=== PATIENT | female | born 1945 | race Hispanic/Latino ===

== ENCOUNTER 2020-02-13 15:56 | Emergency (ER) | payer OTHER ==
--- NOTE | 2020-02-13 17:32 | RAD REPORT ---
EXAM DESCRIPTION: RAD - Shoulder Left 2 View - 02/13/2020 5:19 pm CLINICAL HISTORY: PAIN COMPARISON: Chest Single View dated 02/17/2017; Thorax Wo Con dated 10/27/2016 TECHNIQUE: Internal and external rotation views of the left shoulder were obtained. FINDINGS: There is no fracture or dislocation. AC joint is widened compared to the prior imaging. Pa tient could have mild AC joint separation. Correlation is needed with local symptoms. No displacement of the clavicle. No acute or suspicious findings. IMPRESSION: No fracture or dislocation identifiable. Widening of the AC joint compared to prior imaging. Correlation is needed with mild AC joint separati on findings.
--- NOTE | 2020-02-13 17:34 | RAD REPORT ---
EXAM DESCRIPTION: RAD - Femur Left - 02/13/2020 5:19 pm CLINICAL HISTORY: PAIN COMPARISON: Pelvis March 2014 FINDINGS: No femur fracture is identified. There is no dislocation or periosteal reaction noted. Bi polar hip prosthesis in place. No acute or suspicious bony finding. No air or foreign body in the sof t tissues. IMPRESSION: No left femur fracture. No acute left hip implant or femur finding.
[2020-02-13] MEDS ORDERED: KETOROLAC 30 MG/ML INJ ONE (17:45)
[2020-02-13] MEDS ORDERED: HYDROCODONE/APAP 7.5/325 MG TAB ONE (18:37)
--- NOTE | 2020-02-13 18:39 | EDPHYS ---
[facility] Name: Jacki Brar Age: 74 yrs Sex: Female : 1945 Arrival Date: 02/13/2020 Time: 16:02 Bed 7 Private MD: ED Physician Luz Palafox HPI: 02/12 18:36 This 74 yrs old Female presents to ER via Wheelchair with complaints of Fall ma2 Injury. 18:36 Details of fall: The patient fell from a supine position. Onset: The symptoms/episode ma2 began/occurred suddenly, gradually, 1 hour(s) ago. Severity of symptoms: At their worst the symptoms were moderate, in the emergency department the symptoms are unchanged. The patient has not experienced similar symptoms in the past. left sided hip pain, s/p total hip replacement . Historical: - Allergies: 16:22 No Known Allergies; ca1 - Home Meds: 16:22 Aspirin Oral [Active]; Iron CR Oral [Active]; Prednisone Oral [Active]; ca1 - PMHx: 16:22 Anemia; TIA; ca1 - PSHx: 16:22 x2 Hip replacements; Appendectomy; Cholecystectomy; Tonsillectomy; ca1 - Immunization history:: Adult Immunizations up to date. - Social history:: Smoking status: Patient denies any tobacco usage or history of. Patient/guardian denies using alcohol, street drugs, The patient lives with family. - Family history:: not pertinent. ROS: 18:36 Constitutional: Negative for fever, chills, and weight loss. ma2 18:36 All other systems are negative. Exam: 18:36 Constitutional: This is a well developed, well nourished patient who is awake, alert, ma2 and in no acute distress. Cardiovascular: Regular rate and rhythm with a normal S1 and S2. No gallops, murmurs, or rubs. Normal PMI, no JVD. No pulse deficits. Respiratory: Lungs have equal breath sounds bilaterally, clear to auscultation and percussion. No rales, rhonchi or wheezes noted. No increased work of breathing, no retractions or nasal flaring. Abdomen/GI: Soft, non-tender, with normal bowel sounds. No distension or tympany. No guarding or rebound. No evidence of tenderness throughout. Back: No spinal tenderness. No costovertebral tenderness. Full range of motion. MS/ Extremity: Pulses equal, no cyanosis. Neurovascular intact. Full, normal range of motion. Neuro: Awake and alert, GCS 15, oriented to person, place, time, and situation. Cranial nerves II-XII grossly intact. Motor strength 5/5 in all extremities. Sensory grossly intact. Cerebellar exam normal. Normal gait. Psych: Awake, alert, with orientation to person, place and time. Behavior, mood, and affect are within normal limits. Vital Signs: 16:18 BP 113 / 73; Pulse 115; Resp 16 S; Temp 98.2(TE); Pulse Ox 92% on R/A; Weight 53.98 kg ca1 (R); Height 5 ft. 2 in. (157.48 cm) (R); Pain 8/10; 17:50 BP 156 / 90; Pulse 95; Resp 19; Pulse Ox 97% ; jl7 16:18 Body Mass Index 21.77 (53.98 kg, 157.48 cm) ca1 MDM: 17:13 Patient medically screened. ma2 18:36 Differential diagnosis: abrasion, closed head injury, contusion, fracture, multiple ma2 trauma, sprain, strain. Data reviewed: vital signs, nurses notes. Counseling: I had a detailed discussion with the patient and/or guardian regarding: the historical points, exam findings, and any diagnostic results supporting the discharge/admit diagnosis, the presence of at least one elevated blood pressure reading (>120/80) during this emergency department visit, the need for outpatient follow up. Response to treatment: the patient's symptoms have resolved after treatment. 02/12 16:24 Order name: XRAY Femur LEFT; Complete Time: 18:09 ca1 02/12 16:24 Order name: XRAY Shoulder LEFT 2 view; Complete Time: 18:09 ca1 Administered Medications: 17:45 Drug: TORadol 60 mg Route: IM; Site: right ventrogluteal; jl7 18:15 Follow up: Response: No adverse reaction; Pain is unchanged, physician notified jl7 18:37 Drug: [place] (7.5 mg-325 mg) 1 tabs Route: PO; jl7 Disposition: 02/13/20 18:39 Discharged to Home. Impression: Other sprain of left hip. - Condition is Stable. - Discharge Instructions: Hip Bursitis, [id number]. - Prescriptions for Diclofenac Sodium 75 mg Oral Tablet Sustained Release - take 1 tablet by ORAL route 2 times per day; 30 tablet. - Medication Reconciliation Form, Thank You Letter, Antibiotic Education, Prescription Opioid Use form. - Follow up: Private Physician; When: Tomorrow; Reason: Continuance of care. Signatures: Dispatcher [employer] EDGA Trinidad Mon RN RN aa5 Brenda Barnett RN RN jl7 Luz Palafox MD MD ma2 Tiffany Crawford RN RN ca1 Corrections: (The following items were deleted from the chart) 17:35 16:24 Hip Left 2 View+RAD.RAD.BRZ ordered. [facility] 18:50 18:39 02/13/2020 18:39 Discharged to Home. Impression: Other sprain of left hip. jl7 Condition is Stable. Forms are Medication Reconciliation Form, Thank You Letter, Antibiotic Education, Prescription Opioid Use. Follow up: Private Physician; When: Tomorrow; Reason: Continuance of care. ma2
--- NOTE | 2020-02-13 18:39 | ER ---
Nurse's Notes [facility] Name: Jacki Brar Age: 74 yrs Sex: Female : 1945 Arrival Date: 02/13/2020 Time: 16:02 Bed 7 Private MD: Diagnosis: Other sprain of left hip Presentation: 02/12 16:18 Chief complaint: Patient states: Slipped and fell off 4 steps down. Reports pain on L ca1 hip, L thigh, L shoulder. Denies LOC. Denies hitting head. Coronavirus screen: Proceed with normal triage. Patient denies a cough. Patient denies shortness of breath or difficulty breathing. Patient denies measured and/or subjective temperature greater than 100.4F prior to today's visit. Patient denies travel on a cruise ship or to a country the [facility] currently lists as an affected area. Patient denies contact with known and/or suspected case of COVID-19. Ebola Screen: Patient negative for fever greater than or equal to 101.5 degrees Fahrenheit, and additional compatible Ebola Virus Disease symptoms Patient denies exposure to infectious person. Patient denies travel to an Ebola-affected area in the 21 days before illness onset. No symptoms or risks identified at this time. Initial Sepsis Screen: Does the patient meet any 2 criteria? No. Patient's initial sepsis screen is negative. Does the patient have a suspected source of infection? No. Patient's initial sepsis screen is negative. Risk Assessment: Do you want to hurt yourself or someone else? Patient reports no desire to harm self or others. Onset of symptoms was February 13, 2020. 16:18 Method Of Arrival: Wheelchair ca1 16:18 Acuity: JOSE 3 ca1 Historical: - Allergies: 16:22 No Known Allergies; ca1 - Home Meds: 16:22 Aspirin Oral [Active]; Iron CR Oral [Active]; Prednisone Oral [Active]; ca1 - PMHx: 16:22 Anemia; TIA; ca1 - PSHx: 16:22 x2 Hip replacements; Appendectomy; Cholecystectomy; Tonsillectomy; ca1 - Immunization history:: Adult Immunizations up to date. - Social history:: Smoking status: Patient denies any tobacco usage or history of. Patient/guardian denies using alcohol, street drugs, The patient lives with family. - Family history:: not pertinent. Screenin:50 Abuse screen: Denies threats or abuse. Denies injuries from another. Nutritional jl7 screening: No deficits noted. Tuberculosis screening: No symptoms or risk factors identified. Fall Risk Fall in past 12 months (25 points). Total Infante Fall Scale indicates Low Risk Score (25-44 pts). Fall prevention measures have been instituted. Side Rails Up X 2 Placed close to Nursing Station Frequent Obs/Assesments occuring Family Present and informed to notify staff if they need to leave bedside As available Patient and Family Educated on Fall Prevention Program and strategies. Assessment: 17:30 General: Appears in no apparent distress. uncomfortable, Behavior is calm, cooperative, jl7 appropriate for age. Pain: Complains of pain in left quadriceps, left knee and left crawford Pain currently is 8 out of 10 on a pain scale. Neuro: Level of Consciousness is awake, alert, obeys commands, Oriented to person, place, time, situation. Cardiovascular: Patient's skin is warm and dry. Respiratory: Airway is patent Respiratory effort is even, unlabored, Respiratory pattern is regular, symmetrical. Derm: Skin is pink, warm \T\ dry. Vital Signs: 16:18 BP 113 / 73; Pulse 115; Resp 16 S; Temp 98.2(TE); Pulse Ox 92% on R/A; Weight 53.98 kg ca1 (R); Height 5 ft. 2 in. (157.48 cm) (R); Pain 8/10; 17:50 BP 156 / 90; Pulse 95; Resp 19; Pulse Ox 97% ; jl7 16:18 Body Mass Index 21.77 (53.98 kg, 157.48 cm) ca1 ED Course: 16:02 Patient arrived in ED. ag5 16:21 Triage completed. ca1 16:22 Arm band placed on right wrist. ca1 17:02 Brenda Barnett, KLAUDIA is Primary Nurse. jl7 17:13 Luz Palafox MD is Attending Physician. ma2 17:21 XRAY Femur LEFT In Process Unspecified. EDMS 17:21 XRAY Shoulder LEFT 2 view In Process Unspecified. EDMS 17:50 Patient has correct armband on for positive identification. Bed in low position. Call jl7 light in reach. Side rails up X 1. Pulse ox on. NIBP on. Warm blanket given. 17:51 No provider procedures requiring assistance completed. Patient did not have IV access jl7 during this emergency room visit. Administered Medications: 17:45 Drug: TORadol 60 mg Route: IM; Site: right ventrogluteal; jl7 18:15 Follow up: Response: No adverse reaction; Pain is unchanged, physician notified jl7 18:37 Drug: [place] (7.5 mg-325 mg) 1 tabs Route: PO; jl7 Outcome: 18:39 Discharge ordered by . neeta 18:47 Discharged to home via wheelchair, with family. jl7 18:47 Condition: stable 18:47 Discharge instructions given to patient, family, Instructed on discharge instructions, follow up and referral plans. medication usage, Demonstrated understanding of instructions, follow-up care, medications, Prescriptions given X 18:50 Patient left the ED. jl7 Signatures: Dispatcher [employer] Brenda Guaman RN RN jl7 Luz Palafox MD MD ma2 Acob, Cheryl, RN RN [facility] Abdiel Grady [facility]
[2020-02-13 18:54] VITALS: TEMP 98.2
[2020-02-13 18:55] VITALS: BP 156/90; O2SAT 97
== END 2020-02-13 18:50 | disposition home or self-care (01) ==
LOC: ER 15:56
DX: S73.102A Unspecified sprain of left hip, initial encounter (principal); W10.9XXA Fall (on) (from) unspecified stairs and steps, initial encounter; Y93.9 Activity, unspecified; Y92.9 Unspecified place or not applicable; D64.9 Anemia, unspecified
CPT/HCPCS: 96372; 99284

== ENCOUNTER 2020-02-26 11:24 | Emergency (ER) | payer OTHER ==
[2020-02-26] MEDS ORDERED: HYDROCODONE/APAP 5/325 MG TAB ONE (14:50)
--- NOTE | 2020-02-26 15:41 | RAD REPORT ---
EXAM DESCRIPTION: CT - Spine Lumbar Wo Con - 02/26/2020 3:07 pm CLINICAL HISTORY: fall COMPARISON: None. TECHNIQUE: Thin section axial imaging of the lumbar spine was performed. Sagittal and coronal recon struction images were generated and reviewed. All CT scans are performed using dose optimization technique as appropriate and may include automated exposure control or mA/KV adjustment according to patient size. FINDINGS: T12 shows an approximately 40% wedge compression deformity. Posterior wall height is prese rved. L1 body shows approximately 10% height loss involving the superior endplate. Posterior wall height is preserved. L5 body shows partial collapse along the right lateral margin of the superior endplate. There are scl erotic changes here which would favor a benign etiology. Height loss along the posterior inferior end plate is likely chronic as well. None of these partial compression fractures show acute fracture lines. No paraspinal mass or hematoma . No pathologic bone process identifiable. Within the central canal common no herniation or significant degree of disc bulge identifiable. No ce ntral spinal stenosis. Significant loss of disc height noted at L1-2. No significant foraminal encroachment. Significant height loss at L2-3. Left and right foraminal disc bulges are present without significant stenosis. Significant disc space narrowing L3-4 mild bilateral foraminal encroachment changes eviden t. There is left-sided foraminal and far lateral, extraforaminal disc bulge at L3-4. Mild circumferential bulging of disc material at L4-5. No significant encroachment. Mild left foramin al stenosis at L5-S1. IMPRESSION: Partial compression fractures are present in T12, L1 and L5. Chronic etiology is favored but cannot be confirmed. No pathologic bone process or paraspinal mass. No disc herniation or central spinal stenosis. Degenerative changes show evidence for foraminal steno sis at L3-4 and on the left at L5-S1. As clinical findings warrant, follow-up nonemergent MR lumbar spine imaging could be performed to kaylie luate for any active marrow edema.
--- NOTE | 2020-02-26 16:03 | EDPHYS ---
Physician Documentation [facility] Name: Jacki Brar Age: 74 yrs Sex: Female : 1945 Arrival Date: 02/26/2020 Time: 11:26 Bed 5 Private MD: ED Physician Te Taylor HPI: 02/25 14:59 This 74 yrs old Female presents to ER via Wheelchair with complaints of Back mh7 Pain. 14:59 The patient presents with pain that is acute, and an injury. The symptoms are located mh7 in the low back. Onset: The symptoms/episode began/occurred 2 week(s) ago. The pain does not radiate. Associated signs and symptoms: Pertinent negatives: abdominal pain, chest pain, constipation, dysuria, fever, headache, hematuria, incontinence, nausea, numbness, tingling, urinary retention, vomiting, weakness. The problem was sustained during a fall, while walking. Modifying factors: The patient symptoms are alleviated by nothing, the patient symptoms are aggravated by movement. Severity of symptoms: At their worst the symptoms were moderate, last night, in the emergency department the symptoms have improved, mildly. Historical: - Allergies: 11:34 No Known Allergies; ll1 - PMHx: 11:34 TIA; Anemia; ll1 - PSHx: 11:34 x2 Hip replacements; Cholecystectomy; Tonsillectomy; Appendectomy; ll1 - Immunization history:: Flu vaccine is up to date. - Social history:: Smoking status: Patient denies any tobacco usage or history of. Patient/guardian denies using alcohol, street drugs, tobacco products. ROS: 14:59 Constitutional: Negative for fever, chills, and weight loss, Eyes: Negative for injury, mh7 pain, redness, and discharge, ENT: Negative for injury, pain, and discharge, Neck: Negative for injury, pain, and swelling, Cardiovascular: Negative for chest pain, palpitations, and edema, Respiratory: Negative for shortness of breath, cough, wheezing, and pleuritic chest pain, Abdomen/GI: Negative for abdominal pain, nausea, vomiting, diarrhea, and constipation, : Negative for injury, bleeding, discharge, and swelling, MS/Extremity: Negative for injury and deformity, Skin: Negative for injury, rash, and discoloration, Neuro: Negative for headache, weakness, numbness, tingling, and seizure, Psych: Negative for depression, anxiety, suicide ideation, homicidal ideation, and hallucinations, Allergy/Immunology: Negative for hives, rash, and allergies, Endocrine: Negative for neck swelling, polydipsia, polyuria, polyphagia, and marked weight changes, Hematologic/Lymphatic: Negative for swollen nodes, abnormal bleeding, and unusual bruising. Exam: 14:59 Constitutional: This is a well developed, well nourished patient who is awake, alert, mh7 and in no acute distress. Head/Face: Normocephalic, atraumatic. Eyes: Pupils equal round and reactive to light, extra-ocular motions intact. Lids and lashes normal. Conjunctiva and sclera are non-icteric and not injected. Cornea within normal limits. Periorbital areas with no swelling, redness, or edema. Neck: Trachea midline, no thyromegaly or masses palpated, and no cervical lymphadenopathy. Supple, full range of motion without nuchal rigidity, or vertebral point tenderness. No Meningismus. Chest/axilla: Normal chest wall appearance and motion. Nontender with no deformity. No lesions are appreciated. Cardiovascular: Regular rate and rhythm with a normal S1 and S2. No gallops, murmurs, or rubs. Normal PMI, no JVD. No pulse deficits. Respiratory: Lungs have equal breath sounds bilaterally, clear to auscultation and percussion. No rales, rhonchi or wheezes noted. No increased work of breathing, no retractions or nasal flaring. Abdomen/GI: Soft, non-tender, with normal bowel sounds. No distension or tympany. No guarding or rebound. No evidence of tenderness throughout. 14:59 MS/ Extremity: Pulses equal, no cyanosis. Neurovascular intact. Full, normal range of motion. Neuro: Awake and alert, GCS 15, oriented to person, place, time, and situation. Cranial nerves II-XII grossly intact. Motor strength 5/5 in all extremities. Sensory grossly intact. Cerebellar exam normal. Normal gait. Psych: Awake, alert, with orientation to person, place and time. Behavior, mood, and affect are within normal limits. 14:59 Back: pain, that is moderate, of the lumbar area, ROM is painful, with all movement, normal spinal alignment noted, CVA tenderness, is absent, vertebral tenderness, is appreciated at lumbar, muscle spasm, is appreciated in the lumbar area, Straight leg raises: of both lower extremities does not illicit pain. Vital Signs: 11:35 BP 164 / 69; Pulse 87; Resp 17; Temp 98.4; Pulse Ox 97% ; Pain 10/10; ll1 14:32 BP 158 / 76; Pulse 90; Resp 16; Pulse Ox 96% ; sv 15:24 BP 145 / 61; Pulse 85; Resp 16; Pulse Ox 99% ; sv MDM: 15:58 Differential diagnosis: arthritis, chronic back pain, Fracture Ligament Injury [facility] Osteoarthritis ruptured disc, sprain, vertebral fracture. Data reviewed: vital signs, nurses notes, old medical records, radiologic studies, CT scan. Data interpreted: Pulse oximetry: on room air is 99 %. Interpretation: normal. Counseling: I had a detailed discussion with the patient and/or guardian regarding: the historical points, exam findings, and any diagnostic results supporting the discharge/admit diagnosis, the presence of at least one elevated blood pressure reading (>120/80) during this emergency department visit, radiology results, the need for outpatient follow up, to return to the emergency department if symptoms worsen or persist or if there are any questions or concerns that arise at home. Response to treatment: the patient's symptoms have markedly improved after treatment. 16:01 Patient medically screened. [facility] 02/25 14:41 Order name: CT Lumbar Spine Wo Con; Complete Time: 15:53 [facility] Administered Medications: 14:45 Drug: [place] 5 mg-325 mg 1 tabs {Note: rass2.} Route: PO; sv 15:22 Follow up: Response: No adverse reaction; Pain is decreased; RASS: Alert and Calm (0) sv Disposition: 02/26/20 16:02 Discharged to Home. Impression: Lumbar Compression Fractures, Thoracic Spine Compression Fracture. - Condition is Stable. - Discharge Instructions: Spinal Compression Fracture. - Prescriptions for Robaxin 500 mg Oral Tablet - take 2 tablet by ORAL route every 6 hours As needed; 40 tablet. Tylenol- Codeine #3 300-30 mg Oral Tablet - take 1 tablet by ORAL route every 6 hours As needed; 20 tablet. Colace 100 mg Oral Tablet - take 1 tablet by ORAL route every 12 hours; 14 tablet. - Medication Reconciliation Form, Thank You Letter, Antibiotic Education, Prescription Opioid Use form. - Follow up: Private Physician; When: 1 - 2 days; Reason: Worsening of condition, Recheck today's complaints, Re-evaluation by your physician. - Problem is an ongoing problem. - Symptoms have improved. Signatures: Dispatcher [employer] EDRadha Hernandez RN RN Alex Elizabeth RN RN ll1 Te Taylor MD MD mh7 Corrections: (The following items were deleted from the chart) 16:57 16:02 02/26/2020 16:02 Discharged to Home. Impression: Lumbar Compression Fractures; sv Thoracic Spine Compression Fracture. Condition is Stable. Forms are Medication Reconciliation Form, Thank You Letter, Antibiotic Education, Prescription Opioid Use. Follow up: Private Physician; When: 1 - 2 days; Reason: Worsening of condition, Recheck today's complaints, Re-evaluation by your physician. Problem is an ongoing problem. Symptoms have improved. mh7
--- NOTE | 2020-02-26 16:03 | ER ---
Nurse's Notes [facility] Name: Jacki Brar Age: 74 yrs Sex: Female : 1945 Arrival Date: 02/26/2020 Time: 11:26 Bed 5 Private MD: Diagnosis: Lumbar Compression Fractures;Thoracic Spine Compression Fracture Presentation: 02/25 11:35 Chief complaint: Patient states: Has had low back pain since fall February 12. Was seen ll1 here. Left knee pain, bruising is slowly getting better. Low back still hurts, radiates into right buttock. Coronavirus screen: Proceed with normal triage. Patient denies a cough. Patient denies shortness of breath or difficulty breathing. Patient denies measured and/or subjective temperature greater than 100.4F prior to today's visit. Patient denies travel on a cruise ship or to a country the [facility] currently lists as an affected area. Patient denies contact with known and/or suspected case of COVID-19. Ebola Screen: Patient denies travel to an Ebola-affected area in the 21 days before illness onset. Initial Sepsis Screen: Does the patient meet any 2 criteria? No. Patient's initial sepsis screen is negative. Does the patient have a suspected source of infection? No. Patient's initial sepsis screen is negative. Risk Assessment: Do you want to hurt yourself or someone else? Patient reports no desire to harm self or others. Onset of symptoms was February 13, 2020. 11:35 Method Of Arrival: Wheelchair ll1 11:35 Acuity: JOSE 4 ll1 Historical: - Allergies: 11:34 No Known Allergies; ll1 - PMHx: 11:34 TIA; Anemia; ll1 - PSHx: 11:34 x2 Hip replacements; Cholecystectomy; Tonsillectomy; Appendectomy; ll1 - Immunization history:: Flu vaccine is up to date. - Social history:: Smoking status: Patient denies any tobacco usage or history of. Patient/guardian denies using alcohol, street drugs, tobacco products. Screenin:33 Abuse screen: Denies threats or abuse. Denies injuries from another. Nutritional sv screening: No deficits noted. Tuberculosis screening: No symptoms or risk factors identified. Fall Risk None identified. Assessment: 14:22 General: Appears in no apparent distress. uncomfortable, Behavior is calm, cooperative, sv appropriate for age. Pain: Complains of pain in low back area Pain radiates to right gluteus luz Pain currently is 10 out of 10 on a pain scale. Is continuous, Aggravated by increased activity. Neuro: Level of Consciousness is awake, alert, obeys commands, Oriented to person, place, time, situation, Moves all extremities. Full function Gait is steady. Respiratory: Airway is patent Respiratory effort is even, unlabored, Respiratory pattern is regular, symmetrical. Derm: Skin is intact, Skin is pink, warm \T\ dry. Bruising that is dark purple, on left knee. Musculoskeletal: Range of motion: intact in all extremities. 15:21 Reassessment: Patient appears in no apparent distress at this time. No changes from previously documented assessment. Patient and/or family updated on plan of care and expected duration. Pain level reassessed. Patient is alert, oriented x 3, equal unlabored respirations, skin warm/dry/pink. 16:20 Reassessment: Patient appears in no apparent distress at this time. Patient and/or sv family updated on plan of care and expected duration. Pain level reassessed. Patient is alert, oriented x 3, equal unlabored respirations, skin warm/dry/pink. Pt waiting on her transportation home. Vital Signs: 11:35 BP 164 / 69; Pulse 87; Resp 17; Temp 98.4; Pulse Ox 97% ; Pain 10/10; ll1 14:32 BP 158 / 76; Pulse 90; Resp 16; Pulse Ox 96% ; sv 15:24 BP 145 / 61; Pulse 85; Resp 16; Pulse Ox 99% ; sv ED Course: 11:26 Patient arrived in ED. mr 11:34 Arm band placed on Patient notified of wait time. ll1 11:37 Triage completed. ll1 13:09 Radha Fam, KLAUDIA is Primary Nurse. sv 13:57 Te Taylor MD is Attending Physician. mh7 14:23 Awaiting ED provider evaluation. sv 14:33 Patient has correct armband on for positive identification. Bed in low position. Call sv light in reach. Pulse ox on. NIBP on. 14:[address] Scan. sv 15:07 CT Lumbar Spine Wo Con In Process Unspecified. EDMS 15:21 Awaiting radiology results. Awaiting re-evaluation by ER provider. sv 16:20 No provider procedures requiring assistance completed. Patient did not have IV access sv during this emergency room visit. Administered Medications: 14:45 Drug: [place] 5 mg-325 mg 1 tabs {Note: rass2.} Route: PO; sv 15:22 Follow up: Response: No adverse reaction; Pain is decreased; RASS: Alert and Calm (0) sv Outcome: 16:02 Discharge ordered by MD. chion 16:20 Discharged to home via wheelchair, with family. sv 16:20 Condition: stable 16:20 Discharge instructions given to patient, Instructed on discharge instructions, follow up and referral plans. no drinking with medication, no driving heavy equipment, medication usage, increase fluids to prevent constipation Demonstrated understanding of instructions, follow-up care, medications, Prescriptions given X 3. 16:57 Patient left the ED. sv Signatures: Dispatcher [employer] EDRadha Hernandez RN KLAUDIA sv Layla Hicks Lynsay, RN RN ll1 Te Taylor MD MD 7 Corrections: (The following items were deleted from the chart) 16:34 14:22 Derm: Skin is intact, Skin is pink, warm \T\ dry. sv sv
[2020-02-26 18:05] VITALS: BP 145/61; O2SAT 99
== END 2020-02-26 16:57 | disposition home or self-care (01) ==
LOC: ER 11:24
DX: S32.019A Unspecified fracture of first lumbar vertebra, initial encounter for closed fracture (principal); S32.059A Unspecified fracture of fifth lumbar vertebra, initial encounter for closed fracture; S22.089A Unspecified fracture of T11-T12 vertebra, initial encounter for closed fracture; X58.XXXA Exposure to other specified factors, initial encounter; Y93.9 Activity, unspecified; Y92.9 Unspecified place or not applicable
CPT/HCPCS: 72131; 99284

== ENCOUNTER 2020-06-02 21:40 | Inpatient (IN) | payer OTHER ==
[2020-06-02 22:49] LABS: Absolute Lymphocytes (CBC) 1.6 K/uL (0.7-4.9); Basophils % 0.7 % (0-1.3); Hematocrit 35.9 % (36.0-45.0); Lymphocytes % 15.7 % (15.3-44.8); MPV 7.3 fL (7.6-11.3); RBC Red Blood Cell Count 4.35 M/uL (3.86-4.86)
[2020-06-02 23:06] LABS: ALT/SGPT 24 U/L (12-78); AST/SGOT 11 U/L (15-37); Albumin 3.3 g/dL (3.4-5.0); Alkaline Phosphatase 147 U/L (45-117); BUN Blood Urea Nitrogen 16 mg/dL (7-18); Bicarbonate 24 mmol/L (21-32); Bilirubin Total 0.4 mg/dL (0.2-1.0); Glucose Level 99 mg/dL (74-106); Potassium 3.5 mmol/L (3.5-5.1); Protein, Total 7.6 g/dL (6.4-8.2); Sodium Level 145 mmol/L (136-145); Troponin I < 0.02 ng/mL (0.0-0.045)
[2020-06-02] MEDS ORDERED: GLUCAGON 1 MG/VIAL ONE ×2 (23:10→23:52)
[2020-06-02] MEDS ORDERED: ONDANSETRON 4 MG/2 ML VIAL ONE (23:11)
[2020-06-02] MEDS ORDERED: NA CHLORIDE 0.9% 250 ML ONE (23:53)
--- NOTE | 2020-06-03 00:20 | EDPHYS ---
Physician Documentation [facility] Name: Jacki Brar Age: 75 yrs Sex: Female : 1945 Arrival Date: 06/02/2020 Time: 21:43 Bed 13 Private MD: ED Physician Karthik Levine HPI: 06/02 22:14 This 75 yrs old Female presents to ER via Ambulatory with complaints of cp Difficulty Swallowing. 22:14 The patient presents with sore throat, dysphagia, of both solids and liquids. Onset: cp The symptoms/episode began/occurred today, at 17:00. Associated signs and symptoms: Pertinent positives: chest pain, dysphagia, nausea, Pertinent negatives cough, fever, vomiting. Patient reports she was eating small bites of chicken when she felt like piece of chicken became stuck in throat. Historical: - Allergies: 21:47 No Known Allergies; ll1 - PMHx: 21:47 Anemia; TIA; ll1 - PSHx: 21:47 x2 Hip replacements; Cholecystectomy; Tonsillectomy; Appendectomy; ll1 - Immunization history:: Flu vaccine is up to date. - Social history:: Smoking status: Patient denies any tobacco usage or history of. ROS: 22:15 Constitutional: Negative for body aches, chills, fever. cp 22:15 ENT: Positive for difficulty swallowing, foreign body sensation, sore throat, Negative for difficulty handling secretions. 22:15 Cardiovascular: Positive for chest pain, Negative for palpitations. 22:15 Respiratory: Negative for cough, shortness of breath, wheezing. 22:15 Abdomen/GI: Positive for nausea, Negative for vomiting, diarrhea, constipation. 22:15 Back: Negative for radiated pain. 22:15 Neuro: Negative for altered mental status, headache, weakness. 22:15 All other systems are negative. Exam: 22:20 Constitutional: The patient appears in no acute distress, alert, awake, cp non-diaphoretic, non-toxic, well developed, well nourished. 22:20 Head/Face: Normocephalic, atraumatic. cp 22:20 Eyes: Periorbital structures: appear normal, Conjunctiva: normal, no exudate, no cp injection, Sclera: no appreciated abnormality, Lids and lashes: appear normal, bilaterally. 22:20 ENT: External ear(s): are unremarkable, Ear canal(s): are normal, clear, TM's: dullness, bilaterally, Nose: is normal, Mouth: Lips: moist, Oral mucosa: pink and intact, moist, Posterior pharynx: Airway: no evidence of obstruction, patent, Uvula: midline, non-edematous, no erythema, Voice: is normal. 22:20 Neck: ROM/movement: is normal, is supple, no meningismus, no nuchal rigidity. 22:20 Chest/axilla: Inspection: normal, Palpation: is normal, no crepitus, no tenderness. 22:20 Cardiovascular: Rate: normal, Rhythm: regular, Edema: is not appreciated, JVD: is not appreciated. 22:20 Respiratory: the patient does not display signs of respiratory distress, Respirations: normal, no use of accessory muscles, no retractions, labored breathing, is not present, Breath sounds: are clear throughout, no decreased breath sounds, no stridor, no wheezing. 22:20 Abdomen/GI: Inspection: abdomen appears normal, Bowel sounds: active, all quadrants, Palpation: abdomen is soft and non-tender, in all quadrants. 22:20 Neuro: Orientation: to person, place \T\ time. Mentation: is normal, Motor: moves all fours, strength is normal. 22:51 ECG was reviewed by the Attending Physician. cp Vital Signs: 21:46 Pulse 96; Resp 18; Temp 98.6; Pulse Ox 98% ; Weight 48.99 kg; Height 5 ft. 2 in. ll1 (157.48 cm); Pain 10/10; 21:48 BP 176 / 85; ll1 06/03 00:42 BP 179 / 78; Pulse 90; Resp 16; Pulse Ox 94% on R/A; jb4 01:30 BP 130 / 76; Pulse 87; Resp 16; Pulse Ox 96% ; jb4 06/02 21:46 Body Mass Index 19.75 (48.99 kg, 157.48 cm) ll1 NIH Stroke Scale Scores: 06/02 21:55 NIHSS Score: 0 sg MDM: 21:56 Patient medically screened. cp 23:44 Physician consultation: GIL Danielle with office of DR Carballo, will call me back after cp consulting DR Carballo. 23:45 Data reviewed: vital signs, nurses notes, lab test result(s), EKG, radiologic studies, cp plain films. 23:45 ED course: VSS. Patient continues to reports sensation of foreign body in throat, cp difficulty swallowing and was unable to tolerate po fluids w/o vomiting, will contact GI and admit patient. 06/03 00:23 Physician consultation: Ammon Carballo MD was contacted at 00:10, regarding consult, cp patient's condition, and will see patient later today. 06/02 22:08 Order name: CBC with Diff; Complete Time: 22:59 06/02 22:59 Interpretation: Normal except: HCT 35.9; MPV 7.3; GARY% 77.1. cp 06/02 22:08 Order name: CMP; Complete Time: 23:19 cp 06/02 22:02 Order name: XRAY Chest (1 view) 06/02 22:08 Order name: Strep 06/02 22:08 Order name: Troponin I; Complete Time: 23:19 06/02 23:50 Order name: Throat Culture EDMS 06/02 22:08 Order name: IV; Complete Time: 22:47 06/02 22:08 Order name: EKG; Complete Time: 22:09 06/02 22:08 Order name: EKG - Nurse/Tech; Complete Time: 22:48 06/02 23:55 Order name: NPO; Complete Time: 00:05 cp EC/30 22:51 Rate is 84 beats/min. Rhythm is regular. ND interval is normal. QRS interval is normal. cp QT interval is normal. T waves are Inverted in lead aVR. Interpreted by me. Reviewed by me. Administered Medications: 23:03 Drug: Zofran (Ondansetron) 4 mg Route: IVP; Site: left antecubital; rv 23:03 Drug: Glucagon 1 mg Route: IVP; Site: left antecubital; rv 23:45 Drug: NS 0.9% 250 ml Route: IV; Rate: bolus; Site: left forearm; rv 23:46 Drug: GlucaGen 1 mg Route: IVP; Site: left forearm; rv 06/03 00:57 Drug: fentaNYL (PF) 25 mcg Route: IVP; Site: left forearm; jb4 01:30 Follow up: Response: No adverse reaction; Pain is decreased; RASS: Alert and Calm (0) jb4 Disposition: 00:30 Chart complete. cp 02:44 Co-signature as Attending Physician, Karthik Levine MD. rn Disposition: 06/03/20 00:19 Hospitalization ordered by Mike Levine for Observation. Preliminary diagnosis is Dysphagia, unspecified - suspected food bolus. - Bed requested for Telemetry/MedSurg (observation). - Status is Observation. sg - Condition is Stable. - Problem is new. - Symptoms are unchanged. NIH Stroke Scale - NIH Stroke Score Date: 06/02/2020 Time: 21:55 Total Score = 0 1a. Level of Consciousness (LOC) - 0(Alert) 1b. Level of Consciousness (LOC) (Year \T\ Age) - 0(Both) 1c. LOC Commands (Open \T\ Closes Eyes/Weapons Designer) - 0(Both) 2. Best Gaze (Lateral Gaze Paresis) - 0(Normal) 3. Visual Field Loss - 0(No visual loss) 4. Facial Palsy - 0(Normal) 5a. Left Arm: Motor (10-second hold) - 0(No drift) 5b. Right Arm: Motor (10-second hold) - 0(No drift) 6a. Left Leg: Motor (5-second hold - always test supine) - 0(No drift) 6b. Right Leg: Motor (5-second hold - always test supine) - 0(No drift) 7. Limb Ataxia (finger/nose \T\ heel/crawford - test with eyes open) - 0(Absent) 8. Sensory Loss (pinprick arms/legs/face) - 0(Normal) 9. Best Language: Aphasia (description/naming/reading) - 0(No aphasia) 10. Dysarthria (speech clarity - read or repeat words) - 0(Normal) 11. Extinction and Inattention (visual/tactile/auditory/spatial/personal) - 0(No abnormality) Initials: sg Signatures: Dispatcher [employer] EDMS Karthik Villavicencio RN Karthik Chau MD MD rn Lasagna, Tonya, RN RN tl1 Ivan Hayward PA PA cp Bryson, James, KLAUDIA RN jb4 Waldo Santos RN RN rv Lewis, Lynsay RN RN ll1 Corrections: (The following items were deleted from the chart) 00:20 00:19 Hospitalization Ordered by Mike Levine MD for Observation. Preliminary cp diagnosis is Dysphagia, unspecified. Bed requested for Telemetry/MedSurg (observation). Status is Observation. Condition is Stable. Problem is new. Symptoms are unchanged. cp 00:22 06/02 22:50 Fluid Challenge ordered. cp jb4 06/03 01:05 00:20 06/03/2020 00:19 Hospitalization Ordered by Mike Levine MD for tl1 Observation. Preliminary diagnosis is Dysphagia, unspecified - suspected food bolus. Bed requested for Telemetry/MedSurg (observation). Status is Observation. Condition is Stable. Problem is new. Symptoms are unchanged. cp 02:00 01:05 06/03/2020 00:19 Hospitalization Ordered by Mike Levine MD for sg Observation. Preliminary diagnosis is Dysphagia, unspecified - suspected food bolus. Bed requested for Telemetry/MedSurg (observation). Status is Observation. Condition is Stable. Problem is new. Symptoms are unchanged. tl1
--- NOTE | 2020-06-03 00:20 | ER ---
Nurse's Notes [facility] Name: Jacki Brar Age: 75 yrs Sex: Female : 1945 Arrival Date: 06/02/2020 Time: 21:43 Bed 13 Private MD: Diagnosis: Dysphagia, unspecified-suspected food bolus Presentation: 06/02 21:46 Chief complaint: Patient states: Feels like something is stuck in her throat since 1700 ll1 today. Has happened once in that past, has a stricture. Coronavirus screen: Client denies travel out of the [place] in the last 14 days. At this time, the client does not indicate any symptoms associated with coronavirus-19. Ebola Screen: Patient denies travel to an Ebola-affected area in the 21 days before illness onset. Initial Sepsis Screen: Does the patient meet any 2 criteria? HR > 90 bpm. No. Patient's initial sepsis screen is negative. Risk Assessment: Do you want to hurt yourself or someone else? Patient reports no desire to harm self or others. Onset of symptoms was June 02, 2020. 21:46 Method Of Arrival: Ambulatory ll1 21:46 Acuity: JOSE 3 ll1 23:04 Initial Sepsis Screen: Does the patient have a suspected source of infection? No. rv Patient's initial sepsis screen is negative. Historical: - Allergies: 21:47 No Known Allergies; ll1 - PMHx: 21:47 Anemia; TIA; ll1 - PSHx: 21:47 x2 Hip replacements; Cholecystectomy; Tonsillectomy; Appendectomy; ll1 - Immunization history:: Flu vaccine is up to date. - Social history:: Smoking status: Patient denies any tobacco usage or history of. Screenin:04 Abuse screen: Denies threats or abuse. Denies injuries from another. Nutritional rv screening: No deficits noted. Tuberculosis screening: No symptoms or risk factors identified. Fall Risk None identified. Assessment: 23:03 General: Appears comfortable, Behavior is calm, cooperative. Pain: Complains of pain in rv throat. Neuro: Level of Consciousness is awake, alert, obeys commands, Oriented to person, place, time, situation. Cardiovascular: Patient's skin is warm and dry. Respiratory: Airway is patent Respiratory effort is even, unlabored, Breath sounds are clear bilaterally. EENT: Throat is pink with gag reflex present. 06/03 00:00 Reassessment: Patient appears in no apparent distress at this time. Patient and/or jb4 family updated on plan of care and expected duration. Pain level reassessed. Patient is alert, oriented x 3, equal unlabored respirations, skin warm/dry/pink. 00:42 Reassessment: Patient appears in no apparent distress at this time. Patient and/or jb4 family updated on plan of care and expected duration. Pain level reassessed. Patient is alert, oriented x 3, equal unlabored respirations, skin warm/dry/pink. 01:30 Reassessment: Patient appears in no apparent distress at this time. Patient and/or jb4 family updated on plan of care and expected duration. Pain level reassessed. Patient is alert, oriented x 3, equal unlabored respirations, skin warm/dry/pink. Patient states feeling better. Vital Signs: 06/02 21:46 Pulse 96; Resp 18; Temp 98.6; Pulse Ox 98% ; Weight 48.99 kg; Height 5 ft. 2 in. ll1 (157.48 cm); Pain 06/12; 21:48 BP 176 / 85; ll1 06/03 00:42 BP 179 / 78; Pulse 90; Resp 16; Pulse Ox 94% on R/A; jb4 01:30 BP 130 / 76; Pulse 87; Resp 16; Pulse Ox 96% ; jb4 06/02 21:46 Body Mass Index 19.75 (48.99 kg, 157.48 cm) ll1 NIH Stroke Scale Scores: 06/02 21:55 NIHSS Score: 0 sg ED Course: 21:43 Patient arrived in ED. cl3 21:47 Triage completed. ll1 21:48 Arm band placed on Patient placed in an exam room, on a stretcher. ll1 21:52 Waldo Santos RN is Primary Nurse. rv 21:55 Ivan Hayward PA is PHCP. cp 21:55 Karthik Levine MD is Attending Physician. cp 22:30 EKG done, by ED staff, reviewed by Ivan JOHN. Inserted saline lock: 20 gauge in ds4 left forearm, using aseptic technique. Blood collected. 22:54 XRAY Chest (1 view) In Process Unspecified. EDMS 23:04 Patient has correct armband on for positive identification. Pulse ox on. NIBP on. rv 06/03 00:19 Mike Levine MD is Hospitalizing Provider. cp 01:30 No provider procedures requiring assistance completed. Patient admitted, IV remains in jb4 place. Administered Medications: 06/02 23:03 Drug: Zofran (Ondansetron) 4 mg Route: IVP; Site: left antecubital; rv 23:03 Drug: Glucagon 1 mg Route: IVP; Site: left antecubital; rv 23:45 Drug: NS 0.9% 250 ml Route: IV; Rate: bolus; Site: left forearm; rv 23:46 Drug: GlucaGen 1 mg Route: IVP; Site: left forearm; rv 06/03 00:57 Drug: fentaNYL (PF) 25 mcg Route: IVP; Site: left forearm; jb4 01:30 Follow up: Response: No adverse reaction; Pain is decreased; RASS: Alert and Calm (0) jb4 Outcome: 00:19 Decision to Hospitalize by Provider. cp 01:30 Admitted to Med/surg accompanied by nurse, via wheelchair, room 203, with chart, Report jb4 called to KLAUDIA Casey 01:30 Condition: stable 01:30 Discharge instructions given to patient, Instructed on the need for admit, Demonstrated understanding of instructions. 02:00 Patient left the ED. NIH Stroke Scale - NIH Stroke Score Date: 06/02/2020 Time: 21:55 Total Score = 0 1a. Level of Consciousness (LOC) - 0(Alert) 1b. Level of Consciousness (LOC) (Year \T\ Age) - 0(Both) 1c. LOC Commands (Open \T\ Closes Eyes/Older Adult Social Work Specialist) - 0(Both) 2. Best Gaze (Lateral Gaze Paresis) - 0(Normal) 3. Visual Field Loss - 0(No visual loss) 4. Facial Palsy - 0(Normal) 5a. Left Arm: Motor (10-second hold) - 0(No drift) 5b. Right Arm: Motor (10-second hold) - 0(No drift) 6a. Left Leg: Motor (5-second hold - always test supine) - 0(No drift) 6b. Right Leg: Motor (5-second hold - always test supine) - 0(No drift) 7. Limb Ataxia (finger/nose \T\ heel/crawford - test with eyes open) - 0(Absent) 8. Sensory Loss (pinprick arms/legs/face) - 0(Normal) 9. Best Language: Aphasia (description/naming/reading) - 0(No aphasia) 10. Dysarthria (speech clarity - read or repeat words) - 0(Normal) 11. Extinction and Inattention (visual/tactile/auditory/spatial/personal) - 0(No abnormality) Initials: sg Signatures: Dispatcher [employer] EDKarthik Cabral, RN RN sg Pool Qureshi ds4 Ivan Hayward PA PA cp Bryson, James, RN RN jb4 Waldo Santos RN RN Rosario Slater cl3 Alex Franklin RN RN ll1
[2020-06-03] MEDS ORDERED: FENTANYL CITR 100 MCG/2 ML ONE (01:04)
--- NOTE | 2020-06-03 01:22 | P.HP ---
Certification for Inpatient Patient admitted to: Observation With expected LOS: <2 Midnights Patient will require the following post-hospital care: None Practitioner: I am a practitioner with admitting privileges, knowledge of patient current condition, hospital course, and medical plan of care. Services: Services provided to patient in accordance with Admission requirements found in Title 42 Section 412.3 of the Code of Federal Regulations <Randolph Webb - Last Filed: 06/03/20 01:17> Patient History Date of Service: 06/03/20 Primary Care Provider: Charlotte Cruz Reason for admission: Food bolus History of Present Illness: 75-year-old female with history of pulmonary fibrosis, rheumatoid art hritis, CVA presents emergency department for dysphagia. Patient reports that she had an episode yesterday where she is trying to eat some sweets are poor and she began to have some difficulty swallowing, was vomiting but this episode resolved and she is doing well. Earlier this evening she was eating some chicken with gravy and had another similar episode where she felt like her food got caught and since then she has been unable to tolerate even small sips of water by mouth without vomiting. Patient reports she had similar episode in the past and was admitted here and up having to have her esophagus dilated. Patient's workup in the emergency department was unremarkable, gastroenterology was called and would be happy to see her in the morning for endoscopy. When I saw the patient in emergency department she is awake, alert, oriented x3 in no distress. Will admit patient for further evaluation and management. Home medications list reviewed: Yes - Past Medical/Surgical History Diabetic: No -: Osteoarthritis -: Anemia -: Rheumatoid arthritis -: Pulmonary fibrosis -: Appendectomy -: Cholecystectomy -: Right hip replacement -: Left hip hemiarthroplasty -: tonsillectomy Psychosocial/ Personal History: She is . She has 3 children. 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 - Family History Mother -: Lung disease Father -: Heart disease Sister Notes: skin disorder - Social History Smoking Status: Never smoker Alcohol use: Yes CD- Drugs: No Caffeine use: Yes Place of Residence: Home <Randolph Webb - Last Filed: 06/03/20 01:17> Date of Service: 06/03/20 <Mike Levine - Last Filed: 06/03/20 19:48> Allergies No Known Allergies Allergy (Verified 06/03/20 03:55) Home Medications: Aspirin [Lo-Dose Aspirin EC] 81 mg PO DAILY 06/03/20 Multivitamin [Multivitamins] 1 each PO DAILY 06/03/20 Pirfenidone [Esbriet] 2 tab PO BID 06/03/20 predniSONE [Deltasone] 10 mg PO DAILY 06/03/20 Review of Systems 10-point ROS is otherwise unremarkable Gastrointestinal: Nausea, Vomiting <Randolph Webb - Last Filed: 06/03/20 01:17> Physical Examination - Physical Exam General: Alert, In no apparent distress HEENT: Atraumatic, PERRLA, Mucous membr. moist/pink Neck: Supple, 2+ carotid pulse no bruit, No LAD Respiratory: Clear to auscultation bilaterally, Normal air movement Cardiovascular: Regular rate/rhythm, Normal S1 S2 Gastrointestinal: Normal bowel sounds, No tenderness Musculoskeletal: No tenderness Integumentary: No rashes Neurological: Normal gait, Normal speech, Normal strength at 5/5 x4 extr, Normal tone, Normal affect - Studies Laboratory Data (last 24 hrs) 06/02/20 22:25: Sodium 145, Potassium 3.5, BUN 16, Creatinine 0.78, Glucose 99, Total Bilirubin 0.4, AST 11 L, ALT 24, Alkaline Phosphatase 147 H, Troponin I < 0.02 06/02/20 22:25: WBC 10.4, Hgb 12.1, Hct 35.9 L, Plt Count 308 Microbiology Data (last 24 hrs): 06/02/20 22:28 Throat Group A Streptococcus Rapid Screen - Final <Randolph Webb - Last Filed: 06/03/20 01:17> - Studies Laboratory Data (last 24 hrs) 06/02/20 22:25: Sodium 145, Potassium 3.5, BUN 16, Creatinine 0.78, Glucose 99, Total Bilirubin 0.4, AST 11 L, ALT 24, Alkaline Phosphatase 147 H, Troponin I < 0.02 06/02/20 22:25: WBC 10.4, Hgb 12.1, Hct 35.9 L, Plt Count 308 Microbiology Data (last 24 hrs): 06/02/20 22:28 Throat Group A Streptococcus Rapid Screen - Final <Mike Levine - Last Filed: 06/03/20 19:48> Assessment and Plan - Plan Assessment Food bolus likely secondary to esophageal stricture Pulmonary fibrosis Hypertension Rheumatoid arthritis Plan Food bolus likely secondary to esophageal stricture: Patient NPO at this time, Gastroenterology consult in place. Continue with p.r.n. pain, nausea medications and gentle hydration. Appreciate further input from gastroenterology. Pulmonary fibrosis: Patient unaware of what medications she currently takes a reports that she does take 1 medication prescribed from pulmonology. Will have nursing staff obtained and verify medications. Will continue when appropriate. Hypertension: Patient denies history of hypertension was markedly hypertensive in the emergency department at 190 systolic, patient had vomited recently. Will continue to monitor patient's blood pressure throughout this hospitalization and give medications as needed. Rheumatoid arthritis: Obtain and continue patient's home medications. Discharge Plan: Home Plan to discharge in: 24 Hours - Advance Directives Does patient have a Living Will: No Does patient have a Durable POA for Healthcare: No - Code Status/Comfort Care Code Status Assessed: Yes (Patient is full code) Critical Care: No Time Spent Managing Pts Care (In Minutes): 55 <Randolph Webb - Last Filed: 06/03/20 01:17> Physician Review Additional Text: Plan of care discussed with Randolph Webb, and I agree with the management plan as noted above. <Mike Levine - Last Filed: 06/03/20 19:48>
[2020-06-03] MEDS ORDERED: ONDANSETRON 4 MG/2 ML VIAL IV PRN (02:21)
[2020-06-03] MEDS ORDERED: SODIUM CHLORIDE 0.9% 10ML INJ IV PRN ×2 (02:21→11:14)
[2020-06-03] MEDS: NA CHLORIDE 0.9% 1,000 ML IV SCH ×3 (02:39→17:14)
[2020-06-03] MEDS: MORPHINE 2 MG/ML SYR IV PRN ×2 (02:42→12:04)
[2020-06-03] MEDS: PROMETHAZINE INJ 25 MG/ML AMP IV PRN (02:42)
[2020-06-03 04:11] LABS: Basophils % 0.7 % (0-1.3); Hematocrit 34.5 % (36.0-45.0); Lymphocytes % 15.4 % (15.3-44.8); MPV 7.2 fL (7.6-11.3); RBC Red Blood Cell Count 4.14 M/uL (3.86-4.86)
[2020-06-03] MEDS: KCL 20 MEQ/100 mL IVPB 20 MEQ/100 ML BAG IV SCH ×2 (05:08→12:03)
--- NOTE | 2020-06-03 07:15 | RAD REPORT ---
EXAM DESCRIPTION: RAD - Chest Single View - 06/02/2020 10:54 pm CLINICAL HISTORY: difficulty swallowing COMPARISON: February 2017 TECHNIQUE: AP portable chest image was obtained 06/02/2020 10:54 pm . FINDINGS: Lung volumes are low. Patient has a prominent baseline interstitial fibrotic pattern worse in the mid and lower left lung field. Interstitial markings are accentuated throughout the chest due to the low lung volumes. When adjusting for the shallow inspiration, chest is not substantially diff erent. Interstitial edema or infiltrate could easily be masked by the chronic disease. Trachea is midline. Heart and vasculature are normal. No measurable pleural effusion and no pneumotho rax. No acute bony abnormality seen. No acute aortic findings suspected. IMPRESSION: Shallow inspiration film in a patient with extensive chronic interstitial lung disease. Interstitial edema and infiltrate could be masked by the chronic disease.
[2020-06-03] MEDS ORDERED: PANTOPRAZOLE 40 MG INJ IVP SCH (09:00)
[2020-06-03] MEDS ORDERED: propofoL 200 MG/20 ML VIAL IV ONE (09:09)
[2020-06-03] MEDS ORDERED: LIDOCAINE 1% MPF 5 ML VIAL ONE (09:10)
[2020-06-03] MEDS ORDERED: NA CHLORIDE 0.9% 1,000 ML ONE (10:23)
[2020-06-03] MEDS ORDERED: ONDANSETRON 4 MG/2 ML VIAL ONE (10:51)
--- NOTE | 2020-06-03 11:57 | P.PN ---
Subjective Date of Service: 06/03/20 Primary Care Provider: Charlotte Cruz Chief Complaint: Food bolus Subjective: No new changes (anxious to have EGD done this morning. reports bad heartburn feeling in middle of chest / throat. Improved overnight but still persists mildly) Physical Examination - Vital Signs Temperature: 99.3 F Blood Pressure: 121/55 Pulse: 88 Respirations: 16 Pulse Ox (%): 92 - Physical Exam General: Alert, In no apparent distress Neck: No LAD Respiratory: Diminished (bilaterally) Cardiovascular: No edema, Regular rate/rhythm, Normal S1 S2 Gastrointestinal: Soft and benign, Non-distended, No tenderness Musculoskeletal: No erythema, No tenderness Integumentary: No breakdown Neurological: Normal speech, Normal affect - Studies Laboratory Data (last 24 hrs) 06/02/20 22:25: Sodium 145, Potassium 3.5, BUN 16, Creatinine 0.78, Glucose 99, Total Bilirubin 0.4, AST 11 L, ALT 24, Alkaline Phosphatase 147 H, Troponin I < 0.02 06/02/20 22:25: WBC 10.4, Hgb 12.1, Hct 35.9 L, Plt Count 308 Microbiology Data (last 24 hrs): 06/02/20 22:28 Throat Group A Streptococcus Rapid Screen - Final Assessment & Plan Physician Review Additional Text: Food bolus likely secondary to esophageal stricture Pulmonary fibrosis Hypertension Rheumatoid arthritis Plan Food bolus secondary to esophageal stricture: -NPO, IVF, for EGD this morning -discussed with GI after procedure - pt with severe lower esophageal stricture, esophageal ulcerations -pt required intubation for procedure due to esophageal food contents coming up/out of nose -concern for possible aspiration - started on IV zosyn -IV PPI BID for now -NPO today, advance to CLD tomorrow -will need to stay on full liquid diet / soft diet Pulmonary fibrosis: Patient unaware of what medications she currently takes a reports that she does take 1 medication prescribed from pulmonology. Will have nursing staff obtained and verify medications. Will continue when appropriate. Hypertension: Patient denies history of hypertension was markedly hypertensive in the emergency department at 190 systolic. Will continue to monitor patient's blood pressure throughout this hospitalization and give medications as needed. Rheumatoid arthritis: resume once taking PO Dispo: anticipate dc home tomorrow Time Spent Managing Pts Care (In Minutes): 35
[2020-06-03] MEDS: PANTOPRAZOLE 40 MG INJ IVP SCH ×2 (12:03→20:06)
[2020-06-03] MEDS: PIPER/TAZO/NS 3.375gm 3.375 GM/100 ML BAG IVPB SCH (17:12)
--- NOTE | 2020-06-03 22:16 | CON ---
Additional Attending Physician: Dr. Jon Dickson. Reason For Consultation: Food bolus in the esophagus. History Of Present Illness: This is a 75-year-old woman with history of pulmonary fibrosis, rheumato id arthritis, CVA, who has a history of esophageal stenosis, noncompliant with followup, came to the ER after consuming chicken many hours prior. She stated that she still felt it was in the chest. GI consultation was requested. Allergies: NO KNOWN DRUG ALLERGIES. Home Medications: As in the chart do include prednisone and PPIs. Past Medical History: Osteoarthritis, pulmonary fibrosis, rheumatoid arthritis, history of CVA, anem ia. Past Surgical History: Appendectomy, cholecystectomy, right hip replacement, left knee arthroplasty, tonsillectomy. Family History: Noncontributory. Social History: Denies current smoking. Admits to alcohol use. Review of Systems: GI: As in HPI, otherwise negative. Remainder of 10-point review of systems is negative. Physical Examination: Vital Signs: Reviewed. Afebrile, not tachycardic, not tachypneic, normotensive. HEENT: Head atraumatic, normocephalic. Pupils equally reactive. Neck: Supple. Chest: Clear to auscultation bilaterally. Abdomen: Soft, nontender, nondistended. Bowel sounds present. Extremities: No pedal edema. Laboratory Data: Reviewed. Initial white count 10.4, hemoglobin 12.1. Chemistry panel also was rev iewed. The patient's chest x-ray revealed finding consistent of fibrosis. Impression: A 75-year-old woman with history of esophageal stenosis and foreign body, now presents w ith same. She has not been compliant with care. Plan: We will schedule the patient for an upper endoscopy. Risks and complications of the procedure which include, but are not limited to bleeding, infection, perforation, and anesthesia complication were discussed. She understands and agrees. US/MODL Voice ID: [id number] Report ID: [id number]
[2020-06-03] MEDS ORDERED: LORazepam 2 MG/ML VIAL IV ONE (22:47)
[2020-06-04] MEDS: PIPER/TAZO/NS 3.375gm 3.375 GM/100 ML BAG IVPB SCH ×3 (00:01→16:54)
--- NOTE | 2020-06-04 00:28 | RAD REPORT ---
EXAM DESCRIPTION: RAD - Chest Single View - 06/03/2020 10:21 pm CLINICAL HISTORY: possible aspiration Chest pain. COMPARISON: Chest Single View dated 06/02/2020; Chest Single View dated 02/17/2017; Chest Pa And Lat ( 2 Views) dated 02/03/2017; Chest Single View dated 02/02/2017 FINDINGS: Portable technique limits examination quality. Moderate reduction in lung volume with interstitial lung opacities again seen, unchanged since compar ative study. The heart is mildly enlarged in size. No displaced fractures. IMPRESSION: Stable chest since 06/02/2020.
[2020-06-04 04:56] LABS: Absolute Lymphocytes (CBC) 1.8 K/uL (0.7-4.9); Basophils % 0.7 % (0-1.3); Hematocrit 33.2 % (36.0-45.0); Lymphocytes % 15.8 % (15.3-44.8); MPV 7.3 fL (7.6-11.3); RBC Red Blood Cell Count 3.91 M/uL (3.86-4.86)
[2020-06-04 05:09] LABS: Magnesium 1.8 mg/dL (1.8-2.4); Potassium 4.2 mmol/L (3.5-5.1)
[2020-06-04] MEDS: NA CHLORIDE 0.9% 1,000 ML IV SCH ×3 (05:46→18:21)
[2020-06-04] MEDS ORDERED: D50W 25 GM/50 ML SYRINGE/VIAL IV PRN (06:21)
[2020-06-04] MEDS: PANTOPRAZOLE 40 MG INJ IVP SCH ×2 (08:35→20:09)
--- NOTE | 2020-06-04 14:01 | P.DS ---
Admission Date: 06/05/20 Discharge Date: 06/05/20 Primary Care Provider: Charlotte Cruz Disposition: ROUTINE DISCHARGE Discharge Condition: GOOD Reason for Admission: Food bolus Consultations: GI - Dr. Carballo Procedures: CXR (06/02): Shallow inspiration film in a patient with extensive chronic interstitial lung disease. Interstitial edema and infiltrate could be masked by the chronic disease. CXR (06/03): stable compared to prior EGD (06/03): severe lower esophageal stricture & ulcers Problem List Food bolus likely secondary to esophageal stricture Lower esophageal ulcers Pulmonary fibrosis Hypertension Rheumatoid arthritis Brief History of Present Illness: 75yo female, PMH: pulmonary fibrosis, RA, h/o CVA, h/o espohageal stricture, presents to ED due to dysphagia, vomiting, and feeling of food stuck in her throat. GI was contacted in ED and recommended admission and EGD in the morning. Hospital Course: Patient underwent EGD on 06/03 and found to have severe lower esophageal stricture and esophageal ulcerations. Her EGD was complicated due to some food particles dislodging from esophagus up through her nose when mask was being applied. None were seen going down trachea, however she was treated with Zosyn and discharged home to complete a course of Augmentin for possible aspiration. Postoperatively, patient was initially unable to be advanced to clear liquid diet and had to remain overnight due to nausea/vomiting. The following morning she felt much better and was tolerating clear liquid diet. Per GI's recommendations, patient was discharged home on a full liquid / soft diet and advised to supplement with Boosts or Ensure protein shakes until she follows up with Dr. Carballo. She will be discharged with Protonix 40mg BID as well. She will require dilation of stricture in the near future. She was also found to be hypertensive up to 180/100 and started on lisinopril 20mg daily with good response. She will follow up with her PCP within 1 week. Vital Signs/Physical Exam: Temp Pulse Resp BP Pulse Ox 99.3 F 88 18 150/72 H 93 06/04/20 12:00 06/04/20 12:00 06/04/20 12:00 06/04/20 12:00 06/04/20 12:00 General: Alert, In no apparent distress HEENT: Mucous membr. moist/pink Neck: Supple Respiratory: Clear to auscultation bilaterally, Normal air movement Cardiovascular: No edema, Regular rate/rhythm, Systolic murmur Gastrointestinal: Soft and benign, Non-distended, No tenderness Musculoskeletal: No erythema, No tenderness Integumentary: No rashes, No breakdown Neurological: Normal speech, Normal affect Laboratory Data at Discharge: WBC 11.7 K/uL (4.3-10.9) H 06/04/20 04:15 Hgb 10.9 g/dL (12.0-15.0) L 06/04/20 04:15 Hct 33.2 % (36.0-45.0) L 06/04/20 04:15 Plt Count 267 K/uL (152-406) 06/04/20 04:15 Sodium 143 mmol/L (136-145) 06/04/20 04:15 Potassium 4.2 mmol/L (3.5-5.1) 06/04/20 04:15 BUN 13 mg/dL (7-18) 06/04/20 04:15 Creatinine 0.68 mg/dL (0.55-1.3) 06/04/20 04:15 Glucose 59 mg/dL (74-106) L 06/04/20 04:15 Magnesium 1.8 mg/dL (1.8-2.4) 06/04/20 04:15 Total Bilirubin 0.4 mg/dL (0.2-1.0) 06/02/20 22:25 AST 11 U/L (15-37) L 06/02/20 22:25 ALT 24 U/L (12-78) 06/02/20 22:25 Alkaline Phosphatase 147 U/L (45-117) H 06/02/20 22:25 Troponin I < 0.02 ng/mL (0.0-0.045) 06/02/20 22:25 Home Medications: Aspirin [Lo-Dose Aspirin EC] 81 mg PO DAILY 06/03/20 Multivitamin [Multivitamins] 1 each PO DAILY 06/03/20 Pirfenidone [Esbriet] 2 tab PO BID 06/03/20 predniSONE [Deltasone*] 10 mg PO DAILY 06/03/20 Amox/Clavulanate [Augmentin 875-125 Tab] 1 tab PO BID 7 Days #14 tab 06/04/20 Pantoprazole [Protonix Tab*] 1 tab PO BID 30 Days #60 tab 06/04/20 lisinopriL [Lisinopril] 1 tab PO DAILY 30 Days #30 tablet 06/05/20 New Medications: Amox/Clavulanate [Augmentin 875-125 Tab] 1 tab PO BID 7 Days #14 tab lisinopriL [Lisinopril] 1 tab PO DAILY 30 Days #30 tablet Pantoprazole [Protonix Tab*] 1 tab PO BID 30 Days #60 tab Patient Discharge Instructions: Follow up with PCP within 1 week. Follow up with GI (Dr. Carballo) in 1 month. Stay on a liquid / soft diet until you see Dr. Carballo. Drink at least 3 Ensure protein supplement shakes a day Diet: liquid / soft diet. Drink 3 Ensure protein supplement shakes a day Activity: Ad dariel Followup: Charlotte Cruz, [facility] [Primary Care Provider] - 1 Week (PCP- call to schedule an appointment ) Ammon Carballo MD [ACTIVE - CAN ADMIT] - (GI doctor- follow up in 1 month, call to schedule an appointment ) Time spent managing pt's care (in minutes): 35
[2020-06-04] MEDS: PROMETHAZINE INJ 25 MG/ML AMP IV PRN (14:28)
[2020-06-04] MEDS: MORPHINE 2 MG/ML SYR IV PRN (15:05)
--- NOTE | 2020-06-04 16:13 | P.PN ---
Subjective Date of Service: 06/04/20 Primary Care Provider: Charlotte Cruz Chief Complaint: Food bolus Subjective: No new changes (Did well with bedside swallow eval Reports mild heartburn symptoms, otherwise feeling well this morning) Physical Examination - Vital Signs Temperature: 99.3 F Blood Pressure: 150/72 Pulse: 88 Respirations: 16 Pulse Ox (%): 92 - Physical Exam General: Alert, In no apparent distress Respiratory: Diminished, Crackles/rales (Bilateral) Cardiovascular: No edema, Regular rate/rhythm Gastrointestinal: Soft and benign, Non-distended, No tenderness Musculoskeletal: No erythema, No tenderness Integumentary: No rashes Neurological: Normal speech, Normal affect Assessment & Plan Physician Review Additional Text: Food bolus likely secondary to esophageal stricture Pulmonary fibrosis Hypertension Rheumatoid arthritis Plan Food bolus secondary to esophageal stricture: -underwent EGD yesterday, discussed with GI after procedure - pt with severe lower esophageal stricture, esophageal ulcerations -pt required intubation for procedure due to esophageal food contents coming up/out of nose -concern for possible aspiration - started on IV zosyn -IV PPI BID for now -advance to clear liquid diet today, patient initially did well and was going to be discharged, however then developed nausea and vomiting -will discontinue discharge as patient is unable to tolerate any p.o. at this time Pulmonary fibrosis: Patient unaware of what medications she currently takes a reports that she does take 1 medication prescribed from pulmonology. restart home Pirfenidone Hypertension: Patient denies history of hypertension was markedly hypertensive in the emergency department at 190 systolic. has improved Rheumatoid arthritis: resume prednisone Dispo: anticipate dc home tomorrow, once able to tolerate clear liquids Time Spent Managing Pts Care (In Minutes): 35
[2020-06-04] MEDS: predniSONE 10 MG TAB PO SCH (17:45)
[2020-06-04] MEDS: PIRFENIDONE PO SCH (20:05)
[2020-06-04] MEDS: BENZONATATE 100 MG CAP PO PRN (20:22)
[2020-06-05] MEDS: PIPER/TAZO/NS 3.375gm 3.375 GM/100 ML BAG IVPB SCH ×2 (00:42→08:38)
[2020-06-05] MEDS: NA CHLORIDE 0.9% 1,000 ML IV SCH ×2 (04:25→14:21)
[2020-06-05 06:42] LABS: Magnesium 1.9 mg/dL (1.8-2.4); Potassium 3.7 mmol/L (3.5-5.1)
[2020-06-05 06:44] LABS: Absolute Lymphocytes (CBC) 1.7 K/uL (0.7-4.9); Basophils % 0.4 % (0-1.3); Hematocrit 30.9 % (36.0-45.0); Lymphocytes % 18.7 % (15.3-44.8); MPV 7.3 fL (7.6-11.3); RBC Red Blood Cell Count 3.74 M/uL (3.86-4.86)
[2020-06-05] MEDS: BENZONATATE 100 MG CAP PO PRN (07:52)
[2020-06-05] MEDS: PANTOPRAZOLE 40 MG INJ IVP SCH (07:52)
[2020-06-05] MEDS: predniSONE 10 MG TAB PO SCH (07:52)
[2020-06-05] MEDS: PIRFENIDONE PO SCH (07:53)
[2020-06-05] MEDS ORDERED: ASPIRIN EC 81 MG TAB PO SCH (09:00)
[2020-06-05] MEDS ORDERED: POTASSIUM CL SA 10 MEQ TAB PO ONE (09:00)
[2020-06-05 09:10] VITALS: O2SAT 95
[2020-06-05] MEDS ORDERED: lisinopriL 20 MG TAB PO ONE (09:11)
[2020-06-05 13:42] VITALS: BP 145/76; TEMP 98.3
== END 2020-06-05 14:10 | disposition home or self-care (01) | DRG 392 ==
LOC: ER 21:40 → ERHOLD 06-03 00:27 → 2ND 06-03 01:38 → OBSVTOIN 06-05 09:06
PROVIDERS: ADMIT Hospitalist; ATTEND Hospitalist
PROC: 0DJ08ZZ Inspection of Upper Intestinal Tract, Via Natural or Artificial Opening Endoscopic (ICD-10-PCS; principal; 2020-06-03 09:00)
DX: K22.2 Esophageal obstruction (principal); K22.10 Ulcer of esophagus without bleeding; J84.10 Pulmonary fibrosis, unspecified; M06.9 Rheumatoid arthritis, unspecified; I10 Essential (primary) hypertension; Z86.73 Personal history of transient ischemic attack (TIA), and cerebral infarction without residual deficits; Z96.643 Presence of artificial hip joint, bilateral; Z90.49 Acquired absence of other specified parts of digestive tract; Z79.82 Long term (current) use of aspirin; Z79.52 Long term (current) use of systemic steroids; Z91.19 Patient's noncompliance with other medical treatment and regimen; Z20.828 Contact with and (suspected) exposure to other viral communicable diseases
CPT/HCPCS: 36415; 71045; 80048; 80053; 82947; 83735; 84132; 84484; 85025; 87070; 87081; 92610; 93005; 99285; C9113; G0378; J1610; J2270; J2405; J2543; J2550; J2704; J3010; J3480; J7030; J7050; J7512; U0002

== ENCOUNTER 2022-06-01 07:30 | Day surgery (SDC) | payer OTHER ==
[2022-06-01] MEDS ORDERED: Ringers Lactate 1,000 ML IV ONE (07:49)
[2022-06-01] MEDS ORDERED: LIDOCAINE 1% MPF 5 ML VIAL ONE (08:39)
[2022-06-01] MEDS ORDERED: propofoL 200 MG/20 ML VIAL IV ONE (08:39)
[2022-06-01 09:47] VITALS: TEMP 98; O2SAT 100
[2022-06-01 09:48] VITALS: BP 117/55
--- NOTE | 2022-06-01 21:30 | OP ---
Surgeon: Ammon Carballo MD Procedure Performed: Esophagogastroduodenoscopy. Indication For Procedure: History of known esophageal stenosis, staged dilation. Plan For Anesthesia: Monitored anesthesia care. Technique: After obtaining informed consent from the patient explaining risks and complications, whi ch include, but are not limited to bleeding, infection, perforation, and anesthesia complication, pat ient was placed in the left lateral position. Sedation was given. From then on, the scope was advan maddi into the mouth and carefully guided up to the second portion of the duodenum. After completion o f examination, scope and equipment were withdrawn and procedure terminated in a safe manner. Estimat ed blood loss was minimal. Findings: Esophagus: In the distal esophagus, small hiatal hernia was visualized. Just proximal to the hernia, there was a stricture, mild to moderate stricture that was seen. Stomach: Mild patchy erythema seen in the body and antrum. Biopsies were taken. Duodenum: The bulb and second portion appeared normal. After this exam and biopsies, serial guidewire assisted dilation was performed. We started with firs t dilation of 14 mm and then proceeded to 15 mm. This was guidewire assisted. After the dilation wa s done, the scope was reinserted and the mucosa was examined. There was evidence of heme in the dist al esophagus at the level of the stricture indicating a good adequate dilation. Complications: None. Tolerance To Anesthesia: Excellent. Postoperative Diagnoses: Esophageal stricture, status post dilation, hiatal hernia, gastritis. Plan: 1.Await pathology results. 2.Continue current management. 3.Follow up in the GI clinic in 2 weeks. 4.Staged endoscopy as needed. US/MODL Voice ID: [id number] Report ID: [id number]
== END 2022-06-01 10:00 | disposition home or self-care (01) ==
LOC: PRE 07:30
PROVIDERS: ATTEND Internal Medicine Gastroenterology
PROC: 0DB68ZX Excision of Stomach, Via Natural or Artificial Opening Endoscopic, Diagnostic (ICD-10-PCS; 2022-06-01)
PROC: 0DB78ZX Excision of Stomach, Pylorus, Via Natural or Artificial Opening Endoscopic, Diagnostic (ICD-10-PCS; 2022-06-01)
PROC: 0D758ZZ Dilation of Esophagus, Via Natural or Artificial Opening Endoscopic (ICD-10-PCS; principal; 2022-06-01 08:30)
DX: K22.2 Esophageal obstruction (principal); K44.9 Diaphragmatic hernia without obstruction or gangrene; K29.50 Unspecified chronic gastritis without bleeding; I10 Essential (primary) hypertension; K21.00 Gastro-esophageal reflux disease with esophagitis, without bleeding; R13.10 Dysphagia, unspecified; R09.89 Other specified symptoms and signs involving the circulatory and respiratory systems; K20.90 Esophagitis, unspecified without bleeding
CPT/HCPCS: 88312; 88305; 43248; 43239; J2704; J2001; J7120; C1769

== ENCOUNTER 2022-07-24 15:48 | Inpatient (IN) | payer OTHER ==
--- NOTE | 2022-07-24 16:39 | RAD REPORT ---
EXAM DESCRIPTION: RAD - Chest Single View - 07/24/2022 4:32 pm CLINICAL HISTORY: SOB Chest pain. COMPARISON: Chest Pa And Lat (2 Views) dated 07/20/2021; Chest Single View dated 06/03/2020; Chest Si ngle View dated 06/02/2020; Chest Single View dated 02/17/2017 FINDINGS: Portable technique limits examination quality. Moderate bilateral lower lobe pulmonary opacities are present, greater on the left, suspicious for pn eumonia. Underlying extensive chronic changes also suspected. The heart is normal in size. No displac ed fractures. IMPRESSION: Bilateral pneumonia pattern suspected, greater on the left, superimposed on chronic fibr otic lung findings.
[2022-07-24] MEDS ORDERED: ASPIRIN 81 MG CHEWABLE TABLET ONE (16:42)
[2022-07-24] MEDS ORDERED: METHYLPREDNISOLONE 40 MG INJ ONE (16:42)
[2022-07-24] MEDS ORDERED: LEVALBUTEROL 1.25 MG/3 ML NEB ONE (16:42)
--- OUTSIDE RECORDS SUMMARY | 2022-07-24 16:44 | XMS REPORT | Continuity of Care Document ---
:1945 Author Organization [facility] t Address [address] [place] [address] Care Team Providers Name Role Phone Madeline Boles MD Primary Care Physician [phone] Charlotte Cruz Attending Clinician Unavailable MADELINE BOLES Attending Clinician Unavailable RODRIGUEZ FARRELL Attending Clinician Unavailable CHRIS SOSA Attending Clinician Unavailable LAB90 Attending Clinician Unavailable Madeline Boles MD Attending Clinician [phone] PROVIDER, AFFILIATE Attending Clinician Unavailable RADU HASKINS Attending Clinician Unavailable Radu Haskins Attending Clinician Christi Boone Attending Clinician Chris Vann Attending Clinician RADU HASKINS Admitting Clinician Unavailable Radu Haskins Admitting Clinician Christi Boone Admitting Clinician Payers Payer Name Policy Type Policy Number Effective Date Expiration Date S ource [employer] MEDICARE 7 [id number] 2021 [id number] GOLD 00:00:00 2021 MEDICARE [id number] 2012 [facility] NOVITAS 00:00:00 [facility] MEDICARE MB [id number] 2012 [facility] NOVITAS 00:00:00 - [facility] MEDICARE MB [id number] 2012 [facility] NOVITAS 00:00:00 [facility] MEDICARE MB [id number] 2012 [facility] NOVITAS 00:00:00 [facility] MEDICARE MB [id number] 2012 [facility] NOVITAS 00:00:00 [facility] MEDICARE MB [id number] 2012 [facility] NOVITAS 00:00:00 [facility] Problems Condition Condition Condition Status Onset Resolution Last Treating Co mments Source Name Details Category Date Date Treatment Clinician Date Prediabete Prediabete Disease Active Bennie lawler s s 01-19 Seybold 00:00: 00 COPD COPD Diagnosis Active 2021-10-27 Mem oria EXACERBATI EXACERBATI 09-30 21:47:00 l ON ON Active 00:00: Kalia 09/30/2021 00 MH [facility] On home On home Disease Active Cori oxygen oxygen 09-11 Seybold therapy therapy 00:00: 00 Mixed Mixed Disease Active Cori hyperlipid hyperlipid 09-11 Se ybold emia - emia - 00:00: Improved Improved 00 Hypertensi Hypertensi Disease Active Bennie lawler on on 09-11 Seybold 00:00: 00 Choking Choking Disease Active Cori due to due to 09-11 Seybold food in food in 00:00: larynx larynx 00 Protein-ca Protein-ca Disease Active Bennie monson 09-09 Seybold malnutriti malnutriti 00:00: on, on, 00 unspecifie unspecifie d severity d severity [id number] Esophageal Problem Com mon stricture 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 [id number] Arthritis Problem Commo n [facility] Acute Acute Problem Active 2021-10-07 Memor ia exacerbati exacerbati 23:07:37 l on of on of [place] chronic chronic obstructiv obstructiv e airways e airways disease disease (disorder) (disorder) Active Problem 10/07/2021 [facility] ILLNESS, ILLNESS, Diagnosis Active 2021-10-27 Memoria UNSPECIFIE UNSPECIFIE 21:47:00 l D D Active [facility] Allergies, Adverse Reactions, Alerts This patient has no known allergies or adverse reactions. Social History Social Habit Start Date Stop Date Quantity Comments Source History of Tobacco Use Co mmon [facility] Sex Assigned At Com mon [facility] Smoking Status Start Date Stop Date Source Social History [facility] Medications Ordered Filled Start Stop Current Ordering Indication Dosage Frequency Signature Comments Components Source Medication Medication Date Date Medication? Clinician (SIG) Name Name Aspirin 81 Yes [id number] 1{tbl} Take 1 Cori MG oral 5-19 tablet by Seybold Chewable 08:15: mouth Tablet 22 Pantoprazol Yes 1{tbl} Take 1 Ke lsey e Sodium 40 5-19 tablet by Sey bold MG oral 08:15: mouth Tablet 22 Delayed Response Pirfenidone Yes [id number] 267mg Take 267 Cori (Esbriet) 5-19 mg by Seybold 267 MG oral 08:15: mouth 2 Tablet 22 times daily predniSONE Yes [id number] 1{tbl} Take 1 Cori (DELTASONE) 5-19 tablet by Sey bold 10 MG oral 08:15: mouth tablet 22 amLODIPine- Yes [id number] 1{tbl} Take 1 Cori Atorvastati 5-19 tablet by Sey bold n 10-10 MG 08:15: mouth oral Tablet 22 daily Albuterol Yes [id number] 2{puff} Q.25D Inhale 2 Cori HFA 108 (90 5-19 puffs into Se ybold Base) 08:15: the lungs MCG/ACT IN 22 every 6 AERS hours as needed for wheezing Aspirin 81 Yes [id number] 1{tbl} Take 1 Cori MG oral 5-05 tablet by Seybold Chewable 08:17: mouth Tablet 09 Pantoprazol Yes 1{tbl} Take 1 Ke lsey e Sodium 40 5-05 tablet by Sey bold MG oral 08:17: mouth Tablet 09 Delayed Response Pirfenidone Yes [id number] 267mg Take 267 Cori (Esbriet) 5-05 mg by Seybold 267 MG oral 08:17: mouth 2 Tablet 09 times daily predniSONE Yes [id number] 1{tbl} Take 1 Cori (DELTASONE) 5-05 tablet by Sey bold 10 MG oral 08:17: mouth tablet 09 amLODIPine- Yes [id number] 1{tbl} Take 1 Cori Atorvastati 5-05 tablet by Sey bold n 10-10 MG 08:17: mouth oral Tablet 09 daily Albuterol Yes [id number] 2{puff} Q.25D Inhale 2 Cori HFA 108 (90 5-05 puffs into Se ybold Base) 08:17: the lungs MCG/ACT IN 09 every 6 AERS hours as needed for wheezing hydroCHLORO Yes [id number] 12.5mg Take 1 Cori thiazide 5-05 capsule Seybold 12.5 MG 00:00: (12.5 mg oral 00 total) by Capsule mouth daily hydroCHLORO 2021-2021- No [id number] 12.5mg Take 1 Cori thiazide 5-05 05-19 capsule Seybold 12.5 MG 00:00: 00:00 (12.5 mg oral 00 :00 total) by Capsule mouth daily Aspirin 81 Yes [id number] 1{tbl} Take 1 Cori MG oral 4-21 tablet by Seybold Chewable 08:04: mouth Tablet 50 Pantoprazol Yes 1{tbl} Take 1 Ke lsey e Sodium 40 4-21 tablet by Sey bold MG oral 08:04: mouth Tablet 50 Delayed Response Pirfenidone Yes [id number] 267mg Take 267 Cori (Esbriet) 4-21 mg by Seybold 267 MG oral 08:04: mouth 2 Tablet 50 times daily predniSONE Yes [id number] 1{tbl} Take 1 Cori (DELTASONE) 4-21 tablet by Sey bold 10 MG oral 08:04: mouth tablet 50 amLODIPine- Yes [id number] 1{tbl} Take 1 Cori Atorvastati 4-21 tablet by Sey bold n 10-10 MG 08:04: mouth oral Tablet 50 daily Albuterol Yes [id number] 2{puff} Q.25D Inhale 2 Cori HFA 108 (90 4-21 puffs into Se ybold Base) 08:04: the lungs MCG/ACT IN 50 every 6 AERS hours as needed for wheezing Amlodipine Yes Cori Besylate 10 4-20 Seybold MG oral 00:00: Tablet 00 Amlodipine Yes Cori Besylate 10 4-20 Seybold MG oral 00:00: Tablet 00 Amlodipine 0 2021- No 10mg Take 10 mg Cori Besylate 10 4-20 05-19 by mouth Sey bold MG oral 00:00: 00:00 daily Tablet 00 :00 Levofloxaci Yes 500 mg = 1 Memoria n 500 MG 2-02 tab, PO, l Oral Tablet 15:41: Q24H, X 5 H ermann [Levaquin] day, # 5 tab, 0 Refill(s), Pharmacy: [facility] [id number], 157.48, cm, 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 Her sanchez 0.9% IV 100 00 Use with mL 100 mL NS and infuse over 30 min MEDICATION WASTE Product Size: 1000 mg Product Wasted: ___ mg Azithromyci No Notes: Jarred paxton n 10-03 (Same As: l 15:00: Zithromax Macy 00 IV) Vancomycin No 2001 mg: Me moria 10-03 infuse l 05:00: over 2.5 Kalia 00 hours For adult patients only: Round to nearest 250 mg per Medical Staff approval Mucinex No Notes: Memoria 10-03 (Same as: l 03:00: Guaifenesi Kalia 00 n LA, Humibid LA, Mucinex) "Do Not Crush" Take medication with plenty of water. 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 He rmann mL 00 Use with 100 mL NS and infuse over 30 min MEDICATION WASTE Product Size: 1000 mg Product Wasted: ___ mg Albuterol No Notes: Memori a 0.833 MG/ML 10-02 (Same as: l / 18:00: Duoneb) Ipratropium 00 Eagar 0.167 MG/ML Inhalant Solution Vancomycin No 2000 mg: Me moria 30 infuse l 17:00: over 2.5 Kalia 00 hours Rocephin No Notes: Memoria 10-02 (Same As: l 16:00: Rocephin). Kalia 00 Use with 100 mL NS and infuse over 30 min MEDICATION WASTE Product Size: 1000 mg Product Wasted: ___ mg Vancomycin No Notes: Memor ia 10-02 Vancomycin l 15:25: Pharmacy [place]acy 29 Dosing Protocol PHARMAC Y USE ONLY Note: This is not a medication order. This is a consultati on order. 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 (Same as: Protonix) Enoxaparin No Notes: Memor ia 1-29 (Same as: l 13:00: Lovenox) Kalia 00 methylPREDN No Notes: Jarred paxton ISolone 10-01 (Same l SODium 06:00: as:Solu-ME Tasha nn SUCCinate 00 DROL, A-Methapre d) Enoxaparin No Notes: Memor ia 10-01 (Same as: l 06:00: Lovenox) Macy 00 Albuterol No Notes: SEE Me moria 0.83 MG/ML 10-01 RT l Inhalant 05:06: DOCUMENTAT Her sanchez Solution 00 ION (Same as: Proventil) Morphine No Notes: Memoria 10-01 (Same l 05:06: as:MORPhin Macy 00 e Sulfate) Robitussin No Notes: Memor ia 100 mg/5 mL 10-01 (Same as: l oral liquid 05:06: Robitussin Kalia 00 ) Maalox No Notes: Memoria Advanced 10-01 (aluminum l Regular 05:06: hydroxide- Herm ami Strength 00 magnesium SUSP hyd-simeth icone 200-200-20 mg/5ml 30 ml ud YOUSUF) Hydralazine No Notes: Jarred paxton 10-01 (Same as: l 05:06: Apresoline Kalia 00 ) Push over 5 minutes Docusate No Notes: Memoria 10-01 (Same as: l 05:06: Colace) Kalia (Do Not Crush) Ondansetron No Notes: Jarred paxton 10-01 (Same as: l 05:06: Zofran) [place]acy 00 MEDICATION WASTE Product Size: 4 mg Product Wasted: ___ mg Trazodone No Notes: Memori a 10-01 (Same As: l 05:06: Desyrel) Klaia 00 Acetaminoph No Notes: Do M emoria en 10-01 not exceed l 05:06: 4 gm/day. Macy 00 (Same as: Tylenol) Albuterol No Notes: Memori a 0.833 MG/ML 10-01 (Same as: l / 05:02: Duoneb) Kalia Ipratropium 00 Eagar 0.167 MG/ML Inhalant Solution Vitamin D3 2022-0 Yes 50 Memoria 10-01 microgram, l 04:48: PO, Daily, Macy 00 0 Refill(s) 200 ACTUAT Yes 2 puff, Jarred paxton Albuterol 10-01 INHALATION l 0.09 04:42: , Q6H, 0 Macy MG/ACTUAT 00 Refill(s) Metered Dose Inhaler [ProAir HFA] pirfenidone Yes 801 mg = 3 Memoria 267 MG Oral 10-01 tab, PO, l Tablet 04:42: BID, 2, 0 Delta n [Esbriet] 00 Refill(s) Vitamin C Yes Daily, 0 Jarred paxton 10-01 Refill(s) l 04:41: Kalia Prednisone Yes 10 mg, PO, M emoria 10-01 Daily, l 04:40: Quantity sufficient , 0 Refill(s) Aspirin Yes 81 mg, PO, Jarred paxton 10-01 Daily, 0 l 04:40: Refill(s) Amlodipine Yes 10 mg, PO, M emoria 10-01 Daily, 0 l 04:39: Refill(s) pantoprazol Yes 40 mg, PO, Memoria e 10-01 Daily, # l 04:39: 30 tab, 0 Macy 00 Refill(s) Benzonatate Yes [id number] 200mg Q.[id number] Take 1 Cori 200 MG oral 09-30 [id number] capsule Seybold Capsule 00:00: 3D (200 mg total) by mouth 3 times daily as needed for cough Dextrometho Yes [id number] 5mL Q.25D Take 5 mL Cori rphan-guaiF 09-30 by mouth Seyb old ENesin 00:00: every 6 20-400 00 hours as MG/5ML oral needed for Syrup cough Doxycycline Yes [id number] 100mg Take 1 Cori Hyclate 100 09-30 tablet Seybol d MG oral 00:00: (100 mg Tablet total) by mouth 2 times daily Benzonatate Yes [id number] 200mg Q.[id number] Take 1 Cori 200 MG oral 09-30 [id number] capsule Seybold Capsule 00:00: 3D (200 mg 00 total) by mouth 3 times daily as needed for cough Dextrometho 2021-0 Yes [id number] 5mL Q6H Take 5 mL Cori rphan-guaiF 1-28 by mouth Seyb old ENesin 00:00: every 6 20-400 00 hours as MG/5ML oral needed for Syrup cough Doxycycline 2021-0 Yes [id number] 100mg Take 1 Cori Hyclate 100 1-28 tablet Seybol d MG oral 00:00: (100 mg Tablet 00 total) by mouth 2 times daily Amoxicillin 2021-0 Yes [id number] 1{tbl} Take 1 Cori -Pot 1-28 tablet by Seybold Clavulanate 00:00: mouth 2 875-125 MG 00 times oral Tablet daily Benzonatate 2021-0 Yes [id number] 200mg Q.[id number] Take 1 Cori 200 MG oral 09-30 [id number] capsule Seybold Capsule 00:00: 3D (200 mg 00 total) by mouth 3 times daily as needed for cough Dextrometho 2021-0 Yes [id number] 5mL Q.25D Take 5 mL Cori rphan-guaiF 1-28 by mouth Seyb old ENesin 00:00: every 6 20-400 00 hours as MG/5ML oral needed for Syrup cough Doxycycline 2021-0 Yes [id number] 100mg Take 1 Cori Hyclate 100 1-28 tablet Seybol d MG oral 00:00: (100 mg Tablet 00 total) by mouth 2 times daily Amoxicillin 2021-0 Yes [id number] 1{tbl} Take 1 Cori -Pot 1-28 tablet by Seybold Clavulanate 00:00: mouth 2 875-125 MG 00 times oral Tablet daily Benzonatate 2021-0 2021- No [id number] 200mg Q.[id number] Take 1 Cori 200 MG oral 1-28 -19 [id number] capsule Seybold Capsule 00:00: 00:00 3D (200 mg 00 :00 total) by mouth 3 times daily as needed for cough Dextrometho 2021-0 2021- No [id number] 5mL Q.25D Take 5 mL Cori rphan-guaiF 09-3019 by mouth Sey bold ENesin 00:00: 00:00 every 6 20-400 00 :00 hours as MG/5ML oral needed for Syrup cough Doxycycline 2021- No [id number] 100mg Take 1 Cori Hyclate 100 09-3019 tablet Seybo ld MG oral 00:00: 00:00 (100 mg Tablet 00 :00 total) by mouth 2 times daily Amoxicillin 2021- No [id number] 1{tbl} Take 1 Cori -Pot 09-3005 tablet by Seybold Clavulanate 00:00: 00:00 mouth 2 875-125 MG 00 :00 times oral Tablet daily Aspirin Yes [id number] 1{tbl} Take 1 K elsey (Aspirin 1-09 tablet by Seybol d 81) 81 MG 07:33: mouth oral 58 Chewable Tablet amLODIPine- Yes [id number] 1{tbl} Take 1 Cori Atorvastati 1-09 tablet by Sey bold n 10-10 MG 07:33: mouth oral Tablet 58 daily Aspirin Yes [id number] 1{tbl} Take 1 Bennie elsey (Aspirin 1-09 tablet by Seybol d 81) 81 MG 07:33: mouth oral 58 Chewable Tablet amLODIPine- Yes [id number] 1{tbl} Take 1 Cori Atorvastati 1-09 tablet by Sey bold n 10-10 MG 07:33: mouth oral Tablet 58 daily Pirfenidone Yes [id number] 267mg Take 267 Cori (Esbriet) 1-09 mg by Seybold 267 MG oral 07:33: mouth 2 Tablet 47 times daily predniSONE Yes [id number] 1{tbl} Take 1 Cori (DELTASONE) 1-09 tablet by Sey bold 10 MG oral 07:33: mouth tablet 47 Albuterol Yes [id number] 2{puff} Q6H Inhale 2 Cori HFA (PROAIR 1-09 puffs into Se ybold HFA) 108 07:33: the lungs (90 Base) 47 every 6 MCG/ACT IN hours as AERS needed for wheezing Pirfenidone Yes [id number] 267mg Take 267 Cori (Esbriet) 1-09 mg by Seybold 267 MG oral 07:33: mouth 2 Tablet 47 times daily predniSONE Yes [id number] 1{tbl} Take 1 Cori (DELTASONE) 1-09 tablet by Sey bold 10 MG oral 07:33: mouth tablet 47 Albuterol Yes [id number] 2{puff} Q6H Inhale 2 Cori HFA (PROAIR 1-09 puffs into Se ybold HFA) 108 07:33: the lungs (90 Base) 47 every 6 MCG/ACT IN hours as AERS needed for wheezing Pantoprazol Yes 1{tbl} Take 1 Ke lsey e Sodium 40 1-07 tablet by Sey bold MG oral 08:26: mouth Tablet 45 Delayed Response Pantoprazol Yes 1{tbl} Take 1 Ke lsey e Sodium 40 1-07 tablet by Sey bold MG oral 08:26: mouth Tablet 45 Delayed Response Esbriet 267 Esbriet 267 No 2{table BID Esbriet MG MG ts_with 267 MG _food} predniSONE predniSONE No 1{table QD predniSONE 10 MG 10 MG t} 10 MG Aspirin 81 Aspirin 81 No 1{table QD Aspirin 81 81 MG 81 MG t} 81 MG Pantoprazol Pantoprazol No 1{table QD Pantoprazo e Sodium 40 e Sodium 40 t} le Sodium MG MG 40 MG Lisinopril Lisinopril No 1{table QD Lisinopril 20 MG 20 MG t} 20 MG Esbriet 267 Esbriet 267 No 2{table BID Esbriet MG MG ts_with 267 MG _food} Esbriet 267 Esbriet 267 No 2{table BID Esbriet MG MG ts_with 267 MG _food} PredniSONE PredniSONE No 1{table QD PredniSONE 10 MG 10 MG t} 10 MG Lisinopril Lisinopril No 1{table QD Lisinopril 20 MG 20 MG t} 20 MG Aspirin 81 Aspirin 81 No 1{table QD Aspirin 81 81 MG 81 MG t} 81 MG Pantoprazol Pantoprazol No 1{table QD Pantoprazo e Sodium 40 e Sodium 40 t} le Sodium MG MG 40 MG Pantoprazol Pantoprazol No 1{table QD Pantoprazo e Sodium 40 e Sodium 40 t} le Sodium MG MG 40 MG Lisinopril Lisinopril No 1{table QD Lisinopril 20 MG 20 MG t} 20 MG Esbriet 267 Esbriet 267 No 2{table BID Esbriet MG MG ts_with 267 MG _food} predniSONE predniSONE No 1{table QD predniSONE 10 MG 10 MG t} 10 MG Aspirin 81 Aspirin 81 No 1{table QD Aspirin 81 81 MG 81 MG t} 81 MG Pantoprazol Pantoprazol No 1{table QD Pantoprazo e Sodium 40 e Sodium 40 t} le Sodium MG MG 40 MG Lisinopril Lisinopril No 1{table QD Lisinopril 20 MG 20 MG t} 20 MG Esbriet 267 Esbriet 267 No 2{table BID Esbriet MG MG ts_with 267 MG _food} predniSONE predniSONE No 1{table QD predniSONE 10 MG 10 MG t} 10 MG Aspirin 81 Aspirin 81 No 1{table QD Aspirin 81 81 MG 81 MG t} 81 MG Pantoprazol Pantoprazol No 1{table QD Pantoprazo e Sodium 40 e Sodium 40 t} le Sodium MG MG 40 MG Lisinopril Lisinopril No 1{table QD Lisinopril 20 MG 20 MG t} 20 MG Esbriet 267 Esbriet 267 No 2{table BID Esbriet MG MG ts_with 267 MG _food} predniSONE predniSONE No 1{table QD predniSONE 10 MG 10 MG t} 10 MG Aspirin 81 Aspirin 81 No 1{table QD Aspirin 81 81 MG 81 MG t} 81 MG Pantoprazol Pantoprazol No 1{table QD Pantoprazo e Sodium 40 e Sodium 40 t} le Sodium MG MG 40 MG Lisinopril Lisinopril No 1{table QD Lisinopril 20 MG 20 MG t} 20 MG Esbriet 267 Esbriet 267 No 2{table BID Esbriet MG MG ts_with 267 MG _food} predniSONE predniSONE No 1{table QD predniSONE 10 MG 10 MG t} 10 MG Aspirin 81 Aspirin 81 No 1{table QD Aspirin 81 81 MG 81 MG t} 81 MG predniSONE predniSONE No 1{table QD predniSONE 10 MG 10 MG t} 10 MG Aspirin 81 Aspirin 81 No 1{table QD Aspirin 81 81 MG 81 MG t} 81 MG Pantoprazol Pantoprazol No 1{table QD Pantoprazo e Sodium 40 e Sodium 40 t} le Sodium MG MG 40 MG Lisinopril Lisinopril No 1{table QD Lisinopril 20 MG 20 MG t} 20 MG Immunizations Ordered Immunization Filled Immunization Date Status Commen ts Source Name Name Kleber CARROLL 2022-01-06 Completed Cori lovelace (Shingrix) 00:00:00 Influenza Virus 2021-06-14 Completed Cori Gamboa ybold Vaccine, 00:00:00 Quadrivalent, High Dose, Age 65 And Up Influenza Virus 2021-06-14 Completed Cori ybold Vaccine, 00:00:00 Quadrivalent, High Dose, Age 65 And Up Influenza Virus 2021-06-14 Completed Cori ybold Vaccine, 00:00:00 Quadrivalent, High Dose, Age 65 And Up Influenza Virus 2021-06-14 Completed Cori ybold Vaccine, 00:00:00 Quadrivalent, High Dose, Age 65 And Up Influenza Virus 2021-06-14 Completed Cori Gamboa ybold Vaccine, 00:00:00 Quadrivalent, High Dose, Age 65 And Up Covid-19 Vaccine 2020-10-29 Completed Cori martinezborobert (Curvo), Mrna-lnp, 00:00:00 Herber Protein, Pf, 30mcg/0.3ml,IM Covid-19 Vaccine 2020-10-29 Completed Cori martinezborobert (Curvo), Mrna-lnp, 00:00:00 Herber Protein, Pf, 30mcg/0.3ml,IM Covid-19 Vaccine 2020-10-29 Completed Cori martinezbold (Curvo), Mrna-lnp, 00:00:00 Herber Protein, Pf, 30mcg/0.3ml,IM Covid-19 Vaccine 2020-10-29 Completed Cori martinezbold (Curvo), Mrna-lnp, 00:00:00 Herber Protein, Pf, 30mcg/0.3ml,IM Covid-19 Vaccine 2020-10-29 Completed Cori martinezbold (Curvo), Mrna-lnp, 00:00:00 Herber Protein, Pf, 30mcg/0.3ml,IM Covid-19 Vaccine 2020-10-29 Completed Cori martinezbold (Curvo), Mrna-lnp, 00:00:00 Herber Protein, Pf, 30mcg/0.3ml,IM Covid-19 Vaccine 2020-09-28 Completed Cori Batres eybold (Pfizer), Mrna-lnp, 00:00:00 Herber Protein, Pf, 30mcg/0.3ml,IM Covid-19 Vaccine 2020-09-28 Completed Cori Batres eybold (Pfizer), Mrna-lnp, 00:00:00 Herber Protein, Pf, 30mcg/0.3ml,IM Covid-19 Vaccine 2020-09-28 Completed Cori Batres eybold (Pfizer), Mrna-lnp, 00:00:00 Herber Protein, Pf, 30mcg/0.3ml,IM Covid-19 Vaccine 2020-09-28 Completed Cori Batres eybold (Pfizer), Mrna-lnp, 00:00:00 Herber Protein, Pf, 30mcg/0.3ml,IM Covid-19 Vaccine 2020-09-28 Completed Cori Batres eybold (Curvo), Mrna-lnp, 00:00:00 Herber Protein, Pf, 30mcg/0.3ml,IM Covid-19 Vaccine 2020-09-28 Completed Cori Batres eybold (Curvo), Mrna-lnp, 00:00:00 Herber Protein, Pf, 30mcg/0.3ml,IM FLUZONE HIGH DOSE FLUZONE HIGH DOSE 2020-06-07 Completed [facility] OVER 65 OVER 65 09:42:00 - [facility] Prevnar 13 (PCV13) Prevnar 13 (PCV13) 2020-06-07 Completed [facility] 09:42:00 - [facility] FLUZONE HIGH DOSE FLUZONE HIGH DOSE 2020-06-07 Completed [facility] OVER 65 OVER 65 09:42:00 - [facility] Prevnar 13 (PCV13) Prevnar 13 (PCV13) 2020-06-07 Completed [facility] 09:42:00 - [facility] FLUZONE HIGH DOSE FLUZONE HIGH DOSE 2020-06-07 Completed [facility] OVER 65 OVER 65 09:42:00 - [facility] Prevnar 13 (PCV13) Prevnar 13 (PCV13) 2020-06-07 Completed [facility] 09:42:00 - [facility] FLUZONE HIGH DOSE FLUZONE HIGH DOSE 2020-06-07 Completed [facility] OVER 65 OVER 65 09:42:00 - [facility] Prevnar 13 (PCV13) Prevnar 13 (PCV13) 2020-06-07 Completed [facility] 09:42:00 - [facility] FLUZONE HIGH DOSE FLUZONE HIGH DOSE 2020-06-07 Completed [facility] OVER 65 OVER 65 09:42:00 [facility] Prevnar 13 (PCV13) Prevnar 13 (PCV13) 2020-06-07 Completed [facility] 09:42:00 - [facility] FLUZONE HIGH DOSE FLUZONE HIGH DOSE 2020-06-07 Completed [facility] OVER [address] OVER [address] 09:42:00 [facility] Prevnar 13 (PCV13) Prevnar 13 (PCV13) 2020-06-07 Completed [facility] 09:42:00 - [facility] FLUZONE HIGH DOSE FLUZONE HIGH DOSE 2020-06-07 Completed [facility] OVER 65 OVER 65 09:42:00 - [facility] Prevnar 13 (PCV13) Prevnar 13 (PCV13) 2020-06-07 Completed [facility] 09:42:00 - [facility] Influenza Virus 2020-06-07 Completed Cori Se ybold Vaccine, High Dose, 00:00:00 Age 65 And Up Pneumococcal 2020-06-07 Completed Cori Seybo ld Vaccine, Conjugate 00:00:00 13 Influenza Virus 2020-06-07 Completed Cori Se ybold Vaccine, High Dose, 00:00:00 Age 65 And Up Pneumococcal 2020-06-07 Completed Cori Seybo ld Vaccine, Conjugate 00:00:00 13 Influenza Virus 2020-06-07 Completed Cori Se ybold Vaccine, High Dose, 00:00:00 Age 65 And Up Pneumococcal 2020-06-07 Completed Cori Seybo ld Vaccine, Conjugate 00:00:00 13 Influenza Virus 2020-06-07 Completed Cori Se ybold Vaccine, High Dose, 00:00:00 Age 65 And Up Pneumococcal 2020-06-07 Completed Cori Seybo ld Vaccine, Conjugate 00:00:00 13 Influenza Virus 2020-06-07 Completed Cori Se ybold Vaccine, High Dose, 00:00:00 Age 65 And Up Pneumococcal 2020-06-07 Completed Cori Seybo ld Vaccine, Conjugate 00:00:00 13 Vital Signs Vital Name Observation Time Observation Value Comments Source Systolic blood 2022-01-19 13:09:00 148 mm[Hg] Cori Seybold pressure Diastolic blood 2022-01-19 13:09:00 74 mm[Hg] Kelse y Seybold pressure Heart rate 2022-01-19 13:09:00 100 /min Cori S eybold Body temperature 2022-01-19 13:09:00 36.39 Eugenia Mellisa ey Seybold Respiratory rate 2022-01-19 13:09:00 16 /min Mellisa ey Seybold Body height 2022-01-19 13:09:00 157.5 cm Cori S eybold Body weight 2022-01-19 13:09:00 51.71 kg Cori S eybold BMI 2022-01-19 13:09:00 20.85 kg/m2 Cori S eybold Systolic blood 2022-01-05 13:12:00 130 mm[Hg] Cori Seybold pressure Diastolic blood 2022-01-05 13:12:00 68 mm[Hg] Kelse y Seybold pressure Heart rate 2022-01-05 13:12:00 97 /min Cori S eybold Body temperature 2022-01-05 13:12:00 36.5 Eugenia Mellisa ey Seybold Respiratory rate 2022-01-05 13:12:00 16 /min Mellisa ey Seybold Body height 2022-01-05 13:12:00 157.5 cm Cori S eybold Body weight 2022-01-05 13:12:00 52.617 kg Cori S eybold BMI 2022-01-05 13:12:00 21.22 kg/m2 Cori S eybold BMI 2021-12-22 13:03:00 21.58 kg/m2 Cori S eybold Oxygen saturation in 2021-12-22 13:03:00 99 /min Cori Gamboaybold Arterial blood by Pulse oximetry Systolic blood 2021-12-22 13:03:00 120 mm[Hg] Cori Seybold pressure Diastolic blood 2021-12-22 13:03:00 62 mm[Hg] Kelse y Seybold pressure Heart rate 2021-12-22 13:03:00 101 /min Cori Batres eybold Body temperature 2021-12-22 13:03:00 36.44 Eugenia Mellisa ey Seybold Respiratory rate 2021-12-22 13:03:00 17 /min Mellisa martinez Seybold Body height 2021-12-22 13:03:00 157.5 cm Cori Batres eybold Body weight 2021-12-22 13:03:00 53.524 kg Cori Batres eybold Systolic blood 2021-09-09 14:23:00 112 mm[Hg] Cori Seybold pressure Diastolic blood 2021-09-09 14:23:00 61 mm[Hg] Kelse y Seybold pressure Heart rate 2021-09-09 14:23:00 97 /min Cori Batres eybold Body temperature 2021-09-09 14:23:00 36.61 Eugenia Mellisa ey Seybold Respiratory rate 2021-09-09 14:23:00 20 /min Mellisa martinez Seybold Body height 2021-09-09 14:23:00 157.5 cm Cori martinezbold Body weight 2021-09-09 14:23:00 51.619 kg Cori martinezbold BMI 2021-09-09 14:23:00 20.81 kg/m2 Cori martinezbold Oxygen saturation in 2021-09-09 14:23:00 92 /min Cori Bentley Arterial blood by Pulse oximetry height 2021-04-27 09:40:00 60 [in_i] Common [facility] weight 2021-04-27 09:40:00 115.4 [lb_av] Common [facility] temperature 2021-04-27 09:40:00 97.7 [degF] [facility]mi 2021-04-27 09:40:00 22.54 [facility]m2 [facility] oximetry 2021-04-27 09:40:00 96 % [facility] blood pressure 2021-04-27 09:40:00 140 mm[Hg] [facility] - systolic [facility] blood pressure 2021-04-27 09:40:00 88 mm[Hg] [facility] - diastolic [facility] height 2021-04-27 09:00:00 60 [in_i] Common [facility] weight 2021-04-27 09:00:00 115.4 [lb_av] Common [facility] temperature 2021-04-27 09:00:00 97.7 [degF] Common [facility] bmi 2021-04-27 09:00:00 22.54 kg/m2 [facility] oximetry 2021-04-27 09:00:00 96 % Common [facility] blood pressure 2021-04-27 09:00:00 200 mm[Hg] [facility] - systolic [facility] blood pressure 2021-04-27 09:00:00 96 mm[Hg] [facility] - diastolic [facility] Temperature Oral (F) 2021-10-05 14:11:00 98.2 F [facility] Heart Rate 2021-10-05 14:11:00 [facility] Resp[facility] Rate 2021-10-05 14:11:00 [facility] Systolic (mm Hg) 2021-10-05 14:11:00 Jarred rial [facility] Diastolic (mm Hg) 2021-10-05 14:11:00 Mem [facility] Temperature Oral (F) 2021-10-05 10:00:00 97.5 F [facility] Heart Rate 2021-10-05 10:00:00 [facility] Respitory Rate 2021-10-05 10:00:00 [facility] Systolic (mm Hg) 2021-10-05 10:00:00 Jarred rial [facility] Diastolic (mm Hg) 2021-10-05 10:00:00 Mem [facility] Temperature Oral (F) 2021-10-05 06:00:00 98.2 F [facility] Heart Rate 2021-10-05 06:00:00 [facility] Respitory Rate 2021-10-05 06:00:00 [facility] Systolic (mm Hg) 2021-10-05 06:00:00 Jarred rial [facility] Diastolic (mm Hg) 2021-10-05 06:00:00 Mem [facility] Temperature Oral (F) 2021-10-03 10:19:00 98.2 F [facility] Heart Rate 2021-10-03 10:19:00 [facility] Respitory Rate 2021-10-03 10:19:00 [facility] Systolic (mm Hg) 2021-10-03 10:19:00 Jarred rial [facility] Diastolic (mm Hg) 2021-10-03 10:19:00 Mem [facility] Temperature Oral (F) 2021-10-03 05:34:00 98.3 F [facility] Heart Rate 2021-10-03 05:34:00 [facility] Respitory Rate 2021-10-03 05:34:00 [facility] Systolic (mm Hg) 2021-10-03 05:34:00 Jarred rial [facility] Diastolic (mm Hg) 2021-10-03 05:34:00 [facility] Temperature Oral (F) 2021-10-03 05:31:00 98.8 F [facility] Heart Rate 2021-10-03 05:31:00 [facility] Respitory Rate 2021-10-03 05:31:00 [facility] Systolic (mm Hg) 2021-10-03 05:31:00 Jarred rial [facility] Diastolic (mm Hg) 2021-10-03 05:31:00 [facility] Height 2021-10-02 15:25:00 157.48 cm [facility] Weight 2021-10-02 15:25:00 [facility] Height 2021-10-02 15:24:00 157.48 cm [facility] Weight 2021-10-02 15:24:00 [facility] Height 2021-10-01 04:10:00 157.48 cm [facility] Weight 2021-10-01 04:10:00 [facility] BMI Calculated 2021-10-01 04:10:00 [facility] Procedures Procedure Date / Time Performed Performing Clinician [facility] e ECG- ADULT 2021-12-22 13:38:09 Madeline Boles Encounters Start End Encounter Admission Attending Care Care Encounter Source Date/Time Date/Time Type Type Clinicians Facility Department ID 2021-09-28 Outpatient KEVIN Cruz STLMLC [id number] Common 11:53:[address] [place] [address] [facility] 2022-07-06 2022-07-06 Outpatient CORI BOLES [id number] Cori 00:00:00 00:00:00 MADELINE Seybol d 2022-06-13 2022-06-13 Outpatient CORI BOLES [id number] Cori 00:00:00 00:00:00 MADELINE Seybol d 2022-06-12 2022-06-12 (TEL) [facility] [id number] Co mmon 00:00:00 00:00:00 [facility] 2022-04-14 2022-04-14 Outpatient CORI BOLES [id number] Cori 00:00:00 00:00:00 MADELINE Seybol d 2022-04-10 2022-04-10 Outpatient CORI BOLES [id number] Cori 00:00:00 00:00:00 MADELINE Seybol d 2022-03-23 2022-03-23 Outpatient CORI FARRELL [id number] Cori 14:45:00 14:45:00 RODRIGUEZ Seybol d 2022-03-20 2022-03-20 Outpatient CORI BOLES [id number] Cori 00:00:00 00:00:00 MADELINE Seybol d 2022-02-16 2022-02-16 Outpatient CORI SOSA [id number] Cori 00:00:00 00:00:00 CHRIS Seybol d 2022-02-10 2022-02-10 Outpatient CORI BOLES [id number] Cori 00:00:00 00:00:00 MADELINE Seybol d 2022-02-07 2022-02-07 Outpatient CORI BOLES [id number] Cori 00:00:00 00:00:00 MADELINE Seybol d 2022-01-31 2022-01-31 Outpatient CORI BOLES [id number] Cori 00:00:00 00:00:00 MADELINE Seybol d 2022-01-19 2022-01-19 Outpatient LAB90 CORI LEHMAN [id number] Cori 09:15:00 09:15:00 Seybol d 2022-01-19 2022-01-19 Office Carlos Boles [id number] Cori 08:15:00 09:00:00 Visit Madeline Darden [id number] Se ybold Somogyi [id number] 2022-01-05 2022-01-05 Outpatient LAB90 CORI LEHMAN [id number] Cori 08:45:00 08:45:00 Seybol d 2022-01-05 2022-01-05 Office Carlos Boles [id number] Cori 08:15:00 08:30:00 Visit Madeline Darden [id number] Se ybold Somogyi [id number] 2021-12-23 2021-12-23 Outpatient CORI BOLES [id number] Cori 00:00:00 00:00:00 MADELINE Seybol d 2021-12-22 2021-12-22 Outpatient LAB90 CORI LEHMAN [id number] Cori 08:50:00 08:50:00 Seybol d 2021-12-22 2021-12-22 Office Carlos Boles [id number] Cori 08:00:00 08:15:00 Visit Madeline Darden [id number] Se ybold Somogyi [id number] 2021-12-20 2021-12-20 Outpatient CORI BOLES [id number] Cori 00:00:00 00:00:00 MADELINE Seybol d 2021-11-30 2021-11-30 Outpatient CORI BOLES [id number] Cori 00:00:00 00:00:00 MADELINE Seybol d 2021-10-10 2021-10-10 Outpatient CORI LOZANO [id number] Cori 00:00:00 00:00:00 AFFILIATE Seyb old 2021-10-10 2021-10-10 Outpatient CORI SOSA [id number] Cori 00:00:00 00:00:00 CHRIS Seybol d 2021-10-07 2021-10-07 Outpatient CORI LEHMAN [id number] Cori 00:00:00 00:00:00 Seybol d 2021-10-06 2021-10-06 Outpatient CORI BOLES [id number] Cori 00:00:00 00:00:00 MADELINE Seybol d 2021-10-01 2021-10-05 Inpatient [facility] [id number] Memoria 03:25:00 19:26:00 esther Motta 28 [facility] 2021-09-30 2021-10-05 Inpatient [facility] 2027 [facility] 21:25:00 13:26:00 RADU 2021-09-30 2021-10-05 Outpatient [facility], [facility] [id number] 21:25:00 13:26:00 Radu 28 2021-10-05 2021-10-05 Outpatient CORI LEHMAN [id number] Cori 00:00:00 00:00:00 Seybol d 2021-09-30 2021-09-30 Outpatient Paolo, [facility] [id number] 21:25:00 21:25:00 Jeremiekwheri 28 Isidor 2021-09-30 2021-09-30 Telemedici Carlos Sosa [id number] Cori 14:30:00 15:00:00 ne Chris Darden [id number] Se ybold [id number] 2021-09-30 2021-09-30 Outpatient CORI SOSA [id number] Cori 00:00:00 00:00:00 CHRIS Seybol d 2021-09-26 2021-09-26 Outpatient CORI LEHMAN [id number] Cori 00:00:00 00:00:00 Seybol d 2021-09-22 2021-09-22 Outpatient CORI BOLES [id number] Cori 00:00:00 00:00:00 MADELINE ybol radu 2021-09-12 2021-09-12 Outpatient CORI LEHMAN [id number] Cori 00:00:00 00:00:00 Seybol d 2021-09-09 2021-09-09 Office Carlos Sosa [id number] Cori 08:30:00 09:00:00 Visit Chris Darden [id number] Se santos [id number] 2021-07-04 2021-07-04 (TEL) [facility]ML[facility] STLMLC [id number] Co mmon 00:00:00 00:00:00 [facility] 2021-05-11 2021-05-11 (TEL) STLMLC STLMLC [id number] Co mmon 00:00:00 00:00:00 [facility] 2021-04-28 2021-04-28 (TEL) STLMLC STLMLC [id number] Co mmon 00:00:00 00:00:00 [facility] 2021-04-27 2021-04-27 OFFICE STLMLC STLMLC [id number] Co mmon 00:00:00 00:00:00 VISIT EST Spir it PT LEVEL 3 - [facility] 2021-04-27 2021-04-27 SUB ANNUAL STLMLC STLMLC [id number] Common 00:00:00 00:00:00 [facility] V[facility] 2020-07-07 2020-07-07 (TEL) STLMLC STLMLC [id number] Co mmon 00:00:00 00:00:00 [facility] 2020-06-14 2020-06-14 Outpatient STLMLC STLMLC [id number] Common 00:00:00 00:00:00 [facility] Results Test Description Test Time Test Comments Results Result Comments Source ECG- ADULT 2021-12-22 18:04:35 Test Item Value Reference Range Interpretation Comme nts VENTRICULAR RATE (test code = BPM ) ATRIAL RATE (test code = 43585) BPM P-R INTERVAL (test code = 43067) 146 ms QRS DURATION (test code = 03228) 88 ms Q-T INTERVAL (test code = 74934) 402 ms QTC CALCULATION(BEZE (test code = 448 ms ) CALCULATED P AXIS (test code = degrees 78652) CALCULATED R AXIS (test code = degrees 01411) CALCULATED T AXIS (test code = degrees 80953) DIAGNOSIS (test code = 77384) Normal sinus rhythmRSR' or QR pattern in V1 suggests right ventricular conduction delayBorderline ECGNo previous ECGs availableConfirmed by FRANCESCA ARRIAZA ([id number]) on 12/22/2021 1:04:34 PM [id number] 11:03:00 Test Item Value Reference Range Interpretation Comments Glucose Lvl (test code = Glucose Lvl) 181 70-99 [id number] 11:03:00 Test Item Value Reference Range Interpretation Comments BUN (test code = BUN) 19 7-22 [facility] [id number] 11:03:00 Test Item Value Reference Range Interpretation Comments Creatinine Lvl (test code = Creatinine 0.60 0.50-1.40 Lvl) [facility] [id number] 11:03:00 Test Item Value Reference Range Interpretation Comments Sodium Lvl (test code = Sodium Lvl) 141 135-145 [facility] [id number] 11:03:00 Test Item Value Reference Range Interpretation Comments Potassium Lvl (test code = Potassium 4.6 3.5-5.1 Lvl) [facility] [id number] 11:03:00 Test Item Value Reference Range Interpretation Comments Chloride Lvl (test code = Chloride Lvl) 109 95-109 [facility] [id number] 11:03:00 Test Item Value Reference Range Interpretation Comments CO2 (test code = CO2) 24 24-32 [facility] [id number] 11:03:00 Test Item Value Reference Range Interpretation Comments Calcium Lvl (test code = Calcium Lvl) 8.3 8.5-10.5 [facility] [id number] 11:03:00 Test Item Value Reference Range Interpretation Comments AGAP (test code = AGAP) 12.6 10.0-20.0 [facility]2022-02-01 11:03:00 Test Item Value Reference Range Interpretation Comments eGFR (test code = eGFR) 90 [facility]UklkwzcNPNJFEXFOK1649-18-82 11:03:00 Test Item Value Reference Range Interpretation Comments WBC X 10x3 (test code = WBC X 10x3) 14.4 3.7-10.4 [facility] WorthCenefwpTTWAYKOTTS3664-01-58 11:03:00 Test Item Value Reference Range Interpretation Comments RBC X 10x6 (test code = RBC X 10x6) 3.75 4.20-5.40 [place] 152302-02-01 11:03:00 Test Item Value Reference Range Interpretation Comments Hgb (test code = Hgb) 10.4 12.0-16.0 [facility] WorthWiemmegXJCFPPFUAX4721-69-61 11:03:00 Test Item Value Reference Range Interpretation Comments Hct (test code = Hct) 31.0 36.0-48.0 [facility] WorthOgtqdjbBBUNAUHYLU3062-92-76 11:03:00 Test Item Value Reference Range Interpretation Comments MCV (test code = MCV) 82.7 80.0-98.0 [facility] WorthDbgzhwgKOPKNRCJBJ6640-78-59 11:03:00 Test Item Value Reference Range Interpretation Comments MCH (test code = MCH) 27.6 pg 27.0-31.0 [facility] WorthKqdpkgsNQZJNQFEIJ7060-16-72 11:03:00 Test Item Value Reference Range Interpretation Comments MCHC (test code = MCHC) 33.4 32.0-36.0 [facility] WorthBlsmgviTSYDFMMCJR2981-69-20 11:03:00 Test Item Value Reference Range Interpretation Comments RDW (test code = RDW) 15.0 11.5-14.5 [place] 152302-02-01 11:03:00 Test Item Value Reference Range Interpretation Comments Platelet (test code = Platelet) 369 133-450 [facility] WorthZcscdvmZYVUHJWWEQ0174-60-79 11:03:00 Test Item Value Reference Range Interpretation Comments MPV (test code = MPV) 7.3 7.4-10.4 [facility]2022-01-31 12:31:00 Test Item Value Reference Range Interpretation Comments BUN (test code = BUN) 21 7-22 [place] 969822-01-31 12:31:00 Test Item Value Reference Range Interpretation Comments Creatinine Lvl (test code = Creatinine 0.70 0.50-1.40 Lvl) [place] 969822-01-31 12:31:00 Test Item Value Reference Range Interpretation Comments Sodium Lvl (test code = Sodium Lvl) 142 135-145 [place] 969822-01-31 12:31:00 Test Item Value Reference Range Interpretation Comments Potassium Lvl (test code = Potassium 4.1 3.5-5.1 Lvl) [place] 969822-01-31 12:31:00 Test Item Value Reference Range Interpretation Comments Chloride Lvl (test code = Chloride Lvl) 109 95-109 [place] 969822-01-31 12:31:00 Test Item Value Reference Range Interpretation Comments CO2 (test code = CO2) 24 -32 [place] 969822-01-31 12:31:00 Test Item Value Reference Range Interpretation Comments Calcium Lvl (test code = Calcium Lvl) 8.6 8.5-10.5 [place] 969822-01-31 12:31:00 Test Item Value Reference Range Interpretation Comments AGAP (test code = AGAP) 13.1 10.0-20.0 [place] 969822-01-31 12:31:00 Test Item Value Reference Range Interpretation Comments eGFR (test code = eGFR) 86 [place] 152302-01-31 12:31:00 Test Item Value Reference Range Interpretation Comments WBC X 10x3 (test code = WBC X 10x3) 20.8 3.7-10.4 [place] 152302-01-31 12:31:00 Test Item Value Reference Range Interpretation Comments RBC X 10x6 (test code = RBC X 10x6) 3.93 4.20-5.40 [place] 152302-01-31 12:31:00 Test Item Value Reference Range Interpretation Comments Hgb (test code = Hgb) 10.7 12.0-16.0 [place] [address]-01-31 12:31:00 Test Item Value Reference Range Interpretation Comments Hct (test code = Hct) 32.9 36.0-48.0 [place] 152302-01-31 12:31:00 Test Item Value Reference Range Interpretation Comments MCV (test code = MCV) 83.7 80.0-98.0 [facility]jiGEPMJYLNPF9347-40-21 12:31:00 Test Item Value Reference Range Interpretation Comments MCH (test code = MCH) 27.1 pg 27.0-31.0 [facility] HospitalCmhyzheIAFNFQVMCK8771-48-05 12:31:00 Test Item Value Reference Range Interpretation Comments MCHC (test code = MCHC) 32.4 32.0-36.0 [facility] HospitalMvnciszVAKJMDAIME0258-15-92 12:31:00 Test Item Value Reference Range Interpretation Comments RDW (test code = RDW) 15.0 11.5-14.5 [facility] HospitalGpaxgqzPMJBTMKSPY5395-57-95 12:31:00 Test Item Value Reference Range Interpretation Comments Platelet (test code = Platelet) 392 011-450 [facility] WorthPsmnojfZFRMJEFJKV4445-96-53 12:31:00 Test Item Value Reference Range Interpretation Comments MPV (test code = MPV) 6.8 7.4-10.4 [facility]2022-01-31 12:31:00 Test Item Value Reference Range Interpretation Comments Source Respiratory Nasophrngl Swb Panel PCR (test code = *NA*(10/03/21 6:31 AM) Source Respiratory Panel PCR) [facility] [id number] 12:31:00 Test Item Value Reference Range Interpretation Comments Influenza A PCR (test Negative *NA*(10/03/21 code = Influenza A PCR) 6:31 AM) [facility]2022-01-31 12:31:00 Test Item Value Reference Range Interpretation Comments Influenza B PCR (test Negative *NA*(10/03/21 code = Influenza B PCR) 6:31 AM) [facility]2022-01-31 12:31:00 Test Item Value Reference Range Interpretation Comments RSV PCR (test code = Negative *NA*(10/03/21 RSV PCR) 6:31 AM) [facility]79 12:31:00 Test Item Value Reference Range Interpretation Comments Vanco Lvl (test code = Vanco Lvl) 15.6 [facility]2022-01-31 12:31:00 Test Item Value Reference Range Interpretation Comments Glucose Lvl (test code = Glucose Lvl) 187 70-99 [facility] [id number] 06:01:00 Test Item Value Reference Range Interpretation Comments Source Strep (test code Urine *NA*(10/03/21 = Source Strep) 12:01 AM) [facility]2022-01-31 06:01:00 Test Item Value Reference Range Interpretation Comments Strep pneumoniae Ag Negative (10/03/21 (test code = Strep 12:01 AM) pneumoniae Ag) [facility]2022-01-30 16:23:00 Test Item Value Reference Range Interpretation Comments MRSA by PCR (test Negative (10/02/21 10:23 code = MRSA by PCR) AM) [facility]2022-01-30 11:31:00 Test Item Value Reference Range Interpretation Comments Creatinine Lvl (test code = Creatinine 0.80 0.50-1.40 Lvl) [facility]2022-01-30 11:31:00 Test Item Value Reference Range Interpretation Comments Sodium Lvl (test code = Sodium Lvl) 145 135-145 [facility]2022-01-30 11:31:00 Test Item Value Reference Range Interpretation Comments Potassium Lvl (test code = Potassium 3.8 3.5-5.1 Lvl) [facility]2022-01-30 11:31:00 Test Item Value Reference Range Interpretation Comments Chloride Lvl (test code = Chloride Lvl) 111 95-109 [facility]2022-01-30 11:31:00 Test Item Value Reference Range Interpretation Comments CO2 (test code = CO2) 26 24-32 [facility]2022-01-30 11:31:00 Test Item Value Reference Range Interpretation Comments Calcium Lvl (test code = Calcium Lvl) 8.9 8.5-10.5 [facility]2022-01-30 11:31:00 Test Item Value Reference Range Interpretation Comments AGAP (test code = AGAP) 11.8 10.0-20.0 [facility]2022-01-30 11:31:00 Test Item Value Reference Range Interpretation Comments eGFR (test code = eGFR) 73 [facility] WorthYdrrkbiWLYQAFFUTR1952-65-17 11:31:00 Test Item Value Reference Range Interpretation Comments WBC X 10x3 (test code = WBC X 10x3) 21.5 3.7-10.4 [place] 152302-01-30 11:31:00 Test Item Value Reference Range Interpretation Comments RBC X 10x6 (test code = RBC X 10x6) 3.71 4.20-5.40 [place] 152302-01-30 11:31:00 Test Item Value Reference Range Interpretation Comments Hgb (test code = Hgb) 10.3 12.0-16.0 [place] 152302-01-30 11:31:00 Test Item Value Reference Range Interpretation Comments Hct (test code = Hct) 31.0 36.0-48.0 [place] 152302-01-30 11:31:00 Test Item Value Reference Range Interpretation Comments MCV (test code = MCV) 83.6 80.0-98.0 [place] 152302-01-30 11:31:00 Test Item Value Reference Range Interpretation Comments MCH (test code = MCH) 27.8 pg 27.0-31.0 [place] 152302-01-30 11:31:00 Test Item Value Reference Range Interpretation Comments MCHC (test code = MCHC) 33.3 32.0-36.0 [place] 152302-01-30 11:31:00 Test Item Value Reference Range Interpretation Comments RDW (test code = RDW) 14.9 11.5-14.5 [place] 152302-01-30 11:31:00 Test Item Value Reference Range Interpretation Comments Platelet (test code = Platelet) 365 133-450 [place] 152302-01-30 11:31:00 Test Item Value Reference Range Interpretation Comments MPV (test code = MPV) 7.3 7.4-10.4 [facility]2022-01-30 11:31:00 Test Item Value Reference Range Interpretation Comments Glucose Lvl (test code = Glucose Lvl) 160 70-99 [facility]2022-01-30 11:31:00 Test Item Value Reference Range Interpretation Comments BUN (test code = BUN) 16 7-22 [place] 969822-01-29 09:42:00 Test Item Value Reference Range Interpretation Comments Glucose Lvl (test code = Glucose Lvl) 211 70-99 [place] 969822-01-29 09:42:00 Test Item Value Reference Range Interpretation Comments BUN (test code = BUN) 14 7-22 [place] 969822-01-29 09:42:00 Test Item Value Reference Range Interpretation Comments Creatinine Lvl (test code = Creatinine 0.70 0.50-1.40 Lvl) [place] 969822-01-29 09:42:00 Test Item Value Reference Range Interpretation Comments Sodium Lvl (test code = Sodium Lvl) 140 135-145 [place] 969822-01-29 09:42:00 Test Item Value Reference Range Interpretation Comments Potassium Lvl (test code = Potassium 4.1 3.5-5.1 Lvl) [place] 969822-01-29 09:42:00 Test Item Value Reference Range Interpretation Comments Chloride Lvl (test code = Chloride Lvl) 108 95-109 [place] 969822-01-29 09:42:00 Test Item Value Reference Range Interpretation Comments CO2 (test code = CO2) 24 24-32 [place] 969822-01-29 09:42:00 Test Item Value Reference Range Interpretation Comments Calcium Lvl (test code = Calcium Lvl) 8.3 8.5-10.5 [place] 969822-01-29 09:42:00 Test Item Value Reference Range Interpretation Comments Total Protein (test code = Total 6.2 6.4-8.4 Protein) [place] 969822-01-29 09:42:00 Test Item Value Reference Range Interpretation Comments Albumin Lvl (test code = Albumin Lvl) 2.5 3.5-5.0 [place] 969822-01-29 09:42:00 Test Item Value Reference Range Interpretation Comments ALT (test code = ALT) 18 See_Comment [Auto mated message] The system which ge nerated this result transmit stephen reference range : <=65. The reference range was not used to interpr et this result as elaine l/abnormal. [place] 969822-01-29 09:42:00 Test Item Value Reference Range Interpretation Comments AST (test code = AST) 15 See_Comment [Auto mated message] The system which ge nerated this result transmit stephen reference range : <=37. The reference range was not used to interpr et this result as elaine l/abnormal. [place] 969822-01-29 09:42:00 Test Item Value Reference Range Interpretation Comments Alk Phos (test code = Alk Phos) 85 39-136 [place] 969822-01-29 09:42:00 Test Item Value Reference Range Interpretation Comments Bili Total (test code = Bili Total) 0.5 0.2-1.3 [place] 969822-01-29 09:42:00 Test Item Value Reference Range Interpretation Comments AGAP (test code = AGAP) 12.1 10.0-20.[address]01-29 09:42:00 Test Item Value Reference Range Interpretation Comments B/C Ratio (test code = B/C Ratio) 20 1 6-[address]01-29 09:42:00 Test Item Value Reference Range Interpretation Comments Globulin (test code = Globulin) 3.7 2.7-4.2 [place] [id number] 09:42:00 Test Item Value Reference Range Interpretation Comments A/G Ratio (test code = A/G Ratio) 0.7 1 0.7-1.6 [place] [address]-01-29 09:42:00 Test Item Value Reference Range Interpretation Comments eGFR (test code = eGFR) 86 [place] [id number] 09:42:00 Test Item Value Reference Range Interpretation Comments Magnesium Lvl (test code = Magnesium 2.0 1.8-2.4 Lvl) [place] 152302-01-29 09:42:00 Test Item Value Reference Range Interpretation Comments WBC X 10x3 (test code = WBC X 10x3) 5.3 3.7-10.4 [place] 152302-01-29 09:42:00 Test Item Value Reference Range Interpretation Comments RBC X 10x6 (test code = RBC X 10x6) 4.08 4.20-5.40 [place] 152302-01-29 09:42:00 Test Item Value Reference Range Interpretation Comments Hgb (test code = Hgb) 11.5 12.0-16.0 [place] 152302-01-29 09:42:00 Test Item Value Reference Range Interpretation Comments Hct (test code = Hct) 33.7 36.0-48.0 [place] 152302-01-29 09:42:00 Test Item Value Reference Range Interpretation Comments MCV (test code = MCV) 82.6 80.0-98.0 [place] 152302-01-29 09:42:00 Test Item Value Reference Range Interpretation Comments MCH (test code = MCH) 28.1 pg 27.0-31.0 [facility] 09:42:00 Test Item Value Reference Range Interpretation Comments MCHC (test code = MCHC) 34.0 32.0-36.0 [place] 152302-01-29 09:42:00 Test Item Value Reference Range Interpretation Comments RDW (test code = RDW) 14.8 11.5-14.5 [place] 152302-01-29 09:42:00 Test Item Value Reference Range Interpretation Comments Platelet (test code = Platelet) 365 133-450 [facility] WorthPfrrjcrVIUPMCTDPO7361-09-26 09:42:00 Test Item Value Reference Range Interpretation Comments MPV (test code = MPV) 6.9 7.4-10.4 [place] 152302-01-29 09:42:00 Test Item Value Reference Range Interpretation Comments Segs (test code = Segs) 92.3 45.0-75.0 [facility] [id number] 09:42:00 Test Item Value Reference Range Interpretation Comments Lymphocytes (test code = Lymphocytes) 6.7 20.0-40.0 [place] 152302-01-29 09:42:00 Test Item Value Reference Range Interpretation Comments Monocytes (test code = Monocytes) 0.9 2.0-12.0 [place] 152302-01-29 09:42:00 Test Item Value Reference Range Interpretation Comments Basophils (test code = 0.1 See_Comment [Aut omated message] The Basophils) system which ge nerated this result tra nsmitted reference range : <=1.0. The reference r bronson was not used to int erpret this result as normal/abnormal . [facility] WorthWjkggofTTDWGRFLSJ7224-23-08 09:42:00 Test Item Value Reference Range Interpretation Comments Neutrophils # (test code = Neutrophils 4.9 1.5-8.1 #) [id number] 09:42:00 Test Item Value Reference Range Interpretation Comments Lymphocytes # (test code = Lymphocytes 0.4 1.0-5.5 #) [facility] H[id number] 06:17:00 Test Item Value Reference Range Interpretation Comments Coronavirus (COVID-19) Not Detected (10/01/21 EDNA (test code = 12:17 AM) Coronavirus (COVID-19) EDNA) [facility]
[2022-07-24] MEDS ORDERED: ACETAMINOPHEN 325 MG TABLET ONE (16:46)
[2022-07-24 16:52] LABS: Absolute Lymphocytes (CBC) 1.3 K/uL (0.7-4.9); Lymphocytes % 8.9 % (15.3-44.8); MCV 81.2 fL (80-100); MPV 6.9 fL (7.6-11.3); RBC Red Blood Cell Count 4.31 M/uL (3.86-4.86)
[2022-07-24 16:54] LABS: Protime INR 1.25
[2022-07-24 17:09] LABS: Albumin 2.7 g/dL (3.4-5.0); Bilirubin Direct 0.3 mg/dL (0-0.2); Bilirubin Total 0.6 mg/dL (0.2-1.0); Magnesium 1.9 mg/dL (1.8-2.4); Potassium 3.6 mmol/L (3.5-5.1); Protein, Total 7.1 g/dL (6.4-8.2); Troponin High Sensitivity 8.1 pg/mL (<58.9)
[2022-07-24] MEDS ORDERED: CEFTRIAXONE 1000 MG/VIAL ONE (17:45)
[2022-07-24] MEDS ORDERED: NA CHLORIDE 0.9% 250 ML ONE (17:45)
[2022-07-24] MEDS ORDERED: AZITHROMYCIN 500 MG INJ IVPB ONE (17:45)
[2022-07-24] MEDS ORDERED: NA CHLORIDE 0.9% 50 ML IV ONE (17:45)
--- NOTE | 2022-07-24 18:14 | ER ---
Nurse's Notes [facility] Name: Jacki Brar Age: 77 yrs Sex: Female : 1945 Arrival Date: 07/24/2022 Time: 15:53 Bed 4 Private MD: Diagnosis: Pneumonia due to other specified infectious organisms;Acute respiratory failure with hypoxia;Severe sepsis without septic shock Presentation: 07/24 16:01 Chief complaint: Patient states: SOB and air hunger x4 days; uses oxygen 24/7 at 2.5L. jh5 Coronavirus screen: Vaccine status: Patient reports receiving the 2nd dose of the covid vaccine. Client denies travel out of the [place] in the last 14 days. Ebola Screen: Patient negative for fever greater than or equal to 101.5 degrees Fahrenheit, and additional compatible Ebola Virus Disease symptoms Patient denies exposure to infectious person. Patient denies travel to an Ebola-affected area in the 21 days before illness onset. Initial Sepsis Screen: Does the patient meet any 2 criteria? No. Patient's initial sepsis screen is negative. Does the patient have a suspected source of infection? No. Patient's initial sepsis screen is negative. Risk Assessment: Do you want to hurt yourself or someone else? Patient reports no desire to harm self or others. 16:01 Method Of Arrival: Wheelchair [facility] 16:01 Acuity: JOSE 2 jh5 21:45 Onset of symptoms was July 20, 2022. as6 Triage Assessment: 16:03 General: Appears distressed, uncomfortable, slender, Behavior is calm, cooperative, jh5 appropriate for age, anxious. Pain: Denies pain. Respiratory: Reports shortness of breath cough that is air hunger labored breathing Onset: The symptoms/episode began/occurred. Historical: - Allergies: 16:10 No Known Allergies; iw - PMHx: 16:03 Anemia; TIA; jh5 16:20 COPD; Pulmonary Fibrosis; aa5 - Immunization history:: Adult Immunizations up to date. - Social history:: Smoking status: Patient denies any tobacco usage or history of. Screenin:30 Abuse screen: Denies threats or abuse. Nutritional screening: No deficits noted. aa5 Tuberculosis screening: No symptoms or risk factors identified. Fall Risk None identified. Assessment: 16:20 General: Appears uncomfortable, Behavior is calm, cooperative. Pain: Complains of pain aa5 in whole body Pain currently is 5 out of 10 on a pain scale. Quality of pain is described as aching, Is continuous. Neuro: Level of Consciousness is awake, alert, obeys commands, Oriented to person, place, time, situation. Cardiovascular: Heart tones S1 S2 present Rhythm is sinus tachycardia. Respiratory: Reports shortness of breath at rest cough that is productive, Airway is patent Respiratory effort is even, unlabored, Respiratory pattern is tachypnea Breath sounds with rales bilaterally. GI: Abdomen is non-distended, Bowel sounds present X 4 quads. Abd is soft and non tender X 4 quads. : No signs and/or symptoms were reported regarding the genitourinary system. EENT: No signs and/or symptoms were reported regarding the EENT system. Derm: Skin is pink, warm \\T\\ dry. Musculoskeletal: Range of motion: intact in all extremities. 16:55 Reassessment: Pt placed on Bi-PAP by RT, pt tolerating well. . aa5 16:55 Reassessment: ABG completed by RT . aa5 16:55 Respiratory: Airway is patent Respiratory effort is even, unlabored, Respiratory aa5 pattern is tachypnea. 17:10 Reassessment: Pt c/o increased SOB with BI-PAP at this time, pt states "I feel like aa5 it's suffocating me". Provider at bedside and pt was taken off Bi-PAP, O2 via NC at 4 L at this time, O2 sat 92% via NC, RR 25. Pt's SOB has improved and states feeling better. . 17:30 Reassessment: Patient is alert, oriented x 3, equal unlabored respirations, skin aa5 warm/dry/pink. Patient states feeling better. 18:00 Reassessment: Pt to CT via stretcher . aa5 18:29 Reassessment: Pt back from CT . aa5 18:45 Reassessment: Patient is alert, oriented x 3, equal unlabored respirations, skin aa5 warm/dry/pink. Patient states feeling better. Patient states symptoms have improved. 20:12 General: pt resting comfortably at this time . as6 20:55 General: pt O2 80%. placed on nonrebreather, RT paged for pt to be placed back on BiPAP.as6 23:12 General: Appears uncomfortable, ill, Behavior is calm, cooperative. Neuro: Level of kd3 Consciousness is awake, alert, obeys commands, Oriented to person, place, time, situation. Respiratory: Airway is patent Respiratory effort is even, unlabored, Respiratory pattern is tachypnea. Vital Signs: 16:01 BP 115 / 77; Pulse 115; Resp 30; Temp 98.8; Pulse Ox 82% on 2.5 lpm NC; Weight 50.8 kg; jh5 Height 5 ft. 2 in. (157.48 cm); Pain 0/10; 16:20 Pulse Ox 97% on 4 lpm NC; aa5 16:30 BP 150 / 75; Pulse 106; Resp 32 S; Temp 100.8(O); Pulse Ox 96% on 4 lpm NC; aa5 17:10 BP 142 / 65; Pulse 120; Resp 42 S; Pulse Ox 100% on BiPAP; aa5 17:15 Pulse 110; Resp 25 S; Temp 98.7(O); Pulse Ox 92% on 4 lpm NC; aa5 17:30 Pulse 102; Resp 20 S; Pulse Ox 93% on 4 lpm NC; aa5 18:45 BP 107 / 53; Pulse 99; Resp 22 S; Temp 99.1(O); Pulse Ox 92% on 4 lpm NC; aa5 20:12 BP 72 / 37; Pulse 87; Resp 31 S; Temp 97.9(O); Pulse Ox 97% on 4 lpm NC; as6 20:30 BP 82 / 46; Pulse 89; Resp 24 S; Pulse Ox 87% on 4 lpm NC; as6 21:00 BP 78 / 46; Pulse 78; Resp 19 S; Pulse Ox 100% on 15% Non-rebreather mask; as6 21:45 BP 92 / 69; Pulse 94; Resp 30 S; Pulse Ox 100% on 10 lpm NC; as6 23:12 BP 111 / 53; Pulse 91; Resp 23; Temp 97.6(O); Pulse Ox 94% on 10 lpm NC; kd3 16:01 Body Mass Index 20.48 (50.80 kg, 157.48 cm) [facility] ED Course: 15:53 Patient arrived in ED. rg4 15:57 Ivan Hayward PA is PHCP. cp 15:57 Guero Pederson MD is Attending Physician. cp 16:03 Triage completed. jh5 16:03 Arm band placed on right wrist. jh5 16:20 Patient has correct armband on for positive identification. Placed in gown. Bed in low aa5 position. Call light in reach. Side rails up X2. Client placed on continuous cardiac and pulse oximetry monitoring. NIBP monitoring applied. 16:31 Inserted saline lock: 20 gauge in right antecubital area, using aseptic technique. aa5 16:31 Initial lab(s) drawn, by me, sent to lab. First set of blood cultures drawn by me. aa5 16:34 XRAY Chest (1 view) In Process Unspecified. EDMS 17:05 Inserted saline lock: 20 gauge in left antecubital area, using aseptic technique. Blood aa5 collected. 17:05 Second set of blood cultures drawn by me. aa5 17:32 Trinidad Mon RN is Primary Nurse. aa5 18:12 Mike Levine MD is Hospitalizing Provider. cp 18:19 CT Chest For PE Angio In Process Unspecified. EDMS 19:00 Report given to KLAUDIA Plummer. aa5 07/25 04:57 No provider procedures requiring assistance completed. Patient admitted, IV remains in kd3 place. Administered Medications: 07/24 16:45 Drug: Aspirin Chewable Tablet 324 mg Route: PO; aa5 17:20 Follow up: Response: No adverse reaction aa5 16:50 Drug: SOLU-Medrol (methylPrednisoLONE) 80 mg Route: IVP; Site: right antecubital; aa5 17:00 Follow up: Response: No adverse reaction aa5 16:50 Drug: Tylenol 650 mg Route: PO; aa5 17:10 Follow up: Response: No adverse reaction; Temperature is decreased aa5 17:10 Drug: Xopenex (levalbuterol) (3) 1.25 mg Route: Inhalation; aa5 17:20 Drug: Rocephin (cefTRIAXone) 1 grams Route: IV; Rate: calculated rate; Site: left aa5 antecubital; 17:30 Follow up: Response: No adverse reaction aa5 17:50 Follow up: IV Status: Completed infusion aa5 07/25 04:58 Follow up: IV Status: Completed infusion kd3 07/24 18:45 Drug: Zithromax (azithromycin) 500 mg Route: IVPB; Infused Over: 1 hrs; Site: left aa5 antecubital; 07/25 04:58 Follow up: Response: No adverse reaction; IV Status: Completed infusion kd3 07/24 18:50 Drug: NS 0.9% 500 ml Route: IV; Rate: 250 ml/hr; Site: left antecubital; aa5 07/25 04:58 Follow up: Response: No adverse reaction; IV Status: Completed infusion kd3 07/24 20:11 Drug: NS 0.9% 500 ml Route: IV; Rate: 50 ml/hr; Site: left antecubital; as6 07/25 04:57 Follow up: Response: No adverse reaction; IV Status: Completed infusion kd3 07/24 20:11 Drug: Tamiflu (oseltamivir) 75 mg Route: PO; as6 07/25 04:57 Follow up: Response: No adverse reaction kd3 07/24 20:20 Drug: NS 0.9% (30 ml/kg) 30 ml/kg Route: IV; Rate: bolus; Site: right antecubital; as6 07/25 04:57 Follow up: IV Status: Completed infusion kd3 Medication: 07/24 21:45 VIS not applicable for this client. as6 Outcome: 18:14 Decision to Hospitalize by Provider. 07/25 04:57 Admitted to ER Hold. Please see [facility] for further documentation. kd3 Condition: stable Discharge instructions given to patient, Instructed on the need for admit, Demonstrated understanding of instructions. 09:08 Patient left the ED. sd1 Signatures: Dispatcher [employer] Dara Peñaloza RN RN iw Calderon, Audri, RN RN Gracie Holland sd1 Ivan Hayward PA PA cp Garcia, Rubi rg4 Rees, Jessica, RN RN jh5 London Morgan RN RN as6 Kavitha Herrera RN RN kd3 Corrections: (The following items were deleted from the chart) 07/24 19:18 17:10 Reassessment: Pt c/o increased SOB with BI-PAP at this time, pt states "I feel aa5 like it's suffocating me". Provider at bedside and pt was taken off Bi-PAP, O2 via NC at 4 L at this time, O2 sat 92% via NC, RR 25. Pt's SOB has improved. . aa5 19:42 17:05 Reassessment: Pt placed on Bi-PAP by RT, pt tolerating well. . aa5 aa5 19:45 18:45 Reassessment: Patient is alert, oriented x 3, equal unlabored respirations, skin aa5 warm/dry/pink. Patient states feeling better. Patient states symptoms have improved. aa5 21:22 21:20 General: pt O2 80%. placed on nonrebreather, RT paged for pt to be placed back on as6 BiPAP. as6 21:47 21:45 BP 92 / 69; Pulse 94bpm; Resp 30bpm; Spontaneous; Pulse Ox 100% 7 lpm Nasal as6 Cannula; as6
--- NOTE | 2022-07-24 18:14 | EDPHYS ---
Physician Documentation [facility] Name: Jacki Brar Age: 77 yrs Sex: Female : 1945 Arrival Date: 07/24/2022 Time: 15:53 Bed 4 Private MD: ED Physician Guero Pederson HPI: 07/24 16:05 This 77 yrs old Female presents to ER via Wheelchair with complaints of cp Shortness Of Breath, Nausea. 16:05 The patient has shortness of breath at rest. cp 16:05 Onset: The symptoms/episode began/occurred yesterday. Duration: The symptoms are cp continuous, and are steadily getting worse. Associated signs and symptoms: Pertinent positives: non-productive cough, nausea, Pertinent negatives: chest pain, diaphoresis, vomiting. Severity of symptoms: in the emergency department the symptoms are unchanged despite home interventions. Historical: - Allergies: 16:10 No Known Allergies; iw - PMHx: 16:03 Anemia; TIA; jh5 16:20 COPD; Pulmonary Fibrosis; aa5 - Immunization history:: Adult Immunizations up to date. - Social history:: Smoking status: Patient denies any tobacco usage or history of. ROS: 16:10 Constitutional: Negative for fever. cp 16:10 Eyes: Negative for injury, pain, redness, and discharge. cp 16:10 ENT: Negative for drainage from ear(s), ear pain, sore throat, difficulty swallowing, difficulty handling secretions. 16:10 Cardiovascular: Negative for chest pain, edema, palpitations. 16:10 Respiratory: Positive for cough, "sounds productive", shortness of breath. 16:10 Abdomen/GI: Positive for nausea, Negative for vomiting, diarrhea, constipation. 16:10 Skin: Negative for cellulitis, rash. 16:10 Neuro: Negative for altered mental status, headache. 16:10 All other systems are negative. Exam: 16:15 Constitutional: The patient appears alert, awake, non-diaphoretic, non-toxic, well cp developed, well nourished, in obvious distress, mildly distressed. 16:15 Head/Face: Normocephalic, atraumatic. cp 16:15 Eyes: Periorbital structures: appear normal, Conjunctiva: normal, no exudate, no injection, Sclera: no appreciated abnormality, Lids and lashes: appear normal, bilaterally. 16:15 ENT: External ear(s): are unremarkable, Nose: is normal, Mouth: Lips: moist, Oral mucosa: moist, Posterior pharynx: Airway: no evidence of obstruction, patent, swelling, is not appreciated, erythema, is not appreciated, exudate, is not appreciated. 16:15 Neck: ROM/movement: is normal, is supple, without pain, no range of motions limitations, no meningismus. 16:15 Chest/axilla: Inspection: normal, Palpation: is normal, no crepitus, no tenderness. 16:15 Cardiovascular: Rate: tachycardic, Rhythm: regular, Edema: is not appreciated, JVD: is not appreciated. 16:15 Respiratory: mild respiratory distress is noted, Respirations: labored breathing, that is moderate, shallow respirations, that is moderate, Breath sounds: bronchial sounds, that are moderate, are heard diffusely, stridor, is not appreciated. 16:15 Abdomen/GI: Inspection: abdomen appears normal, Bowel sounds: active, all quadrants, Palpation: abdomen is soft and non-tender, in all quadrants. 16:15 Back: CVA tenderness, is absent. 16:15 Skin: cellulitis, is not appreciated, no rash present. 16:15 Neuro: Orientation: to person, place \\T\\ time. Mentation: able to follow commands, slow to respond, Motor: moves all fours, strength is normal, Sensation: is normal. 17:02 ECG was reviewed by the Attending Physician. cp Vital Signs: 16:01 BP 115 / 77; Pulse 115; Resp 30; Temp 98.8; Pulse Ox 82% on 2.5 lpm NC; Weight 50.8 kg; jh5 Height 5 ft. 2 in. (157.48 cm); Pain 0/10; 16:20 Pulse Ox 97% on 4 lpm NC; aa5 16:30 BP 150 / 75; Pulse 106; Resp 32 S; Temp 100.8(O); Pulse Ox 96% on 4 lpm NC; aa5 17:10 BP 142 / 65; Pulse 120; Resp 42 S; Pulse Ox 100% on BiPAP; aa5 17:15 Pulse 110; Resp 25 S; Temp 98.7(O); Pulse Ox 92% on 4 lpm NC; aa5 17:30 Pulse 102; Resp 20 S; Pulse Ox 93% on 4 lpm NC; aa5 18:45 BP 107 / 53; Pulse 99; Resp 22 S; Temp 99.1(O); Pulse Ox 92% on 4 lpm NC; aa5 20:12 BP 72 / 37; Pulse 87; Resp 31 S; Temp 97.9(O); Pulse Ox 97% on 4 lpm NC; as6 20:30 BP 82 / 46; Pulse 89; Resp 24 S; Pulse Ox 87% on 4 lpm NC; as6 21:00 BP 78 / 46; Pulse 78; Resp 19 S; Pulse Ox 100% on 15% Non-rebreather mask; as6 21:45 BP 92 / 69; Pulse 94; Resp 30 S; Pulse Ox 100% on 10 lpm NC; as6 23:12 BP 111 / 53; Pulse 91; Resp 23; Temp 97.6(O); Pulse Ox 94% on 10 lpm NC; kd3 16:01 Body Mass Index 20.48 (50.80 kg, 157.48 cm) [facility] MDM: 16:00 Patient medically screened. cp 17:00 Differential diagnosis: Bronchitis CHF exacerbation, Chronic Obstructive Pulmonary cp Disease Myocardial Infarction pneumonia, pulmonary edema, Pulmonary Embolism Sepsis. 18:00 Data reviewed: vital signs, nurses notes, lab test result(s), EKG, radiologic studies, cp plain films. 18:00 Antibiotic administration: Rocephin and Zithromax given. Test interpretation: by ED cp physician or midlevel provider: ECG, plain radiologic studies. Physician consultation: Randolph RAMIREZ was contacted at 18:00, regarding admission, to the telemetry unit. patient's condition, and will see patient in ED, shortly. 18:15 ED course: Patient meets criteria for sever sepsis w/o shock: A) Source of infection is cp pneumonia, B) SIRS criteria met: HR of 115, [place] 30[place] [address], C) Patient requiring BIPAP. 07/24 15:59 Order name: Basic Metabolic Panel; Complete Time: 17:10 cp 07/24 17:10 Interpretation: Normal except: NA 135; GLUC 117; BUN 22; GFR 47. 07/24 15:59 Order name: CBC with Diff; Complete Time: 17:10 cp 07/24 17:11 Interpretation: Normal except: WBC 14.70; HGB 11.7; HCT 35.0; RDW 15.4; MPV 6.9; GARY% cp 85.8; LYM% 8.9; NEUT A 12.6. 07/24 15:59 Order name: D-Dimer; Complete Time: 17:10 07/24 17:11 Interpretation: Abnormal: D-DIMER 1313. 07/24 15:59 Order name: LFT's; Complete Time: 17:10 07/24 15:59 Order name: Magnesium; Complete Time: 17:10 07/24 15:59 Order name: NT PRO-BNP; Complete Time: 17:10 07/24 15:59 Order name: PT-INR; Complete Time: 17:10 07/24 15:59 Order name: Troponin HS; Complete Time: 17:10 07/24 15:59 Order name: Lactate w/ 2H reflex if indic.; Complete Time: 17:10 07/24 15:59 Order name: Procalcitonin; Complete Time: 17:41 07/24 15:59 Order name: Blood Culture Adult (2) 07/24 15:59 Order name: COVID-19/FLU A+B; Complete Time: 18:59 07/24 18:07 Order name: ABG; Complete Time: 18:39 07/24 18:51 Order name: ABG Arterial Blood Gas; Complete Time: 18:59 [facility] 07/24 18:59 Interpretation: Normal except: ABGPH 7.46; ABGPO2 62.6; XUDT6OD 90.3. 07/24 15:59 Order name: XRAY Chest (1 view); Complete Time: 17:10 07/24 15:59 Order name: BIPAP 07/24 17:12 Order name: CT Chest For PE Angio; Complete Time: 18:39 07/24 18:39 Interpretation: Report reviewed. 07/25 02:21 Order name: CBC with Automated Diff EDMS 07/25 02:29 Order name: Comprehensive Metabolic Panel EDMS 07/25 02:59 Order name: Manual Differential EDMS 07/24 15:59 Order name: EKG; Complete Time: 16:00 07/24 15:59 Order name: Cardiac monitoring; Complete Time: 16:40 07/24 15:59 Order name: EKG - Nurse/Tech; Complete Time: 17:37 cp 07/24 15:59 Order name: IV Saline Lock; Complete Time: 16:40 cp 07/24 15:59 Order name: Labs collected and sent; Complete Time: 16:40 cp 07/24 15:59 Order name: O2 Per Protocol; Complete Time: 16:40 cp 07/24 15:59 Order name: O2 Sat Monitoring; Complete Time: 16:40 cp 07/24 17:13 Order name: Vital Signs: please update to include temp; Complete Time: 17:14 cp EC:02 Rate is 101 beats/min. Rhythm is regular. IL interval is normal. QRS interval is cp prolonged at 128 msec. QT interval is normal. T waves are Inverted in leads aVR, V1, V2, V3. Interpreted by me. Reviewed by me. Administered Medications: 16:45 Drug: Aspirin Chewable Tablet 324 mg Route: PO; aa5 17:20 Follow up: Response: No adverse reaction aa5 16:50 Drug: SOLU-Medrol (methylPrednisoLONE) 80 mg Route: IVP; Site: right antecubital; aa5 17:00 Follow up: Response: No adverse reaction aa5 16:50 Drug: Tylenol 650 mg Route: PO; aa5 17:10 Follow up: Response: No adverse reaction; Temperature is decreased aa5 17:10 Drug: Xopenex (levalbuterol) (3) 1.25 mg Route: Inhalation; aa5 17:20 Drug: Rocephin (cefTRIAXone) 1 grams Route: IV; Rate: calculated rate; Site: left aa antecubital; 17:30 Follow up: Response: No adverse reaction aa5 17:50 Follow up: IV Status: Completed infusion 07/25 04:58 Follow up: IV Status: Completed infusion kd3 07/24 18:45 Drug: Zithromax (azithromycin) 500 mg Route: IVPB; Infused Over: 1 hrs; Site: left aa5 antecubital; 07/25 04:58 Follow up: Response: No adverse reaction; IV Status: Completed infusion kd3 07/24 18:50 Drug: NS 0.9% 500 ml Route: IV; Rate: 250 ml/hr; Site: left antecubital; 07/25 04:58 Follow up: Response: No adverse reaction; IV Status: Completed infusion kd3 07/24 20:11 Drug: NS 0.9% 500 ml Route: IV; Rate: 50 ml/hr; Site: left antecubital; 07/25 04:57 Follow up: Response: No adverse reaction; IV Status: Completed infusion kd3 07/24 20:11 Drug: Tamiflu (oseltamivir) 75 mg Route: PO; 07/25 04:57 Follow up: Response: No adverse reaction kd3 07/24 20:20 Drug: NS 0.9% (30 ml/kg) 30 ml/kg Route: IV; Rate: bolus; Site: right antecubital; 07/25 04:57 Follow up: IV Status: Completed infusion Disposition: 10:02 Co-signature as Attending Physician, Guero Pederson MD I agree with the assessment and rt plan of care. Disposition Summary: 07/24/22 18:14 Hospitalization Ordered Hospitalization Status: Inpatient Admission cp Provider: Mike Levine cp Condition: Stable cp Problem: new cp Symptoms: have improved cp Bed/Room Type: Standard cp Location: Telemetry/MedSurg (Inpatient)(07/25/22 07:52) bd Room Assignment: 404(07/25/22 07:52) bd Diagnosis - Pneumonia due to other specified infectious organisms cp - Acute respiratory failure with hypoxia cp - Severe sepsis without septic shock cp Forms: - Medication Reconciliation Form cp - SBAR form cp Signatures: Dispatcher [employer] EDMS Sue Travis Irene, RN RN Trinidad Mon RN RN aa5 Randolph Webb, PROCESSING ASSOCIATE-C PROCESSING ASSOCIATE-[facility] Ivan Hayward PA PA cp Kitty Pro, KLAUDIA RUDOLPH cg Fiona Garcia RN RN jh5 London Morgan RN RN as6 Guero Pederson MD MD rt Kavitha Herrera RN kd3 Corrections: (The following items were deleted from the chart) 07/24 18:20 18:16 ED course: Patient meets criteria for sever sepsis w/o shock: A) Source of cp infection is pneumonia, B) SIRS criteria met: HR of 115, [place] 30[place] [address]. cp 20:30 18:14 cp cg 20:52 20:30 215 cg cg 07/25 00:10 07/24 18:14 Telemetry/MedSurg (Inpatient) cp cg 07/25 00:10 07/24 20:52 cg cg 07/25 07:52 00:10 [facility] ER HOLD cg bd 00:10 ERHOLD- cg bd
--- NOTE | 2022-07-24 18:28 | RAD REPORT ---
EXAM DESCRIPTION: CT - Chest For Pe Angio - 07/24/2022 6:18 pm CLINICAL HISTORY: Chest pain. shortness of breath COMPARISON: 3D SCR TRAVIS BILAT W/CAD dated 05/06/2021; Thorax Wo Con dated 10/27/2016 TECHNIQUE: CT angiogram of the pulmonary arteries was performed with MIP. All CT scans are performed using dose optimization technique as appropriate and may include automated exposure control or mA/KV adjustment according to patient size. FINDINGS: No evidence of pulmonary thromboembolism. No acute aortic finding demonstrated. There is advanced pulmonary fibrosis present with honeycombing in the lung bases periphery of both [place] ngs. Interstitial markings are also prominent which could indicate superimposed impaction, however th is should be clinically correlated. No significant pericardial or pleural fluid. No concerning bony finding. IMPRESSION: No evidence of pulmonary thromboembolism. 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
[2022-07-24] MEDS ORDERED: NA CHLORIDE 0.9% 1,000 ML ONE ×3 (18:37→23:48)
[2022-07-24 18:49] LABS: SARS-COV-2 RT PCR NEGATIVE (NEGATIVE)
[2022-07-24 18:50] LABS: Arterial Blood Carboxyhemoglob 1.4 % (0-1.5); Blood Gas Oxyhemoglobin 90.3 % (94-97); Blood O2 Saturation 92.7 % (92-98.5)
[2022-07-24] MEDS ORDERED: OSELTAMIVIR 75 MG CAP ONE (20:04)
[2022-07-24] MEDS ORDERED: NA CHLORIDE 0.9% 500 ML ONE ×2 (20:04→20:17)
--- NOTE | 2022-07-24 20:47 | P.HP ---
Certification for Inpatient Patient admitted to: Inpatient With expected LOS: >2 Midnights Patient will require the following post-hospital care: None Practitioner: I am a practitioner with admitting privileges, knowledge of patient current condition, hospital course, and medical plan of care. Services: Services provided to patient in accordance with Admission requirements found in Title 42 Section 412.3 of the Code of Federal Regulations Patient History Date of Service: 07/24/22 Reason for admission: Septic shock, respiratory failure, influenza History of Present Illness: 77-year-old female with history of pulmonary fibrosis on chronic home O2 2.5 L, previous TIA presents to the emergency department for shortness of breath. She reports increasing dyspnea over the course of the last 4 to 5 days she has had to turn her oxygen up to 4 L to maintain saturations greater than 90%. SIRS criteria were present including tachycardia, tachypnea, fever, leukocytosis. She was trialed on BiPAP but could not tolerate, ABG was performed which revealed a pH of 7.46 PCO2 39 PO2 62.6. Chest x-ray was suggestive of bilateral pneumonia pattern suspected greater than left superimposed on chronic fibrotic lung changes. Follow-up CTA of the chest was performed which revealed no evidence of pulmonary thromboembolism, advanced pulmonary fibrosis most co mpatible with UIP. Interstitial markings are also prominent which could indicate superimposed infection. Shortly after patient's influenza test came back positive for influenza A. She is given Tamiflu, Rocephin, Zithromax. She subsequently had 2 blood pressures less than 90 systolic she meets criteria for septic shock, she was given 30 cc/kg IV fluid bolus in ED will admit for further evaluation and management. Allergies No Known Allergies Allergy (Verified 05/26/22 10:57) Home Medications: Aspirin [Lo-Dose Aspirin EC] 81 mg PO DAILY 06/03/20 Multivitamin [Multivitamins] 1 each PO DAILY 06/03/20 Pirfenidone [Esbriet] 2 tab PO BID 06/03/20 predniSONE [Deltasone*] 10 mg PO DAILY 06/03/20 Pantoprazole [Protonix Tab*] 1 tab PO BID 30 Days #60 tab 06/04/20 Albuterol Sulfate [Proair Digihaler] 1 inh .ROUTE BID 05/26/22 Amlodipine Besylate 1 tab PO DAILY 05/26/22 Cholecalciferol (Vitamin D3) [D3-50] 1 tab PO DAILY 05/26/22 Fluticasone/Vilanterol [Breo Ellipta 200-25 Mcg INH] 1 puff .ROUTE DAILY 05/26/22 Triamterene/Hctz [Maxzide 37.5 mg-25 mg Tablet*] 1 tab PO DAILY 05/26/22 Zinc Gluconate [Zinc] 1 tab PO DAILY 05/26/22 - Past Medical/Surgical History Diabetic: No -: Osteoarthritis -: Pulmonary fibrosis -: Anemia -: Rheumatoid arthritis -: Appendectomy -: Cholecystectomy -: Right hip replacement -: Left hip hemiarthroplasty -: tonsillectomy Psychosocial/ Personal History: She is . She has 3 children. 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 - Family History Mother -: Lung disease Father -: Heart disease Sister -: Other (see notes) Notes: skin disorder - Social History Smoking Status: Never smoker Alcohol use: Yes CD- Drugs: No Caffeine use: Yes Place of Residence: Home Review of Systems 10-point ROS is otherwise unremarkable General: Fever, Weakness Respiratory: Cough, Shortness of Breath, SOB with Excertion, Sputum, Wheezing Physical Examination - Physical Exam General: Alert, In no apparent distress, Oriented x3 HEENT: Atraumatic, PERRLA, Mucous membr. moist/pink, EOMI, Sclerae nonicteric Neck: Supple, 2+ carotid pulse no bruit, No LAD, Without JVD or thyroid abnormality Respiratory: Clear to auscultation bilaterally, Normal air movement Cardiovascular: Regular rate/rhythm, Normal S1 S2 Capillary refill: <2 Seconds Gastrointestinal: Normal bowel sounds, No tenderness Musculoskeletal: No tenderness Integumentary: No rashes Neurological: Normal speech, Normal strength at 5/5 x4 extr, Normal tone, Normal affect - Studies Laboratory Data (last 24 hrs) 07/24/22 16:31: PT 13.7 H, INR 1.25 07/24/22 16:31: WBC 14.70 H, Hgb 11.7 L, Hct 35.0 L, Plt Count 307 07/24/22 16:31: Sodium 135 L, Potassium 3.6, BUN 22 H, Creatinine 1.21, Glucose 117 H, Magnesium 1.9, Total Bilirubin 0.6, AST 38 H, ALT 36, Alkaline Phosphatase 105 Assessment and Plan - Plan Assessment: Acute on chronic hypoxic respiratory failure-multifactorial Septic shocklikely viral secondary to influenza A Pulmonary fibrosis on chronic home O2 History of TIA Plan: Acute on chronic hypoxic respiratory failure-multifactorial: Combination of pulmonary fibrosis, influenza A infection. Patient tolerating nasal cannula at 4 L currently. Pulmonology consulted continue ICS, steroids, as needed nebs, Tamiflu, ABX. Septic shocklikely viral secondary to influenza A: Patient positive for influenza A suspect viral sepsis, covered with antibioticsLevaquin as well. Patient has had 30 cc/kg IV fluid bolus in the emergency department, initial lactate not elevated. Pulmonary fibrosis on chronic home O2: Continue as above, pulmonology consulted. History of TIA: Continue home meds. DVT PPX: Lovenox Code status: Full Discharge Plan: Home Plan to discharge in: 72 Hours - Advance Directives Does patient have a Living Will: No Does patient have a Durable POA for Healthcare: No - Code Status/Comfort Care Code Status Assessed: Yes (Full code) Critical Care: No Time Spent Managing Pts Care (In Minutes): 70
[2022-07-24] MEDS: DULERA 200/5 (MOMETASONE/FORMOTEROL) INHALER IH SCH (23:39)
[2022-07-24] MEDS ORDERED: ONDANSETRON 4 MG/2 ML VIAL IV PRN (23:39)
[2022-07-24] MEDS: predniSONE 20 MG TAB PO SCH (23:39)
[2022-07-24] MEDS ORDERED: BENZONATATE 100 MG CAP PO ONE (23:48)
[2022-07-24] MEDS: BENZONATATE 100 MG CAP PO PRN (23:54)
--- NOTE | 2022-07-25 00:11 | P.PN ---
Date of Service: 07/24/22 Sepsis reassessment complete, BP improved with 30cc/kg IVF bolus. Continue maint. fluids.
[2022-07-25 02:19] LABS: Absolute Lymphocytes (CBC) 0.5 K/uL (0.7-4.9); Hematocrit 29.9 % (36.0-45.0); Lymphocytes % 4.6 % (15.3-44.8); MCV 82.6 fL (80-100); MPV 6.8 fL (7.6-11.3); RBC Red Blood Cell Count 3.62 M/uL (3.86-4.86)
[2022-07-25 02:27] LABS: Bilirubin Total 0.3 mg/dL (0.2-1.0); Potassium 3.8 mmol/L (3.5-5.1); Protein, Total 5.6 g/dL (6.4-8.2)
[2022-07-25] MEDS ORDERED: MELATONIN 5 MG TABLET PO ONE (02:39)
[2022-07-25 02:58] LABS: Blood Morphology Comment NOT SEEN (NOT SEEN); Platelet Estimate ADEQ
[2022-07-25] MEDS: NA CHLORIDE 0.9% 1,000 ML IV SCH ×3 (03:00→22:32)
[2022-07-25 04:20] VITALS: BMI 20.2
[2022-07-25] MEDS ORDERED: GUAIFENESIN/CODEINE 5ML UCUP ONE (05:07)
[2022-07-25] MEDS: GUAIFENESIN/CODEINE 5ML UCUP PO PRN ×3 (05:11→19:54)
[2022-07-25] MEDS: BENZONATATE 100 MG CAP PO PRN (09:23)
[2022-07-25] MEDS: DULERA 200/5 (MOMETASONE/FORMOTEROL) INHALER IH SCH ×2 (09:23→20:06)
[2022-07-25] MEDS: Levofloxacin 750mg IV 750 MG/150 ML BAG IV SCH (09:23)
[2022-07-25] MEDS: OSELTAMIVIR 30 MG CAP PO SCH ×2 (09:23→20:05)
[2022-07-25] MEDS: ENOXAPARIN 40 MG/0.4 ML SQ SCH (09:23)
[2022-07-25] MEDS: predniSONE 20 MG TAB PO SCH ×2 (09:24→20:06)
[2022-07-25] MEDS: ACETAMINOPHEN 500 MG TAB PO PRN (11:26)
--- NOTE | 2022-07-25 13:49 | EKG ---
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
[2022-07-25] MEDS: ALBUTEROL 2.5 MG/3 ML NEB SOL NEB PRN ×2 (14:55→19:30)
[2022-07-25] MEDS: IPRATROPIUM BROM 0.5MG/2.5ML NEB PRN ×2 (14:55→19:30)
--- NOTE | 2022-07-25 17:52 | P.PN ---
Date of Service: 07/25/22 Subjective: no significant improvement, no worsening still short of breath, +cough ROS: 10 point ROS as noted above, otherwise negative Physical exam GEN: appears fatigued, ill HEENT: Normal conjunctiva, sclera anicteric CV: Regular rate and rhythm, no edema Pulm: nonlabored respriations on 6L NC, b/l crackles ABD: Soft, nontender, nondistended Neuro: Normal speech, normal affect Problem List Acute on chronic hypoxic respiratory failure-multifactorial Septic shocklikely viral secondary to influenza A Pulmonary fibrosis on chronic home O2 History of TIA respiratory failure -multifactorial, influenza A infection with pulmonary fibrosis pulm consulted ICS, steroids, nebs tamiflu, empiric antibiotic to cover for bacterial component septic shock on presentation, s/p 30cc/kg bolus in ED, responded well BP ok no longer in shock has home O2 confirm home meds, continue as appropriate VTE: Lovenox Code: Full Dispo: home; ~3-4 days Time Spent Managing Pts Care (In Minutes): 35
[2022-07-25] MEDS ORDERED: MELATONIN 5 MG TABLET PO PRN (22:31)
[2022-07-26] MEDS: BENZONATATE 100 MG CAP PO PRN ×2 (02:07→11:43)
[2022-07-26 04:33] LABS: Absolute Lymphocytes (CBC) 0.9 K/uL (0.7-4.9); Hematocrit 30.3 % (36.0-45.0); MCV 81.4 fL (80-100); MPV 6.8 fL (7.6-11.3); RBC Red Blood Cell Count 3.73 M/uL (3.86-4.86)
[2022-07-26 04:42] LABS: Bilirubin Total 0.3 mg/dL (0.2-1.0); Potassium 4.2 mmol/L (3.5-5.1); Protein, Total 5.4 g/dL (6.4-8.2)
[2022-07-26] MEDS: ACETAMINOPHEN 500 MG TAB PO PRN (05:27)
[2022-07-26] MEDS: GUAIFENESIN/CODEINE 5ML UCUP PO PRN ×2 (08:13→21:46)
[2022-07-26] MEDS: ENOXAPARIN 40 MG/0.4 ML SQ SCH (08:13)
[2022-07-26] MEDS: predniSONE 20 MG TAB PO SCH ×2 (08:13→21:42)
[2022-07-26] MEDS: DULERA 200/5 (MOMETASONE/FORMOTEROL) INHALER IH SCH (08:14)
[2022-07-26] MEDS: OSELTAMIVIR 30 MG CAP PO SCH ×2 (08:14→21:42)
[2022-07-26] MEDS: NA CHLORIDE 0.9% 1,000 ML IV SCH ×2 (08:14→11:44)
--- NOTE | 2022-07-26 12:32 | P.CNS ---
Date of Consult: 07/26/22 Reason for Consult: Influenza pneumonia respiratory failure Chief Complaint: respiratory failure, influenza History of Present Illness: Patient is 77 years of age well-known to me she has idiopathic pulmonary fibrosis and was stable came acutely sick tested positive for influenza A she is feeling a little better patient has home O2 [place] any productive cough also on steroids and antifibrotic therapy at home Allergies No Known Allergies Allergy (Verified 05/26/22 10:57) Home Medications: Aspirin [Lo-Dose Aspirin EC] 81 mg PO DAILY 06/03/20 Multivitamin [Multivitamins] 1 each PO DAILY 06/03/20 Pirfenidone [Esbriet] 2 tab PO BID 06/03/20 predniSONE [Deltasone*] 10 mg PO DAILY 06/03/20 Albuterol Sulfate [Proair Digihaler] 1 inh IH TIDP PRN 05/26/22 Cholecalciferol (Vitamin D3) [D3-50] 1 tab PO DAILY 05/26/22 Triamterene/Hctz [Maxzide 37.5 mg-25 mg Tablet*] 1 tab PO DAILY 05/26/22 Amlodipine Besylate 10 mg PO DAILY 07/25/22 Fluticasone/Vilanterol [Breo Ellipta 200-25 Mcg INH] 2 puff IH DAILY 07/25/22 Pantoprazole [Protonix Tab*] 1 tab PO DAILY 07/25/22 - Past Medical/Surgical History Diabetic: No -: Osteoarthritis -: Pulmonary fibrosis -: Anemia -: Rheumatoid arthritis -: Appendectomy -: Cholecystectomy -: Right hip replacement -: Left hip hemiarthroplasty -: tonsillectomy Psychosocial/ Personal History: She is . She has 3 children. 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 - Family History Mother Medical History: Lung disease Father Medical History: Heart disease Sister Medical History: Other (see notes) Notes: skin disorder - Social History Smoking Status: Never smoker Alcohol use: Yes CD- Drugs: No Caffeine use: Yes Place of Residence: Home Review of Systems General: Weakness Respiratory: Cough, Shortness of Breath Physical Examination Temp Pulse Resp BP Pulse Ox 97.6 F 63 17 140/66 100 07/26/22 08:00 07/26/22 08:00 07/26/22 08:00 07/26/22 08:00 07/26/22 08:00 General: Alert, Mild distress Respiratory: Crackles/rales, Expiratory wheezes Cardiovascular: No edema, Regular rate/rhythm, Normal S1 S2 Gastrointestinal: Normal bowel sounds, Soft and benign Musculoskeletal: No clubbing, No contractures - Problems (1) Influenzal pneumonia Current Visit: Yes Status: Acute Plan: Patient is 77 years of age with a history of IPF embolized on antifibrotic therapy and steroids/patient became acutely worse tested positive for influenza A patient's blood cultures are negative chest x-ray consistent with severe interstitial lung disease DC IV fluids start IV Lasix continue with steroid hemodynamically stable oxygenation satisfactory discharge in 1 to 2 days
[2022-07-26] MEDS: FUROSEMIDE 20 MG/ 2ML VIAL IV SCH (12:47)
--- NOTE | 2022-07-26 16:25 | P.PN ---
Date of Service: 07/26/22 Subjective: slight improvement, still dyspneic with exertion on 6L NC no new symptoms, no worsening didn't sleep well last night, doesn't like how melatonin makes her feel ROS: 10 point ROS as noted above, otherwise negative Physical exam GEN: AOx3, NAD HEENT: Normal conjunctiva, sclera anicteric CV: Regular rate and rhythm, no edema Pulm: nonlabored respriations on 6L NC, b/l crackles, diminished at bases bilaterally ABD: Soft, nontender, nondistended Neuro: Normal speech, normal affect Problem List Acute on chronic hypoxic respiratory failure-multifactorial Septic shocklikely viral secondary to influenza A Pulmonary fibrosis on chronic home O2 History of TIA respiratory failure -multifactorial, influenza A infection with pulmonary fibrosis pulm consulted ICS, steroids, nebs tamiflu, empiric antibiotic to cover for bacterial component septic shock on presentation, s/p 30cc/kg bolus in ED, responded well BP ok has home O2 improving leukocytosis improved home meds, continue as appropriate VTE: Lovenox Code: Full Dispo: home; ~2-3 days Time Spent Managing Pts Care (In Minutes): 35
[2022-07-27] MEDS: predniSONE 20 MG TAB PO SCH ×2 (09:51→20:55)
[2022-07-27] MEDS: Levofloxacin 750mg IV 750 MG/150 ML BAG IV SCH (09:51)
[2022-07-27] MEDS: OSELTAMIVIR 30 MG CAP PO SCH ×2 (09:51→20:55)
[2022-07-27] MEDS: FUROSEMIDE 20 MG/ 2ML VIAL IV SCH (09:51)
[2022-07-27] MEDS: ENOXAPARIN 40 MG/0.4 ML SQ SCH (09:51)
[2022-07-27] MEDS ORDERED: ALBUTEROL 2.5 MG/3 ML NEB SOL NEB PRN (10:00)
[2022-07-27] MEDS: ACETAMINOPHEN 500 MG TAB PO PRN (14:55)
--- NOTE | 2022-07-27 15:19 | P.PN ---
Date of Service: 07/27/22 Subjective: improving O2 down to 3-4 L NC voiding, appetite improving still with dyspnea, hypoxia with ambulation ROS: 10 point ROS as noted above, otherwise negative Physical exam GEN: AOx3, NAD HEENT: Normal conjunctiva, sclera anicteric CV: Regular rate and rhythm, no edema Pulm: nonlabored respriations on 4L NC, b/l crackles, diminished at bases bilaterally ABD: Soft, nontender, nondistended Neuro: Normal speech, normal affect Problem List Acute on chronic hypoxic respiratory failure-multifactorial Septic shocklikely viral secondary to influenza A Pulmonary fibrosis on chronic home O2 History of TIA respiratory failure -multifactorial, influenza A infection with pulmonary fibrosis pulm consulted ICS, steroids, nebs tamiflu, empiric antibiotic to cover for possible bacterial component septic shock on presentation, s/p 30cc/kg bolus in ED, responded well BP ok has home O2 improving leukocytosis improved home meds, continue as appropriate VTE: Lovenox Code: Full Dispo: home; possibly tomorrow Time Spent Managing Pts Care (In Minutes): 35
[2022-07-27] MEDS: GUAIFENESIN/CODEINE 5ML UCUP PO PRN (20:55)
[2022-07-27] MEDS: PIRFENIDONE 267 MG PO SCH (20:56)
[2022-07-28] MEDS: GUAIFENESIN/CODEINE 5ML UCUP PO PRN (06:02)
[2022-07-28 06:21] LABS: Hematocrit 31.7 % (36.0-45.0); MCV 80.5 fL (80-100); MPV 6.9 fL (7.6-11.3); RBC Red Blood Cell Count 3.94 M/uL (3.86-4.86)
[2022-07-28] MEDS: BENZONATATE 100 MG CAP PO PRN (06:30)
[2022-07-28 06:37] LABS: Magnesium 2.3 mg/dL (1.8-2.4); Potassium 3.8 mmol/L (3.5-5.1)
[2022-07-28 08:32] VITALS: BP 152/85; TEMP 97.6
[2022-07-28] MEDS: ENOXAPARIN 40 MG/0.4 ML SQ SCH (08:43)
[2022-07-28] MEDS: predniSONE 20 MG TAB PO SCH (08:44)
[2022-07-28] MEDS: FUROSEMIDE 20 MG/ 2ML VIAL IV SCH ×2 (08:44→09:00)
[2022-07-28] MEDS: PIRFENIDONE 267 MG PO SCH (08:48)
[2022-07-28] MEDS ORDERED: PANTOPRAZOLE 40MG TABLET PO SCH (09:00)
[2022-07-28] MEDS ORDERED: POTASSIUM CL SA 10 MEQ TAB PO ONE (09:00)
[2022-07-28] MEDS ORDERED: ASPIRIN EC 81 MG TAB PO SCH (09:00)
[2022-07-28] MEDS: OSELTAMIVIR 30 MG CAP PO SCH (09:02)
--- NOTE | 2022-07-28 10:26 | P.PN ---
Subjective Date of Service: 07/28/22 Chief Complaint: respiratory failure, influenza Subjective: Improving (Patient is doing much better has improved significantly) Review of Systems General: Weakness Respiratory: Shortness of Breath Physical Examination - Vital Signs Temperature: 97.6 F Blood Pressure: 152/85 Pulse: 69 Respirations: 18 Pulse Ox (%): 98 - Physical Exam General: Alert, Oriented x3, Mild distress Respiratory: Crackles/rales (Bilateral crackles) Cardiovascular: No edema, Regular rate/rhythm Assessment And Plan - Current Problems (Diagnosis) (1) Influenzal pneumonia Current Visit: Yes Status: Acute Plan: Patient admitted with influenza pneumonia doing much better labs chemistries reviewed cultures negative oxygenation satisfactory plan to discharge home on prednisone 20 mg p.o. twice daily for 5 days patient then to resume 10 mg daily continue with duo levofloxacin for 7 days should be added continue with Tamiflu aloe up with me in 2 weeks
[2022-07-28 10:53] VITALS: O2SAT 98
--- NOTE | 2022-07-28 21:46 | P.DS ---
Admission Date: 07/24/22 Discharge Date: 07/28/22 Disposition: ROUTINE DISCHARGE Discharge Condition: GOOD Reason for Admission: respiratory failure, influenza Brief History of Present Illness: 77-year-old female with history of pulmonary fibrosis on chronic home O2 2.5 L, previous TIA presents to the emergency department for shortness of breath. She reports increasing dyspnea over the course of the last 4 to 5 days she has had t o turn her oxygen up to 4 L to maintain saturations greater than 90%. SIRS criteria were present including tachycardia, tachypnea, fever, leukocytosis. She was trialed on BiPAP but could not tolerate, ABG was performed which revealed a pH of 7.46 PCO2 39 PO2 62.6. Chest x-ray was suggestive of bilateral pneumonia pattern suspected greater than left superimposed on chronic fibrotic lung changes. Follow-up CTA of the chest was performed which revealed no evidence of pulmonary thromboembolism, advanced pulmonary fibrosis most compatible with UIP. Interstitial markings are also prominent which could indicate superimposed infection. Shortly after patient's influenza test came back positive for influenza A. She is given Tamiflu, Rocephin, Zithromax. She subsequently had 2 blood pressures less than 90 systolic she meets criteria for septic shock, she was given 30 cc/kg IV fluid bolus in ED will admit for further evaluation and management. Hospital Course: Problem List Acute on chronic hypoxic respiratory failure-multifactorial Septic shocklikely viral secondary to influenza A Pulmonary fibrosis on chronic home O2 History of TIA Patient presented with shortness of breath, found to be in acute COPD exacerbation and flu+. She improved with COPD treatment, tamiflu, and received levaquin for empiric antibiotic coverage as recommended by Pulmonology. She was weaned down to her usual home level of oxygen and was doing well and stable for discharge home. 2 more days of tamiflu, 5 days of levaquin Recommended 3 more days of prednisone 20mg twice daily, then can resume her 10mg twice daily prednisone on Sunday, 07/31 Follow up PCP within [address] Cormier in ~1-2 weeks Vital Signs/Physical Exam: Temp Pulse Resp BP Pulse Ox 97.6 F 69 18 152/85 H 98 07/28/22 10:26 07/28/22 10:26 07/28/22 10:26 07/28/22 10:26 07/28/22 10:26 Physical exam GEN: AOx3, NAD HEENT: Normal conjunctiva, sclera anicteric CV: Regular rate and rhythm, no edema Pulm: nonlabored respriations on 3L NC, diminished at bases bilaterally ABD: Soft, nontender, nondistended Neuro: Normal speech, normal affect Laboratory Data at Discharge: WBC 5.10 K/uL (4.3-10.9) 07/28/22 05:25 Hgb 10.7 g/dL (12.0-15.0) L 07/28/22 05:25 Hct 31.7 % (36.0-45.0) L 07/28/22 05:25 Plt Count 272 K/uL (152-406) 07/28/22 05:25 PT 13.7 SECONDS (9.5-12.5) H 07/24/22 16:31 INR 1.25 07/24/22 16:31 Sodium 139 mmol/L (136-145) 07/28/22 05:25 Potassium 3.8 mmol/L (3.5-5.1) 07/28/22 05:25 BUN 20 mg/dL (7-18) H 07/28/22 05:25 Creatinine 0.75 mg/dL (0.55-1.3) 07/28/22 05:25 Glucose 141 mg/dL (74-106) H 07/28/22 05:25 Magnesium 2.3 mg/dL (1.8-2.4) 07/28/22 05:25 Total Bilirubin 0.3 mg/dL (0.2-1.0) 07/26/22 03:36 AST 29 U/L (15-37) 07/26/22 03:36 ALT 23 U/L (12-78) 07/26/22 03:36 Alkaline Phosphatase 64 U/L (45-117) 07/26/22 03:36 Home Medications: Aspirin [Lo-Dose Aspirin EC] 81 mg PO DAILY 06/03/20 Multivitamin [Multivitamins] 1 each PO DAILY 06/03/20 Pirfenidone [Esbriet] 2 tab PO BID 06/03/20 predniSONE [Deltasone*] 10 mg PO DAILY 06/03/20 Albuterol Sulfate [Proair Digihaler] 1 inh IH TIDP PRN 05/26/22 Cholecalciferol (Vitamin D3) [D3-50] 1 tab PO DAILY 05/26/22 Triamterene/Hctz [Maxzide 37.5 mg-25 mg Tablet*] 1 tab PO DAILY 05/26/22 Amlodipine Besylate 10 mg PO DAILY 07/25/22 Fluticasone/Vilanterol [Breo Ellipta 200-25 Mcg INH] 2 puff IH DAILY 07/25/22 Pantoprazole [Protonix Tab*] 1 tab PO DAILY 07/25/22 Oseltamivir Phosphate [Tamiflu] 30 mg PO BID 2 Days #4 cap 07/28/22 levoFLOXacin [Levaquin] 500 mg PO DAILY 5 Days #5 tab 07/28/22 predniSONE [Prednisone*] 20 mg PO BID 3 Days tab 07/28/22 New Medications: levoFLOXacin [Levaquin] 500 mg PO DAILY 5 Days #5 tab Oseltamivir Phosphate [Tamiflu] 30 mg PO BID 2 Days #4 cap Physician Discharge Instructions: Patient presented with shortness of breath, found to be in acute COPD exacerbation and flu+. She improved with COPD treatment, tamiflu, and received levaquin for empiric antibiotic coverage as recommended by Pulmonology. She was weaned down to her usual home level of oxygen and was doing well and stable for discharge home. 2 more days of tamiflu, 5 days of levaquin Recommended 3 more days of prednisone 20mg twice daily, then can resume her 10mg twice daily prednisone on Sunday, 07/31 Follow up PCP within [address] Cormier in ~1-2 weeks Followup: Arsalan Cormier MD [Primary Care Provider] - Time spent managing pt's care (in minutes): 45
== END 2022-07-28 11:15 | disposition home or self-care (01) | DRG 871 ==
LOC: ER 15:48 → ERHOLD 19:11 → 4TH 07-25 08:29
PROVIDERS: ADMIT Hospitalist; ATTEND Hospitalist
PROC: 5A09457 Assistance with Respiratory Ventilation, 24-96 Consecutive Hours, Continuous Positive Airway Pressure (ICD-10-PCS; principal; 2022-07-24)
DX: A41.89 Other specified sepsis (principal); J10.00 Influenza due to other identified influenza virus with unspecified type of pneumonia; J96.21 Acute and chronic respiratory failure with hypoxia; R65.21 Severe sepsis with septic shock; J44.1 Chronic obstructive pulmonary disease with (acute) exacerbation; J84.112 Idiopathic pulmonary fibrosis; Z86.73 Personal history of transient ischemic attack (TIA), and cerebral infarction without residual deficits; Z99.81 Dependence on supplemental oxygen; Z79.82 Long term (current) use of aspirin; Z79.52 Long term (current) use of systemic steroids; Z90.49 Acquired absence of other specified parts of digestive tract; Z96.641 Presence of right artificial hip joint; Z79.899 Other long term (current) drug therapy; Z20.822 Contact with and (suspected) exposure to COVID-19
CPT/HCPCS: 0240U; 36415; 71045; 71275; 80048; 80053; 80076; 82805; 83605; 83735; 83880; 84145; 84484; 85025; 85027; 85379; 85610; 87040; 93005; 94640; 94660; 99285; J0456; J1650; J1940; J2920; J3535; J7030; J7040; J7050; J7512; J7613; J7614; J7644; Q9967

== ENCOUNTER 2023-07-10 07:15 | Day surgery (SDC) | payer OTHER ==
[2023-07-10] MEDS: Ringers Lactate 1,000 ML IV ONE ×2 (07:45→08:55)
[2023-07-10] MEDS ORDERED: LIDOCAINE 1% MPF 5 ML VIAL ONE (08:14)
[2023-07-10] MEDS ORDERED: propofoL 200 MG/20 ML VIAL IV ONE (08:14)
[2023-07-10 13:42] VITALS: BP 142/67; TEMP 97.9; O2SAT 97
== END 2023-07-10 11:35 | disposition home or self-care (01) ==
LOC: OR 07:15
PROVIDERS: ATTEND Internal Medicine Gastroenterology
PROC: 0DBN8ZX Excision of Sigmoid Colon, Via Natural or Artificial Opening Endoscopic, Diagnostic (ICD-10-PCS; principal; 2023-07-10 08:30)
DX: R19.5 Other fecal abnormalities (principal); Z86.010 Personal history of colon polyps; K57.30 Diverticulosis of large intestine without perforation or abscess without bleeding; K64.8 Other hemorrhoids; K63.5 Polyp of colon
CPT/HCPCS: 93005; 88305; 45384; J2704; J2001; J7120

== ENCOUNTER 2023-07-20 12:43 | Observation (INO) | payer OTHER ==
--- OUTSIDE RECORDS SUMMARY | 2023-07-20 13:00 | XMS REPORT | Continuity of Care Document ---
:[address] [facility] t Address [address] [place] [address] Care Team Providers Name Role Phone Madeline Boles MD Primary Care Physician [phone] Charlotte Cruz Attending Clinician Unavailable CHRIS ESPAÑA Attending Clinician Unavailable RODRIGUEZ FARRELL Attending Clinician Unavailable IVTSAMANTA Attending Clinician Unavailable GEOVANNA DANIELS Attending Clinician Unavailable BRAD OEKEFE Attending Clinician Unavailable [id number] Attending Clinician Unavailable MADELINE BOLES Attending Clinician Unavailable RADHA GODOY Attending Clinician Unavailable [id number] Attending Clinician Unavailable RIANA SUTTON Attending Clinician Unavailable CAMMIE DAVID Attending Clinician Unavailable CONFERENCE, BDC Attending Clinician Unavailable RODOLFO MANLEY Attending Clinician Unavailable RADIOLOGY, DEPT Attending Clinician Unavailable MD KEVIN Attending Clinician Unavailable Madeline Boles MD Attending Clinician [phone] PROVIDER, AFFILIATE Attending Clinician Unavailable RADU HASKINS Attending Clinician Unavailable Radu Haskins Attending Clinician Christi Boone Attending Clinician Chris Vann Attending Clinician RADU HASKINS Admitting Clinician Unavailable Radu Haskins Admitting Clinician Christi Boone Admitting Clinician Payers Payer Name Policy Type Policy Number Effective Date Expiration Date Crissy TILLMAN 16 [id number] 2023 [employer] H[employer]-POS 00:00:00 REFUGIO TILLMAN 7 [id number] 2021 PLUS 42 OA 00:00:00 MEDICARE MB [id number] 2012 [facility] NOVITAS 00:00:00 - [facility] MEDICARE MB [id number] 2012 [facility] NOVITAS 00:00:[address] - [facility] MEDICARE MB [id number] 2012 [facility] NOVITAS 00:00:00 - [facility] MEDICARE MB [id number] 2012 [facility] NOVITAS 00:00:[address] - [facility] MEDICARE MB [id number] 2012 [facility] NOVITAS 00:00:00 [facility] MEDICARE [id number] 2012 [facility] NOVITAS 00:00:00 - [facility] Problems Condition Condition Condition Status Onset Resolution Last Treating Co mments Source Name Details Category Date Date Treatment Clinician Date Age-relate Age-relate Disease Active Bennie lovelace 04-04 Seybold osteoporos osteoporos 00:00: - is without is without 00 Ex terna current current l pathologic pathologic al al fracture fracture Current Current Disease Active Cori chronic chronic 04-04 Seybold use of use of 00:00: - systemic systemic 00 Piece Hand a steroids steroids l Acute Acute Disease Active Cori pulmonary pulmonary 12-27 Seyb old edema edema 00:00: - (multi (multi 00 Externa HCC) HCC) l Chronic Chronic Disease Active Cori obstructiv obstructiv 12-27 Se ybold e e 00:00: - pulmonary pulmonary 00 Exte rna disease disease l (multi (multi HCC) HCC) Immunodefi Immunodefi Disease Active Bennie lawler ciency due ciency due 12-27 Se ybold to to 00:00: - conditions conditions 00 Ex terna classified classified l elsewhere elsewhere (multi (multi HCC) [facility] Vitamin D Vitamin D Disease Active Martin sey deficiency deficiency 4-26 Se ybold 00:00: - 00 Externa l Prediabete Prediabete Disease Active Bennie krisjean paul s s 5-19 Seybold 00:00: - 00 Externa l COPD COPD Diagnosis Active 2021-10-27 Mem oria EXACERBATI EXACERBATI 09-30 21:47:00 l ON ON Active 00:00: [place] 09/30/2021 00 [facility] On home On home Disease Active Cori oxygen oxygen 09-11 Seybold therapy therapy 00:00: - 00 Externa l Mixed Mixed Disease Active Cori hyperlipid hyperlipid 09-11 Se ybold emia - emia - 00:00: - Improved Improved 00 Piece Hand a l 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, fibrosis, 09-11 Seyb old unspecifie unspecifie 00:00: - d (multi d (multi 00 Piece Hand a HCC) [facility] l Hypertensi Hypertensi Disease Active Bennie lawler on on 09-11 Seybold 00:00: 00 Choking Choking Disease Active Cori due to due to 09-11 Seybold food in food in 00:00: - larynx larynx 00 Externa l Protein-ca Protein-ca Disease Active Bennie monson 07 Seybold malnutriti malnutriti 00:00: on, on, unspecifie unspecifie d severity d severity [id number] Esophageal Problem Com mon stricture [facility] Essential Essential Problem Com mon hypertensi hypertensi Sp tejas on on - [facility] [id number] 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 Social History Social Habit Start Date Stop Date Quantity Comments Source Gender identity 2021-09-30 Identifies as Cori Bentley 11:55:42 female gender - External (finding) History of Tobacco [facility] - [facility] Sexual orientation Cori Bentley - External Alcohol intake 2023-05-24 2023-05-24 Lifetime Cori Ugarte bold 00:00:00 00:00:00 non-drinker - External (finding) History of Social 2023-05-24 2023-05-24 Cori Bentley function 00:00:00 00:00:00 - External Smoking Status Start Date Stop Date Source Social History [facility] Medications Ordered Filled Start Stop Current Ordering Indication Dosage Frequency Signature Comments Components Source Medication Medication Date Date Medication? Clinician (SIG) Name Name Acetaminoph 2022-09- No [id number] 650mg 650 mg, Cori en -06-19 4103 oral, Seybold (TYLENOL) 16:00: 17:11 ONCE, On - tablet 650 00 :00 Tue Externa mg 06/19/23 l at 1100, For 1 dose, Give post-infus ion of Reclast. Maximum dose of acetaminop hen is 4000 mg from all sources in 24 hours. Zoledronic 2022-09- No [id number] 5mg 5 mg, at Cori Acid 0-06-19 4103 300 mL/hr, Seybold (RECLAST) 5 16:00: 17:09 intravenou - MG/100ML 00 :00 s, ONCE, Externa infusion 5 On Tue l mg 06/19/23 at 1100, For 1 dose, CORRECTED CALCIUM NEEDS TO BE >= 8 TO BE GIVEN (call MD if sudden drop or Corrected Calcium less than 8) Aspirin 81 Yes [id number] 81mg Take 1 Cori MG oral 9-21 tablet (81 Seybol d Chewable 11:00: mg total) - Tablet 16 by mouth. Externa l Pirfenidone Yes [id number] 267mg Take 267 Cori (Esbriet) 9-21 mg by Seybold 267 MG oral 11:00: mouth 2 - Tablet 16 times Externa daily l Fluticasone 2022-0 Yes Inhale Mellisa ey Furoate-Bowen 9-21 into the Seyb old anterol 11:00: lungs - (Breo 16 Externa Ellipta) l 200-25 MCG/ACT inhalation AEROSOL POWDER, BREATH ACTIVATED Ferrous 0 Yes Take by Cori Gluconate-C 9-21 mouth Seybold -Folic Acid 11:00: - (IRON-C OR) 16 Externa l Budeson-Gly 2022-0 Yes Inhale Mellisa ey copyrrol-Fo - into the Seyb old rmoterol 11:00: lungs - (Breztri 16 Externa Aerosphere) l 160-9-4.8 MCG/ACT inhalation Aerosol Multiple 0 Yes Take by Cori Vitamins-Mi 9-21 mouth Seybold nerals 11:00: - (ONE-A-DAY 16 Externa WOMENS 50+ l OR) Aspirin 81 0 Yes [id number] 81mg Take 1 Cori MG oral 9-21 tablet (81 Seybol d Chewable 11:00: mg total) - Tablet 16 by mouth. Externa l Pirfenidone 0 Yes [id number] 267mg Take 267 Cori (Esbriet) 9-21 mg by Seybold 267 MG oral 11:00: mouth 2 - Tablet 16 times Externa daily l Fluticasone 2022-0 Yes Inhale Mellisa ey Furoate-Bowen -21 into the Seyb old anterol 11:00: lungs - (Breo 16 Externa Ellipta) l 200-25 MCG/ACT inhalation AEROSOL POWDER, BREATH ACTIVATED Ferrous 0 Yes Take by Cori Gluconate-C 9-21 mouth Seybold -Folic Acid 11:00: - (IRON-C OR) 16 Externa l Budeson-Gly 2022-0 Yes Inhale Mellisa ey copyrrol-Fo 9-21 into the Seyb old rmoterol 11:00: lungs - (Breztri 16 Externa Aerosphere) l 160-9-4.8 MCG/ACT inhalation Aerosol Multiple 0 Yes Take by Cori Vitamins-Mi 9-21 mouth Seybold nerals 11:00: - (ONE-A-DAY 16 Externa WOMENS 50+ l OR) Aspirin 81 2022-0 Yes [id number] 81mg Take 1 Cori MG oral 9-21 tablet (81 Seybol d Chewable 11:00: mg total) - Tablet 16 by mouth. Externa l Pirfenidone 2022-0 Yes [id number] 267mg Take 267 Cori (Esbriet) 9-21 mg by Seybold 267 MG oral 11:00: mouth 2 - Tablet 16 times Externa daily l Fluticasone 0 Yes Inhale Mellisa ey Furoate-Bowen 05-24 into the Seyb old anterol 11:00: lungs - (Breo 16 Externa Ellipta) l 200-25 MCG/ACT inhalation AEROSOL POWDER, BREATH ACTIVATED Ferrous 0 Yes Take by Cori Gluconate-C 05-24 mouth Seybold -Folic Acid 11:00: - (IRON-C OR) 16 Externa l Budeson-Gly 0 Yes Inhale Mellisa ey copyrrol-Fo 05-24 into the Seyb old rmoterol 11:00: lungs - (Breztri 16 Externa Aerosphere) l 160-9-4.8 MCG/ACT inhalation Aerosol Multiple 0 Yes Take by Cori Vitamins-Mi - mouth Seybold nerals 11:00: - (ONE-A-DAY 16 Externa WOMENS 50+ l OR) Aspirin 81 2022-0 Yes [id number] 81mg Take 1 Cori MG oral 8-24 tablet (81 Seybol d Chewable 10:51: mg total) - Tablet 24 by mouth. Externa l Pirfenidone 2022-0 Yes [id number] 267mg Take 267 Cori (Esbriet) 8-24 mg by Seybold 267 MG oral 10:51: mouth 2 - Tablet 24 times Externa daily l Fluticasone 2022-0 Yes Inhale Mellisa ey Furoate-Bowen 8-24 into the Seyb old anterol 10:51: lungs - (Breo 24 Externa Ellipta) l 200-25 MCG/ACT inhalation AEROSOL POWDER, BREATH ACTIVATED Ferrous 0 Yes Take by Cori Gluconate-C 8- mouth Seybold -Folic Acid 10:51: - (IRON-C OR) 24 Externa l Budeson-Gly Yes Inhale Mellisa ey copyrrol-Fo 04-26 into the Seyb old rmoterol 10:51: lungs - (Breztri 24 Externa Aerosphere) l 160-9-4.8 MCG/ACT inhalation Aerosol Multiple Yes Take by Cori Vitamins-Mi 8- mouth Seybold nerals 10:51: - (ONE-A-DAY 24 Externa WOMENS 50+ l OR) Neomycin-Po 2022- Yes [id number] 1[drp] Place 1-2 Cori lymyxin-Dex 04-26 9104 drops into S eybold ameth 00:00: 04:59 both eyes - 3.5-41707-7 00 :00 every 4 to Ex terna .1 6 hours l ophthalmic for 7 Suspension days. methylPREDN Yes [id number] 1{jonas} Take 1 jonas Cori ISolone 4 8-22 by mouth Seybol d MG oral 00:00: See Admin - Tablet 00 Instructio Externa Therapy ns Use as l Pack directed. methylPREDN 0 Yes [id number] 1{jonas} Take 1 jonas Cori ISolone 4 8-22 by mouth Seybol d MG oral 00:00: See Admin - Tablet 00 Instructio Externa Therapy ns Use as l Pack directed. methylPREDN 0 Yes [id number] 1{jonas} Take 1 jonas Cori ISolone 4 8-22 by mouth Seybol d MG oral 00:00: See Admin - Tablet 00 Instructio Externa Therapy ns Use as l Pack directed. methylPREDN 2022-0 Yes [id number] 1{jonas} Take 1 jonas Cori ISolone 4 8-22 by mouth Seybol d MG oral 00:00: See Admin - Tablet 00 Instructio Externa Therapy ns Use as l Pack directed. Alendronate Yes [id number] 70mg Take 1 Cori Sodium 8-02 tablet (70 Seybold (Fosamax) 00:00: mg total) - 70 MG oral 00 by mouth Exter na Tablet every 7 l days Alendronate 0 2022- No [id number] 70mg Take 1 Cori Sodium 8-02 -21 tablet (70 Seybol d (Fosamax) 00:00: 00:00 mg total) - 70 MG oral 00 :00 by mouth Exter na Tablet every 7 l days Alendronate 2022-0 3- No [id number] 70mg Take 1 Cori Sodium 04-04 tablet (70 Seybol d (Fosamax) 00:00: 00:00 mg total) - 70 MG oral 00 :00 by mouth Exter na Tablet every 7 l days Pantoprazol 2022-0 Yes [id number] 40mg Take 1 Cori e Sodium 40 8-01 tablet (40 Se ybold MG oral 00:00: mg total) - Tablet 00 by mouth Externa Delayed daily l Response Pantoprazol 2022-0 Yes [id number] 40mg Take 1 Cori e Sodium 40 8-01 tablet (40 Se ybold MG oral 00:00: mg total) - Tablet 00 by mouth Externa Delayed daily l Response Pantoprazol 2022-0 Yes [id number] 40mg Take 1 Cori e Sodium 40 8-01 tablet (40 Se ybold MG oral 00:00: mg total) - Tablet 00 by mouth Externa Delayed daily l Response Pantoprazol 2022-0 Yes [id number] 40mg Take 1 Cori e Sodium 40 8-01 tablet (40 Se ybold MG oral 00:00: mg total) - Tablet 00 by mouth Externa Delayed daily l Response Pantoprazol 2022-0 Yes [id number] 40mg Take 1 Cori e Sodium 40 8-01 tablet (40 Se ybold MG oral 00:00: mg total) - Tablet 00 by mouth Externa Delayed daily l Response TRIMETHOPRI 2022-0 Yes [id number] 1[drp] Apply 1 Cori M-POLYMYXIN 7-31 [place] B 78694-4.1 00:00: eye every - UNIT/ML-% 00 4 (four) Piece Hand a ophthalmic hours l Solution TRIMETHOPRI 2022-0 3- No [id number] 1[drp] Apply 1 Cori M-POLYMYXIN 7-31 08-24 drop to Seyb old B 82712-1.1 00:00: 00:00 eye every - UNIT/ML-% 00 :00 4 (four) Piece Hand a ophthalmic hours l Solution Aspirin 81 2022-0 Yes [id number] 81mg Take 1 Cori MG oral 7-10 tablet (81 Seybol d Chewable 08:52: mg total) - Tablet 18 by mouth Externa l Pirfenidone 0 Yes [id number] 267mg Take 267 Cori (Esbriet) 7-10 mg by Seybold 267 MG oral 08:52: mouth 2 - Tablet 18 times Externa daily l predniSONE 2022-0 Yes [id number] 10mg Take 1 Cori (DELTASONE) 7-10 tablet (10 Se ybold 10 MG oral 08:52: mg total) - tablet 18 by mouth Externa l Fluticasone Yes Inhale Mellisa ey Furoate-Bowen 7-10 into the Seyb old anterol 08:52: lungs - (Breo 18 Externa Ellipta) l 200-25 MCG/ACT inhalation AEROSOL POWDER, BREATH ACTIVATED Ferrous Yes Take by Cori Gluconate-C 7-10 mouth Seybold -Folic Acid 08:52: - (IRON-C OR) 18 Externa l Budeson-Gly Yes Inhale Mellisa ey copyrrol-Fo 7-10 into the Seyb old rmoterol 08:52: lungs - (Breztri 18 Externa Aerosphere) l 160-9-4.8 MCG/ACT inhalation Aerosol Multiple Yes Take by Cori Vitamins-Mi 7-10 mouth Seybold nerals 08:52: - (ONE-A-DAY 18 Externa WOMENS 50+ l OR) Vitamin D, Yes [id number] Take 1 Cori Ergocalcife 4-27 capsule Seybo ld rol, 1.25 00:00: (50,000 - MG (43031 00 units Externa UT) oral total) by l Capsule mouth once a week Metformin 2022-0 Yes [id number] 500mg Take 1 Cori HCl 500 MG 4-27 tablet Seybold oral Tablet 00:00: (500 mg - 00 total) by Externa mouth l daily (with breakfast) Nitrofurant 0 Yes [id number] 100mg Take 1 Cori oin Monohyd 4-27 capsule Seybo ld Macro 00:00: (100 mg - (Macrobid) 00 total) by Exte rna 100 MG oral mouth 2 l Capsule times daily Vitamin D, 0 Yes [id number] Take 1 Cori Ergocalcife 4-27 capsule Seybo ld rol, 1.25 00:00: (50,000 - MG (19285 00 units Externa UT) oral total) by l Capsule mouth once a week Metformin 2022-0 Yes [id number] 500mg Take 1 Cori HCl 500 MG 4-27 tablet Seybold oral Tablet 00:00: (500 mg - 00 total) by Externa mouth l daily (with breakfast) Nitrofurant 2022-0 Yes [id number] 100mg Take 1 Cori oin Monohyd 4-27 capsule Seybo ld Macro 00:00: (100 mg - (Macrobid) 00 total) by Exte rna 100 MG oral mouth 2 l Capsule times daily Vitamin D, Yes [id number] Take 1 Cori Ergocalcife 4-27 capsule Seybo ld rol, 1.25 00:00: (50,000 - MG (77615 00 units Externa UT) oral total) by l Capsule mouth once a week Metformin 2022-0 Yes [id number] 500mg Take 1 Cori HCl 500 MG 4-27 tablet Seybold oral Tablet 00:00: (500 mg - 00 total) by Externa mouth l daily (with breakfast) Nitrofurant 2022-0 Yes [id number] 100mg Take 1 Cori oin Monohyd 4-27 capsule Seybo ld Macro 00:00: (100 mg - (Macrobid) 00 total) by Exte rna 100 MG oral mouth 2 l Capsule times daily Vitamin D, 2022-0 Yes [id number] Take 1 Cori Ergocalcife 4-27 capsule Seybo ld rol, 1.25 00:00: (50,000 - MG (31814 00 units Externa UT) oral total) by l Capsule mouth once a week Metformin 2022-0 Yes [id number] 500mg Take 1 Cori HCl 500 MG 4-27 tablet Seybold oral Tablet 00:00: (500 mg - 00 total) by Externa mouth l daily (with breakfast) Nitrofurant 2022-0 Yes [id number] 100mg Take 1 Cori oin Monohyd 4-27 capsule Seybo ld Macro 00:00: (100 mg - (Macrobid) 00 total) by Exte rna 100 MG oral mouth 2 l Capsule times daily Vitamin D, Yes [id number] Take 1 Cori Ergocalcife 4-27 capsule Seybo ld rol, 1.25 00:00: (50,000 - MG (37849 00 units Externa UT) oral total) by l Capsule mouth once a week Metformin Yes [id number] 500mg Take 1 Cori HCl 500 MG 4-27 tablet Seybold oral Tablet 00:00: (500 mg - 00 total) by Externa mouth l daily (with breakfast) Nitrofurant Yes [id number] 100mg Take 1 Cori oin Monohyd 4-27 capsule Seybo ld Macro 00:00: (100 mg - (Macrobid) 00 total) by Exte rna 100 MG oral mouth 2 l Capsule times daily Aspirin 81 Yes [id number] 81mg Take 1 Cori MG oral 4-26 tablet (81 Seybol d Chewable 09:27: mg total) - Tablet 50 by mouth Externa l Pantoprazol Yes 40mg Take 1 Mellisa ey e Sodium 40 4-26 tablet (40 Se ybold MG oral 09:27: mg total) - Tablet 50 by mouth Externa Delayed l Response Pirfenidone Yes [id number] 267mg Take 267 Cori (Esbriet) 4-26 mg by Seybold 267 MG oral 09:27: mouth 2 - Tablet 50 times Externa daily l predniSONE 0 Yes [id number] 10mg Take 1 Cori (DELTASONE) 4-26 tablet (10 Se ybold 10 MG oral 09:27: mg total) - tablet 50 by mouth Externa l Fluticasone Yes Inhale Mellisa martinez Furoate-Bowen - into the yb old anterol 09:27: lungs - (Breo 50 Externa Ellipta) l 200-25 MCG/ACT inhalation AEROSOL POWDER, BREATH ACTIVATED Ferrous Yes Take by Cori Gluconate-C - mouth Seybold -Folic Acid 09:27: - (IRON-C OR) 50 Externa l Budeson-Gly Yes Inhale Mellisa martinez copyrrol-Fo 12-27 into the Seyb old rmoterol 09:27: lungs - (Breztri 50 Externa Aerosphere) l 160-9-4.8 MCG/ACT inhalation Aerosol Multiple Yes Take by Cori Vitamins-Mi 12-27 mouth ybhuey nerals 09:27: - (ONE-A-DAY 50 Externa WOMENS 50+ l OR) amLODIPine- 2022-0 2022- No [id number] 1{tbl} Take 1 Cori Atorvastati 12-27 tablet by Se santos n 10-10 MG 09:27: 00:00 mouth - oral Tablet 47 :00 daily Externa l Albuterol 0 2022- No [id number] 2{puff} Q.25D Inhale 2 Cori HFA 108 (90 12-27 puffs into S eybold Base) 09:26: 00:00 the lungs - MCG/ACT IN 09 :00 every 6 Piece Hand a AERS hours as l needed for wheezing Triamterene 0 Yes Cori -HCTZ 1-30 Seybold 37.5-25 MG 00:00: - oral Tablet 00 Externa l Triamterene 2022-0 Yes Cori -HCTZ 1-30 Seybold 37.5-25 MG 00:00: - oral Tablet 00 Externa l Triamterene 2022-0 Yes Cori -HCTZ 1-30 Seybold 37.5-25 MG 00:00: - oral Tablet 00 Externa l Triamterene 2022-0 Yes Cori -HCTZ 1-30 Seybold 37.5-25 MG 00:00: - oral Tablet 00 Externa l Triamterene 2022-0 Yes Cori -HCTZ 1-30 Seybold 37.5-25 MG 00:00: - oral Tablet 00 Externa l Triamterene 2023-0 Yes Cori -HCTZ 1-30 Seybold 37.5-25 MG 00:00: - oral Tablet 00 Externa l Amlodipine 2021-0 Yes [id number] 10mg Take 1 K elsey Besylate 7-21 tablet (10 Seybo ld (Norvasc) 00:00: mg total) - 10 MG oral 00 by mouth Exter na Tablet daily l Amlodipine 2021-0 Yes [id number] 10mg Take 1 K elsey Besylate 7-21 tablet (10 Seybo ld (Tech.euvas) 00:00: mg total) - 10 MG oral 00 by mouth Exter na Tablet daily l Amlodipine 2021-0 Yes [id number] 10mg Take 1 K elsey Besylate 7-21 tablet (10 Seybo ld (Tech.euvas) 00:00: mg total) - 10 MG oral 00 by mouth Exter na Tablet daily l Amlodipine 2021-0 Yes [id number] 10mg Take 1 K elsey Besylate 7-21 tablet (10 Seybo ld (Tech.euvas) 00:00: mg total) - 10 MG oral 00 by mouth Exter na Tablet daily l Amlodipine 2021-0 Yes [id number] 10mg Take 1 K elsey Besylate 7-21 tablet (10 Seybo ld (Tech.euvasKeecker) 00:00: mg total) - 10 MG oral 00 by mouth Exter na Tablet daily l Amlodipine 2021-0 Yes [id number] 10mg Take 1 K elsey Besylate 7-21 tablet (10 Seybo ld (Rocket.La) 00:00: mg total) - 10 MG oral 00 by mouth Exter na Tablet daily l Benzonatate 2021-0 3- No [id number] 100mg [id number] Take 1 Cori (Tessalon 7-21 04- 93699 [id number] capsule Seybold Araceliirvin) 100 00:00: 00:00 3D (100 mg - MG oral 00 :00 total) by Externa Capsule mouth 3 l times daily as needed for cough hydroCHLORO 2021-0 Yes [id number] 12.5mg Take 1 Cori thiazide 7-02 capsule Seybold 12.5 MG 00:00: (12.5 mg - oral 00 total) by Externa Capsule mouth l daily hydroCHLORO 2021-0 Yes [id number] 12.5mg Take 1 Cori thiazide 7-02 capsule Seybold 12.5 MG 00:00: (12.5 mg - oral 00 total) by Externa Capsule mouth l daily hydroCHLORO 2-0 Yes [id number] 12.5mg Take 1 Cori thiazide 7-02 capsule Seybold 12.5 MG 00:00: (12.5 mg - oral 00 total) by Externa Capsule mouth l daily hydroCHLORO 0 Yes [id number] 12.5mg Take 1 Cori thiazide 7-02 capsule Seybold 12.5 MG 00:00: (12.5 mg - oral 00 total) by Externa Capsule mouth l daily hydroCHLORO Yes [id number] 12.5mg Take 1 Cori thiazide 7-02 capsule Seybold 12.5 MG 00:00: (12.5 mg - oral 00 total) by Externa Capsule mouth l daily hydroCHLORO Yes [id number] 12.5mg Take 1 Cori thiazide 7-02 capsule Seybold 12.5 MG 00:00: (12.5 mg - oral 00 total) by Externa Capsule mouth l daily Aspirin 81 Yes [id number] 1{tbl} Take 1 Cori MG oral 5-19 tablet by Seybold Chewable 08:15: mouth Tablet 22 Pantoprazol Yes 1{tbl} Take 1 Ke lsey e Sodium 40 5-19 tablet by Sey bold MG oral 08:15: mouth Tablet 22 Delayed Response Pirfenidone Yes [id number] 267mg Take 267 Cori (Esbriet) 5-19 mg by Seybold 267 MG oral 08:15: mouth 2 Tablet 22 times daily predniSONE Yes [id number] 1{tbl} Take 1 Cori (DELTASONE) 5-19 tablet by Sey bold 10 MG oral 08:15: mouth tablet 22 amLODIPine- 0 Yes [id number] 1{tbl} Take 1 Cori Atorvastati 5-19 tablet by Sey bold n 10-10 MG 08:15: mouth oral Tablet 22 daily Albuterol Yes [id number] 2{puff} Q.25D Inhale 2 Cori HFA 108 (90 5-19 puffs into Se ybold Base) 08:15: the lungs MCG/ACT IN 22 every 6 AERS hours as needed for wheezing Aspirin 81 0 Yes [id number] 1{tbl} Take 1 Cori MG oral 5-05 tablet by Seybold Chewable 08:17: mouth Tablet 09 Pantoprazol Yes 1{tbl} Take 1 Ke lsey e Sodium 40 5-05 tablet by Sey bold MG oral 08:17: mouth Tablet 09 Delayed Response Pirfenidone Yes [id number] 267mg Take 267 Cori (Esbriet) 5-05 mg by Seybold 267 MG oral 08:17: mouth 2 Tablet 09 times daily predniSONE Yes [id number] 1{tbl} Take 1 Cori (DELTASONE) 5-05 tablet by Sey bold 10 MG oral 08:17: mouth tablet 09 amLODIPine- Yes [id number] 1{tbl} Take 1 Cori Atorvastati 5-05 tablet by Sey bold n 10-10 MG 08:17: mouth oral Tablet 09 daily Albuterol Yes [id number] 2{puff} Q.25D Inhale 2 Cori HFA 108 (90 5-05 puffs into Se ybold Base) 08:17: the lungs MCG/ACT IN 09 every 6 AERS hours as needed for wheezing hydroCHLORO Yes [id number] 12.5mg Take 1 Cori thiazide 5-05 capsule Seybold 12.5 MG 00:00: (12.5 mg oral 00 total) by Capsule mouth daily hydroCHLORO 2021-2021- No [id number] 12.5mg Take 1 Cori thiazide 5-05 05-19 capsule Seybold 12.5 MG 00:00: 00:00 (12.5 mg oral 00 :00 total) by Capsule mouth daily Aspirin 81 2021-0 Yes [id number] 1{tbl} Take 1 Cori MG oral 4-21 tablet by Seybold Chewable 08:04: mouth Tablet 50 Pantoprazol Yes 1{tbl} Take 1 Ke lsey e Sodium 40 4-21 tablet by Sey bold MG oral 08:04: mouth Tablet 50 Delayed Response Pirfenidone Yes [id number] 267mg Take 267 Cori (Esbriet) 4-21 mg by Seybold 267 MG oral 08:04: mouth 2 Tablet 50 times daily predniSONE Yes [id number] 1{tbl} Take 1 Cori (DELTASONE) 4-21 tablet by Sey bold 10 MG oral 08:04: mouth tablet 50 amLODIPine- Yes [id number] 1{tbl} Take 1 Cori Atorvastati 4-21 tablet by Sey bold n 10-10 MG 08:04: mouth oral Tablet 50 daily Albuterol Yes [id number] 2{puff} Q.25D Inhale 2 Cori HFA 108 (90 4-21 puffs into Se ybold Base) 08:04: the lungs MCG/ACT IN 50 every 6 AERS hours as needed for wheezing Amlodipine Yes Cori Besylate 10 4-20 Seybold MG oral 00:00: Tablet 00 Amlodipine 0 Yes Cori Besylate 10 4-20 Seybold MG [...] day, # 5 tab, 0 Refill(s), Pharmacy: [facility] [id number], 157.48, cm, 10/02/21 9:25:00 [employer], Height, 50.636, kg, 10/02/21 9:25:00 [employer], Weight Levofloxaci Yes 500 mg = 1 Memoria n 500 MG 2-02 tab, PO, l Oral Tablet 15:41: Q24H, X 5 H ermann [Levaquin] day, # 5 tab, 0 Refill(s), Pharmacy: [facility] [id number], 157.48, cm, 10/02/21 9:25:00 [employer], Height, 50.636, kg, 10/02/21 9:25:00 [employer], Weight Levofloxaci Yes 500 mg = 1 Memoria n 500 MG 2-02 tab, PO, l Oral Tablet 15:41: Q24H, X 5 H ermann [Levaquin] day, # 5 tab, 0 Refill(s), Pharmacy: [facility] [id number], 157.48, cm, 10/02/21 9:25:00 [employer], Height, 50.636, kg, 10/02/21 9:25:00 [employer], Weight Levofloxaci 2022-0 Yes 500 mg = 1 Memoria n 500 MG 2-02 tab, PO, l Oral Tablet 15:41: Q24H, X 5 H ermann [Levaquin] 00 day, # 5 tab, 0 Refill(s), Pharmacy: [facility] [id number], 157.48, cm, 10/02/21 9:25:00 [employer], Height, 50.636, kg, 10/02/21 9:25:00 [employer], Weight Levofloxaci 2022-0 Yes 500 mg = 1 Memoria n 500 MG 2-02 tab, PO, l Oral Tablet 15:41: Q24H, X 5 H ermann [Levaquin] 00 day, # 5 tab, 0 Refill(s), Pharmacy: [facility] [id number], 157.48, cm, 10/02/21 9:25:00 [employer], Height, 50.636, kg, 10/02/21 9:25:00 [employer], Weight Levofloxaci 2022-0 Yes 500 mg = 1 Memoria n 500 MG 2-02 tab, PO, l Oral Tablet 15:41: Q24H, X 5 H ermann [Levaquin] 00 day, # 5 tab, 0 Refill(s), Pharmacy: [facility] [id number], 157.48, cm, 10/02/21 9:25:00 [employer], Height, 50.636, kg, 10/02/21 9:25:00 [employer], Weight Levofloxaci 2022-0 Yes 500 mg = 1 Memoria n 500 MG 2-02 tab, PO, l Oral Tablet 15:41: Q24H, X 5 H ermann [Levaquin] 00 day, # 5 tab, 0 Refill(s), Pharmacy: [facility] [id number], 157.48, cm, 10/02/21 9:25:00 [employer], Height, 50.636, kg, 10/02/21 9:25:00 [employer], Weight Levofloxaci 2022-0 Yes 500 mg = 1 Memoria n 500 MG 2-02 tab, PO, l Oral Tablet 15:41: Q24H, X 5 H ermann [Levaquin] 00 day, # 5 tab, 0 Refill(s), Pharmacy: [facility] [id number], 157.48, cm, 10/02/21 9:25:00 [employer], Height, 50.636, kg, 10/02/21 9:25:00 [employer], Weight Levofloxaci 2022-0 Yes 500 mg = 1 Memoria n 500 MG 2-02 tab, PO, l Oral Tablet 15:41: Q24H, X 5 H ermann [Levaquin] 00 day, # 5 tab, 0 Refill(s), Pharmacy: [facility] [id number], 157.48, cm, 10/02/21 9:25:00 [employer], Height, 50.636, kg, 10/02/21 9:25:00 [employer], Weight Levofloxaci 2022-0 Yes 500 mg = 1 Memoria n 500 MG 2-02 tab, PO, l Oral Tablet 15:41: Q24H, X 5 H ermann [Levaquin] 00 day, # 5 tab, 0 Refill(s), Pharmacy: [facility] [id number], 157.48, cm, 10/02/21 9:25:00 [employer], Height, 50.636, kg, 10/02/21 9:25:00 [employer], Weight Levofloxaci 2022-0 Yes 500 mg = 1 Memoria n 500 MG 2-02 tab, PO, l Oral Tablet 15:41: Q24H, X 5 H ermann [Levaquin] 00 day, # 5 tab, 0 Refill(s), Pharmacy: [facility] [id number], 157.48, cm, 10/02/21 9:25:00 [employer], Height, 50.636, kg, 10/02/21 9:25:00 [employer], Weight Levofloxaci 2022-0 Yes 500 mg = 1 Memoria n 500 MG 2-02 tab, PO, l Oral Tablet 15:41: Q24H, X 5 H ermann [Levaquin] 00 day, # 5 tab, 0 Refill(s), Pharmacy: [facility] [id number], 157.48, cm, 10/02/21 9:25:00 [employer], Height, 50.636, kg, 10/02/21 9:25:00 [employer], Weight Rocephin + 2022-0 No Notes: Memor ia Sodium 1-31 (Same As: l Chloride 21:00: Rocephin). Her sanchez 0.9% IV 100 00 Use with mL 100 mL NS and infuse over 30 min MEDICATION WASTE Product Size: 1000 mg Product Wasted: ___ mg Rocephin + 2022-0 No Notes: Memor ia Sodium 1-31 (Same As: l Chloride 21:00: Rocephin). Her sanchez 0.9% IV 100 00 Use with mL 100 mL NS and infuse over 30 min MEDICATION WASTE Product Size: 1000 mg Product Wasted: ___ mg Rocephin + 2022-0 No Notes: Memor ia Sodium 1-31 (Same As: l Chloride 21:00: Rocephin). Her sanchez 0.9% IV 100 00 Use with mL 100 mL NS and infuse over 30 min MEDICATION WASTE Product Size: 1000 mg Product Wasted: ___ mg Rocephin + 2022-0 No Notes: Memor ia Sodium 1-31 (Same As: l Chloride 21:00: Rocephin). Her sanchez 0.9% IV 100 00 Use with mL 100 mL NS and infuse over 30 min MEDICATION WASTE Product Size: 1000 mg Product Wasted: ___ mg Rocephin + 2022-0 No Notes: Memor ia Sodium 1-31 (Same As: l Chloride 21:00: Rocephin). Her sanchez 0.9% IV 100 00 Use with mL 100 mL NS and infuse over 30 min MEDICATION WASTE Product Size: 1000 mg Product Wasted: ___ mg Rocephin + 2022-0 No Notes: Memor ia Sodium 1-31 (Same As: l Chloride 21:00: Rocephin). Her sanchez 0.9% IV 100 00 Use with mL 100 mL NS and infuse over 30 min MEDICATION WASTE Product Size: 1000 mg Product Wasted: ___ mg Rocephin + 2022-0 No Notes: Memor ia Sodium 1-31 (Same As: l Chloride 21:00: Rocephin). Her sanchez 0.9% IV 100 00 Use with mL 100 mL NS and infuse over 30 min MEDICATION WASTE Product Size: 1000 mg Product Wasted: ___ mg Rocephin + 2022-0 No Notes: Memor ia Sodium 1-31 (Same As: l Chloride 21:00: Rocephin). Her sanchez 0.9% IV 100 00 Use with mL 100 mL NS and infuse over 30 min MEDICATION WASTE Product Size: 1000 mg Product Wasted: ___ mg Rocephin + 2022-0 No Notes: Memor ia Sodium 1-31 (Same As: l Chloride 21:00: Rocephin). Her sanchez 0.9% IV 100 00 Use with mL 100 mL NS and infuse over 30 min MEDICATION WASTE Product Size: 1000 mg Product Wasted: ___ mg Rocephin + 202-0 No Notes: Memor ia Sodium 1-31 (Same As: l Chloride 21:00: Rocephin). Her sanchez 0.9% IV 100 00 Use with mL 100 mL NS and infuse over 30 min MEDICATION WASTE Product Size: 1000 mg Product Wasted: ___ mg Rocephin + 2021-0 No Notes: Memor ia Sodium 1-31 (Same As: l Chloride 21:00: Rocephin). Her sanchez 0.9% IV 100 00 Use with mL 100 mL NS and infuse over 30 min MEDICATION WASTE Product Size: 1000 mg Product Wasted: ___ mg Rocephin + 202-0 No Notes: Memor ia Sodium 1-31 (Same As: l Chloride 21:00: Rocephin). Her sanchez 0.9% IV 100 00 Use with mL 100 mL NS and infuse over 30 min MEDICATION WASTE Product Size: 1000 mg Product Wasted: ___ mg Azithromyci 202-0 No Notes: Jarred paxton n 1-31 (Same As: l 15:00: Zithromax [place] 00 IV) Azithromyci 2021-0 No Notes: Jarred paxton n 1-31 (Same As: l 15:00: Zithromax [place] 00 IV) Azithromyci 2022-0 No Notes: Jarred paxton n 10-03 (Same As: l 15:00: Zithromax [place] 00 IV) Azithromyci 2021-0 No Notes: Jarred paxton n 10-03 (Same As: l 15:00: Zithromax [place] 00 IV) Azithromyci 2021-0 No Notes: Jarred paxton n 10-03 (Same As: l 15:00: Zithromax [place] 00 IV) Azithromyci 2021-0 No Notes: Jarred paxton n 10-03 (Same As: l 15:00: Zithromax [place] 00 IV) Azithromyci 2021-0 No Notes: Jarred paxton n 10-03 (Same As: l 15:00: Zithromax [place] 00 IV) Azithromyci 2021-0 No Notes: Jarred paxton n 10-03 (Same As: l 15:00: Zithromax [place] 00 IV) Azithromyci 2021-0 No Notes: Jarred paxton n 10-03 (Same As: l 15:00: Zithromax [place] 00 IV) Azithromyci 2021-0 No Notes: Jarred paxton n 10-03 (Same As: l 15:00: Zithromax [place] 00 IV) Azithromyci 2021-0 No Notes: Jarred paxton n 10-03 (Same As: l 15:00: Zithromax [place] 00 IV) Azithromyci 2021-0 No Notes: Jarred paxton n 10-03 (Same As: l 15:00: Zithromax [place] 00 IV) Vancomycin 2021-0 No 2000 mg: Me moria 10-03 infuse l 05:00: over 2.5 [place] 00 hours For adult patients only: Round to nearest 250 mg per Medical Staff approval Vancomycin 0 No 2000 mg: Me moria 10-03 infuse l 05:00: over 2.5 [place] 00 hours For adult patients only: Round to nearest 250 mg per Medical Staff approval Vancomycin 0 No 2000 mg: Me moria 10-03 infuse l 05:00: over 2.5 [place] 00 hours For adult patients only: Round to nearest 250 mg per Medical Staff approval Vancomycin No 2000 mg: Me moria 1-31 infuse l 05:00: over 2.5 [place] 00 hours For adult patients only: Round to nearest 250 mg per Medical Staff approval Vancomycin No 2000 mg: Me moria 1-31 infuse l 05:00: over 2.5 [place] 00 hours For adult patients only: Round to nearest 250 mg per Medical Staff approval Vancomycin No 2000 mg: Me moria 1-31 infuse l 05:00: over 2.5 [place] 00 hours For adult patients only: Round to nearest 250 mg per Medical Staff approval Vancomycin No 2000 mg: Me moria 1-31 infuse l 05:00: over 2.5 [place] 00 hours For adult patients only: Round to nearest 250 mg per Medical Staff approval Vancomycin No 2000 mg: Me moria -31 infuse l 05:00: over 2.5 [place] 00 hours For adult patients only: Round to nearest 250 mg per Medical Staff approval Vancomycin No 2000 mg: Me moria - infuse l 05:00: over 2.5 [place] 00 hours For adult patients only: Round to nearest 250 mg per Medical Staff approval Vancomycin No 2000 mg: Me moria 1-31 infuse l 05:00: over 2.5 [place] 00 hours For adult patients only: Round to nearest 250 mg per Medical Staff approval Vancomycin No 2000 mg: Me moria -31 infuse l 05:00: over 2.5 [place] 00 hours For adult patients only: Round to nearest 250 mg per Medical Staff approval Vancomycin No 2000 mg: Me moria 1-31 infuse l 05:00: over 2.5 [place] 00 hours For adult patients only: Round to nearest 250 mg per Medical Staff approval Mucinex No Notes: Memoria 10-03 (Same as: l 03:00: Guaifenesi [place] 00 n [place], Humibid [place], Mucinex) "Do Not Crush" Take medication with plenty of water. Trazodone No Notes: Memori a 10-03 (Same As: l 03:00: Desyrel) [place] 00 Mucinex 0 No Notes: Memoria 1-31 (Same as: l 03:00: Guaifenesi [place] 00 n [place], Humibid [place], Mucinex) "Do Not Crush" Take medication with plenty of water. Trazodone No Notes: Memori a 1-31 (Same As: l 03:00: Desyrel) [place] Mucinex No Notes: Memoria 1-31 (Same as: l 03:00: Guaifenesi [place] 00 n [place], Humibid [place], Mucinex) "Do Not Crush" Take medication with plenty of water. Trazodone No Notes: Memori a 1-31 (Same As: l 03:00: Desyrel) [place] Mucinex No Notes: Memoria 1-31 (Same as: l 03:00: Guaifenesi [place] 00 n [place], Humibid [place], Mucinex) "Do Not Crush" Take medication with plenty of water. Trazodone No Notes: Memori a 1-31 (Same As: l 03:00: Desyrel) [place] Mucinex No Notes: Memoria 1-31 (Same as: l 03:00: Guaifenesi [place] 00 n [place], Humibid [place], Mucinex) "Do Not Crush" Take medication with plenty of water. Trazodone No Notes: Memori a 1-31 (Same As: l 03:00: Desyrel) [place] Mucinex No Notes: Memoria 1-31 (Same as: l 03:00: Guaifenesi [place] 00 n [place], Humibid [place], Mucinex) "Do Not Crush" Take medication with plenty of water. Trazodone No Notes: Memori a 1-31 (Same As: l 03:00: Desyrel) [place] Mucinex No Notes: Memoria 1-31 (Same as: l 03:00: Guaifenesi [place] 00 n [place], Humibid [place], Mucinex) "Do Not Crush" Take medication with plenty of water. Trazodone No Notes: Memori a 1-31 (Same As: l 03:00: Desyrel) [place] Mucinex No Notes: Memoria 1-31 (Same as: l 03:00: Guaifenesi [place] 00 n [place], Humibid [place], Mucinex) "Do Not Crush" Take medication with plenty of water. Trazodone No Notes: Memori a 1-31 (Same As: l 03:00: Desyrel) [place] Mucinex No Notes: Memoria 1-31 (Same as: l 03:00: Guaifenesi [place] 00 n [place], Humibid [place], Mucinex) "Do Not Crush" Take medication with plenty of water. Trazodone No Notes: Memori a 1-31 (Same As: l 03:00: Desyrel) [place] Mucinex No Notes: Memoria 1-31 (Same as: l 03:00: Guaifenesi [place] 00 n [place], Humibid [place], Mucinex) "Do Not Crush" Take medication with plenty of water. Trazodone No Notes: Memori a 1-31 (Same As: l 03:00: Desyrel) [place] Mucinex No Notes: Memoria 1-31 (Same as: l 03:00: Guaifenesi [place] 00 n [place], Humibid [place], Mucinex) "Do Not Crush" Take medication with plenty of water. Trazodone No Notes: Memori a 1-31 (Same As: l 03:00: Desyrel) [place] Mucinex No Notes: Memoria 1-31 (Same as: l 03:00: Guaifenesi [place] 00 n [place], Humibid [place], Mucinex) "Do Not Crush" Take medication with plenty of water. Trazodone No Notes: Memori a 1-31 (Same As: l 03:00: Desyrel) [place] 00 Esbriet 267 No Esbriet Mem oria MG Tab 1-30 267 MG l 23:00: Tab, 3 [place] 00 tab, Drug form: MISC, Route: PO, BID, 10/02/21 17:00:00 [employer], Duration: 30 day, Stop date: 11/01/21 9:00:00 [employer], 0 Esbriet 267 2-0 No Esbriet Mem oria MG Tab 1-30 267 MG l 23:00: Tab, 3 [place] tab, Drug form: MISC, Route: PO, BID, 10/02/21 17:00:00 [employer], Duration: 30 day, Stop date: 11/01/21 9:00:00 [employer], 0 Esbriet 267 2-0 No Esbriet Mem oria MG Tab 1-30 267 MG l 23:00: Tab, 3 [place] tab, Drug form: MISC, Route: PO, BID, 10/02/21 17:00:00 [employer], Duration: 30 day, Stop date: 11/01/21 9:00:00 [employer], 0 Esbriet 267 2-0 No Esbriet Mem oria MG Tab 1-30 267 MG l 23:00: Tab, 3 [place] tab, Drug form: MISC, Route: PO, BID, 10/02/21 17:00:00 [employer], Duration: 30 day, Stop date: 11/01/21 9:00:00 [employer], 0 Esbriet 267 2-0 No Esbriet Mem oria MG Tab 1-30 267 MG l 23:00: Tab, 3 [place] tab, Drug form: MISC, Route: PO, BID, 10/02/21 17:00:00 [employer], Duration: 30 day, Stop date: 11/01/21 9:00:00 [employer], 0 Esbriet 267 2-0 No Esbriet Mem oria MG Tab 1-30 267 MG l 23:00: Tab, 3 [place] tab, Drug form: MISC, Route: PO, BID, 10/02/21 17:00:00 [employer], Duration: 30 day, Stop date: 11/01/21 9:00:00 [employer], 0 Esbriet 267 2-0 No Esbriet Mem oria MG Tab 1-30 267 MG l 23:00: Tab, 3 [place] tab, Drug form: MISC, Route: PO, BID, 10/02/21 17:00:00 [employer], Duration: 30 day, Stop date: 11/01/21 9:00:00 [employer], 0 Esbriet 267 2021-0 No Esbriet Mem oria MG Tab 1-30 267 MG l 23:00: Tab, 3 [place] tab, Drug form: MISC, Route: PO, BID, 10/02/21 17:00:00 [employer], Duration: 30 day, Stop date: 11/01/21 9:00:00 [employer], 0 Esbriet 267 2021-0 No Esbriet Mem oria MG Tab 1-30 267 MG l 23:00: Tab, 3 [place] tab, Drug form: MISC, Route: PO, BID, 10/02/21 17:00:00 [employer], Duration: 30 day, Stop date: 11/01/21 9:00:00 [employer], 0 Esbriet 267 2021-0 No Esbriet Mem oria MG Tab 1-30 267 MG l 23:00: Tab, 3 [place] tab, Drug form: MISC, Route: PO, BID, 10/02/21 17:00:00 [employer], Duration: 30 day, Stop date: 11/01/21 9:00:00 [employer], 0 Esbriet 267 2021-0 No Esbriet Mem oria MG Tab 1-30 267 MG l 23:00: Tab, 3 [place] tab, Drug form: MISC, Route: PO, BID, 10/02/21 17:00:00 [employer], Duration: 30 day, Stop date: 11/01/21 9:00:00 [employer], 0 Esbriet 267 2021-0 No Esbriet Mem oria MG Tab 1-30 267 MG l 23:00: Tab, 3 [place] tab, Drug form: MISC, Route: PO, BID, 10/02/21 17:00:00 [employer], Duration: 30 day, Stop date: 11/01/21 9:00:00 [employer], 0 Rocephin 2021-0 No 1 gm, Memoria -30 Route: l 21:00: IVPB, Drug [place] 00 form: PDR/INJ, [id number], Dosing Weight 50.636, kg, Start date: 10/02/21 15:00:00 [employer], Duration: 5 day, Stop date: 10/06/21 15:00:00 [employer], ABX Indication : Pneumonia Rocephin 2022-0 No 1 gm, Memoria 1-30 Route: l 21:00: IVPB, Drug [place] 00 form: PDR/INJ, [id number], Dosing Weight 50.636, kg, Start date: 10/02/21 15:00:00 [employer], Duration: 5 day, Stop date: 10/06/21 15:00:00 [employer], ABX Indication : Pneumonia Rocephin 2022-0 No 1 gm, Memoria 1-30 Route: l 21:00: IVPB, Drug [place] 00 form: PDR/INJ, [id number], Dosing Weight 50.636, kg, Start date: 10/02/21 15:00:00 [employer], Duration: 5 day, Stop date: 10/06/21 15:00:00 [employer], ABX Indication : Pneumonia Rocephin 2-0 No 1 gm, Memoria 1-30 Route: l 21:00: IVPB, Drug [place] 00 form: PDR/INJ, [id number], Dosing Weight 50.636, kg, Start date: 10/02/21 15:00:00 [employer], Duration: 5 day, Stop date: 10/06/21 15:00:00 [employer], ABX Indication : Pneumonia Rocephin 2-0 No 1 gm, Memoria 1-30 Route: l 21:00: IVPB, Drug [place] 00 form: PDR/INJ, [id number], Dosing Weight 50.636, kg, Start date: 10/02/21 15:00:00 [employer], Duration: 5 day, Stop date: 10/06/21 15:00:00 [employer], ABX Indication : Pneumonia Rocephin 2022-0 No 1 gm, Memoria 1-30 Route: l 21:00: IVPB, Drug [place] 00 form: PDR/INJ, [id number], Dosing Weight 50.636, kg, Start date: 10/02/21 15:00:00 [employer], Duration: 5 day, Stop date: 10/06/21 15:00:00 [employer], ABX Indication : Pneumonia Rocephin 2022-0 No 1 gm, Memoria 1-30 Route: l 21:00: IVPB, Drug [place] 00 form: PDR/INJ, [id number], Dosing Weight 50.636, kg, Start date: 10/02/21 15:00:00 [employer], Duration: 5 day, Stop date: 10/06/21 15:00:00 [employer], ABX Indication : Pneumonia Rocephin 2022-0 No 1 gm, Memoria 1-30 Route: l 21:00: IVPB, Drug [place] 00 form: PDR/INJ, [id number], Dosing Weight 50.636, kg, Start date: 10/02/21 15:00:00 [employer], Duration: 5 day, Stop date: 10/06/21 15:00:00 [employer], ABX Indication : Pneumonia Rocephin 2022-0 No 1 gm, Memoria 1-30 Route: l 21:00: IVPB, Drug [place] 00 form: PDR/INJ, [id number], Dosing Weight 50.636, kg, Start date: 10/02/21 15:00:00 [employer], Duration: 5 day, Stop date: 10/06/21 15:00:00 [employer], ABX Indication : Pneumonia Rocephin 2022-0 No 1 gm, Memoria 1-30 Route: l 21:00: IVPB, Drug [place] 00 form: PDR/INJ, [id number], Dosing Weight 50.636, kg, Start date: 10/02/21 15:00:00 [employer], Duration: 5 day, Stop date: 10/06/21 15:00:00 [employer], ABX Indication : Pneumonia Rocephin 2022-0 No 1 gm, Memoria 1-30 Route: l 21:00: IVPB, Drug [place] 00 form: PDR/INJ, [id number], Dosing Weight 50.636, kg, Start date: 10/02/21 15:00:00 [employer], Duration: 5 day, Stop date: 10/06/21 15:00:00 [employer], ABX Indication : Pneumonia Rocephin 2022-0 No 1 gm, Memoria 1-30 Route: l 21:00: IVPB, Drug [place] 00 form: PDR/INJ, [id number], Dosing Weight 50.636, kg, Start date: 10/02/21 15:00:00 [employer], Duration: 5 day, Stop date: 10/06/21 15:00:00 [employer], ABX Indication : Pneumonia cefTRIAXone 2021-0 No Notes: Jarred paxton + sterile 1-30 (Same As: l water 2.1 19:00: Rocephin). He rmann mL 00 Use with 100 mL NS and infuse over 30 min MEDICATION WASTE Product Size: 1000 mg Product Wasted: ___ mg cefTRIAXone 2021-0 No Notes: Jarred paxton + sterile 1-30 (Same As: l water 2.1 19:00: Rocephin). He r[place] mL 00 Use with 100 mL NS and infuse over 30 min MEDICATION WASTE Product Size: 1000 mg Product Wasted: ___ mg cefTRIAXone 2021-0 No Notes: Jarred paxton + sterile 1-30 (Same As: l water 2.1 19:00: Rocephin). He rmann mL 00 Use with 100 mL NS and infuse over 30 min MEDICATION WASTE Product Size: 1000 mg Product Wasted: ___ mg cefTRIAXone 2021-0 No Notes: Jarred paxton + sterile 1-30 (Same As: l water 2.1 19:00: Rocephin). He r[place] mL 00 Use with 100 mL NS and infuse over 30 min MEDICATION WASTE Product Size: 1000 mg Product Wasted: ___ mg cefTRIAXone 2021-0 No Notes: Jarred paxton + sterile 1-30 (Same As: l water 2.1 19:00: Rocephin). He r[place] mL 00 Use with 100 mL NS and infuse over 30 min MEDICATION WASTE Product Size: 1000 mg Product Wasted: ___ mg cefTRIAXone 2-0 No Notes: Jarred paxton + sterile 1-30 (Same As: l water 2.1 19:00: Rocephin). He rmann mL 00 Use with 100 mL NS and infuse over 30 min MEDICATION WASTE Product Size: 1000 mg Product Wasted: ___ mg cefTRIAXone 2-0 No Notes: Jarred paxton + sterile 1-30 (Same As: l water 2.1 19:00: Rocephin). He r[place] mL 00 Use with 100 mL NS and infuse over 30 min MEDICATION WASTE Product Size: 1000 mg Product Wasted: ___ mg cefTRIAXone 2021-0 No Notes: Jarred paxton + sterile 1-30 (Same As: l water 2.1 19:00: Rocephin). [place] r[place] mL 00 Use with 100 mL NS and infuse over 30 min MEDICATION WASTE Product Size: 1000 mg Product Wasted: ___ mg cefTRIAXone 2021-0 No Notes: Jarred paxton + sterile 1-30 (Same As: l water 2.1 19:00: Rocephin). He r[place] mL 00 Use with 100 mL NS and infuse over 30 min MEDICATION WASTE Product Size: 1000 mg Product Wasted: ___ mg cefTRIAXone 2021-0 No Notes: Jarred paxton + sterile 1-30 (Same As: l water 2.1 19:00: Rocephin). He r[place] mL 00 Use with 100 mL NS and infuse over 30 min MEDICATION WASTE Product Size: 1000 mg Product Wasted: ___ mg cefTRIAXone 2021-0 No Notes: Jarred paxton + sterile 1-30 (Same As: l water 2.1 19:00: Rocephin). He r[place] mL 00 Use with 100 mL NS and infuse over 30 min MEDICATION WASTE Product Size: 1000 mg Product Wasted: ___ mg cefTRIAXone 2021-0 No Notes: Jarred paxton + sterile 1-30 (Same As: l water 2.1 19:00: Rocephin). [place] r[place] mL 00 Use with 100 mL NS and infuse over 30 min MEDICATION WASTE Product Size: 1000 mg Product Wasted: ___ mg Albuterol 2021-0 No Notes: Memori a 0.833 MG/ML 1-30 (Same as: l / 18:00: Duoneb) [place] Ipratropium 00 [place] 0.167 MG/ML Inhalant Solution Albuterol 2021-0 No Notes: Memori a 0.833 MG/ML 1-30 (Same as: l / 18:00: Duoneb) [place] Ipratropium 00 [place] 0.167 MG/ML Inhalant Solution Albuterol 2021-0 No Notes: Memori a 0.833 MG/ML 1-30 (Same as: :: Duoneb) [place] Ipratropium 00 [place] 0.167 MG/ML Inhalant Solution Albuterol 2021-0 No Notes: Memori a 0.833 MG/ML 1-30 (Same as: :: Duoneb) [place] Ipratropium 00 [place] 0.167 MG/ML Inhalant Solution Albuterol 2021-0 No Notes: Memori a 0.833 MG/ML 1-30 (Same as: :: Duoneb) [place] Ipratropium 00 [place] 0.167 MG/ML Inhalant Solution Albuterol 2021-0 No Notes: Memori a 0.833 MG/ML 1-30 (Same as: :: Duoneb) [place] Ipratropium 00 [place] 0.167 MG/ML Inhalant Solution Albuterol 2021-0 No Notes: Memori a 0.833 MG/ML 1-30 (Same as: :: Duoneb) [place] Ipratropium 00 [place] 0.167 MG/ML Inhalant Solution Albuterol 2021-0 No Notes: Memori a 0.833 MG/ML 1-30 (Same as: :: Duoneb) [place] Ipratropium 00 [place] 0.167 MG/ML Inhalant Solution Albuterol 2021-0 No Notes: Memori a 0.833 MG/ML 1-30 (Same as: :: Duoneb) [place] Ipratropium 00 [place] 0.167 MG/ML Inhalant Solution Albuterol 2021-0 No Notes: Memori a 0.833 MG/ML 1-30 (Same as: :: Duoneb) [place] Ipratropium 00 [place] 0.167 MG/ML Inhalant Solution Albuterol 2021-0 No Notes: Memori a 0.833 MG/ML 1-30 (Same as: :: Duoneb) [place] Ipratropium 00 [place] 0.167 MG/ML Inhalant Solution Albuterol 2021-0 No Notes: Memori a 0.833 MG/ML -30 (Same as: l / 18:00: Duoneb) [place] Ipratropium 00 [place] 0.167 MG/ML Inhalant Solution Vancomycin 2021- No 2000 mg: Me moria 1-30 infuse l 17:00: over 2.5 [place] 00 hours Vancomycin 2021-0 No 2000 mg: Me moria 1-30 infuse l 17:00: over 2.5 [place] 00 hours Vancomycin 2021-0 No 2000 mg: Me moria 1-30 infuse l 17:00: over 2.5 [place] 00 hours Vancomycin 2021-0 No 2000 mg: Me moria 1-30 infuse l 17:00: over 2.5 [place] 00 hours Vancomycin 2021-0 No 2000 mg: Me moria 1-30 infuse l 17:00: over 2.5 [place] 00 hours Vancomycin 2021-0 No 2000 mg: Me moria 1-30 infuse l 17:00: over 2.5 [place] 00 hours Vancomycin 2021-0 No 2000 mg: Me moria 1-30 infuse l 17:00: over 2.5 [place] 00 hours Vancomycin 2021-0 No 2000 mg: Me moria 1-30 infuse l 17:00: over 2.5 [place] 00 hours Vancomycin 2021-0 No 2000 mg: Me moria 1-30 infuse l 17:00: over 2.5 [place] 00 hours Vancomycin 2021-0 No 2000 mg: Me moria 1-30 infuse l 17:00: over 2.5 [place] 00 hours Vancomycin 2021-0 No 2000 mg: Me moria 1-30 infuse l 17:00: over 2.5 [place] 00 hours Vancomycin 2021-0 No 2000 mg: Me moria 1-30 infuse l 17:00: over 2.5 [place] 00 hours Rocephin 2021-0 No Notes: [facility] 1-30 (Same As: l 16:00: Rocephin). [place] 00 Use with 100 mL NS and infuse over 30 min MEDICATION WASTE Product Size: 1000 mg Product Wasted: ___ mg Rocephin 2021-0 No Notes: Memoria 1-30 (Same As: l 16:00: Rocephin). [place] 00 Use with 100 mL NS and infuse over 30 min MEDICATION WASTE Product Size: 1000 mg Product Wasted: ___ mg Rocephin 2021-0 No Notes: Memoria 1-30 (Same As: l 16:00: Rocephin). [place] 00 Use with 100 mL NS and infuse over 30 min MEDICATION WASTE Product Size: 1000 mg Product Wasted: ___ mg Rocephin 2021-0 No Notes: [facility] 30 (Same As: l 16:00: Rocephin). [place] 00 Use with 100 mL NS and infuse over 30 min MEDICATION WASTE Product Size: 1000 mg Product Wasted: ___ mg Rocephin 2021-0 No Notes: [facility] 30 (Same As: l 16:00: Rocephin). [place] 00 Use with 100 mL NS and infuse over 30 min MEDICATION WASTE Product Size: 1000 mg Product Wasted: ___ mg Rocephin 2021-0 No Notes: [facility] 30 (Same As: l 16:00: Rocephin). [place] 00 Use with 100 mL NS and infuse over 30 min MEDICATION WASTE Product Size: 1000 mg Product Wasted: ___ mg Rocephin 2021-0 No Notes: [facility] 30 (Same As: l 16:00: Rocephin). [place] 00 Use with 100 mL NS and infuse over 30 min MEDICATION WASTE Product Size: 1000 mg Product Wasted: ___ mg Rocephin 2021-0 No Notes: [facility] 30 (Same As: l 16:00: Rocephin). [place] 00 Use with 100 mL NS and infuse over 30 min MEDICATION WASTE Product Size: 1000 mg Product Wasted: ___ mg Rocephin 2021-0 No Notes: [facility] 130 (Same As: l 16:00: Rocephin). [place] 00 Use with 100 mL NS and infuse over 30 min MEDICATION WASTE Product Size: 1000 mg Product Wasted: ___ mg Rocephin 2022-0 No Notes: [facility] 1-30 (Same As: l 16:00: Rocephin). [place] 00 Use with 100 mL NS and infuse over 30 min MEDICATION WASTE Product Size: 1000 mg Product Wasted: ___ mg Rocephin No Notes: Memoria 1-30 (Same As: l 16:00: Rocephin). [place] 00 Use with 100 mL NS and infuse over 30 min MEDICATION WASTE Product Size: 1000 mg Product Wasted: ___ mg Rocephin No Notes: Memoria 1-30 (Same As: l 16:00: Rocephin). [place] 00 Use with 100 mL NS and infuse over 30 min MEDICATION WASTE Product Size: 1000 mg Product Wasted: ___ mg Vancomycin No Notes: Memor ia 1-30 Vancomycin l 15:25: Pharmacy [place] 29 Dosing Protocol PHARMAC Y USE ONLY Note: This is not a medication order. This is a consultati on order. Vancomycin No Notes: Memor ia 1-30 Vancomycin l 15:25: Pharmacy [place] 29 Dosing Protocol PHARMAC Y USE ONLY Note: This is not a medication order. This is a consultati on order. Vancomycin No Notes: Memor ia 1-30 Vancomycin l 15:25: Pharmacy [place] 29 Dosing Protocol PHARMAC Y USE ONLY Note: This is not a medication order. This is a consultati on order. Vancomycin No Notes: Memor ia 1-30 Vancomycin l 15:25: Pharmacy [place] 29 Dosing Protocol PHARMAC Y USE ONLY Note: This is not a medication order. This is a consultati on order. Vancomycin No Notes: Memor ia 1-30 Vancomycin l 15:25: Pharmacy [place] 29 Dosing Protocol PHARMAC Y USE ONLY Note: This is not a medication order. This is a consultati on order. Vancomycin No Notes: Memor ia 1-30 Vancomycin l 15:25: Pharmacy [place] 29 Dosing Protocol PHARMAC Y USE ONLY Note: This is not a medication order. This is a consultati on order. Vancomycin No Notes: Memor ia 1-30 Vancomycin l 15:25: Pharmacy [place] 29 Dosing Protocol PHARMAC Y USE ONLY Note: This is not a medication order. This is a consultati on order. Vancomycin No Notes: Memor ia 1-30 Vancomycin l 15:25: Pharmacy [place] 29 Dosing Protocol PHARMAC Y USE ONLY Note: This is not a medication order. This is a consultati on order. Vancomycin No Notes: Memor ia 1-30 Vancomycin l 15:25: Pharmacy [place] 29 Dosing Protocol PHARMAC Y USE ONLY Note: This is not a medication order. This is a consultati on order. Vancomycin No Notes: Memor ia 1-30 Vancomycin l 15:25: Pharmacy [place] 29 Dosing Protocol PHARMAC Y USE ONLY Note: This is not a medication order. This is a consultati on order. Vancomycin No Notes: Memor ia 1-30 Vancomycin l 15:25: Pharmacy [place] 29 Dosing Protocol PHARMAC Y USE ONLY Note: This is not a medication order. This is a consultati on order. Vancomycin No Notes: Memor ia 1-30 Vancomycin l 15:25: Pharmacy [place] 29 Dosing Protocol PHARMAC Y USE ONLY Note: This is not a medication order. This is a consultati on order. Vancomycin No 1,265.9 Jarred paxton 1-30 mg, Route: l 15:24: IVPB, Drug [place] 00 form: INJ, ONCE, Dosing Weight 50.636, kg, Priority: STAT, Start date: 10/02/21 9:24:00 [employer], Stop date: 10/02/21 9:24:00 [employer], ABX Indication : Pneumonia Vancomycin No 1,265.9 Jarred paxton 1-30 mg, Route: l 15:24: IVPB, Drug [place] 00 form: INJ, ONCE, Dosing Weight 50.636, kg, Priority: STAT, Start date: 10/02/21 9:24:00 [employer], Stop date: 10/02/21 9:24:00 [employer], ABX Indication : Pneumonia Vancomycin 2021-0 No 1,265.9 Jarred paxton 1-30 mg, Route: l 15:24: IVPB, Drug [place] 00 form: INJ, ONCE, Dosing Weight 50.636, kg, Priority: STAT, Start date: 10/02/21 9:24:00 [employer], Stop date: 10/02/21 9:24:00 [employer], ABX Indication : Pneumonia Vancomycin 2021-0 No 1,265.9 Jarred paxton 1-30 mg, Route: l 15:24: IVPB, Drug [place] 00 form: INJ, ONCE, Dosing Weight 50.636, kg, Priority: STAT, Start date: 10/02/21 9:24:00 [employer], Stop date: 10/02/21 9:24:00 [employer], ABX Indication : Pneumonia Vancomycin 2021-0 No 1,265.9 Jarred paxton 1-30 mg, Route: l 15:24: IVPB, Drug [place] 00 form: INJ, ONCE, Dosing Weight 50.636, kg, Priority: STAT, Start date: 10/02/21 9:24:00 [employer], Stop date: 10/02/21 9:24:00 [employer], ABX Indication : Pneumonia Vancomycin 2021-0 No 1,265.9 Jarred paxton 1-30 mg, Route: l 15:24: IVPB, Drug [place] 00 form: INJ, ONCE, Dosing Weight 50.636, kg, Priority: STAT, Start date: 10/02/21 9:24:00 [employer], Stop date: 10/02/21 9:24:00 [employer], ABX Indication : Pneumonia Vancomycin 2021-0 No 1,265.9 Jarred paxton 1-30 mg, Route: l 15:24: IVPB, Drug [place] 00 form: INJ, ONCE, Dosing Weight 50.636, kg, Priority: STAT, Start date: 10/02/21 9:24:00 [employer], Stop date: 10/02/21 9:24:00 [employer], ABX Indication : Pneumonia Vancomycin 2021-0 No 1,265.9 Jarred paxton 1-30 mg, Route: l 15:24: IVPB, Drug [place] 00 form: INJ, ONCE, Dosing Weight 50.636, kg, Priority: STAT, Start date: 10/02/21 9:24:00 [employer], Stop date: 10/02/21 9:24:00 [employer], ABX Indication : Pneumonia Vancomycin 0 No 1,265.9 Jarred paxton 1-30 mg, Route: l 15:24: IVPB, Drug [place] 00 form: INJ, ONCE, Dosing Weight 50.636, kg, Priority: STAT, Start date: 10/02/21 9:24:00 [employer], Stop date: 10/02/21 9:24:00 [employer], ABX Indication : Pneumonia Vancomycin No 1,265.9 Jarred paxton 1-30 mg, Route: l 15:24: IVPB, Drug [place] 00 form: INJ, ONCE, Dosing Weight 50.636, kg, Priority: STAT, Start date: 10/02/21 9:24:00 [employer], Stop date: 10/02/21 9:24:00 [employer], ABX Indication : Pneumonia Vancomycin No 1,265.9 Jarred paxton 1-30 mg, Route: l 15:24: IVPB, Drug [place] 00 form: INJ, ONCE, Dosing Weight 50.636, kg, Priority: STAT, Start date: 10/02/21 9:24:00 [employer], Stop date: 10/02/21 9:24:00 [employer], ABX Indication : Pneumonia Vancomycin No 1,265.9 Jarred paxton 1-30 mg, Route: l 15:24: IVPB, Drug [place] 00 form: INJ, ONCE, Dosing Weight 50.636, kg, Priority: STAT, Start date: 10/02/21 9:24:00 [employer], Stop date: 10/02/21 9:24:00 [employer], ABX Indication : Pneumonia methylPREDN 0 No Notes: Jarred paxton ISolone 1-30 (Same l SODium 06:00: as:Solu-ME Tasha nn SUCCinate 00 DROL, A-Methapre d) methylPREDN 2021-0 No Notes: Jarred paxton ISolone 1-30 (Same l SODium 06:00: as:Solu-ME Tasha nn SUCCinate 00 DROL, A-Methapre d) methylPREDN 2021-0 No Notes: Jarred paxton ISolone 1-30 (Same l SODium 06:00: as:Solu-ME Tasha nn SUCCinate 00 DROL, A-Methapre d) methylPREDN 2021-0 No Notes: Jarred paxton ISolone 30 (Same l SODium 06:00: as:Solu-ME Tasha nn SUCCinate 00 DROL, A-Methapre d) methylPREDN 2021-0 No Notes: Jarred paxton ISolone 30 (Same l SODium 06:00: as:Solu-ME Tasha nn SUCCinate 00 DROL, A-Methapre d) methylPREDN 2021-0 No Notes: Jarred paxton ISolone 10-02 (Same l SODium 06:00: as:Solu-ME Tasha nn SUCCinate 00 DROL, A-Methapre d) methylPREDN 2021-0 No Notes: Jarred paxton ISolone 10-02 (Same l SODium 06:00: as:Solu-ME Tasha nn SUCCinate 00 DROL, A-Methapre d) methylPREDN 2021-0 No Notes: Jarred paxton ISolone 10-02 (Same l SODium 06:00: as:Solu-ME Tasha nn SUCCinate 00 DROL, A-Methapre d) methylPREDN 2021-0 No Notes: Jarred paxton ISolone 30 (Same l SODium 06:00: as:Solu-ME Tasha nn SUCCinate 00 DROL, A-Methapre d) methylPREDN 2021-0 No Notes: Jarred paxton ISolone 30 (Same l SODium 06:00: as:Solu-ME Tasha nn SUCCinate 00 DROL, A-Methapre d) methylPREDN 2021-0 No Notes: Jarred paxton ISolone 30 (Same l SODium 06:00: as:Solu-ME Tasha nn SUCCinate 00 DROL, A-Methapre d) methylPREDN 2021-0 No Notes: Jarred paxton ISolone 30 (Same l SODium 06:00: as:Solu-ME Tasha nn SUCCinate 00 DROL, A-Methapre d) Singulair No Notes: Memori a 10-02 (Same l 03:00: as:Singula [place] 00 ir) Singulair 0 No Notes: Memori a 10-02 (Same l 03:00: as:Singula [place] 00 ir) Singulair No Notes: Memori a 1-30 (Same l 03:00: as:Singula [place] 00 ir) Singulair 0 No Notes: Memori a 1-30 (Same l 03:00: as:Singula [place] 00 ir) Singulair 0 No Notes: Memori a 1-30 (Same l 03:00: as:Singula [place] 00 ir) Singulair 0 No Notes: Memori a 1-30 (Same l 03:00: as:Singula [place] 00 ir) Singulair 0 No Notes: Memori a 1-30 (Same l 03:00: as:Singula [place] 00 ir) Singulair 0 No Notes: Memori a 1-30 (Same l 03:00: as:Singula [place] 00 ir) Singulair 0 No Notes: Memori a 1-30 (Same l 03:00: as:Singula [place] 00 ir) Singulair 0 No Notes: Memori a 1-30 (Same l 03:00: as:Singula [place] 00 ir) Singulair No Notes: Memori a 1-30 (Same l 03:00: as:Singula [place] 00 ir) Singulair 0 No Notes: Memori a 1-30 (Same l 03:00: as:Singula [place] 00 ir) Budesonide No Notes: Memor ia 1-29 (Same As: l 23:00: Pulmicort) [place] Budesonide 0 No Notes: Memor [facility] 1-29 (Same As: l 23:00: Pulmicort) [place] Budesonide 0 No Notes: Memor ia 1-29 (Same As: l 23:00: Pulmicort) [place] Budesonide 0 No Notes: Memor ia 1-29 (Same As: l 23:00: Pulmicort) [place] Budesonide 0 No Notes: Memor ia 1-29 (Same As: l 23:00: Pulmicort) [place] Budesonide 0 No Notes: Memor ia 1-29 (Same As: l 23:00: Pulmicort) Budesonide No Notes: Memor ia 1- (Same As: l 23:00: Pulmicort) Budesonide No Notes: Memor ia - (Same As: l 23:00: Pulmicort) Budesonide No Notes: Memor ia 1- (Same As: l 23:00: Pulmicort) Budesonide No Notes: Memor ia - (Same As: l 23:00: Pulmicort) Budesonide No Notes: Memor ia - (Same As: l 23:00: Pulmicort) Budesonide No Notes: Memor ia - (Same As: l 23:00: Pulmicort) Omnipaque No Notes: Memori a 350 10-01 (Same l injectable 17:15: as:Omnipaq H ermann solution 00 ue 350) WASTE: F/P - Black; E - Municipal Trash Bin Omnipaque No Notes: Memori a 350 10-01 (Same l injectable 17:15: as:Omnipaq H ermann solution 00 ue 350) WASTE: F/P - Black; E - Municipal Trash Bin Omnipaque No Notes: Memori a 350 - (Same l injectable 17:15: as:Omnipaq H ermann solution 00 ue 350) WASTE: F/P - Black; E - Municipal Trash Bin Omnipaque No Notes: Memori a 350 - (Same l injectable 17:15: as:Omnipaq H ermann solution 00 ue 350) WASTE: F/P - Black; E - Municipal Trash Bin Omnipaque No Notes: Memori a 350 - (Same l injectable 17:15: as:Omnipaq H ermann solution 00 ue 350) WASTE: F/P - Black; E - Municipal Trash Bin Omnipaque No Notes: Memori a 350 - (Same l injectable 17:15: as:Omnipaq H ermann solution 00 ue 350) WASTE: F/P - Black; E - Municipal Trash Bin Omnipaque No Notes: Memori a 350 - (Same l injectable 17:15: as:Omnipaq H ermann solution 00 ue 350) WASTE: F/P - Black; E - Municipal Trash Bin Omnipaque No Notes: Memori a 350 10-01 (Same l injectable 17:15: as:Omnipaq H ermann solution 00 ue 350) WASTE: F/P - Black; E - Municipal Trash Bin Omnipaque No Notes: Memori a 350 10-01 (Same l injectable 17:15: as:Omnipaq H ermann solution 00 ue 350) WASTE: F/P - Black; E - Municipal Trash Bin Omnipaque No Notes: Memori a 350 10-01 (Same l injectable 17:15: as:Omnipaq H ermann solution 00 ue 350) WASTE: F/P - Black; E - Municipal Trash Bin Omnipaque No Notes: Memori a 350 10-01 (Same l injectable 17:15: as:Omnipaq H ermann solution 00 ue 350) WASTE: F/P - Black; E - Municipal Trash Bin Omnipaque No Notes: Memori a 350 10-01 (Same l injectable 17:15: as:Omnipaq H ermann solution 00 ue 350) WASTE: F/P - Black; E - Municipal Trash Bin Amlodipine No Notes: Memor ia 10-01 (Same as: l 15:00: Norvasc) [place] 00 Aspirin No Notes: Do Memor ia 10-01 not crush l 15:00: or chew. [place] 00 (Same As: Ecotrin) [place] 267 No Esbriet Mem oria mg oral 10-01 267 mg l tablet 15:00: oral [place] 00 tablet, 801 mg, Route: PO, BID, 10/01/21 9:00:00 [employer], Duration: 30 day, Stop date: 10/30/21 17:00:00 [employer] Amlodipine No Notes: Memor ia 1-29 (Same as: l 15:00: Norvasc) [place] 00 Aspirin No Notes: Do Memor [facility] 1-29 not crush l 15:00: or chew. [place] 00 (Same As: Ecotrin) [place] 267 No Esbriet Mem oria mg oral 1-29 267 mg l tablet 15:00: oral [place] 00 tablet, 801 mg, Route: PO, BID, 10/01/21 9:00:00 [employer], Duration: 30 day, Stop date: 10/30/21 17:00:00 [employer] Amlodipine No Notes: Memor ia 1-29 (Same as: l 15:00: Norvasc) [place] 00 Aspirin No Notes: Do [facility]or [facility] 1-29 not crush l 15:00: or chew. [place] 00 (Same As: Ecotrin) [place] 267 No Esbriet Mem oria mg oral 1-29 267 mg l tablet 15:00: oral [place] 00 tablet, 801 mg, Route: PO, BID, 10/01/21 9:00:00 [employer], Duration: 30 day, Stop date: 10/30/21 17:00:00 [employer] Amlodipine No Notes: Memor ia 1-29 (Same as: l 15:00: Norvasc) [place] 00 Aspirin No Notes: Do Memor [facility] 1-29 not crush l 15:00: or chew. (Same As: Ecotrin) [place] 267 No Esbriet Mem oria mg oral 1-29 267 mg l tablet 15:00: oral [place] 00 tablet, 801 mg, Route: PO, BID, 10/01/21 9:00:00 [employer], Duration: 30 day, Stop date: 10/30/21 17:00:00 [employer] Amlodipine No Notes: Memor ia 1-29 (Same as: l 15:00: Norvasc) [place] 00 Aspirin No Notes: Do Memor ia 1-29 not crush l 15:00: or chew. [place] 00 (Same As: Ecotrin) [place] 267 No Esbriet Mem oria mg oral 1-29 267 mg l tablet 15:00: oral [place] 00 tablet, 801 mg, Route: PO, BID, 10/01/21 9:00:00 [employer], Duration: 30 day, Stop date: 10/30/21 17:00:00 [employer] Amlodipine No Notes: Memor ia 1-29 (Same as: l 15:00: Norvasc) [place] 00 Aspirin No Notes: Do Memor ia 1-29 not crush l 15:00: or chew. [place] (Same As: Ecotrin) [place] 267 No Esbriet Mem oria mg oral 1-29 267 mg l tablet 15:00: oral [place] 00 tablet, 801 mg, Route: PO, BID, 10/01/21 9:00:00 [employer], Duration: 30 day, Stop date: 10/30/21 17:00:00 [employer] Amlodipine No Notes: Memor ia 1-29 (Same as: l 15:00: Norvasc) [place] 00 Aspirin No Notes: Do Memor ia 1-29 not crush l 15:00: or chew. [place] (Same As: Ecotrin) [place] 267 No Esbriet Mem oria mg oral 1-29 267 mg l tablet 15:00: oral [place] 00 tablet, 801 mg, Route: PO, BID, 10/01/21 9:00:00 [employer], Duration: 30 day, Stop date: 10/30/21 17:00:00 [employer] Amlodipine 0 No Notes: Memor ia 1-29 (Same as: l 15:00: Norvasc) [place] 00 Aspirin No Notes: Do Memor ia 1-29 not crush l 15:00: or chew. [place] (Same As: Ecotrin) [place] 267 No Esbriet Mem oria mg oral 1-29 267 mg l tablet 15:00: oral [place] 00 tablet, 801 mg, Route: PO, BID, 10/01/21 9:00:00 [employer], Duration: 30 day, Stop date: 10/30/21 17:00:00 [employer] Amlodipine 0 No Notes: Memor ia 1-29 (Same as: l 15:00: Norvasc) [place] Aspirin No Notes: Do Memor ia 1-29 not crush l 15:00: or chew. [place] 00 (Same As: Ecotrin) [place] 267 No Esbriet Mem oria mg oral 1-29 267 mg l tablet 15:00: oral [place] tablet, 801 mg, Route: PO, BID, 10/01/21 9:00:00 [employer], Duration: 30 day, Stop date: 10/30/21 17:00:00 [employer] Amlodipine No Notes: Memor ia 1-29 (Same as: l 15:00: Norvasc) Aspirin No Notes: Do Memor ia 1-29 not crush l 15:00: or chew. (Same As: Ecotrin) [place] 267 No Es[place]riet Mem oria mg oral 1-29 267 mg l tablet 15:00: oral [place] 00 tablet, 801 mg, Route: PO, BID, 10/01/21 9:00:00 [employer], Duration: 30 day, Stop date: 10/30/21 17:00:00 [employer] Amlodipine No Notes: Memor ia 1-29 (Same as: l 15:00: Norvasc) Aspirin No Notes: Do [facility] 1-29 not crush l 15:00: or chew. [place] 00 (Same As: Ecotrin) [place] 267 No [place] Mem oria mg oral 1-29 267 mg l tablet 15:00: oral [place] 00 tablet, 801 mg, Route: PO, BID, 10/01/21 9:00:00 [employer], Duration: 30 day, Stop date: 10/30/21 17:00:00 [employer] Amlodipine No Notes: [facility]or ia 1-29 (Same as: l 15:00: Norvasc) Aspirin No Notes: Do Memor ia 1-29 not crush l 15:00: or chew. [place] 00 (Same As: Ecotrin) [place] 267 No Es[place]riet Mem oria mg oral 1-29 267 mg l tablet 15:00: oral [place] 00 tablet, 801 mg, Route: PO, BID, 10/01/21 9:00:00 [employer], Duration: 30 day, Stop date: 10/30/21 17:00:00 [employer] pantoprazol No Notes: Jarred paxton e 1-29 Tablet l 13:30: should not [place] 00 be chewed or crushed. (Same as: Protonix) pantoprazol No Notes: Jarred paxton e 1-29 Tablet l 13:30: should not [place] 00 be chewed or crushed. (Same as: Protonix) pantoprazol No Notes: Jarred paxton e 1-29 Tablet l 13:30: should not [place] 00 be chewed or crushed. (Same as: Protonix) pantoprazol No Notes: Jarred paxton e 1-29 Tablet l 13:30: should not [place] 00 be chewed or crushed. (Same as: Protonix) pantoprazol No Notes: Jarred paxton e 1-29 Tablet l 13:30: should not [place] 00 be chewed or crushed. (Same as: Protonix) pantoprazol No Notes: Jarred paxton e 1-29 Tablet l 13:30: should not [place] 00 be chewed or crushed. (Same as: Protonix) pantoprazol No Notes: Jarred paxton e 1-29 Tablet l 13:30: should not [place] 00 be chewed or crushed. (Same as: Protonix) pantoprazol No Notes: Jarred paxton e 1-29 Tablet l 13:30: should not [place] 00 be chewed or crushed. (Same as: Protonix) pantoprazol No Notes: Jarred paxton e 1-29 Tablet l 13:30: should not [place] 00 be chewed or crushed. (Same as: Protonix) pantoprazol 0 No Notes: Jarred paxton e 1-29 Tablet l 13:30: should not [place] 00 be chewed or crushed. (Same as: Protonix) pantoprazol 0 No Notes: Jarred paxton e 1-29 Tablet l 13:30: should not [place] 00 be chewed or crushed. (Same as: Protonix) pantoprazol 2022-0 No Notes: Jarred paxton e 1-29 Tablet l 13:30: should not [place] 00 be chewed or crushed. (Same as: Protonix) Enoxaparin No Notes: Memor ia 1-29 (Same as: l 13:00: Lovenox) [place] 00 Enoxaparin 0 No Notes: Memor ia 1-29 (Same as: l 13:00: Lovenox) [place] 00 Enoxaparin 0 No Notes: Memor ia 1-29 (Same as: l 13:00: Lovenox) [place] 00 Enoxaparin 0 No Notes: Memor ia 1-29 (Same as: l 13:00: Lovenox) [place] 00 Enoxaparin 0 No Notes: Memor ia 1-29 (Same as: l 13:00: Lovenox) [place] 00 Enoxaparin 0 No Notes: Memor ia 1-29 (Same as: l 13:00: Lovenox) [place] Enoxaparin 0 No Notes: Memor ia 1-29 (Same as: l 13:00: Lovenox) [place] 00 Enoxaparin 0 No Notes: Memor ia 1-29 (Same as: l 13:00: Lovenox) [place] 00 Enoxaparin 0 No Notes: Memor ia 1-29 (Same as: l 13:00: Lovenox) [place] 00 Enoxaparin 0 No Notes: Memor ia 1-29 (Same as: l 13:00: Lovenox) [place] Enoxaparin 0 No Notes: Memor ia 1-29 (Same as: l 13:00: Lovenox) [place] Enoxaparin 0 No Notes: Memor ia 1-29 (Same as: l 13:00: Lovenox) [place] methylPREDN No Notes: Jarred paxton ISolone 1- (Same l SODium 06:00: as:Solu-ME Tasha nn SUCCinate 00 DROL, A-Methapre d) Enoxaparin No Notes: Memor ia 1-29 (Same as: l 06:00: Lovenox) [place] methylPREDN 2021-0 No Notes: Jarred paxton ISolone 10-01 (Same l SODium 06:00: as:Solu-ME Tasha nn SUCCinate 00 DROL, A-Methapre d) Enoxaparin 2021-0 No Notes: Memor ia 10-01 (Same as: l 06:00: Lovenox) [place] methylPREDN 2021-0 No Notes: Jarred paxton ISolone 10-01 (Same l SODium 06:00: as:Solu-ME Tasha nn SUCCinate 00 DROL, A-Methapre d) Enoxaparin 2021-0 No Notes: Memor ia 10-01 (Same as: l 06:00: Lovenox) [place] methylPREDN 2021-0 No Notes: Jarred paxton ISolone 10-01 (Same l SODium 06:00: as:Solu-ME Tasha nn SUCCinate 00 DROL, A-Methapre d) Enoxaparin 2021-0 No Notes: Memor ia 10-01 (Same as: l 06:00: Lovenox) [place] methylPREDN 2021-0 No Notes: Jarred paxton ISolone 10-01 (Same l SODium 06:00: as:Solu-ME Tasha nn SUCCinate 00 DROL, A-Methapre d) Enoxaparin 2021-0 No Notes: Memor ia 10-01 (Same as: l 06:00: Lovenox) [place] methylPREDN 2021-0 No Notes: Jarred paxton ISolone 10-01 (Same l SODium 06:00: as:Solu-ME Tasha nn SUCCinate 00 DROL, A-Methapre d) Enoxaparin 2021-0 No Notes: Memor ia 10-01 (Same as: l 06:00: Lovenox) [place] methylPREDN 2021-0 No Notes: Jarred paxton ISolone 10-01 (Same l SODium 06:00: as:Solu-ME Tasha nn SUCCinate 00 DROL, A-Methapre d) Enoxaparin 2021-0 No Notes: Memor ia 10-01 (Same as: l 06:00: Lovenox) [place] methylPREDN 2022-0 No Notes: Jarred paxton ISolone 10-01 (Same l SODium 06:00: as:Solu-ME Tasha nn SUCCinate 00 DROL, A-Methapre d) Enoxaparin No Notes: Memor ia 10-01 (Same as: l 06:00: Lovenox) [place] 00 methylPREDN No Notes: Jarred paxton ISolone 10-01 (Same l SODium 06:00: as:Solu-ME Tasha nn SUCCinate 00 DROL, A-Methapre d) Enoxaparin No Notes: Memor ia 10-01 (Same as: l 06:00: Lovenox) [place] 00 methylPREDN No Notes: Jarred paxton ISolone 10-01 (Same l SODium 06:00: as:Solu-ME Tasha nn SUCCinate 00 DROL, A-Methapre d) Enoxaparin No Notes: Memor ia 10-01 (Same as: l 06:00: Lovenox) [place] 00 methylPREDN No Notes: Jarred paxton ISolone 10-01 (Same l SODium 06:00: as:Solu-ME Tasha nn SUCCinate 00 DROL, A-Methapre d) Enoxaparin No Notes: Memor ia 10-01 (Same as: l 06:00: Lovenox) methylPREDN No Notes: Jarred paxton ISolone 10-01 (Same l SODium 06:00: as:Solu-ME Tasha nn SUCCinate 00 DROL, A-Methapre d) Enoxaparin No Notes: Memor ia 10-01 (Same as: l 06:00: Lovenox) [place] 00 Albuterol No Notes: SEE Me moria 0.83 MG/ML 10-01 RT l Inhalant 05:06: DOCUMENTAT Her sanchez Solution 00 ION (Same as: Proventil) Morphine No Notes: Memoria 10-01 (Same l 05:06: as:MORPhin [place] 00 e Sulfate) Robitussin No Notes: Memor ia 100 mg/5 mL 10-01 (Same as: l oral liquid 05:06: Robitussin [place] 00 ) Maalox No Notes: Memoria Advanced 10-01 (aluminum l Regular 05:06: hydroxide- Herm ami Strength 00 magnesium SUSP hyd-simeth icone 200-200-20 mg/5ml 30 ml ud YOUSUF) Hydralazine No Notes: Jarred paxton 10-01 (Same as: l 05:06: Apresoline [place] 00 ) Push over 5 minutes Docusate No Notes: [facility]oria 10-01 (Same as: l 05:06: Colace) [place] 00 (Do Not Crush) Ondansetron No Notes: Jarred paxton 10-01 (Same as: l 05:06: Zofran) [place] 00 MEDICATION WASTE Product Size: 4 mg Product Wasted: ___ mg Trazodone No Notes: Memori a 10-01 (Same As: l 05:06: Desyrel) [place] 00 Acetaminoph No Notes: Do M emoria en 10-01 not exceed l 05:06: 4 gm/day. [place] 00 (Same as: Tylenol) Albuterol No Notes: SEE Me moria 0.83 MG/ML 10-01 RT l Inhalant 05:06: DOCUMENTAT Her sanchez Solution 00 ION (Same as: Proventil) Morphine No Notes: [facility]oria 10-01 (Same l 05:06: as:MORPhin [place] 00 e Sulfate) Robitussin No Notes: Memor ia 100 mg/5 mL 10-01 (Same as: l oral liquid 05:06: Robitussin [place] 00 ) Maalox No Notes: Memoria Advanced 10-01 (aluminum l Regular 05:06: hydroxide- Herm ami Strength 00 magnesium SUSP hyd-simeth icone 200-200-20 mg/5ml 30 ml ud YOUSUF) Hydralazine No Notes: Jarred paxton 10-01 (Same as: l 05:06: Apresoline [place] 00 ) Push over 5 minutes Docusate No Notes: Memoria 10-01 (Same as: l 05:06: Colace) [place] 00 (Do Not Crush) Ondansetron No Notes: Jarred paxton 10-01 (Same as: l 05:06: Zofran) [place] 00 MEDICATION WASTE Product Size: 4 mg Product Wasted: ___ mg Trazodone No Notes: Memori a 10-01 (Same As: l 05:06: Desyrel) [place] 00 Acetaminoph No Notes: Do M emoria en 10-01 not exceed l 05:06: 4 gm/day. [place] 00 (Same as: Tylenol) Albuterol No Notes: SEE Me moria 0.83 MG/ML 10-01 RT l Inhalant 05:06: DOCUMENTAT Her sanchez Solution 00 ION (Same as: Proventil) Morphine No Notes: Memoria 10-01 (Same l 05:06: as:MORPhin [place] 00 e Sulfate) Robitussin No Notes: Memor [...] Memoria 10-01 (Same as: l 05:06: Colace) [place] 00 (Do Not Crush) Ondansetron No Notes: Jarred paxton 10-01 (Same as: l 05:06: Zofran) [place] 00 MEDICATION WASTE Product Size: 4 mg Product Wasted: ___ mg Trazodone No Notes: Memori a 10-01 (Same As: l 05:06: Desyrel) [place] 00 Acetaminoph No Notes: Do M emoria en 10-01 not exceed l 05:06: 4 gm/day. [place] 00 (Same as: Tylenol) Albuterol No Notes: SEE Me moria 0.83 MG/ML 10-01 RT l Inhalant 05:06: DOCUMENTAT Her sanchez Solution 00 ION (Same as: Proventil) Morphine No Notes: Memoria 10-01 (Same l 05:06: as:MORPhin [place] 00 e Sulfate) Robitussin No Notes: Memor ia 100 mg/5 mL 10-01 (Same as: l oral liquid 05:06: Robitussin [place] 00 ) Maalox No Notes: Memoria Advanced 10-01 (aluminum l Regular 05:06: hydroxide- Herm ami Strength 00 magnesium SUSP hyd-simeth icone 200-200-20 mg/5ml 30 ml ud YOUSUF) Hydralazine No Notes: Jarred paxton 10-01 (Same as: l 05:06: Apresoline [place] 00 ) Push over 5 minutes Docusate No Notes: Memoria 10-01 (Same as: l 05:06: Colace) [place] (Do Not Crush) Ondansetron No Notes: Jarred paxton 10-01 (Same as: l 05:06: Zofran) [place] 00 MEDICATION WASTE Product Size: 4 mg Product Wasted: ___ mg Trazodone No Notes: Memori a 10-01 (Same As: l 05:06: Desyrel) [place] 00 Acetaminoph No Notes: Do M emoria en 10-01 not exceed l 05:06: 4 gm/day. [place] 00 (Same as: Tylenol) Albuterol No Notes: SEE Me moria 0.83 MG/ML 10-01 RT l Inhalant 05:06: DOCUMENTAT Her sanchez Solution 00 ION (Same as: Proventil) Morphine No Notes: Memoria 10-01 (Same l 05:06: as:MORPhin [place] 00 e Sulfate) Robitussin No Notes: Memor ia 100 mg/5 mL 10-01 (Same as: l oral liquid 05:06: Robitussin [place] 00 ) Maalox No Notes: Memoria Advanced 10-01 (aluminum l Regular 05:06: hydroxide- Herm ami Strength 00 magnesium SUSP hyd-simeth icone 200-200-20 mg/5ml 30 ml ud YOUSUF) Hydralazine No Notes: Jarred paxton 10-01 (Same as: l 05:06: Apresoline [place] 00 ) Push over 5 minutes Docusate No Notes: Memoria 10-01 (Same as: l 05:06: Colace) [place] (Do Not Crush) Ondansetron No Notes: Jarred paxton 10-01 (Same as: l 05:06: Zofran) [place] 00 MEDICATION WASTE Product Size: 4 mg Product Wasted: ___ mg Trazodone No Notes: Memori a 10-01 (Same As: l 05:06: Desyrel) [place] 00 Acetaminoph No Notes: Do M emoria en 10-01 not exceed l 05:06: 4 gm/day. [place] 00 (Same as: Tylenol) Albuterol No Notes: SEE Me moria 0.83 MG/ML 10-01 RT l Inhalant 05:06: DOCUMENTAT Her sanchez Solution 00 ION (Same as: Proventil) Morphine No Notes: Memoria 10-01 (Same l 05:06: as:MORPhin [place] 00 e Sulfate) Robitussin No Notes: Memor ia 100 mg/5 mL 10-01 (Same as: l oral liquid 05:06: Robitussin [place] 00 ) Maalox No Notes: Memoria Advanced 10-01 (aluminum l Regular 05:06: hydroxide- Herm ami Strength 00 magnesium SUSP hyd-simeth icone 200-200-20 mg/5ml 30 ml ud YOUSUF) Hydralazine No Notes: Jarred paxton 10-01 (Same as: l 05:06: Apresoline [place] ) Push over 5 minutes Albuterol No Notes: SEE Me moria 0.83 MG/ML 10-01 RT l Inhalant 05:06: DOCUMENTAT Her sanchez Solution 00 ION (Same as: Proventil) Morphine No Notes: Memoria 10-01 (Same l 05:06: as:MORPhin [place] 00 e Sulfate) Robitussin No Notes: Memor ia 100 mg/5 mL 10-01 (Same as: l oral liquid 05:06: Robitussin [place] ) Maalox No Notes: Memoria Advanced 10-01 (aluminum l Regular 05:06: hydroxide- Herm ami Strength 00 magnesium SUSP hyd-simeth icone 200-200-20 mg/5ml 30 ml ud YOUSUF) Hydralazine No Notes: Jarred paxton 10-01 (Same as: l 05:06: Apresoline [place] ) Push over 5 minutes Docusate No Notes: Memoria 10-01 (Same as: l 05:06: Colace) [place] (Do Not Crush) Docusate No Notes: Memoria 10-01 (Same as: l 05:06: Colace) [place] (Do Not Crush) Ondansetron No Notes: Jarred paxton 10-01 (Same as: l 05:06: Zofran) [place] 00 MEDICATION WASTE Product Size: 4 mg Product Wasted: ___ mg Trazodone No Notes: Memori a 10-01 (Same As: l 05:06: Desyrel) [place] Acetaminoph No Notes: Do M emoria en 10-01 not exceed l 05:06: 4 gm/day. [place] (Same as: Tylenol) Ondansetron No Notes: Jarred paxton 10-01 (Same as: l 05:06: Zofran) [place] 00 MEDICATION WASTE Product Size: 4 mg Product Wasted: ___ mg Trazodone No Notes: Memori a 10-01 (Same As: l 05:06: Desyrel) [place] Acetaminoph No Notes: Do M emoria en 10-01 not exceed l 05:06: 4 gm/day. [place] (Same as: Tylenol) Albuterol No Notes: SEE Me moria 0.83 MG/ML 10-01 RT l Inhalant 05:06: DOCUMENTAT Her sanchez Solution 00 ION (Same as: Proventil) Morphine No Notes: Memoria 10-01 (Same l 05:06: as:MORPhin [place] 00 e Sulfate) Robitussin No Notes: Memor ia 100 mg/5 mL 10-01 (Same as: l oral liquid 05:06: Robitussin [place] 00 ) Maalox No Notes: Memoria Advanced 10-01 (aluminum l Regular 05:06: hydroxide- Herm ami Strength 00 magnesium SUSP hyd-simeth icone 200-200-20 mg/5ml 30 ml ud YOUSUF) Hydralazine No Notes: Jarred paxton 10-01 (Same as: l 05:06: Apresoline [place] 00 ) Push over 5 minutes Docusate No Notes: Memoria 10-01 (Same as: l 05:06: Colace) [place] 00 (Do Not Crush) Ondansetron No Notes: Jarred paxton 10-01 (Same as: l 05:06: Zofran) [place] 00 MEDICATION WASTE Product Size: 4 mg Product Wasted: ___ mg Trazodone No Notes: Memori a 10-01 (Same As: l 05:06: Desyrel) [place] 00 Acetaminoph No Notes: Do M emoria en 10-01 not exceed l 05:06: 4 gm/day. [place] 00 (Same as: Tylenol) Albuterol No Notes: SEE Me moria 0.83 MG/ML 10-01 RT l Inhalant 05:06: DOCUMENTAT Her sanchez Solution 00 ION (Same as: Proventil) Morphine No Notes: Memoria 10-01 (Same l 05:06: as:MORPhin [place] 00 e Sulfate) Robitussin No Notes: Memor [...] Memoria 10-01 (Same as: l 05:06: Colace) [place] 00 (Do Not Crush) Ondansetron No Notes: Jarred pxaton 10-01 (Same as: l 05:06: Zofran) [place] 00 MEDICATION WASTE Product Size: 4 mg Product Wasted: ___ mg Trazodone No Notes: Memori a 10-01 (Same As: l 05:06: Desyrel) [place] 00 Acetaminoph No Notes: Do M emoria en 10-01 not exceed l 05:06: 4 gm/day. [place] 00 (Same as: Tylenol) Albuterol No Notes: SEE Me moria 0.83 MG/ML 10-01 RT l Inhalant 05:06: DOCUMENTAT Her sanchez Solution 00 ION (Same as: Proventil) Morphine No Notes: Memoria 10-01 (Same l 05:06: as:MORPhin [place] 00 e Sulfate) Robitussin No Notes: Memor [...] Memoria 10-01 (Same as: l 05:06: Colace) [place] 00 (Do Not Crush) Ondansetron No Notes: Jarred paxton 10-01 (Same as: l 05:06: Zofran) [place] 00 MEDICATION WASTE Product Size: 4 mg Product Wasted: ___ mg Trazodone No Notes: Memori a 10-01 (Same As: l 05:06: Desyrel) [place] Acetaminoph No Notes: Do M emoria en 10-01 not exceed l 05:06: 4 gm/day. [place] 00 (Same as: Tylenol) Albuterol No Notes: SEE Me moria 0.83 MG/ML 10-01 RT l Inhalant 05:06: DOCUMENTAT Her sanchez Solution 00 ION (Same as: Proventil) Morphine No Notes: Memoria 10-01 (Same l 05:06: as:MORPhin [place] 00 e Sulfate) Robitussin No Notes: Memor ia 100 mg/5 mL 10-01 (Same as: l oral liquid 05:06: Robitussin [place] ) Maalox No Notes: Memoria Advanced 10-01 (aluminum l Regular 05:06: hydroxide- Herm ami Strength 00 magnesium SUSP hyd-simeth icone 200-200-20 mg/5ml 30 ml ud YOUSUF) Hydralazine No Notes: Jarred paxton 10-01 (Same as: l 05:06: Apresoline [place] ) Push over 5 minutes Docusate No Notes: Memoria 10-01 (Same as: l 05:06: Colace) [place] (Do Not Crush) Ondansetron No Notes: Jarred paxton 10-01 (Same as: l 05:06: Zofran) [place] 00 MEDICATION WASTE Product Size: 4 mg Product Wasted: ___ mg Trazodone No Notes: Memori a 10-01 (Same As: l 05:06: Desyrel) [place] 00 Acetaminoph No Notes: Do M emoria en 10-01 not exceed l 05:06: 4 gm/day. [place] 00 (Same as: Tylenol) Albuterol No Notes: SEE Me moria 0.83 MG/ML 10-01 RT l Inhalant 05:06: DOCUMENTAT Her sanchez Solution 00 ION (Same as: Proventil) Morphine No Notes: Memoria 10-01 (Same l 05:06: as:MORPhin [place] 00 e Sulfate) Robitussin No Notes: Memor ia 100 mg/5 mL 10-01 (Same as: l oral liquid 05:06: Robitussin [place] 00 ) Maalox No Notes: Memoria Advanced 10-01 (aluminum l Regular 05:06: hydroxide- Herm ami Strength 00 magnesium SUSP hyd-simeth icone 200-200-20 mg/5ml 30 ml ud YOUSUF) Hydralazine No Notes: Jarred paxton 10-01 (Same as: l 05:06: Apresoline [place] ) Push over 5 minutes Docusate No Notes: Memoria 10-01 (Same as: l 05:06: Colace) [place] (Do Not Crush) Ondansetron No Notes: Jarred paxton 10-01 (Same as: l 05:06: Zofran) [place] 00 MEDICATION WASTE Product Size: 4 mg Product Wasted: ___ mg Trazodone No Notes: Memori a 10-01 (Same As: l 05:06: Desyrel) [place] 00 Acetaminoph No Notes: Do M emoria en 10-01 not exceed l 05:06: 4 gm/day. [place] (Same as: Tylenol) Albuterol No Notes: Memori a 0.833 MG/ML 10-01 (Same as: l / 05:02: Duoneb) [place] Ipratropium 00 Roberts 0.167 MG/ML Inhalant Solution Albuterol No Notes: Memori a 0.833 MG/ML 10-01 (Same as: l / 05:02: Duoneb) [place] Ipratropium 00 [place] 0.167 MG/ML Inhalant Solution Albuterol No Notes: Memori a 0.833 MG/ML 10-01 (Same as: l / 05:02: Duoneb) [place] Ipratropium 00 Roberts 0.167 MG/ML Inhalant Solution Albuterol No Notes: Memori a 0.833 MG/ML 10-01 (Same as: l / 05:02: Duoneb) [place] Ipratropium 00 [place] 0.167 MG/ML Inhalant Solution Albuterol No Notes: Memori a 0.833 MG/ML - (Same as: :: Duoneb) [place] Ipratropium 00 [place] 0.167 MG/ML Inhalant Solution Albuterol No Notes: Memori a 0.833 MG/ML - (Same as: :: Duoneb) [place] Ipratropium 00 [place] 0.167 MG/ML Inhalant Solution Albuterol No Notes: Memori a 0.833 MG/ML - (Same as: :: Duoneb) [place] Ipratropium 00 Roberts 0.167 MG/ML Inhalant Solution Albuterol No Notes: Memori a 0.833 MG/ML - (Same as: :: Duoneb) [place] Ipratropium 00 Roberts 0.167 MG/ML Inhalant Solution Albuterol No Notes: Memori a 0.833 MG/ML - (Same as: :: Duoneb) [place] Ipratropium 00 [place] 0.167 MG/ML Inhalant Solution Albuterol No Notes: Memori a 0.833 MG/ML - (Same as: :: Duoneb) [place] Ipratropium 00 [place] 0.167 MG/ML Inhalant Solution Albuterol No Notes: Memori a 0.833 MG/ML - (Same as: :: Duoneb) [place] Ipratropium 00 Roberts 0.167 MG/ML Inhalant Solution Albuterol No Notes: Memori a 0.833 MG/ML - (Same as: :: Duoneb) [place] Ipratropium 00 [place] 0.167 MG/ML Inhalant Solution Vitamin D3 Yes 50 Memoria 1-29 microgram, l 04:48: PO, Daily, [place] 00 0 Refill(s) Vitamin D3 Yes 50 Memoria 1-29 microgram, l 04:48: PO, Daily, [place] 00 0 Refill(s) Vitamin D3 2021-0 Yes 50 Memoria 1-29 microgram, l 04:48: PO, Daily, [place] 00 0 Refill(s) Vitamin D3 2021-0 Yes 50 Memoria 1-29 microgram, l 04:48: PO, Daily, [place] 00 0 Refill(s) Vitamin D3 2021-0 Yes 50 Memoria 1-29 microgram, l 04:48: PO, Daily, [place] 00 0 Refill(s) Vitamin D3 2021-0 Yes 50 Memoria 1-29 microgram, l 04:48: PO, Daily, [place] 00 0 Refill(s) Vitamin D3 2021-0 Yes 50 Memoria 1-29 microgram, l 04:48: PO, Daily, [place] 00 0 Refill(s) Vitamin D3 2021-0 Yes 50 Memoria 1-29 microgram, l 04:48: PO, Daily, [place] 00 0 Refill(s) Vitamin D3 2021-0 Yes 50 Memoria 1-29 microgram, l 04:48: PO, Daily, [place] 00 0 Refill(s) Vitamin D3 2021-0 Yes 50 Memoria 1-29 microgram, l 04:48: PO, Daily, [place] 00 0 Refill(s) Vitamin D3 2021-0 Yes 50 Memoria 1-29 microgram, l 04:48: PO, Daily, [place] 00 0 Refill(s) Vitamin D3 2021-0 Yes 50 Memoria 1-29 microgram, l 04:48: PO, Daily, [place] 00 0 Refill(s) 200 ACTUAT 2021-0 Yes 2 puff, Jarred paxton Albuterol 1-29 INHALATION l 0.09 04:42: , Q6H, 0 [place] MG/ACTUAT 00 Refill(s) Metered Dose Inhaler [ProAir HFA] pirfenidone 0 Yes 801 mg = 3 Memoria 267 MG Oral 1-29 tab, PO, l Tablet 04:42: BID, 2, 0 Delta n [Esbriet] 00 Refill(s) 200 ACTUAT 2021-0 Yes 2 puff, Jarred paxton Albuterol 1-29 INHALATION l 0.09 04:42: , Q6H, 0 [place] MG/ACTUAT 00 Refill(s) Metered Dose Inhaler [ProAir HFA] pirfenidone 2021-0 Yes 801 mg = 3 Memoria 267 MG Oral 1-29 tab, PO, l Tablet 04:42: BID, 2, 0 Delta n [Esbriet] 00 Refill(s) 200 ACTUAT 2-0 Yes 2 puff, Jarred paxton Albuterol 1-29 INHALATION l 0.09 04:42: , Q6H, 0 [place] MG/ACTUAT 00 Refill(s) Metered Dose Inhaler [ProAir HFA] pirfenidone 2021-0 Yes 801 mg = 3 Memoria 267 MG Oral 1-29 tab, PO, l Tablet 04:42: BID, 2, 0 Delta n [Esbriet] 00 Refill(s) 200 ACTUAT 2021-0 Yes 2 puff, Jarred paxton Albuterol 1-29 INHALATION l 0.09 04:42: , Q6H, 0 [place] MG/ACTUAT 00 Refill(s) Metered Dose Inhaler [ProAir HFA] pirfenidone 2021-0 Yes 801 mg = 3 Memoria 267 MG Oral 1-29 tab, PO, l Tablet 04:42: BID, 2, 0 [place] n [Esbriet] 00 Refill(s) 200 ACTUAT 2021-0 Yes 2 puff, Jarred paxton Albuterol 1-29 INHALATION l 0.09 04:42: , Q6H, 0 [place] MG/ACTUAT 00 Refill(s) Metered Dose Inhaler [ProAir HFA] pirfenidone 2021-0 Yes 801 mg = 3 Memoria 267 MG Oral 1-29 tab, PO, l Tablet 04:42: BID, 2, 0 [place] [Esbriet] 00 Refill(s) 200 ACTUAT 2-0 Yes 2 puff, Jarred paxton Albuterol 1-29 INHALATION l 0.09 04:42: , Q6H, 0 [place] MG/ACTUAT 00 Refill(s) Metered Dose Inhaler [ProAir HFA] pirfenidone 2-0 Yes 801 mg = 3 Memoria 267 MG Oral 1-29 tab, PO, l Tablet 04:42: BID, 2, 0 Delta n [Esbriet] 00 Refill(s) 200 ACTUAT 2-0 Yes 2 puff, Jarred paxton Albuterol 1-29 INHALATION l 0.09 04:42: , Q6H, 0 [place] MG/ACTUAT 00 Refill(s) Metered Dose Inhaler [ProAir HFA] pirfenidone 2021-0 Yes 801 mg = 3 Memoria 267 MG Oral 1-29 tab, PO, l Tablet 04:42: BID, 2, 0 [place] [Esbriet] 00 Refill(s) 200 ACTUAT 2021-0 Yes 2 puff, Jarred paxton Albuterol 1-29 INHALATION l 0.09 04:42: , Q6H, 0 [place] MG/ACTUAT 00 Refill(s) Metered Dose Inhaler [ProAir HFA] pirfenidone 0 Yes 801 mg = 3 Memoria 267 MG Oral 1-29 tab, PO, l Tablet 04:42: BID, 2, 0 Delta n [Esbriet] 00 Refill(s) 200 ACTUAT 2021-0 Yes 2 puff, Jarred paxton Albuterol 1-29 INHALATION l 0.09 04:42: , Q6H, 0 [place] MG/ACTUAT 00 Refill(s) Metered Dose Inhaler [ProAir HFA] pirfenidone 2021-0 Yes 801 mg = 3 Memoria 267 MG Oral 1-29 tab, PO, l Tablet 04:42: BID, 2, 0 [place] n [Esbriet] 00 Refill(s) 200 ACTUAT 2021-0 Yes 2 puff, Jarred paxton Albuterol 1-29 INHALATION l 0.09 04:42: , Q6H, 0 [place] MG/ACTUAT 00 Refill(s) Metered Dose Inhaler [ProAir HFA] pirfenidone 2021-0 Yes 801 mg = 3 Memoria 267 MG Oral 1-29 tab, PO, l Tablet 04:42: BID, 2, 0 [place] n [Esbriet] 00 Refill(s) 200 ACTUAT 2021-0 Yes 2 puff, Jarred paxton Albuterol 1-29 INHALATION l 0.09 04:42: , Q6H, 0 [place] MG/ACTUAT 00 Refill(s) Metered Dose Inhaler [ProAir HFA] pirfenidone 2021-0 Yes 801 mg = 3 Memoria 267 MG Oral 1-29 tab, PO, l Tablet 04:42: BID, 2, 0 [place] n [Esbriet] 00 Refill(s) 200 ACTUAT 2021-0 Yes 2 puff, Jarred paxton Albuterol - INHALATION l 0.09 04:42: , Q6H, 0 [place] MG/ACTUAT 00 Refill(s) Metered Dose Inhaler [ProAir HFA] pirfenidone 0 Yes 801 mg = 3 Memoria 267 MG Oral - tab, PO, l Tablet 04:42: BID, 2, 0 [place] n [Esbriet] 00 Refill(s) Vitamin C 0 Yes Daily, 0 Jarred paxton - Refill(s) l 04:41: [place] 00 Vitamin C 0 Yes Daily, 0 Jarred paxton - Refill(s) l 04:41: [place] 00 Vitamin C 0 Yes Daily, 0 Jarred paxton - Refill(s) l 04:41: [place] 00 Vitamin C 2021-0 Yes Daily, 0 Jarred paxton - Refill(s) l 04:41: [place] 00 Vitamin C 2021-0 Yes Daily, 0 Jarred paxton 1-29 Refill(s) l 04:41: [place] Vitamin C 2021-0 Yes Daily, 0 Jarred paxton 1- Refill(s) l 04:41: [place] 00 Vitamin C 2021-0 Yes Daily, 0 Jarred paxton -29 Refill(s) l 04:41: [place] Vitamin C 2021-0 Yes Daily, 0 Jarred paxton - Refill(s) l 04:41: [place] Vitamin C 2021-0 Yes Daily, 0 Ajrred paxton 1-29 Refill(s) l 04:41: [place] Vitamin C 2021-0 Yes Daily, 0 Jarred paxton 1-29 Refill(s) l 04:41: [place] Vitamin C 2021-0 Yes Daily, 0 Jarred paxton 1-29 Refill(s) l 04:41: [place] 00 Vitamin C 2021-0 Yes Daily, 0 Jarred paxton 1-29 Refill(s) l 04:41: 00 Prednisone 2021-0 Yes 10 mg, PO, M emoria 1-29 Daily, l 04:40: Quantity [place] 00 sufficient , 0 Refill(s) Aspirin 2021-0 Yes 81 mg, PO, Jarred paxton 1-29 Daily, 0 l 04:40: Refill(s) Prednisone 2021-0 Yes 10 mg, PO, M emoria 1-29 Daily, l 04:40: Quantity [place] 00 sufficient , 0 Refill(s) Aspirin 2021-0 Yes 81 mg, PO, Jarred paxton 1-29 Daily, 0 l 04:40: Refill(s) [place] 00 Prednisone 2021-0 Yes 10 mg, PO, M emoria 1-29 Daily, l 04:40: Quantity [place] 00 sufficient , 0 Refill(s) Aspirin 2021-0 Yes 81 mg, PO, Jarred paxton 1-29 Daily, 0 l 04:40: Refill(s) Prednisone 2021-0 Yes 10 mg, PO, M emoria 1-29 Daily, l 04:40: Quantity [place] 00 sufficient , 0 Refill(s) Aspirin 2021-0 Yes 81 mg, PO, Jarred paxton 1-29 Daily, 0 l 04:40: Refill(s) Prednisone 2021-0 Yes 10 mg, PO, M emoria 1-29 Daily, l 04:40: Quantity [place] 00 sufficient , 0 Refill(s) Aspirin 2021-0 Yes 81 mg, PO, Jarred paxton 1-29 Daily, 0 l 04:40: Refill(s) Prednisone 2021-0 Yes 10 mg, PO, M emoria 1-29 Daily, l 04:40: Quantity [place] 00 sufficient , 0 Refill(s) Aspirin 2021-0 Yes 81 mg, PO, Jarred paxton 1-29 Daily, 0 l 04:40: Refill(s) Prednisone 2021-0 Yes 10 mg, PO, M emoria 1-29 Daily, l 04:40: Quantity [place] 00 sufficient , 0 Refill(s) Aspirin 2021-0 Yes 81 mg, PO, Jarred paxton 1-29 Daily, 0 l 04:40: Refill(s) [place] Prednisone 2021-0 Yes 10 mg, PO, M emoria 1-29 Daily, l 04:40: Quantity [place] 00 sufficient , 0 Refill(s) Aspirin 2021-0 Yes 81 mg, PO, Jarred paxton 1-29 Daily, 0 l 04:40: Refill(s) Prednisone 2021-0 Yes 10 mg, PO, M emoria 1- Daily, l 04:40: Quantity sufficient , 0 Refill(s) Aspirin 2021-0 Yes 81 mg, PO, Jarred paxton 1-29 Daily, 0 l 04:40: Refill(s) Prednisone 2021-0 Yes 10 mg, PO, M emoria 1 Daily, l 04:40: Quantity sufficient , 0 Refill(s) Aspirin 2021-0 Yes 81 mg, PO, Jarred paxton 1- Daily, 0 l 04:40: Refill(s) Prednisone 2021-0 Yes 10 mg, PO, M emoria 1 Daily, l 04:40: Quantity sufficient , 0 Refill(s) Aspirin 2021-0 Yes 81 mg, PO, Jarred paxton 1- Daily, 0 l 04:40: Refill(s) Prednisone 2021-0 Yes 10 mg, PO, M emoria 1 Daily, l 04:40: Quantity sufficient , 0 Refill(s) Aspirin 2021-0 Yes 81 mg, PO, Jarred paxton 1-29 Daily, 0 l 04:40: Refill(s) Amlodipine 2021-0 Yes 10 mg, PO, M emoria 1 Daily, 0 l 04:39: Refill(s) pantoprazol 2021-0 Yes 40 mg, PO, Memoria e 1- Daily, # l 04:39: 30 tab, 0 Refill(s) Amlodipine 2021-0 Yes 10 mg, PO, M emoria 1-29 Daily, 0 l 04:39: Refill(s) pantoprazol 2021-0 Yes 40 mg, PO, Memoria e 1- Daily, # l 04:39: 30 tab, 0 Refill(s) Amlodipine 2021-0 Yes 10 mg, PO, M emoria 1-29 Daily, 0 l 04:39: Refill(s) pantoprazol 2-0 Yes 40 mg, PO, Memoria e 1- Daily, # l 04:39: 30 tab, 0 00 Refill(s) Amlodipine 2-0 Yes 10 mg, PO, M emoria 1 Daily, 0 l 04:39: Refill(s) pantoprazol 2-0 Yes 40 mg, PO, Memoria e 10-01 Daily, # l 04:39: 30 tab, 0 00 Refill(s) Amlodipine 2-0 Yes 10 mg, PO, M emoria 10-01 Daily, 0 l 04:39: Refill(s) pantoprazol 2-0 Yes 40 mg, PO, Memoria e 10-01 Daily, # l 04:39: 30 tab, 0 Refill(s) Amlodipine 2-0 Yes 10 mg, PO, M emoria 10-01 Daily, 0 l 04:39: Refill(s) pantoprazol 2-0 Yes 40 mg, PO, Memoria e - Daily, # l 04:39: 30 tab, 0 Refill(s) Amlodipine 2-0 Yes 10 mg, PO, M emoria 10-01 Daily, 0 l 04:39: Refill(s) pantoprazol 2-0 Yes 40 mg, PO, Memoria e 10-01 Daily, # l 04:39: 30 tab, 0 Refill(s) Amlodipine 2-0 Yes 10 mg, PO, M emoria 10-01 Daily, 0 l 04:39: Refill(s) pantoprazol 2-0 Yes 40 mg, PO, Memoria e 1- Daily, # l 04:39: 30 tab, 0 Refill(s) Amlodipine 2-0 Yes 10 mg, PO, M emoria 1- Daily, 0 l 04:39: Refill(s) pantoprazol 2-0 Yes 40 mg, PO, Memoria e 1- Daily, # l 04:39: 30 tab, 0 Refill(s) Amlodipine 2-0 Yes 10 mg, PO, M emoria - Daily, 0 l 04:39: Refill(s) [place] 00 pantoprazol 2021-0 Yes 40 mg, PO, Memoria e - Daily, # l 04:39: 30 tab, 0 [place] 00 Refill(s) Amlodipine 2021-0 Yes 10 mg, PO, M emoria 10-01 Daily, 0 l 04:39: Refill(s) pantoprazol 2021-0 Yes 40 mg, PO, Memoria e 10-01 Daily, # l 04:39: 30 tab, 0 [place] 00 Refill(s) Amlodipine 2021-0 Yes 10 mg, PO, M emoria 10-01 Daily, 0 l 04:39: Refill(s) pantoprazol 2021-0 Yes 40 mg, PO, Memoria e 10-01 Daily, # l 04:39: 30 tab, 0 [place] 00 Refill(s) Benzonatate 2021-0 Yes [id number] 200mg Q.[id number] Take 1 Cori 200 MG oral -28 [id number] capsule Seybold Capsule 00:00: 3D (200 mg total) by mouth 3 times daily as needed for cough Dextrometho 2021-0 Yes [id number] 5mL Q.25D Take 5 mL Cori rphan-guaiF 09-30 by mouth Seyb old ENesin 00:00: every 6 20-400 00 hours as MG/5ML oral needed for Syrup cough Doxycycline 2021-0 Yes [id number] 100mg Take 1 [place] Hyclate 100 -28 tablet Seybol d MG oral 00:00: (100 mg Tablet 00 total) by mouth 2 times daily Benzonatate 2021-0 Yes [id number] 200mg Q.[id number] Take 1 Cori 200 MG oral -28 [id number] capsule Seybold Capsule 00:00: 3D (200 mg 00 total) by mouth 3 times daily as needed for cough Dextrometho 2021-0 Yes [id number] 5mL Q6H Take 5 mL Cori rphan-guaiF 1-28 by mouth Seyb old ENesin 00:00: every 6 20-400 00 hours as MG/5ML oral needed for Syrup cough Doxycycline 0 Yes [id number] 100mg Take 1 [place] Hyclate 100 -28 tablet Seybol d MG oral 00:00: (100 mg Tablet 00 total) by mouth 2 times daily Amoxicillin 0 Yes [id number] 1{tbl} Take 1 [place] -Pot 1-28 tablet by Seybold Clavulanate 00:00: mouth 2 875-125 MG 00 times oral Tablet daily Benzonatate 2021-0 Yes [id number] 200mg Q.[id number] Take 1 Cori 200 MG oral 09-30 [id number] capsule Seybold Capsule 00:00: 3D (200 mg 00 total) by mouth 3 times daily as needed for cough Dextrometho 0 Yes [id number] 5mL Q.25D Take 5 mL Cori rphan-guaiF 09-30 by mouth Seyb old ENesin 00:00: every 6 20-400 00 hours as MG/5ML oral needed for Syrup cough Doxycycline 2021-0 Yes [id number] 100mg Take 1 [place] Hyclate 100 - tablet Seybol d MG oral 00:00: (100 mg Tablet 00 total) by mouth 2 times daily Amoxicillin 0 Yes [id number] 1{tbl} Take 1 [place] -Pot 1-28 tablet by Seybold Clavulanate 00:00: mouth 2 875-125 MG 00 times oral Tablet daily Benzonatate 2021-0 2021- No [id number] 200mg Q.[id number] Take 1 Cori 200 MG oral 09-30 [id number] capsule Seybold Capsule 00:00: 00:00 3D (200 mg 00 :00 total) by mouth 3 times daily as needed for cough Dextrometho 2021-0 2021- No [id number] 5mL Q.25D Take 5 mL Cori rphan-guaiF 09-30 by mouth Sey bold ENesin 00:00: 00:00 every 6 20-400 00 :00 hours as MG/5ML oral needed for Syrup cough Doxycycline 2021-0 2021- No [id number] 100mg Take 1 [place] Hyclate 100 09-30- tablet Seybo ld MG oral 00:00: 00:00 (100 mg Tablet 00 :00 total) by mouth 2 times daily Amoxicillin 2021-2021- No [id number] 1{tbl} Take 1 Cori -Pot 1-28 05-05 tablet by Seybold Clavulanate 00:00: 00:00 mouth 2 875-125 MG 00 :00 times oral Tablet daily Aspirin Yes [id number] 1{tbl} Take 1 K elsey (Aspirin 1-09 tablet by Seybol d 81) 81 MG 07:33: mouth oral 58 Chewable Tablet amLODIPine- Yes [id number] 1{tbl} Take 1 [place] Atorvastati 1-09 tablet by Sey bold n 10-10 MG 07:33: mouth oral Tablet 58 daily Aspirin Yes [id number] 1{tbl} Take 1 K elsey (Aspirin 1-09 tablet by Seybol d 81) 81 MG 07:33: mouth oral 58 Chewable Tablet amLODIPine- Yes [id number] 1{tbl} Take 1 [place] Atorvastati 1-09 tablet by Sey bold n 10-10 MG 07:33: mouth oral Tablet 58 daily Pirfenidone Yes [id number] 267mg Take 267 Cori (Esbriet) 1-09 mg by Seybold 267 MG oral 07:33: mouth 2 Tablet 47 times daily predniSONE Yes [id number] 1{tbl} Take 1 Cori (DELTASONE) 1-09 tablet by Sey bold 10 MG oral 07:33: mouth tablet 47 Albuterol Yes [id number] 2{puff} Q6H Inhale 2 Cori HFA (PROAIR 1-09 puffs into Se ybold HFA) 108 07:33: the lungs (90 Base) 47 every 6 MCG/ACT IN hours as AERS needed for wheezing Pirfenidone Yes [id number] 267mg Take 267 Cori (Esbriet) 1-09 mg by Seybold 267 MG oral 07:33: mouth 2 Tablet 47 times daily predniSONE 0 Yes [id number] 1{tbl} Take 1 Cori (DELTASONE) 1-09 tablet by Sey bold 10 MG oral 07:33: mouth tablet 47 Albuterol Yes [id number] 2{puff} Q6H Inhale 2 Cori HFA (PROAIR 1-09 puffs into Se tom HFA) 108 07:33: the lungs (90 Base) [...] Esbriet MG MG ts_with 267 MG _food} Immunizations Ordered Filled Immunization Date Status Comments [facility] e Immunization Name Name Shingles IM 2023-01-31 Completed Cori Seybol d (Shingrix) 00:00:00 - External Shingles IM 2023-01-31 Completed Cori Seybol d (Shingrix) 00:00:00 - External Influenza Virus 2022-06-29 Completed Cori Se ybold Vaccine, 00:00:00 - External Quadrivalent, High Dose, Age 65 And Up Influenza Virus 2022-06-29 Completed Cori Se ybold Vaccine, 00:00:00 - External Quadrivalent, High Dose, Age 65 And Up Influenza Virus 2022-06-29 Completed Cori Se ybold Vaccine, 00:00:00 - External Quadrivalent, High Dose, Age 65 And Up Shingles IM 2022-01-06 Completed Cori Seybol d (Shingrix) 00:00:00 Shingles IM 2022-01-06 Completed Cori Seybol d (Shingrix) 00:00:00 - External Shingles IM 2022-01-06 Completed Cori Seybol d (Shingrix) 00:00:00 - External Shingles IM 2022-01-06 Completed Cori Seybol d ([facility]) 00:00:00 - External Influenza Virus 2021-06-14 Completed Cori Se ybold Vaccine, 00:00:00 Quadrivalent, High Dose, Age 65 And Up Influenza Virus 2021-06-14 Completed Cori Se ybold Vaccine, 00:00:00 Quadrivalent, High Dose, Age 65 And Up Influenza Virus 2021-06-14 Completed Cori Se ybold Vaccine, 00:00:00 - External Quadrivalent, High Dose, Age 65 And Up Influenza Virus 2021-06-14 Completed Cori Se ybold Vaccine, 00:00:00 Quadrivalent, High Dose, Age 65 And Up Influenza Virus 2021-06-14 Completed Cori Se ybold Vaccine, 00:00:00 - External Quadrivalent, High Dose, Age 65 And Up Influenza Virus 2021-06-14 Completed Cori Se ybold Vaccine, 00:00:00 - External Quadrivalent, High Dose, Age 65 And Up Influenza Virus 2021-06-14 Completed Cori Se ybold Vaccine, 00:00:00 Quadrivalent, High Dose, Age 65 And Up Influenza Virus 2021-06-14 Completed Cori Se ybold Vaccine, 00:00:00 Quadrivalent, High Dose, Age 65 And Up Covid-19 Vaccine 2020-10-29 Completed Cori S eybold ([facility]), Mrna-lnp, 00:00:00 [employer], Pf, 30mcg/0.3ml,IM Covid-19 Vaccine 2020-10-29 Completed Cori S eybold ([facility]), Mrna-lnp, 00:00:00 [employer], Pf, 30mcg/0.3ml,IM Covid-19 Vaccine 2020-10-29 Completed Cori S eybold ([facility]), Mrna-lnp, 00:00:00 [employer], Pf, 30mcg/0.3ml,IM Covid-19 Vaccine 2020-10-29 Completed Cori S eybold ([facility]), Mrna-lnp, 00:00:00 [employer], Pf, 30mcg/0.3ml,IM Covid-19 Vaccine 2020-10-29 Completed Cori S eybold ([facility]), Mrna-lnp, 00:00:00 - Ext ernal [employer], Pf, 30mcg/0.3ml,IM Covid-19 Vaccine 2020-10-29 Completed Cori S eybold ([facility]), Mrna-lnp, 00:00:00 - [facility] [employer], Pf, 30mcg/0.3ml,IM Covid-19 Vaccine 2020-10-29 Completed Cori S eybold ([facility]), Mrna-lnp, 00:00:00 - Ext ernal [employer], Pf, 30mcg/0.3ml,IM Covid-19 Vaccine 2020-10-29 Completed Cori S eybold ([facility]), Mrna-lnp, 00:00:00 - Ext ernal [employer], Pf, 30mcg/0.3ml,IM Covid-19 Vaccine 2020-10-29 Completed Cori S eybold ([facility]), Mrna-lnp, 00:00:00 - Ext ernal [employer], Pf, 30mcg/0.3ml,IM Covid-19 Vaccine 2020-10-29 Completed Cori S eybold ([facility]), Mrna-lnp, 00:00:00 - Ext ernal [employer], Pf, 30mcg/0.3ml,IM Covid-19 Vaccine 2020-10-29 Completed Cori S eybold ([facility]), Mrna-lnp, 00:00:00 [employer], Pf, 30mcg/0.3ml,IM Covid-19 Vaccine 2020-10-29 Completed Cori S eybold ([facility]), Mrna-lnp, 00:00:00 [employer], Pf, 30mcg/0.3ml,IM Covid-19 Vaccine 2020-09-28 Completed Cori S eybold ([facility]), Mrna-lnp, 00:00:00 [employer], Pf, 30mcg/0.3ml,IM Covid-19 Vaccine 2020-09-28 Completed Cori S eybold ([facility]), Mrna-lnp, 00:00:00 [employer], Pf, 30mcg/0.3ml,IM Covid-19 Vaccine 2020-09-28 Completed Cori S eybold ([facility]), Mrna-lnp, 00:00:00 [employer], Pf, 30mcg/0.3ml,IM Covid-19 Vaccine 2020-09-28 Completed Cori S eybold ([facility]), Mrna-lnp, 00:00:00 [employer], Pf, 30mcg/0.3ml,IM Covid-19 Vaccine 2020-09-28 Completed Cori S eybold ([facility]), Mrna-lnp, 00:00:00 - Ext ernal [employer], Pf, 30mcg/0.3ml,IM Covid-19 Vaccine 2020-09-28 Completed Cori S eybold ([facility]), Mrna-lnp, 00:00:00 - Ext ernal [employer], Pf, 30mcg/0.3ml,IM Covid-19 Vaccine 2020-09-28 Completed Cori S eybold ([facility]), Mrna-lnp, 00:00:00 - Ext ernal [employer], Pf, 30mcg/0.3ml,IM Covid-19 Vaccine 2020-09-28 Completed Cori martinezbold ([facility]), Mrna-lnp, 00:00:00 - Ext ernal [employer], Pf, 30mcg/0.3ml,IM Covid-19 Vaccine 2020-09-28 Completed Cori martinezbold ([facility]), Mrna-lnp, 00:00:00 - Ext ernal [employer], Pf, 30mcg/0.3ml,IM Covid-19 Vaccine 2020-09-28 Completed Cori martinezbold ([facility]), Mrna-lnp, 00:00:00 - Ext ernal [employer], Pf, 30mcg/0.3ml,IM Covid-19 Vaccine 2020-09-28 Completed Cori martinezbold ([facility]), Mrna-lnp, 00:00:00 [employer], Pf, 30mcg/0.3ml,IM Covid-19 Vaccine 2020-09-28 Completed Cori martinezbold ([facility]), Mrna-lnp, 00:00:00 [employer], Pf, 30mcg/0.3ml,IM FLUZONE HIGH DOSE FLUZONE HIGH DOSE 2020-06-07 [facility]pleted [facility] OVER 65 OVER 65 09:42:00 - [facility] Prevnar 13 (PCV13) Prevnar 13 (PCV13) 2020-06-07 Completed [facility] 09:42:00 - [facility] FLUZONE HIGH DOSE FLUZONE HIGH DOSE 2020-06-07 Completed [facility] OVER 65 OVER 65 09:42:00 - [facility] Prevnar 13 (PCV13) Prevnar 13 (PCV13) 2020-06-07 Completed [facility] 09:42:00 - [facility] FLUZONE HIGH DOSE FLUZONE HIGH DOSE 2020-06-07 Completed [facility] OVER 65 OVER 65 09:42:00 - [facility] Prevnar 13 (PCV13) Prevnar 13 (PCV13) 2020-06-07 Completed [facility] 09:42:00 - [facility] FLUZONE HIGH DOSE FLUZONE HIGH DOSE 2020-06-07 Completed [facility] OVER 65 OVER 65 09:42:00 - [facility] Prevnar 13 (PCV13) Prevnar 13 (PCV13) 2020-06-07 Completed [facility] 09:42:00 - [facility] FLUZONE HIGH DOSE FLUZONE HIGH DOSE 2020-06-07 Completed [facility] OVER 65 OVER 65 09:42:00 - [facility] Prevnar 13 (PCV13) Prevnar 13 (PCV13) 2020-06-07 Completed [facility] 09:42:00 - [facility] FLUZONE HIGH DOSE FLUZONE HIGH DOSE 2020-06-07 Completed [facility] OVER 65 OVER 65 09:42:00 - [facility] Prevnar 13 (PCV13) Prevnar 13 (PCV13) 2020-06-07 Completed [facility] 09:42:00 - [facility] FLUZONE HIGH DOSE FLUZONE HIGH DOSE 2020-06-07 Completed [facility] OVER 65 OVER 65 09:42:00 - [facility] Prevnar 13 (PCV13) Prevnar 13 (PCV13) 2020-06-07 Completed [facility] 09:42:00 - [facility] FLUZONE HIGH DOSE FLUZONE HIGH DOSE 2020-06-07 Completed [facility] OVER 65 OVER 65 09:42:00 - [facility] Prevnar 13 (PCV13) Prevnar 13 (PCV13) 2020-06-07 Completed [facility] 09:42:00 - [facility] Influenza Virus 2020-06-07 Completed Cori Se ybold Vaccine, High Dose, 00:00:00 Age 65 And Up Pneumococcal 2020-06-07 Completed Cori Seybo ld Vaccine, Conjugate 00:00:00 13 Influenza Virus 2020-06-07 Completed Cori Se ybold Vaccine, High Dose, 00:00:00 Age 65 And Up Pneumococcal 2020-06-07 Completed Cori Seybo ld Vaccine, Conjugate 00:00:00 13 Influenza Virus 2020-06-07 Completed Cori Se ybold Vaccine, High Dose, 00:00:00 - Ext ernal Age 65 And Up Pneumococcal 2020-06-07 Completed Ocri Seybo ld Vaccine, Conjugate 00:00:00 - Exte rnal 13 Influenza Virus 2020-06-07 Completed Cori Se ybold Vaccine, High Dose, 00:00:00 Age 65 And Up Pneumococcal 2020-06-07 Completed Cori Seybo ld Vaccine, Conjugate 00:00:00 13 Influenza Virus 2020-06-07 Completed [facility]i Se ybold Vaccine, High Dose, 00:00:00 - Ext ernal Age 65 And Up Pneumococcal 2020-06-07 Completed Cori Seybo ld Vaccine, Conjugate 00:00:00 - Exte rnal 13 Influenza Virus 2020-06-07 Completed [facility]i Se ybold Vaccine, High Dose, 00:00:00 - Ext ernal Age 65 And Up Pneumococcal 2020-06-07 Completed Cori Seybo ld Vaccine, Conjugate 00:00:00 - Exte rnal 13 Influenza Virus 2020-06-07 Completed [facility] Se ybold Vaccine, High Dose, 00:00:00 Age 65 And Up Pneumococcal 2020-06-07 Completed Cori Seybo ld Vaccine, Conjugate 00:00:00 13 Influenza Virus 2020-06-07 Completed [facility]i Se ybold Vaccine, High Dose, 00:00:00 Age 65 And Up Pneumococcal 2020-06-07 Completed Cori Seybo ld Vaccine, Conjugate 00:00:00 13 Influenza Virus Unknown Completed Cori Se ybold Vaccine, - External Quadrivalent, High Dose, Age 65 And Up Influenza Virus Unknown Completed Cori Se ybold Vaccine, High Dose, - Ext ernal Age 65 And Up Pneumococcal Unknown Completed Cori Seybo ld Vaccine, Conjugate - Exte rnal 13 Covid-19 Vaccine Unknown Completed Cori martinezbold ([facility]), Mrna-lnp, - [employer], Pf, 30mcg/0.3ml,IM Covid-19 Vaccine Unknown Completed Cori martinezbold ([facility]), Mrna-lnp, - Ext [employer]al [employer], Pf, 30mcg/0.3ml,IM Covid-19 Vaccine Unknown Completed Cori S eybold ([facility]), Mrna-lnp, - Ext ernal [employer], Pf, 30mcg/0.3ml,IM Covid-19 Vaccine Unknown Completed Cori S Pristine.iobold ([facility]), Mrna-lnp, - Ext ernal [employer], Pf, 30mcg/0.3ml,IM Shingles IM Unknown Completed Cori Osmanol d ([facility]) - External Influenza Virus Unknown Completed Cori ybold Vaccine, - External Quadrivalent, High Dose, Age 65 And Up Shingles IM Unknown Completed Cori Osmanol d ([facility]) - External Influenza Virus Unknown Completed Cori santos Vaccine, - External Quadrivalent, High Dose, Age 65 And Up Influenza Virus Unknown Completed Cori rendonold Vaccine, High Dose, - Ext ernal Age 65 And Up Pneumococcal Unknown [facility], [facility]jug[facility] - Exte rnal 13 Covid-19 Vaccine [facility] Mrna-lnp, - Ext ernal [employer], Pf, 30mcg/0.3ml,IM Covid-19 Vaccine Unknown [facility] Mrna-lnp, - Ext ernal [employer], Pf, 30mcg/0.3ml,IM Covid-19 Vaccine Unknown Completed [facility] ([facility]), Mrna-lnp, - Ext ernal [employer], Pf, 30mcg/0.3ml,IM Covid-19 Vaccine Unknown Completed [facility] ([facility]), Mrna-lnp, - Ext ernal [employer], Pf, 30mcg/0.3ml,IM Shingles IM Unknown Completed Cori Osman radu ([facility]) - External Influenza Virus Unknown Completed Cori santos Vaccine, - External Quadrivalent, High Dose, Age 65 And Up Shingles IM Unknown [facility] - External Influenza Virus Unknown Completed Cori santos Vaccine, - External Quadrivalent, High Dose, Age 65 And Up Influenza Virus Unknown Completed Cori santos Vaccine, High Dose, - Ext ernal Age 65 And Up Pneumococcal Unknown Completed [facility] Vaccine, Conjugate - Exte rnal 13 Covid-19 Vaccine Unknown [facility] Mrna-lnp, - Ext ernal [employer], Pf, 30mcg/0.3ml,IM Covid-19 Vaccine Unknown Completed [facility] ([facility]), Mrna-lnp, - Ext ernal [employer], Pf, 30mcg/0.3ml,IM Covid-19 Vaccine Unknown Completed [facility] ([facility]), Mrna-lnp, - Ext ernal [employer], Pf, 30mcg/0.3ml,IM Covid-19 Vaccine Unknown Completed Cori Crissy olena ([facility]), Mrna-lnp, - Ext ernal [employer], Pf, 30mcg/0.3ml,IM Shingles IM Unknown Completed Cori Osmanol d ([facility]) - External Influenza Virus Unknown Completed Corishanel rendonhuey Vaccine, - External Quadrivalent, High Dose, Age 65 And Up Shingles IM Unknown Completed Cori Osmanol d ([facility]) - External Vital Signs Vital Name Observation Time Observation Value Comments Source Systolic blood 2023-06-19 15:53:00 133 mm[Hg] Cori Gamboajusticeold - pressure External Diastolic blood 2023-06-19 15:53:00 76 mm[Hg] Jag reaves Seybold - pressure External Heart rate 2023-06-19 15:53:00 89 /min Corishanel martinezborobert - External Body temperature 2023-06-19 15:53:00 36.67 Eugenia Mellisa martinez Sey[facility] - External Respiratory rate 2023-06-19 15:53:00 20 /min Mellisa ey Seybold - External Body height 2023-06-19 15:53:00 157.5 cm Cori martinezbold - External Body weight 2023-06-19 15:53:00 51.166 kg Cori martinezbold - External BMI 2023-06-19 15:53:00 20.63 kg/m2 Cori martinezbold - External Oxygen saturation in 2023-06-19 15:53:00 93 /min Cori Mc - Arterial blood by External Pulse oximetry Systolic blood 2023-05-24 15:50:00 118 mm[Hg] Cori Gamboajusticeold - pressure External Diastolic blood 2023-05-24 15:50:00 62 mm[Hg] Martin jean paul Gamboaybold - pressure External Heart rate 2023-05-24 15:50:00 90 /min Corishanel martinezbold - External Respiratory rate 2023-05-24 15:50:00 24 /min Mellisa martinez Sey[facility] - External Body height 2023-05-24 15:50:00 157.5 cm Cori martinezbold - External Body weight 2023-05-24 15:50:00 52.164 kg Cori martinezbold - External BMI 2023-05-24 15:50:00 21.03 kg/m2 Cori Batres eybold - External Oxygen saturation in 2023-05-24 15:50:00 92 /min Cori Gamboajusticehuey - Arterial blood by External Pulse oximetry Systolic blood 2023-04-04 21:11:00 118 mm[Hg] Cori Seybold - pressure External Diastolic blood 2023-04-04 21:11:00 63 mm[Hg] Martinse y Seybold - pressure External Heart rate 2023-04-04 21:11:00 107 /min Cori S eybold - External Body temperature 2023-04-04 21:11:00 37 Eugenia Mellisa ey Seybold - External Respiratory rate 2023-04-04 21:11:00 21 /min Mellisa ey Seybold - External Body height 2023-04-04 21:11:00 157.5 cm Cori S eybold - External Body weight 2023-04-04 21:11:00 52.617 kg Cori Batres eybold - External BMI 2023-04-04 21:11:00 21.22 kg/m2 Cori Batres eybold - External Oxygen saturation in 2023-04-04 21:11:00 92 /min Cori Gamboajusticehuey - Arterial blood by External Pulse oximetry Systolic blood 2022-12-27 14:18:00 144 mm[Hg] Cori Seybold - pressure External Diastolic blood 2022-12-27 14:18:00 66 mm[Hg] Jag y Seybold - pressure External Heart rate 2022-12-27 14:18:00 96 /min Cori S eybold - External Body temperature 2022-12-27 14:18:00 36.89 Eugenia Mellisa ey Seybold - External Respiratory rate 2022-12-27 14:18:00 14 /min Mellisa ey Seybold - External Body height 2022-12-27 14:18:00 157.5 cm Cori S eybold - External Body weight 2022-12-27 14:18:00 53.524 kg Cori S eybold - External BMI 2022-12-27 14:18:00 21.58 kg/m2 Cori S eybold - External Systolic blood 2022-01-19 13:09:00 148 mm[Hg] Cori [...] saturation in 2021-12-22 13:03:00 99 /min Cori Seybold Arterial blood by Pulse oximetry Systolic blood 2021-12-22 13:03:00 120 mm[Hg] Cori Seybold pressure Diastolic blood 2021-12-22 13:03:00 62 mm[Hg] Kelse y Seybold pressure Heart rate 2021-12-22 13:03:00 101 /min Cori S eybold Body temperature 2021-12-22 13:03:00 36.44 Eugenia Mellisa ey Seybold Respiratory rate 2021-12-22 13:03:00 17 /min Mellisa ey Seybold Body height 2021-12-22 13:03:00 157.5 cm Cori Batres eybold Body weight 2021-12-22 13:03:00 53.524 kg Cori Batres eybold Systolic blood 2021-09-09 14:23:00 112 mm[Hg] Cori Seybold pressure Diastolic blood 2021-09-09 14:23:00 61 mm[Hg] Kelse y Seybold pressure Heart rate 2021-09-09 14:23:00 97 /min Cori Batres eybold Body temperature 2021-09-09 14:23:00 36.61 Eugenia Mellisa martinez [facility] Respiratory rate 2021-09-09 14:23:00 20 /min Mellisa martinez [facility] Body height 2021-09-09 14:23:00 157.5 cm Cori Batres eybold Body weight 2021-09-09 14:23:00 51.619 kg Cori martinezbold BMI 2021-09-09 14:23:00 20.81 kg/m2 Cori martinezbold Oxygen saturation in 2021-09-09 14:23:00 92 /min Cori Bentley Arterial blood by Pulse oximetry height 2021-04-27 09:40:00 60 [in_i] [facility] weight 2021-04-27 09:40:00 115.4 [lb_av] [facility] temperature 2021-04-27 09:40:00 97.7 [degF] [facility] bmi 2021-04-27 09:40:00 22.54 kg/m2 [facility] oximetry 2021-04-27 09:40:00 96 % [facility] blood pressure 2021-04-27 09:40:00 140 mm[Hg] [facility] - systolic [facility] blood pressure 2021-04-27 09:40:00 88 mm[Hg] [facility] - diastolic [facility] height 2021-04-27 09:00:00 60 [in_i] [facility] weight 2021-04-27 09:00:00 115.4 [lb_av] [facility] temperature 2021-04-27 09:00:00 97.7 [degF] [facility] bmi 2021-04-27 09:00:00 22.54 kg/m2 [facility] oximetry 2021-04-27 09:00:00 96 % [facility] blood pressure 2021-04-27 09:00:00 200 mm[Hg] [facility] - systolic [facility] blood pressure 2021-04-27 09:00:00 96 mm[Hg] [facility] - diastolic [facility] Temperature Oral (F) 2021-10-05 14:11:00 98.2 F [facility] Heart Rate 2021-10-05 14:11:00 [facility] Respitory Rate 2021-10-05 14:11:00 [facility] Systolic (mm Hg) 2021-10-05 14:11:00 Jarred rial [facility] Diastolic (mm Hg) 2021-10-05 14:11:00 Mem [facility] Temperature Oral (F) 2021-10-05 10:00:00 97.5 F [facility] Heart Rate 2021-10-05 10:00:00 [facility] Respitory Rate 2021-10-05 10:00:00 [facility] [place] Systolic (mm Hg) 2021-10-05 10:00:00 [facility] [place] Diastolic (mm Hg) 2021-10-05 10:00:00 [facility] Temperature Oral (F) 2021-10-05 06:00:00 98.2 F [facility] Heart Rate 2021-10-05 06:00:00 [facility] Respitory Rate 2021-10-05 06:00:00 [facility] [place] Systolic (mm Hg) 2021-10-05 06:00:00 [facility]red [facility] [place] Diastolic (mm Hg) 2021-10-05 06:00:00 [facility] [place] Temperature Oral (F) 2021-10-03 10:19:00 98.2 F [facility] Heart Rate 2021-10-03 10:19:00 [facility] Respitory Rate 2021-10-03 10:19:00 [facility] [place] Systolic (mm Hg) 2021-10-03 10:19:00 Jarred rial [place] Diastolic (mm Hg) 2021-10-03 10:19:00 [facility] [place] Temperature Oral (F) 2021-10-03 05:34:00 98.3 F [facility] Heart Rate 2021-10-03 05:34:00 [facility] Respitory Rate 2021-10-03 05:34:00 [facility] [place] Systolic (mm Hg) 2021-10-03 05:34:00 [facility] [place] Diastolic (mm Hg) 2021-10-03 05:34:00 [facility] [place] Temperature Oral (F) 2021-10-03 05:31:00 98.8 F [facility] Heart Rate 2021-10-03 05:31:00 [facility] Respitory Rate 2021-10-03 05:31:00 [facility] [place] Systolic (mm Hg) 2021-10-03 05:31:00 Jarred rial [place] Diastolic (mm Hg) 2021-10-03 05:31:00 [facility] [place] Height 2021-10-02 15:25:00 157.48 cm [facility] Weight 2021-10-02 15:25:00 [facility] Height 2021-10-02 15:24:00 157.48 cm [facility] Weight 2021-10-02 15:24:00 [facility] Height 2021-10-01 04:10:00 157.48 cm [facility] Weight 2021-10-01 04:10:00 [facility] BMI Calculated 2021-10-01 04:10:00 [facility] Procedures Procedure Date / Time Performed Performing Clinician [facility] e ECG- ADULT 2021-12-22 13:38:09 Madeline Boles Encounters Start End Encounter Admission Attending Care Care Encounter Source Date/Time Date/Time Type Type Clinicians Facility Department ID 2021-09-28 [facility] [id number] Common 11:53:55 [place] [id number] [facility] 2023-07-20 2023-07-20 Outpatient CORI ESPAÑA [id number] Cori 00:00:00 00:00:00 CHRIS Seybol d 2023-07-04 2023-07-04 Outpatient CORI LEHMAN [id number] Cori 00:00:00 00:00:00 Seybol d 2023-06-29 2023-06-29 Outpatient PREZASCORI [id number] Cori 00:00:00 00:00:00 RODRIGUEZ Seybol d 2023-06-28 2023-06-28 Outpatient LAURIECORI Calvin [id number] Cori 00:00:00 00:00:00 CHRIS Seybol d 2023-06-26 2023-06-26 Outpatient CORI LEHMAN [id number] Cori 00:00:00 00:00:00 Seybol d 2023-06-19 2023-06-19 Outpatient IVT, SAMANTA LEHMAN [id number] Cori 11:00:00 11:00:00 Seybol d 2023-06-19 2023-06-19 Outpatient MANTCORI REYEZ [id number] Cori 00:00:00 00:00:00 GEOVANNA Seybol d 2023-06-15 2023-06-15 Outpatient BRAD OKEEFE [id number] Cori 00:00:00 00:00:00 Seybol d 2023-06-15 2023-06-15 Outpatient CORI LEHMAN [id number] Cori 00:00:00 00:00:00 Seybol d 2023-06-12 2023-06-12 Outpatient LAB90 CORI LEHMAN [id number] Cori 13:45:00 13:45:00 Seybol d 2023-06-11 2023-06-11 Outpatient CORI DANIELS [id number] Cori 00:00:00 00:00:00 GEOVANNA Seybol d 2023-05-26 2023-05-26 Outpatient CORI BOLES [id number] Cori 00:00:00 00:00:00 MADELINE Seybol d 2023-05-25 2023-05-25 Outpatient GODOY, CORI LEHMAN [id number] Cori 00:00:00 00:00:00 RADHA Seybol d 2023-05-25 2023-05-25 Outpatient CORI LEHMAN [id number] Cori 00:00:00 00:00:00 Seybol d 2023-05-24 2023-05-24 Outpatient [id number] CORI LEHMAN [id number] Cori 11:45:00 11:45:00 Seybol d 2023-05-24 2023-05-24 Outpatient LESLEYCORI RYAN [id number] Cori 11:00:00 11:00:00 RIANA Seybol d 2023-05-24 2023-05-24 Outpatient CORI GODOY [id number] Cori 00:00:00 00:00:00 RADHA Seybol d 2023-05-24 2023-05-24 Outpatient CORI GODOY [id number] Cori 00:00:00 00:00:00 RADHA Seybol d 2023-04-26 2023-04-26 Outpatient DAVID CORI LEHMAN [id number] Cori 11:20:00 11:20:00 CAMMIE Seybol d 2023-04-25 2023-04-25 Outpatient CORI ESPAÑA [id number] Cori 00:00:00 00:00:00 CHRIS Seybol d 2023-04-24 2023-04-24 Outpatient CORI LEHMAN [id number] Cori 00:00:00 00:00:00 Seybol d 2023-04-23 2023-04-23 Outpatient CORI ESPAÑA [id number] Cori 00:00:00 00:00:00 CHRIS Seybol d 2023-04-21 2023-04-21 Outpatient CORI ESPAÑA [id number] Cori 00:00:00 00:00:00 CHRIS Seybol d 2023-04-20 2023-04-20 Outpatient CORI LEHMAN [id number] Cori 00:00:00 00:00:00 Seybol d 2023-04-19 2023-04-19 Outpatient SHEILA CORI LEHMAN [id number] Cori 00:00:00 00:00:00 CHRIS Seybol d 2023-04-04 2023-04-04 Outpatient LAB90 CORI LEHMAN [id number] Cori 16:45:00 16:45:00 Seybol d 2023-04-04 2023-04-04 Outpatient LAURIEMarixa CORI LEHMAN [id number] Cori 16:00:00 16:00:00 CHRIS Seybol d 2023-04-03 2023-04-03 Outpatient PREZAS, CORI LEHMAN [id number] Cori 00:00:00 00:00:00 RODRIGUEZ Seybol d 2023-04-03 2023-04-03 Outpatient SHEILA CORI LEHMAN [id number] Cori 00:00:00 00:00:00 CHRIS Seybol d 2023-04-02 2023-04-02 Outpatient CORI BOLES [id number] Cori 00:00:00 00:00:00 MADELINE Seybol d 2023-03-24 2023-03-24 Outpatient CORI BOLES [id number] Cori 00:00:00 00:00:00 MADELINE Seybol d 2023-03-14 2023-03-14 Outpatient CONFERENCE, CORI LEHMAN [id number] Cori 09:10:00 09:10:00 BDC Seybol d 2023-03-14 2023-03-14 Outpatient CONFERENCE, CORI LEHMAN [id number] Cori 00:00:00 00:00:00 BDC Seybol d 2023-03-12 2023-03-12 Outpatient CORI LEHMAN [id number] Cori 10:20:00 10:20:00 Seybol d 2023-03-12 2023-03-12 Outpatient CORI LEHMAN [id number] Cori 09:50:00 09:50:00 Seybol d 2023-03-12 2023-03-12 Outpatient CORI LEHMAN [id number] Cori 09:45:00 09:45:00 Seybol d 2023-03-12 2023-03-12 Outpatient CORI LEHMAN [id number] Cori 09:00:00 09:00:00 Seybol d 2023-03-12 2023-03-12 Outpatient MANLEY, CORI LEHMAN [id number] Cori 09:00:00 09:00:00 RODOLFO Seybol d 2023-03-12 2023-03-12 Outpatient MANLEY, CORI LEHMAN [id number] Cori 00:00:00 00:00:00 RODOLFO Seybol d 2023-03-12 2023-03-12 Outpatient MANLEY, CORI LEHMAN [id number] Cori 00:00:00 00:00:00 RODOLFO Seybol d 2023-03-09 2023-03-09 Outpatient CORI LEHMAN [id number] Cori 13:00:00 13:00:00 Seybol d 2023-03-09 2023-03-09 Outpatient CORI LEHMAN [id number] Cori 11:40:00 11:40:00 Seybol d 2023-03-09 2023-03-09 Outpatient MANLEYCORI [id number] Cori 10:45:00 10:45:00 RODOLFO Seybol d 2023-03-08 2023-03-08 Outpatient CORI LEHMAN [id number] Cori 09:00:00 09:00:00 Seybol d 2023-03-07 2023-03-07 Outpatient PREZAS, CORI LEHMAN [id number] Cori 00:00:00 00:00:00 RODRIGUEZ Seybol d 2023-03-01 2023-03-01 Outpatient CORI LEHMAN [id number] Cori 00:00:00 00:00:00 Seybol d 2023-02-28 2023-02-28 Outpatient CORI LEHMAN [id number] Cori 15:00:00 15:00:00 Seybol d 2023-02-28 2023-02-28 Outpatient CORI LEHMAN [id number] Cori 14:30:00 14:30:00 Seybol d 2023-02-28 2023-02-28 Outpatient MANLEYCORI [id number] Cori 11:30:00 11:30:00 RODOLFO Seybol d 2023-02-26 2023-02-26 Outpatient CORI LEHMAN [id number] Cori 00:00:00 00:00:00 Seybol d 2023-02-07 2023-02-07 Outpatient CONFERENCE, CORI LEHMAN [id number] Cori 09:05:00 09:05:00 BDC Seybol d 2023-02-07 2023-02-07 Outpatient CONFERENCE, CORI LEHMAN [id number] Cori 00:00:00 00:00:00 BDC Seybol d 2023-02-05 2023-02-05 Outpatient RADIOLOGY, CORI LEHMAN [id number] Cori 00:00:00 00:00:00 DEPT Seybol d 2023-02-02 2023-02-02 Outpatient CORI LEHMAN [id number] Cori 09:45:00 09:45:00 Seybol d 2023-02-02 2023-02-02 Outpatient CORI LEHMAN [id number] Cori 09:40:00 09:40:00 Seybol d 2023-02-02 2023-02-02 Outpatient CORI LEHMAN [id number] Cori 09:35:00 09:35:00 Seybol d 2023-02-02 2023-02-02 Outpatient CORI LEHMAN [id number] Cori 09:30:00 09:30:00 Seybol d 2023-02-02 2023-02-02 Outpatient CORI LEHMAN [id number] Cori 09:25:00 09:25:00 Seybol d 2023-02-02 2023-02-02 Outpatient HUNDL, CORI LEHMAN [id number] Cori 00:00:00 00:00:00 CHRIS Seybol d 2023-01-31 2023-01-31 Outpatient CONFERENCE, CORI LEHMAN [id number] Cori 08:25:00 08:25:00 BDC Seybol d 2023-01-24 2023-01-24 Outpatient CONFERENCE, CORI LEHMAN [id number] Cori 09:10:00 09:10:00 BDC Seybol d 2023-01-23 2023-01-23 Outpatient CONFERENCE, CORI LEHMAN 121 [id number] Cori 00:00:00 00:00:00 BDC Seybol d 2023-01-17 2023-01-17 Outpatient LAURIEMarixa CORI LEHMAN [id number] Cori 00:00:00 00:00:00 CHRIS Seybol d 2023-01-16 2023-01-16 Outpatient LOURDESSEYONL CORI LEHMAN [id number] Cori 00:00:00 00:00:00 MD LEXY Seybol d 2022-12-28 2022-12-28 Outpatient CORI ESPAÑA [id number] Cori 00:00:00 00:00:00 CHRIS Seybol d 2022-12-28 2022-12-28 Outpatient CORI LEHMAN [id number] Cori 00:00:00 00:00:00 Seybol d 2022-12-28 2022-12-28 Outpatient SHEILA CORI LEHMAN [id number] Cori 00:00:00 00:00:00 CHRIS Seybol d 2022-12-27 2022-12-27 Outpatient LAB90 CORI LEHMAN [id number] Cori 10:45:00 10:45:00 Seybol d 2022-12-27 2022-12-27 Outpatient SHEILA CORI LEHMAN [id number] Cori 09:30:00 09:30:00 CHRIS Seybol d 2022-12-27 2022-12-27 Outpatient CORI LEHMAN [id number] Cori 00:00:00 00:00:00 Seybol d 2022-09-12 2022-09-12 Outpatient CORI BOLES [id number] Cori 00:00:00 00:00:00 MADELINE Seybol d 2022-08-24 2022-08-24 Outpatient CORI LEHMAN [id number] Cori 00:00:00 00:00:00 [id number] Seybol d 2022-08-23 2022-08-23 Outpatient CORI LEHMAN [id number] Cori 00:00:00 00:00:00 [id number] Seybol d 2022-08-22 2022-08-22 Outpatient CORI LEHMAN [id number] Cori 00:00:00 00:00:00 [id number] Seybol d 2022-08-21 2022-08-21 Outpatient CORI LEHMAN [id number] [id number] Cori 00:00:00 00:00:00 [id number] Seybol d 2022-08-18 2022-08-18 Outpatient CORI LEHMAN [id number] Cori 00:00:00 00:00:00 [id number] Seybol d 2022-08-17 2022-08-17 Outpatient CORI LEHMAN [id number] Cori 00:00:00 00:00:00 [id number] Seybol d 2022-07-06 2022-07-06 Outpatient CORI BOLES [id number] Cori 00:00:00 00:00:00 MADELINE Seybol d 2022-06-13 2022-06-13 Outpatient COIR BOLES [id number] Cori 00:00:00 00:00:00 MADELINE Seybol d 2022-06-12 2022-06-12 (TEL) STLMLC STLMLC [id number] Co mmon 00:00:00 00:00:00 [facility] 2022-04-14 2022-04-14 Outpatient CORI BOLES [id number] Cori 00:00:00 00:00:00 MADELINE Seybol d 2022-04-10 2022-04-10 Outpatient CORI BOLES [id number] Cori 00:00:00 00:00:00 MADELINE Seybol d 2022-03-23 2022-03-23 Outpatient CORI FARRELL [id number] Cori 14:45:00 14:45:00 RODRIGUEZ Seybol d 2022-03-20 2022-03-20 Outpatient CORI BOLES [id number] Cori 00:00:00 00:00:00 MADELINE Seybol d 2022-03-17 2022-03-17 (TEL) STLMLC STLMLC [id number] Co mmon 00:00:00 00:00:00 [facility] 2022-02-16 2022-02-16 Outpatient CORI ESPAÑA [id number] Cori 00:00:00 00:00:00 CHRIS Seybol d 2022-02-10 2022-02-10 Outpatient RAMANA CORI LEHMAN [id number] Cori 00:00:00 00:00:00 MADELINE Seybol d 2022-02-07 2022-02-07 Outpatient RAMANA CORI LEHMAN [id number] Cori 00:00:00 00:00:00 MADELINE Seybol d 2022-01-31 2022-01-31 Outpatient RAMANA CORI LEHMAN [id number] Cori 00:00:00 00:00:00 MADELINE Seybol d 2022-01-19 2022-01-19 Outpatient LAB90 CORI LEHMAN [id number] Cori 09:15:00 09:15:00 Seybol d 2022-01-19 2022-01-19 Office Carlos Boles [id number] Cori 08:15:00 09:00:00 Visit Madeline Darden [id number] Se ybold Somogyi [id number] 2022-01-05 2022-01-05 Outpatient LAB90 CORI LEHMAN [id number] Cori 08:45:00 08:45:00 Seybol d 2022-01-05 2022-01-05 Office Carlos Boles [id number] Cori 08:15:00 08:30:00 Visit Madeline Darden [id number] Se ybold Somogyi [id number] 2021-12-23 2021-12-23 Outpatient RAMANA CORI LEHMAN [id number] Cori 00:00:00 00:00:00 MADELINE Seybol d 2021-12-22 2021-12-22 Outpatient LAB90 CORI LEHMAN [id number] Cori 08:50:00 08:50:00 Seybol d 2021-12-22 2021-12-22 Office Carlos Boles [id number] Cori 08:00:00 08:15:00 Visit Madeline Darden [id number] Se ybold Somogyi [id number] 2021-12-20 2021-12-20 Outpatient CORI BOLES [id number] Cori 00:00:00 00:00:00 MADELINE Seybol d 2021-11-30 2021-11-30 Outpatient CORI BOLES [id number] Cori 00:00:00 00:00:00 MADELINE Seybol d 2021-10-10 2021-10-10 Outpatient PROVIDERCORI [id number] Cori 00:00:00 00:00:00 AFFILIATE Seyb old 2021-10-10 2021-10-10 Outpatient CORI ESPAÑA [id number] Cori 00:00:00 00:00:00 CHRIS Seybol d 2021-10-07 2021-10-07 Outpatient CORI LEHMAN [id number] Cori 00:00:00 00:00:00 Seybol d 2021-10-06 2021-10-06 Outpatient CORI BOLES [id number] Cori 00:00:00 00:00:00 MADELINE Seybol d 2021-10-01 2021-10-05 [facility] [id number] Memoria 03:25:00 19:26:00 r Kalia 28 l [facility] 2021-10-01 2021-10-05 [facility] [id number] Memoria 03:25:00 19:26:00 esther Motta 28 l [facility] 2021-09-30 2021-10-05 Inpatient HASKINS, [facility] 2027 [facility] 21:25:00 13:26:00 RADU 2021-09-30 2021-10-05 Outpatient Haskins, [facility] [id number] 21:25:00 13:26:00 Radu 28 2021-10-05 2021-10-05 Outpatient CORI LEHMAN [id number] Cori 00:00:00 00:00:00 Seybol d 2021-09-30 2021-09-30 Outpatient Paolo, [facility] [id number] 21:25:00 21:25:00 Christi 28 Isidor 2021-09-30 2021-09-30 Telemedici Carlos [place] [id number] Cori 14:30:00 15:00:00 ne Chris Darden [id number] Se tom [id number] 2021-09-30 2021-09-30 Outpatient SHEILA CORI LEHMAN [id number] Cori 00:00:00 00:00:00 CHRIS Seybol d 2021-09-26 2021-09-26 Outpatient CORI LEHMAN [id number] Cori 00:00:00 00:00:00 Seybol d 2021-09-22 2021-09-22 Outpatient CORI BOLES [id number] Cori 00:00:00 00:00:00 MADELINE Seybol d 2021-09-12 2021-09-12 Outpatient CORI LEHMAN [id number] Cori 00:00:00 00:00:00 Seybol d 2021-09-09 2021-09-09 Office Carlos España [id number] Cori 08:30:00 09:00:00 Visit Chris Darden [id number] Se tom [id number] 2021-07-04 2021-07-04 (TEL) STLMLC STLMLC [id number] Co mmon 00:00:00 00:00:00 [facility] 2021-05-11 2021-05-11 (TEL) STLMLC STLMLC [id number] Co mmon 00:00:00 00:00:00 [facility] 2021-04-28 2021-04-28 (TEL) STLMLC STLMLC [id number] Co mmon 00:00:00 00:00:00 [facility] 2021-04-27 2021-04-27 OFFICE STLMLC STLMLC [id number] Co mmon 00:00:00 00:00:00 VISIT EST Spir it PT LEVEL 3 [facility] 2021-04-27 2021-04-27 SUB ANNUAL STLMLC STLMLC [id number] Common 00:00:00 00:00:00 MCR [facility] WELLNESS - CHI VISIT [facility] 2020-07-07 2020-07-07 (TEL) STLMLC STLMLC [id number] Co mmon 00:00:00 00:00:00 [facility] 2020-06-14 2020-06-14 Outpatient STLMLC STLMLC [id number] Common 00:00:00 00:00:00 [facility] Results Test Description Test Time Test Comments Results Result Comments Source ECG- ADULT 2021-12-22 18:04:35 Test Item Value Reference Range Interpretation Comme nts VENTRICULAR RATE (test code = BPM 04188) ATRIAL RATE (test code = 18419) BPM P-R INTERVAL (test code = 19864) 146 ms QRS DURATION (test code = 52766) 88 ms Q-T INTERVAL (test code = 13860) 402 ms QTC CALCULATION(BEZE (test code = 448 ms 90814) CALCULATED P AXIS (test code = degrees 50279) CALCULATED R AXIS (test code = degrees 92519) CALCULATED T AXIS (test code = degrees 80586) DIAGNOSIS (test code = 85528) Normal sinus rhythmRSR' or QR pattern in V1 suggests right ventricular conduction delayBorderline ECGNo previous ECGs availableConfirmed by FRANCESCA ARRIAZA ([id number]) on 12/22/2021 1:04:34 PM Cori Xetal [id number] 11:03:00 Test Item Value Reference Range Interpretation Comments Glucose Lvl (test code = Glucose Lvl) 181 70-99 [facility] Zadby [id number] 11:03:00 Test Item Value Reference Range Interpretation Comments BUN (test code = BUN) 19 7-22 [facility] [place] [id number] 11:03:00 Test Item Value Reference Range Interpretation Comments Creatinine Lvl (test code = Creatinine 0.60 0.50-1.40 Lvl) [facility] [id number] 11:03:00 Test Item Value Reference Range Interpretation Comments Sodium Lvl (test code = Sodium Lvl) 141 135-145 [facility] [place] [id number] 11:03:00 Test Item Value Reference Range Interpretation Comments Potassium Lvl (test code = Potassium 4.6 3.5-5.1 Lvl) [facility]2022-02-01 11:03:00 Test Item Value Reference Range Interpretation Comments Chloride Lvl (test code = Chloride Lvl) 109 95-109 [facility]2022-02-01 11:03:00 Test Item Value Reference Range Interpretation Comments CO2 (test code = CO2) 24 24-32 [place] 500672-02-01 11:03:00 Test Item Value Reference Range Interpretation Comments Calcium Lvl (test code = Calcium Lvl) 8.3 8.5-10.5 [place] 500672-02-01 11:03:00 Test Item Value Reference Range Interpretation Comments AGAP (test code = AGAP) 12.6 10.0-20.0 [place] 500672-02-01 11:03:00 Test Item Value Reference Range Interpretation Comments eGFR (test code = eGFR) 90 [facility]padfvkIZUDHHRZBR9629-13-31 11:03:00 Test Item Value Reference Range Interpretation Comments WBC X 10x3 (test code = WBC X 10x3) 14.4 3.7-10.4 [place] 158842-02-01 11:03:00 Test Item Value Reference Range Interpretation Comments RBC X 10x6 (test code = RBC X 10x6) 3.75 4.20-5.40 [facility]ZxuglqrFRSAUJEEXY4724-62-22 11:03:00 Test Item Value Reference Range Interpretation Comments Hgb (test code = Hgb) 10.4 12.0-16.0 [facility] SoutheastAetnxsbYLASQJZWZF9105-66-48 11:03:00 Test Item Value Reference Range Interpretation Comments Hct (test code = Hct) 31.0 36.0-48.0 [place] 158842-02-01 11:03:00 Test Item Value Reference Range Interpretation Comments MCV (test code = MCV) 82.7 80.0-98.0 [place] 158842-02-01 11:03:00 Test Item Value Reference Range Interpretation Comments MCH (test code = MCH) 27.6 pg 27.0-31.0 [facility] SoutheastCitdatoYCCIMUCPIC9535-00-67 11:03:00 Test Item Value Reference Range Interpretation Comments MCHC (test code = MCHC) 33.4 32.0-36.0 [place] 158842-02-01 11:03:00 Test Item Value Reference Range Interpretation Comments RDW (test code = RDW) 15.0 11.5-14.5 [place] 158842-02-01 11:03:00 Test Item Value Reference Range Interpretation Comments Platelet (test code = Platelet) 369 133-450 [place] 158842-02-01 11:03:00 Test Item Value Reference Range Interpretation Comments MPV (test code = MPV) 7.3 7.4-10.4 [facility]2022-02-01 11:03:00 Test Item Value Reference Range Interpretation Comments Glucose Lvl (test code = Glucose Lvl) 181 70-99 [facility]2022-02-01 11:03:00 Test Item Value Reference Range Interpretation Comments BUN (test code = BUN) 19 7-22 [place] 500672-02-01 11:03:00 Test Item Value Reference Range Interpretation Comments Creatinine Lvl (test code = Creatinine 0.60 0.50-1.40 Lvl) [facility]2022-02-01 11:03:00 Test Item Value Reference Range Interpretation Comments Sodium Lvl (test code = Sodium Lvl) 141 135-145 [place] 500672-02-01 11:03:00 Test Item Value Reference Range Interpretation Comments Potassium Lvl (test code = Potassium 4.6 3.5-5.1 Lvl) [facility]2022-02-01 11:03:00 Test Item Value Reference Range Interpretation Comments Chloride Lvl (test code = Chloride Lvl) 109 95-109 [facility]2022-02-01 11:03:00 Test Item Value Reference Range Interpretation Comments CO2 (test code = CO2) 24 24-32 [place] 500672-02-01 11:03:00 Test Item Value Reference Range Interpretation Comments Calcium Lvl (test code = Calcium Lvl) 8.3 8.5-10.5 [facility]2022-02-01 11:03:00 Test Item Value Reference Range Interpretation Comments AGAP (test code = AGAP) 12.6 10.0-20.0 [place] 500672-02-01 11:03:00 Test Item Value Reference Range Interpretation Comments eGFR (test code = eGFR) 90 [facility] SoutheastDeucuksDERPXMAHIZ8181-83-81 11:03:00 Test Item Value Reference Range Interpretation Comments WBC X 10x3 (test code = WBC X 10x3) 14.4 3.7-10.4 [place] 158842-02-01 11:03:00 Test Item Value Reference Range Interpretation Comments RBC X 10x6 (test code = RBC X 10x6) 3.75 4.20-5.40 [place] 158842-02-01 11:03:00 Test Item Value Reference Range Interpretation Comments Hgb (test code = Hgb) 10.4 12.0-16.0 [place] 474[address]-02-01 11:03:00 Test Item Value Reference Range Interpretation Comments Hct (test code = Hct) 31.0 36.0-48.0 [place] 158842-02-01 11:03:00 Test Item Value Reference Range Interpretation Comments MCV (test code = MCV) 82.7 80.0-98.0 [place] 158842-02-01 11:03:00 Test Item Value Reference Range Interpretation Comments MCH (test code = MCH) 27.6 pg 27.0-31.0 [place] 158842-02-01 11:03:00 Test Item Value Reference Range Interpretation Comments MCHC (test code = MCHC) 33.4 32.0-36.0 [place] 158842-02-01 11:03:00 Test Item Value Reference Range Interpretation Comments RDW (test code = RDW) 15.0 11.5-14.5 [place] 158842-02-01 11:03:00 Test Item Value Reference Range Interpretation Comments Platelet (test code = Platelet) 369 133-450 [place] 158842-02-01 11:03:00 Test Item Value Reference Range Interpretation Comments MPV (test code = MPV) 7.3 7.4-10.4 [place] 500672-02-01 11:03:00 Test Item Value Reference Range Interpretation Comments Glucose Lvl (test code = Glucose Lvl) 181 70-99 [facility]2022-02-01 11:03:00 Test Item Value Reference Range Interpretation Comments BUN (test code = BUN) 19 7-22 [place] 500672-02-01 11:03:00 Test Item Value Reference Range Interpretation Comments Creatinine Lvl (test code = Creatinine 0.60 0.50-1.40 Lvl) [place] 500672-02-01 11:03:00 Test Item Value Reference Range Interpretation Comments Sodium Lvl (test code = Sodium Lvl) 141 135-145 [place] 500672-02-01 11:03:00 Test Item Value Reference Range Interpretation Comments Potassium Lvl (test code = Potassium 4.6 3.5-5.1 Lvl) [facility]2022-02-01 11:03:00 Test Item Value Reference Range Interpretation Comments Chloride Lvl (test code = Chloride Lvl) 109 95-109 [place] 500672-02-01 11:03:00 Test Item Value Reference Range Interpretation Comments CO2 (test code = CO2) 24 24-32 [place] 500672-02-01 11:03:00 Test Item Value Reference Range Interpretation Comments Calcium Lvl (test code = Calcium Lvl) 8.3 8.5-10.5 [facility]2022-02-01 11:03:00 Test Item Value Reference Range Interpretation Comments AGAP (test code = AGAP) 12.6 10.0-20.0 [facility]2022-02-01 11:03:00 Test Item Value Reference Range Interpretation Comments eGFR (test code = eGFR) 90 [facility] SoutheastLfwsoqrCMGNYJJJID5273-22-04 11:03:00 Test Item Value Reference Range Interpretation Comments WBC X 10x3 (test code = WBC X 10x3) 14.4 3.7-10.4 [place] 158842-02-01 11:03:00 Test Item Value Reference Range Interpretation Comments RBC X 10x6 (test code = RBC X 10x6) 3.75 4.20-5.40 [place] 158842-02-01 11:03:00 Test Item Value Reference Range Interpretation Comments Hgb (test code = Hgb) 10.4 12.0-16.0 [place] 474[address]-02-01 11:03:00 Test Item Value Reference Range Interpretation Comments Hct (test code = Hct) 31.0 36.0-48.0 [place] 158842-02-01 11:03:00 Test Item Value Reference Range Interpretation Comments MCV (test code = MCV) 82.7 80.0-98.0 [place] 158842-02-01 11:03:00 Test Item Value Reference Range Interpretation Comments MCH (test code = MCH) 27.6 pg 27.0-31.0 [place] 158842-02-01 11:03:00 Test Item Value Reference Range Interpretation Comments MCHC (test code = MCHC) 33.4 32.0-36.0 [facility] SoutheastEcdqzfkDPGVNBLHCF6578-32-69 11:03:00 Test Item Value Reference Range Interpretation Comments RDW (test code = RDW) 15.0 11.5-14.5 [place] 158842-02-01 11:03:00 Test Item Value Reference Range Interpretation Comments Platelet (test code = Platelet) 369 133-450 [facility] SoutheastZvmyesuWKRELFMWKW0667-28-08 11:03:00 Test Item Value Reference Range Interpretation Comments MPV (test code = MPV) 7.3 7.4-10.4 [facility]2022-02-01 11:03:00 Test Item Value Reference Range Interpretation Comments Glucose Lvl (test code = Glucose Lvl) 181 70-99 [facility]2022-02-01 11:03:00 Test Item Value Reference Range Interpretation Comments BUN (test code = BUN) 19 7-22 [facility]2022-02-01 11:03:00 Test Item Value Reference Range Interpretation Comments Creatinine Lvl (test code = Creatinine 0.60 0.50-1.40 Lvl) [facility]2022-02-01 11:03:00 Test Item Value Reference Range Interpretation Comments Sodium Lvl (test code = Sodium Lvl) 141 135-145 [place] 500672-02-01 11:03:00 Test Item Value Reference Range Interpretation Comments Potassium Lvl (test code = Potassium 4.6 3.5-5.1 Lvl) [facility]2022-02-01 11:03:00 Test Item Value Reference Range Interpretation Comments Chloride Lvl (test code = Chloride Lvl) 109 95-109 [facility]2022-02-01 11:03:00 Test Item Value Reference Range Interpretation Comments CO2 (test code = CO2) 24 24-32 [place] 500672-02-01 11:03:00 Test Item Value Reference Range Interpretation Comments Calcium Lvl (test code = Calcium Lvl) 8.3 8.5-10.5 [facility]2022-02-01 11:03:00 Test Item Value Reference Range Interpretation Comments AGAP (test code = AGAP) 12.6 10.0-20.0 [facility]2022-02-01 11:03:00 Test Item Value Reference Range Interpretation Comments eGFR (test code = eGFR) 90 [facility] SoutheastXiauymgDIGGVJDGQI9668-92-25 11:03:00 Test Item Value Reference Range Interpretation Comments WBC X 10x3 (test code = WBC X 10x3) 14.4 3.7-10.4 [facility] SoutheastGdxrimdIYPFXFKIDV0273-18-91 11:03:00 Test Item Value Reference Range Interpretation Comments RBC X 10x6 (test code = RBC X 10x6) 3.75 4.20-5.40 [facility] SoutheastZzqaqmuHYNTYUVFWF1690-38-19 11:03:00 Test Item Value Reference Range Interpretation Comments Hgb (test code = Hgb) 10.4 12.0-16.0 [facility] SoutheastTuxuvloWZKYSDKOUL7261-13-13 11:03:00 Test Item Value Reference Range Interpretation Comments Hct (test code = Hct) 31.0 36.0-48.0 [facility] SoutheastNcergehRIWNQZQWSS8567-20-42 11:03:00 Test Item Value Reference Range Interpretation Comments MCV (test code = MCV) 82.7 80.0-98.0 [facility] SoutheastSybhbavHCDATPQOWJ8392-80-40 11:03:00 Test Item Value Reference Range Interpretation Comments MCH (test code = MCH) 27.6 pg 27.0-31.0 [facility] SoutheastQsomwaoLAFLNOSNPT5402-75-24 11:03:00 Test Item Value Reference Range Interpretation Comments MCHC (test code = MCHC) 33.4 32.0-36.0 [facility] SoutheastOvkjjxfJUHPHLMGOL9512-98-74 11:03:00 Test Item Value Reference Range Interpretation Comments RDW (test code = RDW) 15.0 11.5-14.5 [facility] SoutheastPtrdhrcWNFPSOAHSB9593-79-03 11:03:00 Test Item Value Reference Range Interpretation Comments Platelet (test code = Platelet) 369 133-450 [facility] SoutheastUyilcbfAQKKOKMATW4363-21-44 11:03:00 Test Item Value Reference Range Interpretation Comments MPV (test code = MPV) 7.3 7.4-10.4 [place] 500672-02-01 11:03:00 Test Item Value Reference Range Interpretation Comments Glucose Lvl (test code = Glucose Lvl) 181 70-99 [place] 500672-02-01 11:03:00 Test Item Value Reference Range Interpretation Comments BUN (test code = BUN) 19 7-22 [place] 500672-02-01 11:03:00 Test Item Value Reference Range Interpretation Comments Creatinine Lvl (test code = Creatinine 0.60 0.50-1.40 Lvl) [place] 500672-02-01 11:03:00 Test Item Value Reference Range Interpretation Comments Sodium Lvl (test code = Sodium Lvl) 141 135-145 [place] 500672-02-01 11:03:00 Test Item Value Reference Range Interpretation Comments Potassium Lvl (test code = Potassium 4.6 3.5-5.1 Lvl) [place] 500672-02-01 11:03:00 Test Item Value Reference Range Interpretation Comments Chloride Lvl (test code = Chloride Lvl) 109 95-109 [facility]2022-02-01 11:03:00 Test Item Value Reference Range Interpretation Comments CO2 (test code = CO2) 24 24-32 [facility]2022-02-01 11:03:00 Test Item Value Reference Range Interpretation Comments Calcium Lvl (test code = Calcium Lvl) 8.3 8.5-10.5 [facility]2022-02-01 11:03:00 Test Item Value Reference Range Interpretation Comments AGAP (test code = AGAP) 12.6 10.0-20.0 [place] 500672-02-01 11:03:00 Test Item Value Reference Range Interpretation Comments eGFR (test code = eGFR) 90 [facility] SoutheastKmwrjbtWURXBFIACS2679-38-60 11:03:00 Test Item Value Reference Range Interpretation Comments WBC X 10x3 (test code = WBC X 10x3) 14.4 3.7-10.4 [place] 158842-02-01 11:03:00 Test Item Value Reference Range Interpretation Comments RBC X 10x6 (test code = RBC X 10x6) 3.75 4.20-5.40 [place] 158842-02-01 11:03:00 Test Item Value Reference Range Interpretation Comments Hgb (test code = Hgb) 10.4 12.0-16.0 [place] 158842-02-01 11:03:00 Test Item Value Reference Range Interpretation Comments Hct (test code = Hct) 31.0 36.0-48.0 [place] 158842-02-01 11:03:00 Test Item Value Reference Range Interpretation Comments MCV (test code = MCV) 82.7 80.0-98.0 [place] 158842-02-01 11:03:00 Test Item Value Reference Range Interpretation Comments MCH (test code = MCH) 27.6 pg 27.0-31.0 [place] 158842-02-01 11:03:00 Test Item Value Reference Range Interpretation Comments MCHC (test code = MCHC) 33.4 32.0-36.0 [place] 158842-02-01 11:03:00 Test Item Value Reference Range Interpretation Comments RDW (test code = RDW) 15.0 11.5-14.5 [place] 158842-02-01 11:03:00 Test Item Value Reference Range Interpretation Comments Platelet (test code = Platelet) 369 133-450 [facility] SoutheastOjroqyaKRFPZYTJBP6591-89-53 11:03:00 Test Item Value Reference Range Interpretation Comments MPV (test code = MPV) 7.3 7.4-10.4 [facility]2022-02-01 11:03:00 Test Item Value Reference Range Interpretation Comments Glucose Lvl (test code = Glucose Lvl) 181 70-99 [facility]2022-02-01 11:03:00 Test Item Value Reference Range Interpretation Comments BUN (test code = BUN) 19 7-22 [facility]2022-02-01 11:03:00 Test Item Value Reference Range Interpretation Comments Creatinine Lvl (test code = Creatinine 0.60 0.50-1.40 Lvl) [facility]2022-02-01 11:03:00 Test Item Value Reference Range Interpretation Comments Sodium Lvl (test code = Sodium Lvl) 141 135-145 [facility]2022-02-01 11:03:00 Test Item Value Reference Range Interpretation Comments Potassium Lvl (test code = Potassium 4.6 3.5-5.1 Lvl) [place] 500672-02-01 11:03:00 Test Item Value Reference Range Interpretation Comments Chloride Lvl (test code = Chloride Lvl) 109 95-109 [place] 500672-02-01 11:03:00 Test Item Value Reference Range Interpretation Comments CO2 (test code = CO2) 24 24-32 [place] 500672-02-01 11:03:00 Test Item Value Reference Range Interpretation Comments Calcium Lvl (test code = Calcium Lvl) 8.3 8.5-10.5 [place] 500672-02-01 11:03:00 Test Item Value Reference Range Interpretation Comments AGAP (test code = AGAP) 12.6 10.0-20.0 [place] 500672-02-01 11:03:00 Test Item Value Reference Range Interpretation Comments eGFR (test code = eGFR) 90 [place] 158842-02-01 11:03:00 Test Item Value Reference Range Interpretation Comments WBC X 10x3 (test code = WBC X 10x3) 14.4 3.7-10.4 [place] 158842-02-01 11:03:00 Test Item Value Reference Range Interpretation Comments RBC X 10x6 (test code = RBC X 10x6) 3.75 4.20-5.40 [place] 158842-02-01 11:03:00 Test Item Value Reference Range Interpretation Comments Hgb (test code = Hgb) 10.4 12.0-16.0 [place] 158842-02-01 11:03:00 Test Item Value Reference Range Interpretation Comments Hct (test code = Hct) 31.0 36.0-48.0 [place] 158842-02-01 11:03:00 Test Item Value Reference Range Interpretation Comments MCV (test code = MCV) 82.7 80.0-98.0 [place] 158842-02-01 11:03:00 Test Item Value Reference Range Interpretation Comments MCH (test code = MCH) 27.6 pg 27.0-31.0 [place] 158842-02-01 11:03:00 Test Item Value Reference Range Interpretation Comments MCHC (test code = MCHC) 33.4 32.0-36.0 [place] 158842-02-01 11:03:00 Test Item Value Reference Range Interpretation Comments RDW (test code = RDW) 15.0 11.5-14.5 [place] 158842-02-01 11:03:00 Test Item Value Reference Range Interpretation Comments Platelet (test code = Platelet) 369 133-450 [place] 158842-02-01 11:03:00 Test Item Value Reference Range Interpretation Comments MPV (test code = MPV) 7.3 7.4-10.4 [place] 500672-02-01 11:03:00 Test Item Value Reference Range Interpretation Comments Glucose Lvl (test code = Glucose Lvl) 181 70-99 [facility]2022-02-01 11:03:00 Test Item Value Reference Range Interpretation Comments BUN (test code = BUN) 19 7-22 [facility]2022-02-01 11:03:00 Test Item Value Reference Range Interpretation Comments Creatinine Lvl (test code = Creatinine 0.60 0.50-1.40 Lvl) [facility]2022-02-01 11:03:00 Test Item Value Reference Range Interpretation Comments Sodium Lvl (test code = Sodium Lvl) 141 135-145 [facility]2022-02-01 11:03:00 Test Item Value Reference Range Interpretation Comments Potassium Lvl (test code = Potassium 4.6 3.5-5.1 Lvl) [facility]2022-02-01 11:03:00 Test Item Value Reference Range Interpretation Comments Chloride Lvl (test code = Chloride Lvl) 109 95-109 [facility]2022-02-01 11:03:00 Test Item Value Reference Range Interpretation Comments CO2 (test code = CO2) 24 24-32 [facility]2022-02-01 11:03:00 Test Item Value Reference Range Interpretation Comments Calcium Lvl (test code = Calcium Lvl) 8.3 8.5-10.5 [place] 500672-02-01 11:03:00 Test Item Value Reference Range Interpretation Comments AGAP (test code = AGAP) 12.6 10.0-20.0 [place] 500672-02-01 11:03:00 Test Item Value Reference Range Interpretation Comments eGFR (test code = eGFR) 90 [facility]lykyrzVLBWVJLAWJ6376-46-37 11:03:00 Test Item Value Reference Range Interpretation Comments WBC X 10x3 (test code = WBC X 10x3) 14.4 3.7-10.4 [place] 158842-02-01 11:03:00 Test Item Value Reference Range Interpretation Comments RBC X 10x6 (test code = RBC X 10x6) 3.75 4.20-5.40 [facility]QkaowcjRVGNRNQKLH2539-73-31 11:03:00 Test Item Value Reference Range Interpretation Comments Hgb (test code = Hgb) 10.4 12.0-16.0 [place] 158842-02-01 11:03:00 Test Item Value Reference Range Interpretation Comments Hct (test code = Hct) 31.0 36.0-48.0 [place] 158842-02-01 11:03:00 Test Item Value Reference Range Interpretation Comments MCV (test code = MCV) 82.7 80.0-98.0 [facility] SoutheastVqzoiccBTBAICAZQR0616-57-25 11:03:00 Test Item Value Reference Range Interpretation Comments MCH (test code = MCH) 27.6 pg 27.0-31.0 [facility] SoutheastHaadvjaYIBVKNTDXB5259-58-11 11:03:00 Test Item Value Reference Range Interpretation Comments MCHC (test code = MCHC) 33.4 32.0-36.0 [facility] SoutheastGptgpuwAHJCGHBVJD7250-51-92 11:03:00 Test Item Value Reference Range Interpretation Comments RDW (test code = RDW) 15.0 11.5-14.5 [facility] SoutheastIdmswgqZCJZZYSOXN0305-10-50 11:03:00 Test Item Value Reference Range Interpretation Comments Platelet (test code = Platelet) 369 133-450 [facility] SoutheastEpxatadZNXMZAHXGI9886-68-55 11:03:00 Test Item Value Reference Range Interpretation Comments MPV (test code = MPV) 7.3 7.4-10.4 [facility]2022-02-01 11:03:00 Test Item Value Reference Range Interpretation Comments Glucose Lvl (test code = Glucose Lvl) 181 70-99 [facility]2022-02-01 11:03:00 Test Item Value Reference Range Interpretation Comments BUN (test code = BUN) 19 7-22 [facility]2022-02-01 11:03:00 Test Item Value Reference Range Interpretation Comments Creatinine Lvl (test code = Creatinine 0.60 0.50-1.40 Lvl) [facility]2022-02-01 11:03:00 Test Item Value Reference Range Interpretation Comments Sodium Lvl (test code = Sodium Lvl) 141 135-145 [facility]2022-02-01 11:03:00 Test Item Value Reference Range Interpretation Comments Glucose Lvl (test code = Glucose Lvl) 181 70-99 [facility]2022-02-01 11:03:00 Test Item Value Reference Range Interpretation Comments BUN (test code = BUN) 03-24 [facility]2022-02-01 11:03:00 Test Item Value Reference Range Interpretation Comments Creatinine Lvl (test code = Creatinine 0.60 0.50-1.40 Lvl) [facility]2022-02-01 11:03:00 Test Item Value Reference Range Interpretation Comments Sodium Lvl (test code = Sodium Lvl) 141 135-145 [facility]2022-02-01 11:03:00 Test Item Value Reference Range Interpretation Comments Potassium Lvl (test code = Potassium 4.6 3.5-5.1 Lvl) [facility]2022-02-01 11:03:00 Test Item Value Reference Range Interpretation Comments Chloride Lvl (test code = Chloride Lvl) 109 95-109 [facility]2022-02-01 11:03:00 Test Item Value Reference Range Interpretation Comments CO2 (test code = CO2) 24 24-32 [facility]2022-02-01 11:03:00 Test Item Value Reference Range Interpretation Comments Calcium Lvl (test code = Calcium Lvl) 8.3 8.5-10.5 [facility]2022-02-01 11:03:00 Test Item Value Reference Range Interpretation Comments AGAP (test code = AGAP) 12.6 10.0-20.0 [facility]2022-02-01 11:03:00 Test Item Value Reference Range Interpretation Comments Potassium Lvl (test code = Potassium 4.6 3.5-5.1 Lvl) [facility]2022-02-01 11:03:00 Test Item Value Reference Range Interpretation Comments eGFR (test code = eGFR) 90 [facility]AxfvhndXFVRGXESLP1516-96-68 11:03:00 Test Item Value Reference Range Interpretation Comments WBC X 10x3 (test code = WBC X 10x3) 14.4 3.7-10.4 [facility] SoutheastNuuigmoBQBSHPWNCI3147-22-75 11:03:00 Test Item Value Reference Range Interpretation Comments RBC X 10x6 (test code = RBC X 10x6) 3.75 4.20-5.40 [facility] SoutheastJakpoawFHUXADSJSJ5154-82-14 11:03:00 Test Item Value Reference Range Interpretation Comments Hgb (test code = Hgb) 10.4 12.0-16.0 [facility] SoutheastJwwjopfPGKUOVRQQD1380-93-25 11:03:00 Test Item Value Reference Range Interpretation Comments Hct (test code = Hct) 31.0 36.0-48.0 [facility] SoutheastOboajxnMJFSGIBAQF5567-03-53 11:03:00 Test Item Value Reference Range Interpretation Comments MCV (test code = MCV) 82.7 80.0-98.0 [facility] SoutheastHanmfguCGLBSMUCYF7901-94-76 11:03:00 Test Item Value Reference Range Interpretation Comments MCH (test code = MCH) 27.6 pg 27.0-31.0 [facility] SoutheastAyysgzhRAYSXZRLZX9860-38-45 11:03:00 Test Item Value Reference Range Interpretation Comments MCHC (test code = MCHC) 33.4 32.0-36.0 [facility] SoutheastGoqjcdaHYTYAFHWLT5952-80-18 11:03:00 Test Item Value Reference Range Interpretation Comments RDW (test code = RDW) 15.0 11.5-14.5 [facility] SoutheastFasswhfQNKQAUHPWV4211-96-29 11:03:00 Test Item Value Reference Range Interpretation Comments Platelet (test code = Platelet) 369 133-450 [facility]2022-02-01 11:03:00 Test Item Value Reference Range Interpretation Comments Chloride Lvl (test code = Chloride Lvl) 109 95-109 [facility] SoutheastGvslnzxEMCANBIXIX0673-63-04 11:03:00 Test Item Value Reference Range Interpretation Comments MPV (test code = MPV) 7.3 7.4-10.4 [facility] [id number] 11:03:00 Test Item Value Reference Range Interpretation Comments CO2 (test code = CO2) 24 24-32 [facility]2022-02-01 11:03:00 Test Item Value Reference Range Interpretation Comments Calcium Lvl (test code = Calcium Lvl) 8.3 8.5-10.5 [facility]2022-02-01 11:03:00 Test Item Value Reference Range Interpretation Comments AGAP (test code = AGAP) 12.6 10.0-20.0 [facility]2022-02-01 11:03:00 Test Item Value Reference Range Interpretation Comments eGFR (test code = eGFR) 90 [facility] SoutheastGkgsvwyWGVMOWJHPX0100-20-40 11:03:00 Test Item Value Reference Range Interpretation Comments WBC X 10x3 (test code = WBC X 10x3) 14.4 3.7-10.4 [place] 158842-02-01 11:03:00 Test Item Value Reference Range Interpretation Comments RBC X 10x6 (test code = RBC X 10x6) 3.75 4.20-5.40 [place] 158842-02-01 11:03:00 Test Item Value Reference Range Interpretation Comments Hgb (test code = Hgb) 10.4 12.0-16.0 [place] 158842-02-01 11:03:00 Test Item Value Reference Range Interpretation Comments Hct (test code = Hct) 31.0 36.0-48.0 [place] 158842-02-01 11:03:00 Test Item Value Reference Range Interpretation Comments MCV (test code = MCV) 82.7 80.0-98.0 [place] 158842-02-01 11:03:00 Test Item Value Reference Range Interpretation Comments MCH (test code = MCH) 27.6 pg 27.0-31.0 [place] 158842-02-01 11:03:00 Test Item Value Reference Range Interpretation Comments MCHC (test code = MCHC) 33.4 32.0-36.0 [place] 158842-02-01 11:03:00 Test Item Value Reference Range Interpretation Comments RDW (test code = RDW) 15.0 11.5-14.5 [facility]2022-02-01 11:03:00 Test Item Value Reference Range Interpretation Comments Glucose Lvl (test code = Glucose Lvl) 181 70-99 [place] 158842-02-01 11:03:00 Test Item Value Reference Range Interpretation Comments Platelet (test code = Platelet) 369 133-450 [facility]2022-02-01 11:03:00 Test Item Value Reference Range Interpretation Comments BUN (test code = BUN) 19 7-22 [place] 500672-02-01 11:03:00 Test Item Value Reference Range Interpretation Comments Creatinine Lvl (test code = Creatinine 0.60 0.50-1.40 Lvl) [facility]2022-02-01 11:03:00 Test Item Value Reference Range Interpretation Comments Sodium Lvl (test code = Sodium Lvl) 141 135-145 [place] 500672-02-01 11:03:00 Test Item Value Reference Range Interpretation Comments Potassium Lvl (test code = Potassium 4.6 3.5-5.1 Lvl) [place] 500672-02-01 11:03:00 Test Item Value Reference Range Interpretation Comments Chloride Lvl (test code = Chloride Lvl) 109 95-109 [facility]2022-02-01 11:03:00 Test Item Value Reference Range Interpretation Comments CO2 (test code = CO2) 24 24-32 [facility]2022-02-01 11:03:00 Test Item Value Reference Range Interpretation Comments Calcium Lvl (test code = Calcium Lvl) 8.3 8.5-10.5 [facility]2022-02-01 11:03:00 Test Item Value Reference Range Interpretation Comments AGAP (test code = AGAP) 12.6 10.0-20.0 [facility]2022-02-01 11:03:00 Test Item Value Reference Range Interpretation Comments eGFR (test code = eGFR) 90 [place] 158842-02-01 11:03:00 Test Item Value Reference Range Interpretation Comments WBC X 10x3 (test code = WBC X 10x3) 14.4 3.7-10.4 [place] 158842-02-01 11:03:00 Test Item Value Reference Range Interpretation Comments MPV (test code = MPV) 7.3 7.4-10.4 [place] 158842-02-01 11:03:00 Test Item Value Reference Range Interpretation Comments RBC X 10x6 (test code = RBC X 10x6) 3.75 4.20-5.40 [place] 158842-02-01 11:03:00 Test Item Value Reference Range Interpretation Comments Hgb (test code = Hgb) 10.4 12.0-16.0 [place] 158842-02-01 11:03:00 Test Item Value Reference Range Interpretation Comments Hct (test code = Hct) 31.0 36.0-48.0 [place] 158842-02-01 11:03:00 Test Item Value Reference Range Interpretation Comments MCV (test code = MCV) 82.7 80.0-98.0 [place] 158842-02-01 11:03:00 Test Item Value Reference Range Interpretation Comments MCH (test code = MCH) 27.6 pg 27.0-31.0 [place] 158842-02-01 11:03:00 Test Item Value Reference Range Interpretation Comments MCHC (test code = MCHC) 33.4 32.0-36.0 [place] 158842-02-01 11:03:00 Test Item Value Reference Range Interpretation Comments RDW (test code = RDW) 15.0 11.5-14.5 [place] 158842-02-01 11:03:00 Test Item Value Reference Range Interpretation Comments Platelet (test code = Platelet) 369 133-450 [facility] SoutheastYycnkxuTVITGVOYKU7521-74-51 11:03:00 Test Item Value Reference Range Interpretation Comments MPV (test code = MPV) 7.3 7.4-10.4 [facility]2022-02-01 11:03:00 Test Item Value Reference Range Interpretation Comments Glucose Lvl (test code = Glucose Lvl) 181 70-99 [facility]2022-02-01 11:03:00 Test Item Value Reference Range Interpretation Comments BUN (test code = BUN) 19 7-22 [facility]2022-02-01 11:03:00 Test Item Value Reference Range Interpretation Comments Creatinine Lvl (test code = Creatinine 0.60 0.50-1.40 Lvl) [facility]2022-02-01 11:03:00 Test Item Value Reference Range Interpretation Comments Sodium Lvl (test code = Sodium Lvl) 141 135-145 [facility]2022-02-01 11:03:00 Test Item Value Reference Range Interpretation Comments Potassium Lvl (test code = Potassium 4.6 3.5-5.1 Lvl) [facility]2022-02-01 11:03:00 Test Item Value Reference Range Interpretation Comments Chloride Lvl (test code = Chloride Lvl) 109 95-109 [place] 500672-02-01 11:03:00 Test Item Value Reference Range Interpretation Comments CO2 (test code = CO2) 24 24-32 [place] 500672-02-01 11:03:00 Test Item Value Reference Range Interpretation Comments Calcium Lvl (test code = Calcium Lvl) 8.3 8.5-10.5 [place] 500672-02-01 11:03:00 Test Item Value Reference Range Interpretation Comments AGAP (test code = AGAP) 12.6 10.0-20.0 [place] 500672-02-01 11:03:00 Test Item Value Reference Range Interpretation Comments eGFR (test code = eGFR) 90 [facility] SoutheastLhggluvUUHNKMLGLE1385-60-77 11:03:00 Test Item Value Reference Range Interpretation Comments WBC X 10x3 (test code = WBC X 10x3) 14.4 3.7-10.4 [place] 158842-02-01 11:03:00 Test Item Value Reference Range Interpretation Comments RBC X 10x6 (test code = RBC X 10x6) 3.75 4.20-5.40 [place] 158842-02-01 11:03:00 Test Item Value Reference Range Interpretation Comments Hgb (test code = Hgb) 10.4 12.0-16.0 [place] [address]-02-01 11:03:00 Test Item Value Reference Range Interpretation Comments Hct (test code = Hct) 31.0 36.0-48.0 [place] 158842-02-01 11:03:00 Test Item Value Reference Range Interpretation Comments MCV (test code = MCV) 82.7 80.0-98.0 [place] 158842-02-01 11:03:00 Test Item Value Reference Range Interpretation Comments MCH (test code = MCH) 27.6 pg 27.0-31.0 [place] 158842-02-01 11:03:00 Test Item Value Reference Range Interpretation Comments MCHC (test code = MCHC) 33.4 32.0-36.0 [facility] SoutheastSfnupdpGLXTSWRGIO1591-10-08 11:03:00 Test Item Value Reference Range Interpretation Comments RDW (test code = RDW) 15.0 11.5-14.5 [place] 158842-02-01 11:03:00 Test Item Value Reference Range Interpretation Comments Platelet (test code = Platelet) 369 133-450 [facility] SoutheastFxujpooFINOGSONJV1983-89-93 11:03:00 Test Item Value Reference Range Interpretation Comments MPV (test code = MPV) 7.3 7.4-10.4 [facility]2022-02-01 11:03:00 Test Item Value Reference Range Interpretation Comments Glucose Lvl (test code = Glucose Lvl) 181 70-99 [facility]2022-02-01 11:03:00 Test Item Value Reference Range Interpretation Comments BUN (test code = BUN) 19 7-22 [place] 500672-02-01 11:03:00 Test Item Value Reference Range Interpretation Comments Creatinine Lvl (test code = Creatinine 0.60 0.50-1.40 Lvl) [facility]2022-02-01 11:03:00 Test Item Value Reference Range Interpretation Comments Sodium Lvl (test code = Sodium Lvl) 141 135-145 [facility]2022-02-01 11:03:00 Test Item Value Reference Range Interpretation Comments Potassium Lvl (test code = Potassium 4.6 3.5-5.1 Lvl) [facility]2022-02-01 11:03:00 Test Item Value Reference Range Interpretation Comments Chloride Lvl (test code = Chloride Lvl) 109 95-109 [facility]2022-02-01 11:03:00 Test Item Value Reference Range Interpretation Comments CO2 (test code = CO2) 24 24-32 [facility]2022-02-01 11:03:00 Test Item Value Reference Range Interpretation Comments Calcium Lvl (test code = Calcium Lvl) 8.3 8.5-10.5 [facility]2022-02-01 11:03:00 Test Item Value Reference Range Interpretation Comments AGAP (test code = AGAP) 12.6 10.0-20.0 [place] 500672-02-01 11:03:00 Test Item Value Reference Range Interpretation Comments eGFR (test code = eGFR) 90 [facility] SoutheastOmpjcknCZTTGFBOPB6425-44-60 11:03:00 Test Item Value Reference Range Interpretation Comments WBC X 10x3 (test code = WBC X 10x3) 14.4 3.7-10.4 [place] 158842-02-01 11:03:00 Test Item Value Reference Range Interpretation Comments RBC X 10x6 (test code = RBC X 10x6) 3.75 4.20-5.40 [facility] SoutheastBvzabxxJDVTTKBLRU8568-86-75 11:03:00 Test Item Value Reference Range Interpretation Comments Hgb (test code = Hgb) 10.4 12.0-16.0 [place] 158842-02-01 11:03:00 Test Item Value Reference Range Interpretation Comments Hct (test code = Hct) 31.0 36.0-48.0 [facility] SoutheastKcggwenLDVZAHCMBH0247-04-96 11:03:00 Test Item Value Reference Range Interpretation Comments MCV (test code = MCV) 82.7 80.0-98.0 [facility] SoutheastAkgewqwFNDXRYMMED9101-13-28 11:03:00 Test Item Value Reference Range Interpretation Comments MCH (test code = MCH) 27.6 pg 27.0-31.0 [facility] SoutheastSaxwkpvYYNZQIBNOA7898-09-57 11:03:00 Test Item Value Reference Range Interpretation Comments MCHC (test code = MCHC) 33.4 32.0-36.0 [facility] SoutheastSeugyceSNCJUOPSUM6996-16-46 11:03:00 Test Item Value Reference Range Interpretation Comments RDW (test code = RDW) 15.0 11.5-14.5 [facility] SoutheastBvbvrivDDKEMNZWMW8369-08-30 11:03:00 Test Item Value Reference Range Interpretation Comments Platelet (test code = Platelet) 369 133-450 [facility] SoutheastNfcefakHILSSJUZDQ8485-34-59 11:03:00 Test Item Value Reference Range Interpretation Comments MPV (test code = MPV) 7.3 7.4-10.4 [facility]2022-01-31 12:31:00 Test Item Value Reference Range Interpretation Comments Influenza A PCR (test Negative *NA*(10/03/21 code = Influenza A PCR) 6:31 AM) [facility]2022-01-31 12:31:00 Test Item Value Reference Range Interpretation Comments Influenza B PCR (test Negative *NA*(10/03/21 code = Influenza B PCR) 6:31 AM) [facility]2022-01-31 12:31:00 Test Item Value Reference Range Interpretation Comments RSV PCR (test code = Negative *NA*(10/03/21 RSV PCR) 6:31 AM) [facility]2752[facility]-70 12:31:00 Test Item Value Reference Range Interpretation Comments Vanco Lvl (test code = Vanco Lvl) 15.6 [facility]2022-01-31 12:31:00 Test Item Value Reference Range Interpretation Comments Glucose Lvl (test code = Glucose Lvl) 187 70-99 [facility]2022-01-31 12:31:00 Test Item Value Reference Range Interpretation Comments BUN (test code = BUN) 21 7-22 [facility]2022-01-31 12:31:00 Test Item Value Reference Range Interpretation Comments Creatinine Lvl (test code = Creatinine 0.70 0.50-1.40 Lvl) [facility]2022-01-31 12:31:00 Test Item Value Reference Range Interpretation Comments Sodium Lvl (test code = Sodium Lvl) 142 135-145 [facility]2022-01-31 12:31:00 Test Item Value Reference Range Interpretation Comments Potassium Lvl (test code = Potassium 4.1 3.5-5.1 Lvl) [facility]2022-01-31 12:31:00 Test Item Value Reference Range Interpretation Comments Chloride Lvl (test code = Chloride Lvl) 109 95-109 [facility]2022-01-31 12:31:00 Test Item Value Reference Range Interpretation Comments CO2 (test code = CO2) 24 24-32 [facility]2022-01-31 12:31:00 Test Item Value Reference Range Interpretation Comments Calcium Lvl (test code = Calcium Lvl) 8.6 8.5-10.5 [place] 500672-01-31 12:31:00 Test Item Value Reference Range Interpretation Comments AGAP (test code = AGAP) 13.1 10.0-20.0 [facility]2022-01-31 12:31:00 Test Item Value Reference Range Interpretation Comments eGFR (test code = eGFR) 86 [facility]LhzhxihJBDADIXTTM3968-92-33 12:31:00 Test Item Value Reference Range Interpretation Comments WBC X 10x3 (test code = WBC X 10x3) 20.8 3.7-10.4 [place] 158842-01-31 12:31:00 Test Item Value Reference Range Interpretation Comments RBC X 10x6 (test code = RBC X 10x6) 3.93 4.20-5.40 [facility] SoutheastHxieepcSAFAIPCLRW0605-20-67 12:31:00 Test Item Value Reference Range Interpretation Comments Hgb (test code = Hgb) 10.7 12.0-16.0 [facility] SoutheastRrszdmhJAHODMEYNG5255-28-15 12:31:00 Test Item Value Reference Range Interpretation Comments Hct (test code = Hct) 32.9 36.0-48.0 [place] 158842-01-31 12:31:00 Test Item Value Reference Range Interpretation Comments MCV (test code = MCV) 83.7 80.0-98.0 [facility] SoutheastWydnktaZJPKPOOVXU4839-55-77 12:31:00 Test Item Value Reference Range Interpretation Comments MCH (test code = MCH) 27.1 pg 27.0-31.0 [facility] SoutheastWjujxtjLGHIZNPQCJ9254-64-54 12:31:00 Test Item Value Reference Range Interpretation Comments MCHC (test code = MCHC) 32.4 32.0-36.0 [facility] SoutheastJslqcisKNZHPTLRSN9389-52-83 12:31:00 Test Item Value Reference Range Interpretation Comments RDW (test code = RDW) 15.0 11.5-14.5 [facility] SoutheastAuahdmiKGIHXKESSR7521-11-44 12:31:00 Test Item Value Reference Range Interpretation Comments Platelet (test code = Platelet) 392 133-450 [facility] SoutheastLtwvjyxWYVWOOWRTH6240-15-95 12:31:00 Test Item Value Reference Range Interpretation Comments MPV (test code = MPV) 6.8 7.4-10.4 [facility]2022-01-31 12:31:00 Test Item Value Reference Range Interpretation Comments Source Respiratory Nasophrngl Swb Panel PCR (test code = *NA*(10/03/21 6:31 AM) Source Respiratory Panel PCR) [facility]2022-01-31 12:31:00 Test Item Value Reference Range Interpretation Comments Influenza A PCR (test Negative *NA*(10/03/21 code = Influenza A PCR) 6:31 AM) [facility]2022-01-31 12:31:00 Test Item Value Reference Range Interpretation Comments Influenza B PCR (test Negative *NA*(10/03/21 code = Influenza B PCR) 6:31 AM) [facility]2022-01-31 12:31:00 Test Item Value Reference Range Interpretation Comments RSV PCR (test code = Negative *NA*(10/03/21 RSV PCR) 6:31 AM) [facility]QzyzvmeLDAFNICCAC2649-72-97 12:31:00 Test Item Value Reference Range Interpretation Comments Vanco Lvl (test code = Vanco Lvl) 15.6 [facility]2022-01-31 12:31:00 Test Item Value Reference Range Interpretation Comments Glucose Lvl (test code = Glucose Lvl) 187 70-99 [facility]2022-01-31 12:31:00 Test Item Value Reference Range Interpretation Comments Glucose Lvl (test code = Glucose Lvl) 187 70-99 [facility]2022-01-31 12:31:00 Test Item Value Reference Range Interpretation Comments BUN (test code = BUN) 21 03-24 [facility]2022-01-31 12:31:00 Test Item Value Reference Range Interpretation Comments Creatinine Lvl (test code = Creatinine 0.70 0.50-1.40 Lvl) [facility]2022-01-31 12:31:00 Test Item Value Reference Range Interpretation Comments Sodium Lvl (test code = Sodium Lvl) 142 135-145 [place] 500672-01-31 12:31:00 Test Item Value Reference Range Interpretation Comments Potassium Lvl (test code = Potassium 4.1 3.5-5.1 Lvl) [facility]2022-01-31 12:31:00 Test Item Value Reference Range Interpretation Comments Chloride Lvl (test code = Chloride Lvl) 109 95-109 [place] 500672-01-31 12:31:00 Test Item Value Reference Range Interpretation Comments CO2 (test code = CO2) 24 [place] 500672-01-31 12:31:00 Test Item Value Reference Range Interpretation Comments Calcium Lvl (test code = Calcium Lvl) 8.6 8.5-10.5 [place] 500672-01-31 12:31:00 Test Item Value Reference Range Interpretation Comments AGAP (test code = AGAP) 13.1 10.0-20.0 [place] 500672-01-31 12:31:00 Test Item Value Reference Range Interpretation Comments eGFR (test code = eGFR) 86 [place] 158842-01-31 12:31:00 Test Item Value Reference Range Interpretation Comments WBC X 10x3 (test code = WBC X 10x3) 20.8 3.7-10.4 [place] 500672-01-31 12:31:00 Test Item Value Reference Range Interpretation Comments BUN (test code = BUN) 21 7-22 [place] 158842-01-31 12:31:00 Test Item Value Reference Range Interpretation Comments RBC X 10x6 (test code = RBC X 10x6) 3.93 4.20-5.40 [place] 158842-01-31 12:31:00 Test Item Value Reference Range Interpretation Comments Hgb (test code = Hgb) 10.7 12.0-16.0 [place] 158842-01-31 12:31:00 Test Item Value Reference Range Interpretation Comments Hct (test code = Hct) 32.9 36.0-48.0 [place] 158842-01-31 12:31:00 Test Item Value Reference Range Interpretation Comments MCV (test code = MCV) 83.7 80.0-98.0 [place] 158842-01-31 12:31:00 Test Item Value Reference Range Interpretation Comments MCH (test code = MCH) 27.1 pg 27.0-31.0 [place] 158842-01-31 12:31:00 Test Item Value Reference Range Interpretation Comments MCHC (test code = MCHC) 32.4 32.0-36.0 [place] 158842-01-31 12:31:00 Test Item Value Reference Range Interpretation Comments RDW (test code = RDW) 15.0 11.5-14.5 [place] 158842-01-31 12:31:00 Test Item Value Reference Range Interpretation Comments Platelet (test code = Platelet) 392 133-450 [facility]1753[facility]58-63 12:31:00 Test Item Value Reference Range Interpretation Comments MPV (test code = MPV) 6.8 7.4-10.4 [facility] BZWRKCPVSB0898-28-77 12:31:00 Test Item Value Reference Range Interpretation Comments Source Respiratory Nasophrngl Swb Panel PCR (test code = *NA*(10/03/21 6:31 AM) Source Respiratory Panel PCR) [facility]2022-01-31 12:31:00 Test Item Value Reference Range Interpretation Comments Creatinine Lvl (test code = Creatinine 0.70 0.50-1.40 Lvl) [facility]2022-01-31 12:31:00 Test Item Value Reference Range Interpretation Comments Influenza A PCR (test Negative *NA*(10/03/21 code = Influenza A PCR) 6:31 AM) [place] 987352-01-31 12:31:00 Test Item Value Reference Range Interpretation Comments Influenza B PCR (test Negative *NA*(10/03/21 code = Influenza B PCR) 6:31 AM) [facility]2022-01-31 12:31:00 Test Item Value Reference Range Interpretation Comments RSV PCR (test code = Negative *NA*(10/03/21 RSV PCR) 6:31 AM) [facility]JtdaazzSEWOZSNNHT1747-76-61 12:31:00 Test Item Value Reference Range Interpretation Comments Vanco Lvl (test code = Vanco Lvl) 15.6 [facility]2022-01-31 12:31:00 Test Item Value Reference Range Interpretation Comments Sodium Lvl (test code = Sodium Lvl) 142 135-145 [facility]2022-01-31 12:31:00 Test Item Value Reference Range Interpretation Comments Potassium Lvl (test code = Potassium 4.1 3.5-5.1 Lvl) [facility]2022-01-31 12:31:00 Test Item Value Reference Range Interpretation Comments Chloride Lvl (test code = Chloride Lvl) 109 95-109 [facility]2022-01-31 12:31:00 Test Item Value Reference Range Interpretation Comments CO2 (test code = CO2) 24 24-32 [place] 500672-01-31 12:31:00 Test Item Value Reference Range Interpretation Comments Calcium Lvl (test code = Calcium Lvl) 8.6 8.5-10.5 [place] 500672-01-31 12:31:00 Test Item Value Reference Range Interpretation Comments AGAP (test code = AGAP) 13.1 10.0-20.0 [place] 500672-01-31 12:31:00 Test Item Value Reference Range Interpretation Comments eGFR (test code = eGFR) 86 [place] 158842-01-31 12:31:00 Test Item Value Reference Range Interpretation Comments WBC X 10x3 (test code = WBC X 10x3) 20.8 3.7-10.4 [place] 158842-01-31 12:31:00 Test Item Value Reference Range Interpretation Comments RBC X 10x6 (test code = RBC X 10x6) 3.93 4.20-5.40 [place] 158842-01-31 12:31:00 Test Item Value Reference Range Interpretation Comments Hgb (test code = Hgb) 10.7 12.0-16.0 [place] 158842-01-31 12:31:00 Test Item Value Reference Range Interpretation Comments Hct (test code = Hct) 32.9 36.0-48.0 [place] 158842-01-31 12:31:00 Test Item Value Reference Range Interpretation Comments MCV (test code = MCV) 83.7 80.0-98.0 [place] 500672-01-31 12:31:00 Test Item Value Reference Range Interpretation Comments Glucose Lvl (test code = Glucose Lvl) 187 70-99 [place] 500672-01-31 12:31:00 Test Item Value Reference Range Interpretation Comments BUN (test code = BUN) 21 7-22 [place] 158842-01-31 12:31:00 Test Item Value Reference Range Interpretation Comments MCH (test code = MCH) 27.1 pg 27.0-31.0 [place] 500672-01-31 12:31:00 Test Item Value Reference Range Interpretation Comments Creatinine Lvl (test code = Creatinine 0.70 0.50-1.40 Lvl) [place] 500672-01-31 12:31:00 Test Item Value Reference Range Interpretation Comments Sodium Lvl (test code = Sodium Lvl) 142 135-145 [place] 500672-01-31 12:31:00 Test Item Value Reference Range Interpretation Comments Potassium Lvl (test code = Potassium 4.1 3.5-5.1 Lvl) [place] 500672-01-31 12:31:00 Test Item Value Reference Range Interpretation Comments Chloride Lvl (test code = Chloride Lvl) 109 95-109 [place] 500672-01-31 12:31:00 Test Item Value Reference Range Interpretation Comments CO2 (test code = CO2) 24 24-32 [place] 500672-01-31 12:31:00 Test Item Value Reference Range Interpretation Comments Calcium Lvl (test code = Calcium Lvl) 8.6 8.5-10.5 [place] 500672-01-31 12:31:00 Test Item Value Reference Range Interpretation Comments AGAP (test code = AGAP) 13.1 10.0-20.0 [place] 500672-01-31 12:31:00 Test Item Value Reference Range Interpretation Comments eGFR (test code = eGFR) 86 [place] 158842-01-31 12:31:00 Test Item Value Reference Range Interpretation Comments WBC X 10x3 (test code = WBC X 10x3) 20.8 3.7-10.4 [place] 158842-01-31 12:31:00 Test Item Value Reference Range Interpretation Comments RBC X 10x6 (test code = RBC X 10x6) 3.93 4.20-5.40 [place] 158842-01-31 12:31:00 Test Item Value Reference Range Interpretation Comments MCHC (test code = MCHC) 32.4 32.0-36.0 [place] [address]-01-31 12:31:00 Test Item Value Reference Range Interpretation Comments Hgb (test code = Hgb) 10.7 12.0-16.0 [place] 158842-01-31 12:31:00 Test Item Value Reference Range Interpretation Comments Hct (test code = Hct) 32.9 36.0-48.0 [place] 158842-01-31 12:31:00 Test Item Value Reference Range Interpretation Comments MCV (test code = MCV) 83.7 80.0-98.0 [facility]cxsxadKMUOEXEFHU6043-26-24 12:31:00 Test Item Value Reference Range Interpretation Comments MCH (test code = MCH) 27.1 pg 27.0-31.0 [facility] SoutheastZvywxjtSXSKGGFPCC7098-60-58 12:31:00 Test Item Value Reference Range Interpretation Comments MCHC (test code = MCHC) 32.4 32.0-36.0 [facility] SoutheastNkckvhvDDGUOAGEDJ5542-77-71 12:31:00 Test Item Value Reference Range Interpretation Comments RDW (test code = RDW) 15.0 11.5-14.5 [facility] SoutheastFqpfdepPIKQUZQHLX7279-44-18 12:31:00 Test Item Value Reference Range Interpretation Comments Platelet (test code = Platelet) 392 236-450 [facility] SoutheastMnmizyqMPXOEWFTIF8382-05-74 12:31:00 Test Item Value Reference Range Interpretation Comments MPV (test code = MPV) 6.8 7.4-10.4 [facility]2022-01-31 12:31:00 Test Item Value Reference Range Interpretation Comments Source Respiratory Nasophrngl Swb Panel PCR (test code = *NA*(10/03/21 6:31 AM) Source Respiratory Panel PCR) [facility]2022-01-31 12:31:00 Test Item Value Reference Range Interpretation Comments Influenza A PCR (test Negative *NA*(10/03/21 code = Influenza A PCR) 6:31 AM) [facility] SoutheastSopbrnkMULSSNAUUR1048-69-84 12:31:00 Test Item Value Reference Range Interpretation Comments RDW (test code = RDW) 15.0 11.5-14.5 [facility]2022-01-31 12:31:00 Test Item Value Reference Range Interpretation Comments Influenza B PCR (test Negative *NA*(10/03/21 code = Influenza B PCR) 6:31 AM) [facility]2022-01-31 12:31:00 Test Item Value Reference Range Interpretation Comments RSV PCR (test code = Negative *NA*(10/03/21 RSV PCR) 6:31 AM) [facility]XydywydWKBXUWICIG6336-00-13 12:31:00 Test Item Value Reference Range Interpretation Comments Vanco Lvl (test code = Vanco Lvl) 15.6 [facility]TGNPNFLQLV5444[facility]44-65 12:31:00 Test Item Value Reference Range Interpretation Comments Platelet (test code = Platelet) 392 000-450 [facility] SoutheastSbdpaixAYBJUBISPN7881-23-97 12:31:00 Test Item Value Reference Range Interpretation Comments MPV (test code = MPV) 6.8 7.4-10.4 [facility] THEIOQIKCD1244-62-52 12:31:00 Test Item Value Reference Range Interpretation Comments Source Respiratory Nasophrngl Swb Panel PCR (test code = *NA*(10/03/21 6:31 AM) Source Respiratory Panel PCR) [facility]2022-01-31 12:31:00 Test Item Value Reference Range Interpretation Comments Influenza A PCR (test Negative *NA*(10/03/21 code = Influenza A PCR) 6:31 AM) [facility]2022-01-31 12:31:00 Test Item Value Reference Range Interpretation Comments Influenza B PCR (test Negative *NA*(10/03/21 code = Influenza B PCR) 6:31 AM) [facility]2022-01-31 12:31:00 Test Item Value Reference Range Interpretation Comments RSV PCR (test code = Negative *NA*(10/03/21 RSV PCR) 6:31 AM) [facility]BykhlgkPRDODUPTER0521-99-73 12:31:00 Test Item Value Reference Range Interpretation Comments Vanco Lvl (test code = Vanco Lvl) 15.6 [facility] NACZI1479-32-15 12:31:00 Test Item Value Reference Range Interpretation Comments Glucose Lvl (test code = Glucose Lvl) 187 70-99 [facility] GOBIE5548-34-24 12:31:00 Test Item Value Reference Range Interpretation Comments BUN (test code = BUN) 21 03-24 [facility]2022-01-31 12:31:00 Test Item Value Reference Range Interpretation Comments Creatinine Lvl (test code = Creatinine 0.70 0.50-1.40 Lvl) [facility]2022-01-31 12:31:00 Test Item Value Reference Range Interpretation Comments Glucose Lvl (test code = Glucose Lvl) 187 70-99 [place] 500672-01-31 12:31:00 Test Item Value Reference Range Interpretation Comments BUN (test code = BUN) 21 7-22 [place] 500672-01-31 12:31:00 Test Item Value Reference Range Interpretation Comments Creatinine Lvl (test code = Creatinine 0.70 0.50-1.40 Lvl) [place] 500672-01-31 12:31:00 Test Item Value Reference Range Interpretation Comments Sodium Lvl (test code = Sodium Lvl) 142 135-145 [place] 500672-01-31 12:31:00 Test Item Value Reference Range Interpretation Comments Potassium Lvl (test code = Potassium 4.1 3.5-5.1 Lvl) [place] 500672-01-31 12:31:00 Test Item Value Reference Range Interpretation Comments Chloride Lvl (test code = Chloride Lvl) 109 95-109 [place] 500672-01-31 12:31:00 Test Item Value Reference Range Interpretation Comments CO2 (test code = CO2) 24 - [place] 500672-01-31 12:31:00 Test Item Value Reference Range Interpretation Comments Calcium Lvl (test code = Calcium Lvl) 8.6 8.5-10.5 [place] 500672-01-31 12:31:00 Test Item Value Reference Range Interpretation Comments AGAP (test code = AGAP) 13.1 10.0-20.0 [place] 500672-01-31 12:31:00 Test Item Value Reference Range Interpretation Comments eGFR (test code = eGFR) 86 [place] 158842-01-31 12:31:00 Test Item Value Reference Range Interpretation Comments WBC X 10x3 (test code = WBC X 10x3) 20.8 3.7-10.4 [place] 158842-01-31 12:31:00 Test Item Value Reference Range Interpretation Comments RBC X 10x6 (test code = RBC X 10x6) 3.93 4.20-5.40 [place] 158842-01-31 12:31:00 Test Item Value Reference Range Interpretation Comments Hgb (test code = Hgb) 10.7 12.0-16.0 [place] 158842-01-31 12:31:00 Test Item Value Reference Range Interpretation Comments Hct (test code = Hct) 32.9 36.0-48.0 [facility] SoutheastLaqxnttCBZFZVFAUO7623-76-54 12:31:00 Test Item Value Reference Range Interpretation Comments MCV (test code = MCV) 83.7 80.0-98.0 [facility] SoutheastAohrthqPNWAXNAJYM2875-48-43 12:31:00 Test Item Value Reference Range Interpretation Comments MCH (test code = MCH) 27.1 pg 27.0-31.0 [facility] SoutheastXweirocFQUVQDNFIW1489-62-99 12:31:00 Test Item Value Reference Range Interpretation Comments MCHC (test code = MCHC) 32.4 32.0-36.0 [facility] SoutheastSdferaxIAERJJYDQE3510-09-99 12:31:00 Test Item Value Reference Range Interpretation Comments RDW (test code = RDW) 15.0 11.5-14.5 [facility] SoutheastVbhugkfWJUKZHQRQM7975-42-62 12:31:00 Test Item Value Reference Range Interpretation Comments Platelet (test code = Platelet) 392 133-450 [facility] SoutheastDvjxbofDBMMERNFKI6670-54-39 12:31:00 Test Item Value Reference Range Interpretation Comments MPV (test code = MPV) 6.8 7.4-10.4 [facility]2022-01-31 12:31:00 Test Item Value Reference Range Interpretation Comments Source Respiratory Nasophrngl Swb Panel PCR (test code = *NA*(10/03/21 6:31 AM) Source Respiratory Panel PCR) [facility]2022-01-31 12:31:00 Test Item Value Reference Range Interpretation Comments Influenza A PCR (test Negative *NA*(10/03/21 code = Influenza A PCR) 6:31 AM) [facility]2022-01-31 12:31:00 Test Item Value Reference Range Interpretation Comments Influenza B PCR (test Negative *NA*(10/03/21 code = Influenza B PCR) 6:31 AM) [facility]2022-01-31 12:31:00 Test Item Value Reference Range Interpretation Comments RSV PCR (test code = Negative *NA*(10/03/21 RSV PCR) 6:31 AM) [facility] HospitalIckuvirSCEJMZDZZV7294-37-49 12:31:00 Test Item Value Reference Range Interpretation Comments Vanco Lvl (test code = Vanco Lvl) 15.6 [place] 500672-01-31 12:31:00 Test Item Value Reference Range Interpretation Comments Sodium Lvl (test code = Sodium Lvl) 142 135-145 [place] 500672-01-31 12:31:00 Test Item Value Reference Range Interpretation Comments Potassium Lvl (test code = Potassium 4.1 3.5-5.1 Lvl) [place] 500672-01-31 12:31:00 Test Item Value Reference Range Interpretation Comments Chloride Lvl (test code = Chloride Lvl) 109 95-109 [place] 500672-01-31 12:31:00 Test Item Value Reference Range Interpretation Comments CO2 (test code = CO2) 24 24-32 [place] 500672-01-31 12:31:00 Test Item Value Reference Range Interpretation Comments Calcium Lvl (test code = Calcium Lvl) 8.6 8.5-10.5 [place] 500672-01-31 12:31:00 Test Item Value Reference Range Interpretation Comments AGAP (test code = AGAP) 13.1 10.0-20.0 [place] 500672-01-31 12:31:00 Test Item Value Reference Range Interpretation Comments eGFR (test code = eGFR) 86 [place] 158842-01-31 12:31:00 Test Item Value Reference Range Interpretation Comments WBC X 10x3 (test code = WBC X 10x3) 20.8 3.7-10.4 [place] 158842-01-31 12:31:00 Test Item Value Reference Range Interpretation Comments RBC X 10x6 (test code = RBC X 10x6) 3.93 4.20-5.40 [place] 158842-01-31 12:31:00 Test Item Value Reference Range Interpretation Comments Hgb (test code = Hgb) 10.7 12.0-16.0 [place] 158842-01-31 12:31:00 Test Item Value Reference Range Interpretation Comments Hct (test code = Hct) 32.9 36.0-48.0 [place] 158842-01-31 12:31:00 Test Item Value Reference Range Interpretation Comments MCV (test code = MCV) 83.7 80.0-98.0 [facility] SoutheastEddlpvwEKHEDHPJMA7983-79-29 12:31:00 Test Item Value Reference Range Interpretation Comments MCH (test code = MCH) 27.1 pg 27.0-31.0 [facility] SoutheastPivqnzvAMDSJXCCEK2808-11-17 12:31:00 Test Item Value Reference Range Interpretation Comments MCHC (test code = MCHC) 32.4 32.0-36.0 [facility] SoutheastWhtxsdtOMPLTEFIZL8566-42-35 12:31:00 Test Item Value Reference Range Interpretation Comments RDW (test code = RDW) 15.0 11.5-14.5 [facility] SoutheastDattwfcPCKVJJXMZD2478-18-32 12:31:00 Test Item Value Reference Range Interpretation Comments Platelet (test code = Platelet) 392 133-450 [facility] SoutheastJblotqcEXGTPVRYNM0060-90-95 12:31:00 Test Item Value Reference Range Interpretation Comments MPV (test code = MPV) 6.8 7.4-10.4 [facility]2022-01-31 12:31:00 Test Item Value Reference Range Interpretation Comments Source Respiratory Nasophrngl Swb Panel PCR (test code = *NA*(10/03/21 6:31 AM) Source Respiratory Panel PCR) [facility]2022-01-31 12:31:00 Test Item Value Reference Range Interpretation Comments Influenza A PCR (test Negative *NA*(10/03/21 code = Influenza A PCR) 6:31 AM) [facility]2022-01-31 12:31:00 Test Item Value Reference Range Interpretation Comments Influenza B PCR (test Negative *NA*(10/03/21 code = Influenza B PCR) 6:31 AM) [facility]2022-01-31 12:31:00 Test Item Value Reference Range Interpretation Comments RSV PCR (test code = Negative *NA*(10/03/21 RSV PCR) 6:31 AM) [facility]LyryctbFRTRYPRLFU8921-74-35 12:31:00 Test Item Value Reference Range Interpretation Comments Vanco Lvl (test code = Vanco Lvl) 15.6 [facility]2022-01-31 12:31:00 Test Item Value Reference Range Interpretation Comments Glucose Lvl (test code = Glucose Lvl) 187 70-99 [facility]2022-01-31 12:31:00 Test Item Value Reference Range Interpretation Comments BUN (test code = BUN) 21 7-22 [place] 500672-01-31 12:31:00 Test Item Value Reference Range Interpretation Comments Creatinine Lvl (test code = Creatinine 0.70 0.50-1.40 Lvl) [place] 500672-01-31 12:31:00 Test Item Value Reference Range Interpretation Comments Sodium Lvl (test code = Sodium Lvl) 142 135-145 [place] 500672-01-31 12:31:00 Test Item Value Reference Range Interpretation Comments Potassium Lvl (test code = Potassium 4.1 3.5-5.1 Lvl) [place] 500672-01-31 12:31:00 Test Item Value Reference Range Interpretation Comments Chloride Lvl (test code = Chloride Lvl) 109 95-109 [place] 500672-01-31 12:31:00 Test Item Value Reference Range Interpretation Comments CO2 (test code = CO2) 24 24-32 [place] 500672-01-31 12:31:00 Test Item Value Reference Range Interpretation Comments Calcium Lvl (test code = Calcium Lvl) 8.6 8.5-10.5 [place] 500672-01-31 12:31:00 Test Item Value Reference Range Interpretation Comments AGAP (test code = AGAP) 13.1 10.0-20.0 [place] 500672-01-31 12:31:00 Test Item Value Reference Range Interpretation Comments eGFR (test code = eGFR) 86 [place] 158842-01-31 12:31:00 Test Item Value Reference Range Interpretation Comments WBC X 10x3 (test code = WBC X 10x3) 20.8 3.7-10.4 [place] 474[address]-01-31 12:31:00 Test Item Value Reference Range Interpretation Comments RBC X 10x6 (test code = RBC X 10x6) 3.93 4.20-5.40 [place] 158842-01-31 12:31:00 Test Item Value Reference Range Interpretation Comments Hgb (test code = Hgb) 10.7 12.0-16.0 [place] 158842-01-31 12:31:00 Test Item Value Reference Range Interpretation Comments Hct (test code = Hct) 32.9 36.0-48.0 [facility] SoutheastAbmsugbOHRQMHMINU2083-40-28 12:31:00 Test Item Value Reference Range Interpretation Comments MCV (test code = MCV) 83.7 80.0-98.0 [facility] SoutheastLlbztjzSWHJTQQOKR8150-70-32 12:31:00 Test Item Value Reference Range Interpretation Comments MCH (test code = MCH) 27.1 pg 27.0-31.0 [facility] SoutheastFlwapenLHWJHWHVSJ1482-51-71 12:31:00 Test Item Value Reference Range Interpretation Comments MCHC (test code = MCHC) 32.4 32.0-36.0 [facility] SoutheastEbddnieQFDMPBIUNR1148-60-46 12:31:00 Test Item Value Reference Range Interpretation Comments RDW (test code = RDW) 15.0 11.5-14.5 [facility] SoutheastZgkimfiPJQTIWMCGH9280-18-23 12:31:00 Test Item Value Reference Range Interpretation Comments Platelet (test code = Platelet) 392 133-450 [facility] SoutheastJcymgxoYJKZSMFOAO8268-74-89 12:31:00 Test Item Value Reference Range Interpretation Comments MPV (test code = MPV) 6.8 7.4-10.4 [facility]2022-01-31 12:31:00 Test Item Value Reference Range Interpretation Comments Source Respiratory Nasophrngl Swb Panel PCR (test code = *NA*(10/03/21 6:31 AM) Source Respiratory Panel PCR) [facility]2022-01-31 12:31:00 Test Item Value Reference Range Interpretation Comments Influenza A PCR (test Negative *NA*(10/03/21 code = Influenza A PCR) 6:31 AM) [facility]2022-01-31 12:31:00 Test Item Value Reference Range Interpretation Comments Influenza B PCR (test Negative *NA*(10/03/21 code = Influenza B PCR) 6:31 AM) [facility]2022-01-31 12:31:00 Test Item Value Reference Range Interpretation Comments RSV PCR (test code = Negative *NA*(10/03/21 RSV PCR) 6:31 AM) [facility] HospitalDgooghqUJRFMGFNER2170-37-61 12:31:00 Test Item Value Reference Range Interpretation Comments Vanco Lvl (test code = Vanco Lvl) 15.6 [place] 500672-01-31 12:31:00 Test Item Value Reference Range Interpretation Comments Glucose Lvl (test code = Glucose Lvl) 187 70-99 [place] 500672-01-31 12:31:00 Test Item Value Reference Range Interpretation Comments BUN (test code = BUN) 21 7-22 [place] 500672-01-31 12:31:00 Test Item Value Reference Range Interpretation Comments Creatinine Lvl (test code = Creatinine 0.70 0.50-1.40 Lvl) [place] 500672-01-31 12:31:00 Test Item Value Reference Range Interpretation Comments Sodium Lvl (test code = Sodium Lvl) 142 135-145 [place] 500672-01-31 12:31:00 Test Item Value Reference Range Interpretation Comments Potassium Lvl (test code = Potassium 4.1 3.5-5.1 Lvl) [place] 500672-01-31 12:31:00 Test Item Value Reference Range Interpretation Comments Chloride Lvl (test code = Chloride Lvl) 109 95-109 [place] 500672-01-31 12:31:00 Test Item Value Reference Range Interpretation Comments CO2 (test code = CO2) 24 24-32 [place] 500672-01-31 12:31:00 Test Item Value Reference Range Interpretation Comments Calcium Lvl (test code = Calcium Lvl) 8.6 8.5-10.5 [place] 500672-01-31 12:31:00 Test Item Value Reference Range Interpretation Comments AGAP (test code = AGAP) 13.1 10.0-20.0 [place] 500672-01-31 12:31:00 Test Item Value Reference Range Interpretation Comments eGFR (test code = eGFR) 86 [place] 158842-01-31 12:31:00 Test Item Value Reference Range Interpretation Comments WBC X 10x3 (test code = WBC X 10x3) 20.8 3.7-10.4 [place] 158842-01-31 12:31:00 Test Item Value Reference Range Interpretation Comments RBC X 10x6 (test code = RBC X 10x6) 3.93 4.20-5.40 [place] 158842-01-31 12:31:00 Test Item Value Reference Range Interpretation Comments Hgb (test code = Hgb) 10.7 12.0-16.0 [facility]trtyeYTAYCTWIFS6413-58-35 12:31:00 Test Item Value Reference Range Interpretation Comments Hct (test code = Hct) 32.9 36.0-48.0 [facility] SoutheastLcnitppPKYDTDNMCC5154-87-91 12:31:00 Test Item Value Reference Range Interpretation Comments MCV (test code = MCV) 83.7 80.0-98.0 [facility] SoutheastHthvjtpNTEHBBLDVY3779-49-22 12:31:00 Test Item Value Reference Range Interpretation Comments MCH (test code = MCH) 27.1 pg 27.0-31.0 [facility] SoutheastJfxpsceRLGVKWDITN2794-61-08 12:31:00 Test Item Value Reference Range Interpretation Comments MCHC (test code = MCHC) 32.4 32.0-36.0 [facility] SoutheastFxujbctREUGDVHSHI3833-21-70 12:31:00 Test Item Value Reference Range Interpretation Comments RDW (test code = RDW) 15.0 11.5-14.5 [facility] SoutheastPsbjkthWGPQNPHYFP9446-10-65 12:31:00 Test Item Value Reference Range Interpretation Comments Platelet (test code = Platelet) 392 133-450 [facility] SoutheastTowujalDDFNGDUJML7938-27-62 12:31:00 Test Item Value Reference Range Interpretation Comments MPV (test code = MPV) 6.8 7.4-10.4 [facility]2022-01-31 12:31:00 Test Item Value Reference Range Interpretation Comments Source Respiratory Nasophrngl Swb Panel PCR (test code = *NA*(10/03/21 6:31 AM) Source Respiratory Panel PCR) [facility]2022-01-31 12:31:00 Test Item Value Reference Range Interpretation Comments Influenza A PCR (test Negative *NA*(10/03/21 code = Influenza A PCR) 6:31 AM) [place] 987352-01-31 12:31:00 Test Item Value Reference Range Interpretation Comments Influenza B PCR (test Negative *NA*(10/03/21 code = Influenza B PCR) 6:31 AM) [facility]2022-01-31 12:31:00 Test Item Value Reference Range Interpretation Comments RSV PCR (test code = Negative *NA*(10/03/21 RSV PCR) 6:31 AM) [facility]ADOCU0411-85-03 12:31:00 Test Item Value Reference Range Interpretation Comments Vanco Lvl (test code = Vanco Lvl) 15.6 [place] 500672-01-31 12:31:00 Test Item Value Reference Range Interpretation Comments Glucose Lvl (test code = Glucose Lvl) 187 70-99 [place] 500672-01-31 12:31:00 Test Item Value Reference Range Interpretation Comments BUN (test code = BUN) 21 7-22 [place] 500672-01-31 12:31:00 Test Item Value Reference Range Interpretation Comments Creatinine Lvl (test code = Creatinine 0.70 0.50-1.40 Lvl) [place] 500672-01-31 12:31:00 Test Item Value Reference Range Interpretation Comments Sodium Lvl (test code = Sodium Lvl) 142 135-145 [place] 500672-01-31 12:31:00 Test Item Value Reference Range Interpretation Comments Potassium Lvl (test code = Potassium 4.1 3.5-5.1 Lvl) [facility]2022-01-31 12:31:00 Test Item Value Reference Range Interpretation Comments Chloride Lvl (test code = Chloride Lvl) 109 95-109 [place] 500672-01-31 12:31:00 Test Item Value Reference Range Interpretation Comments CO2 (test code = CO2) 24 24-32 [place] 500672-01-31 12:31:00 Test Item Value Reference Range Interpretation Comments Calcium Lvl (test code = Calcium Lvl) 8.6 8.5-10.5 [place] 500672-01-31 12:31:00 Test Item Value Reference Range Interpretation Comments AGAP (test code = AGAP) 13.1 10.0-20.0 [place] 500672-01-31 12:31:00 Test Item Value Reference Range Interpretation Comments eGFR (test code = eGFR) 86 [place] 158842-01-31 12:31:00 Test Item Value Reference Range Interpretation Comments WBC X 10x3 (test code = WBC X 10x3) 20.8 3.7-10.4 [place] 158842-01-31 12:31:00 Test Item Value Reference Range Interpretation Comments RBC X 10x6 (test code = RBC X 10x6) 3.93 4.20-5.40 [facility]UzqudldNDJUQIZWPN3442-50-90 12:31:00 Test Item Value Reference Range Interpretation Comments Hgb (test code = Hgb) 10.7 12.0-16.0 [place] 158842-01-31 12:31:00 Test Item Value Reference Range Interpretation Comments Hct (test code = Hct) 32.9 36.0-48.0 [facility] SoutheastEpzdljmDDIVTOIVFQ5765-13-35 12:31:00 Test Item Value Reference Range Interpretation Comments MCV (test code = MCV) 83.7 80.0-98.0 [facility] SoutheastMxribuiDXNEKKWVGX2123-63-82 12:31:00 Test Item Value Reference Range Interpretation Comments MCH (test code = MCH) 27.1 pg 27.0-31.0 [facility]HgdstazZCYIFGNUFQ5632-78-21 12:31:00 Test Item Value Reference Range Interpretation Comments MCHC (test code = MCHC) 32.4 32.0-36.0 [facility] SoutheastAcbcvgiWCQELEPBZI7168-52-97 12:31:00 Test Item Value Reference Range Interpretation Comments RDW (test code = RDW) 15.0 11.5-14.5 [facility] SoutheastLoabcaxBHZIYIYFIP5563-67-71 12:31:00 Test Item Value Reference Range Interpretation Comments Platelet (test code = Platelet) 392 133-450 [facility] SoutheastAclqgjtXLQXVSHYZE2412-30-39 12:31:00 Test Item Value Reference Range Interpretation Comments MPV (test code = MPV) 6.8 7.4-10.4 [facility]2022-01-31 12:31:00 Test Item Value Reference Range Interpretation Comments Source Respiratory Nasophrngl Swb Panel PCR (test code = *NA*(10/03/21 6:31 AM) Source Respiratory Panel PCR) [facility]2022-01-31 12:31:00 Test Item Value Reference Range Interpretation Comments Influenza A PCR (test Negative *NA*(10/03/21 code = Influenza A PCR) 6:31 AM) [facility]2022-01-31 12:31:00 Test Item Value Reference Range Interpretation Comments Influenza B PCR (test Negative *NA*(10/03/21 code = Influenza B PCR) 6:31 AM) [facility] GJGSCFNRKI3627-89-27 12:31:00 Test Item Value Reference Range Interpretation Comments RSV PCR (test code = Negative *NA*(10/03/21 RSV PCR) 6:31 AM) [facility] HospitalPsrplsrZXUMYZKEXK7283-29-80 12:31:00 Test Item Value Reference Range Interpretation Comments Vanco Lvl (test code = Vanco Lvl) 15.6 [facility]2022-01-31 12:31:00 Test Item Value Reference Range Interpretation Comments Glucose Lvl (test code = Glucose Lvl) 187 70-99 [facility]2022-01-31 12:31:00 Test Item Value Reference Range Interpretation Comments BUN (test code = BUN) 21 7-22 [facility]2022-01-31 12:31:00 Test Item Value Reference Range Interpretation Comments Creatinine Lvl (test code = Creatinine 0.70 0.50-1.40 Lvl) [facility]2022-01-31 12:31:00 Test Item Value Reference Range Interpretation Comments Sodium Lvl (test code = Sodium Lvl) 142 135-145 [facility]2022-01-31 12:31:00 Test Item Value Reference Range Interpretation Comments Potassium Lvl (test code = Potassium 4.1 3.5-5.1 Lvl) [facility]2022-01-31 12:31:00 Test Item Value Reference Range Interpretation Comments Chloride Lvl (test code = Chloride Lvl) 109 95-109 [facility]2022-01-31 12:31:00 Test Item Value Reference Range Interpretation Comments CO2 (test code = CO2) 24 24-32 [facility]2022-01-31 12:31:00 Test Item Value Reference Range Interpretation Comments Calcium Lvl (test code = Calcium Lvl) 8.6 8.5-10.5 [facility]2022-01-31 12:31:00 Test Item Value Reference Range Interpretation Comments AGAP (test code = AGAP) 13.1 10.0-20.0 [facility]2022-01-31 12:31:00 Test Item Value Reference Range Interpretation Comments eGFR (test code = eGFR) 86 [facility] SoutheastXitzbxxOWGBANAEBH7661-14-25 12:31:00 Test Item Value Reference Range Interpretation Comments WBC X 10x3 (test code = WBC X 10x3) 20.8 3.7-10.4 [place] 158842-01-31 12:31:00 Test Item Value Reference Range Interpretation Comments RBC X 10x6 (test code = RBC X 10x6) 3.93 4.20-5.40 [place] 158842-01-31 12:31:00 Test Item Value Reference Range Interpretation Comments Hgb (test code = Hgb) 10.7 12.0-16.0 [place] 158842-01-31 12:31:00 Test Item Value Reference Range Interpretation Comments Hct (test code = Hct) 32.9 36.0-48.0 [place] 158842-01-31 12:31:00 Test Item Value Reference Range Interpretation Comments MCV (test code = MCV) 83.7 80.0-98.0 [place] 158842-01-31 12:31:00 Test Item Value Reference Range Interpretation Comments MCH (test code = MCH) 27.1 pg 27.0-31.0 [place] 158842-01-31 12:31:00 Test Item Value Reference Range Interpretation Comments MCHC (test code = MCHC) 32.4 32.0-36.0 [facility] SoutheastVtioqftIOLQPXTPQN9664-96-21 12:31:00 Test Item Value Reference Range Interpretation Comments RDW (test code = RDW) 15.0 11.5-14.5 [place] 158842-01-31 12:31:00 Test Item Value Reference Range Interpretation Comments Platelet (test code = Platelet) 392 133-450 [place] 158842-01-31 12:31:00 Test Item Value Reference Range Interpretation Comments MPV (test code = MPV) 6.8 7.4-10.4 [place] 987352-01-31 12:31:00 Test Item Value Reference Range Interpretation Comments Source Respiratory Nasophrngl Swb Panel PCR (test code = *NA*(10/03/21 6:31 AM) Source Respiratory Panel PCR) [facility]2022-01-31 12:31:00 Test Item Value Reference Range Interpretation Comments Influenza A PCR (test Negative *NA*(10/03/21 code = Influenza A PCR) 6:31 AM) [facility]2022-01-31 12:31:00 Test Item Value Reference Range Interpretation Comments Influenza B PCR (test Negative *NA*(10/03/21 code = Influenza B PCR) 6:31 AM) [place] 987352-01-31 12:31:00 Test Item Value Reference Range Interpretation Comments RSV PCR (test code = Negative *NA*(10/03/21 RSV PCR) 6:31 AM) [facility] HospitalAonouluBKJNIEQPMH4334-99-61 12:31:00 Test Item Value Reference Range Interpretation Comments Vanco Lvl (test code = Vanco Lvl) 15.6 [facility]2022-01-31 12:31:00 Test Item Value Reference Range Interpretation Comments Glucose Lvl (test code = Glucose Lvl) 187 70-99 [facility]2022-01-31 12:31:00 Test Item Value Reference Range Interpretation Comments BUN (test code = BUN) 21 03-24 [facility]2022-01-31 12:31:00 Test Item Value Reference Range Interpretation Comments Creatinine Lvl (test code = Creatinine 0.70 0.50-1.40 Lvl) [facility]2022-01-31 12:31:00 Test Item Value Reference Range Interpretation Comments Sodium Lvl (test code = Sodium Lvl) 142 135-145 [facility]2022-01-31 12:31:00 Test Item Value Reference Range Interpretation Comments Potassium Lvl (test code = Potassium 4.1 3.5-5.1 Lvl) [facility]2022-01-31 12:31:00 Test Item Value Reference Range Interpretation Comments Chloride Lvl (test code = Chloride Lvl) 109 95-109 [facility]2022-01-31 12:31:00 Test Item Value Reference Range Interpretation Comments CO2 (test code = CO2) [place] 500672-01-31 12:31:00 Test Item Value Reference Range Interpretation Comments Calcium Lvl (test code = Calcium Lvl) 8.6 8.5-10.5 [facility]2022-01-31 12:31:00 Test Item Value Reference Range Interpretation Comments AGAP (test code = AGAP) 13.1 10.0-20.0 [facility] [id number] 12:31:00 Test Item Value Reference Range Interpretation Comments eGFR (test code = eGFR) 86 [facility] SoutheastQvdzkllPWTQOJSXIU9945-80-67 12:31:00 Test Item Value Reference Range Interpretation Comments WBC X 10x3 (test code = WBC X 10x3) 20.8 3.7-10.4 [facility] SoutheastYpaguqfABFFVHKYLJ5351-65-88 12:31:00 Test Item Value Reference Range Interpretation Comments RBC X 10x6 (test code = RBC X 10x6) 3.93 4.20-5.40 [facility] SoutheastZvznygaVRMQXPHAPN4982-40-54 12:31:00 Test Item Value Reference Range Interpretation Comments Hgb (test code = Hgb) 10.7 12.0-16.0 [facility] SoutheastGivlqaqQORQFFMNLT1410-35-31 12:31:00 Test Item Value Reference Range Interpretation Comments Hct (test code = Hct) 32.9 36.0-48.0 [facility] SoutheastHlhuryeLIMSJWGUTU0685-10-80 12:31:00 Test Item Value Reference Range Interpretation Comments MCV (test code = MCV) 83.7 80.0-98.0 [facility] SoutheastTsfbevdKKDPRGAUPB6543-96-84 12:31:00 Test Item Value Reference Range Interpretation Comments MCH (test code = MCH) 27.1 pg 27.0-31.0 [facility] SoutheastTzxlkahLHPWNLFZGL7289-95-14 12:31:00 Test Item Value Reference Range Interpretation Comments MCHC (test code = MCHC) 32.4 32.0-36.0 [facility] SoutheastUdrzvsfDRIXNHHZXI5980-45-39 12:31:00 Test Item Value Reference Range Interpretation Comments RDW (test code = RDW) 15.0 11.5-14.5 [facility] SoutheastYakmlcyDOCLEWPKJK4427-43-03 12:31:00 Test Item Value Reference Range Interpretation Comments Platelet (test code = Platelet) 392 133-450 [facility] SoutheastNmhzfhuKYFLGOCLJK3560-70-25 12:31:00 Test Item Value Reference Range Interpretation Comments MPV (test code = MPV) 6.8 7.4-10.4 [facility] YXMVWNCEXZ1759-30-08 12:31:00 Test Item Value Reference Range Interpretation Comments Source Respiratory Nasophrngl Swb Panel PCR (test code = *NA*(10/03/21 6:31 AM) Source Respiratory Panel PCR) [facility]2022-01-31 12:31:00 Test Item Value Reference Range Interpretation Comments Influenza A PCR (test Negative *NA*(10/03/21 code = Influenza A PCR) 6:31 AM) [place] 987352-01-31 12:31:00 Test Item Value Reference Range Interpretation Comments Influenza B PCR (test Negative *NA*(10/03/21 code = Influenza B PCR) 6:31 AM) [place] 987352-01-31 12:31:00 Test Item Value Reference Range Interpretation Comments RSV PCR (test code = Negative *NA*(10/03/21 RSV PCR) 6:31 AM) [facility] HospitalPxbzgapQLLDFGFINI9666-24-63 12:31:00 Test Item Value Reference Range Interpretation Comments Vanco Lvl (test code = Vanco Lvl) 15.6 [facility]2022-01-31 12:31:00 Test Item Value Reference Range Interpretation Comments Glucose Lvl (test code = Glucose Lvl) 187 70-99 [facility]2022-01-31 12:31:00 Test Item Value Reference Range Interpretation Comments BUN (test code = BUN) 21 7- [facility]2022-01-31 12:31:00 Test Item Value Reference Range Interpretation Comments Creatinine Lvl (test code = Creatinine 0.70 0.50-1.40 Lvl) [facility]2022-01-31 12:31:00 Test Item Value Reference Range Interpretation Comments Sodium Lvl (test code = Sodium Lvl) 142 135-145 [facility]2022-01-31 12:31:00 Test Item Value Reference Range Interpretation Comments Potassium Lvl (test code = Potassium 4.1 3.5-5.1 Lvl) [facility]2022-01-31 12:31:00 Test Item Value Reference Range Interpretation Comments Chloride Lvl (test code = Chloride Lvl) 109 95-109 [place] 500672-01-31 12:31:00 Test Item Value Reference Range Interpretation Comments CO2 (test code = CO2) 24 [place] 500672-01-31 12:31:00 Test Item Value Reference Range Interpretation Comments Calcium Lvl (test code = Calcium Lvl) 8.6 8.5-10.5 [place] 500672-01-31 12:31:00 Test Item Value Reference Range Interpretation Comments AGAP (test code = AGAP) 13.1 10.0-20.0 [place] 500672-01-31 12:31:00 Test Item Value Reference Range Interpretation Comments eGFR (test code = eGFR) 86 [facility] SoutheastWpqahpfBBKHAGPVQZ6273-43-17 12:31:00 Test Item Value Reference Range Interpretation Comments WBC X 10x3 (test code = WBC X 10x3) 20.8 3.7-10.4 [place] 158842-01-31 12:31:00 Test Item Value Reference Range Interpretation Comments RBC X 10x6 (test code = RBC X 10x6) 3.93 4.20-5.40 [place] 158842-01-31 12:31:00 Test Item Value Reference Range Interpretation Comments Hgb (test code = Hgb) 10.7 12.0-16.0 [place] 158842-01-31 12:31:00 Test Item Value Reference Range Interpretation Comments Hct (test code = Hct) 32.9 36.0-48.0 [place] 158842-01-31 12:31:00 Test Item Value Reference Range Interpretation Comments MCV (test code = MCV) 83.7 80.0-98.0 [place] 158842-01-31 12:31:00 Test Item Value Reference Range Interpretation Comments MCH (test code = MCH) 27.1 pg 27.0-31.0 [place] 158842-01-31 12:31:00 Test Item Value Reference Range Interpretation Comments MCHC (test code = MCHC) 32.4 32.0-36.0 [place] 158842-01-31 12:31:00 Test Item Value Reference Range Interpretation Comments RDW (test code = RDW) 15.0 11.5-14.5 [place] 158842-01-31 12:31:00 Test Item Value Reference Range Interpretation Comments Platelet (test code = Platelet) 392 133-450 [facility] SoutheastFekrdnhUZSJHANTBU8358-21-65 12:31:00 Test Item Value Reference Range Interpretation Comments MPV (test code = MPV) 6.8 7.4-10.4 [facility] [id number] 12:31:00 Test Item Value Reference Range Interpretation Comments Source Respiratory Nasophrngl Swb Panel PCR (test code = *NA*(10/03/21 6:31 AM) Source Respiratory Panel PCR) [facility] [id number] 06:01:00 Test Item Value Reference Range Interpretation Comments Source Strep (test code Urine *NA*(10/03/21 = Source Strep) 12:01 AM) [facility] [id number] 06:01:00 Test Item Value Reference Range Interpretation Comments Strep pneumoniae Ag Negative (10/03/21 (test code = Strep 12:01 AM) pneumoniae Ag) [facility] [id number] 06:01:00 Test Item Value Reference Range Interpretation Comments Source Strep (test code Urine *NA*(10/03/21 = Source Strep) 12:01 AM) [facility] [id number] 06:01:00 Test Item Value Reference Range Interpretation Comments Strep pneumoniae Ag Negative (10/03/21 (test code = Strep 12:01 AM) pneumoniae Ag) [facility] [id number] 06:01:00 Test Item Value Reference Range Interpretation Comments Source Strep (test code Urine *NA*(10/03/21 = Source Strep) 12:01 AM) [facility] [id number] 06:01:00 Test Item Value Reference Range Interpretation Comments Strep pneumoniae Ag Negative (10/03/21 (test code = Strep 12:01 AM) pneumoniae Ag) [facility] [id number] 06:01:00 Test Item Value Reference Range Interpretation Comments Source Strep (test code Urine *NA*(10/03/21 = Source Strep) 12:01 AM) [facility] [id number] 06:01:00 Test Item Value Reference Range Interpretation Comments Strep pneumoniae Ag Negative (10/03/21 (test code = Strep 12:01 AM) pneumoniae Ag) [facility] [id number] 06:01:00 Test Item Value Reference Range Interpretation Comments Source Strep (test code Urine *NA*(10/03/21 = Source Strep) 12:01 AM) [facility] [id number] 06:01:00 Test Item Value Reference Range Interpretation Comments Strep pneumoniae Ag Negative (10/03/21 (test code = Strep 12:01 AM) pneumoniae Ag) [facility] [id number] 06:01:00 Test Item Value Reference Range Interpretation Comments Source Strep (test code Urine *NA*(10/03/21 = Source Strep) 12:01 AM) [facility] - [id number] 06:01:00 Test Item Value Reference Range Interpretation Comments Strep pneumoniae Ag Negative (10/03/21 (test code = Strep 12:01 AM) pneumoniae Ag) [facility] [id number] 06:01:00 Test Item Value Reference Range Interpretation Comments Source Strep (test code Urine *NA*(10/03/21 = Source Strep) 12:01 AM) [facility] - [id number] 06:01:00 Test Item Value Reference Range Interpretation Comments Strep pneumoniae Ag Negative (10/03/21 (test code = Strep 12:01 AM) pneumoniae Ag) [facility] [id number] 06:01:00 Test Item Value Reference Range Interpretation Comments Source Strep (test code Urine *NA*(10/03/21 = Source Strep) 12:01 AM) [facility] [id number] 06:01:00 Test Item Value Reference Range Interpretation Comments Strep pneumoniae Ag Negative (10/03/21 (test code = Strep 12:01 AM) pneumoniae Ag) [facility] [id number] 06:01:00 Test Item Value Reference Range Interpretation Comments Source Strep (test code Urine *NA*(10/03/21 = Source Strep) 12:01 AM) [facility] [id number] 06:01:00 Test Item Value Reference Range Interpretation Comments Strep pneumoniae Ag Negative (10/03/21 (test code = Strep 12:01 AM) pneumoniae Ag) [facility] [id number] 06:01:00 Test Item Value Reference Range Interpretation Comments Source Strep (test code Urine *NA*(10/03/21 = Source Strep) 12:01 AM) [facility] [id number] 06:01:00 Test Item Value Reference Range Interpretation Comments Strep pneumoniae Ag Negative (10/03/21 (test code = Strep 12:01 AM) pneumoniae Ag) [facility] [id number] 06:01:00 Test Item Value Reference Range Interpretation Comments Source Strep (test code Urine *NA*(10/03/21 = Source Strep) 12:01 AM) [facility] [id number] 06:01:00 Test Item Value Reference Range Interpretation Comments Strep pneumoniae Ag Negative (10/03/21 (test code = Strep 12:01 AM) pneumoniae Ag) [facility] [id number] 06:01:00 Test Item Value Reference Range Interpretation Comments Source Strep (test code Urine *NA*(10/03/21 = Source Strep) 12:01 AM) [facility] [id number] 06:01:00 Test Item Value Reference Range Interpretation Comments Strep pneumoniae Ag Negative (10/03/21 (test code = Strep 12:01 AM) pneumoniae Ag) [facility] [id number] 16:23:00 Test Item Value Reference Range Interpretation Comments MRSA by PCR (test Negative (10/02/21 10:23 code = MRSA by PCR) AM) [facility] [id number] 16:23:00 Test Item Value Reference Range Interpretation Comments MRSA by PCR (test Negative (10/02/21 10:23 code = MRSA by PCR) AM) [facility] [id number] 16:23:00 Test Item Value Reference Range Interpretation Comments MRSA by PCR (test Negative (10/02/21 10:23 code = MRSA by PCR) AM) [facility] [id number] 16:23:00 Test Item Value Reference Range Interpretation Comments MRSA by PCR (test Negative (10/02/21 10:23 code = MRSA by PCR) AM) [facility] [id number] 16:23:00 Test Item Value Reference Range Interpretation Comments MRSA by PCR (test Negative (10/02/21 10:23 code = MRSA by PCR) AM) [facility] - [id number] 16:23:00 Test Item Value Reference Range Interpretation Comments MRSA by PCR (test Negative (10/02/21 10:23 code = MRSA by PCR) AM) [facility]2022-01-30 16:23:00 Test Item Value Reference Range Interpretation Comments MRSA by PCR (test Negative (10/02/21 10:23 code = MRSA by PCR) AM) [facility]2022-01-30 16:23:00 Test Item Value Reference Range Interpretation Comments MRSA by PCR (test Negative (10/02/21 10:23 code = MRSA by PCR) AM) [facility]2022-01-30 16:23:00 Test Item Value Reference Range Interpretation Comments MRSA by PCR (test Negative (10/02/21 10:23 code = MRSA by PCR) AM) [facility]2022-01-30 16:23:00 Test Item Value Reference Range Interpretation Comments MRSA by PCR (test Negative (10/02/21 10:23 code = MRSA by PCR) AM) [facility]2022-01-30 16:23:00 Test Item Value Reference Range Interpretation Comments MRSA by PCR (test Negative (10/02/21 10:23 code = MRSA by PCR) AM) [facility]2022-01-30 16:23:00 Test Item Value Reference Range Interpretation Comments MRSA by PCR (test Negative (10/02/21 10:23 code = MRSA by PCR) AM) [facility]2022-01-30 11:31:00 Test Item Value Reference Range Interpretation Comments Creatinine Lvl (test code = Creatinine 0.80 0.50-1.40 Lvl) [facility]2022-01-30 11:31:00 Test Item Value Reference Range Interpretation Comments Sodium Lvl (test code = Sodium Lvl) 145 135-145 [facility]2022-01-30 11:31:00 Test Item Value Reference Range Interpretation Comments Potassium Lvl (test code = Potassium 3.8 3.5-5.1 Lvl) [place] 500672-01-30 11:31:00 Test Item Value Reference Range Interpretation Comments Glucose Lvl (test code = Glucose Lvl) 160 70-99 [place] 500672-01-30 11:31:00 Test Item Value Reference Range Interpretation Comments BUN (test code = BUN) 16 7-22 [place] 500672-01-30 11:31:00 Test Item Value Reference Range Interpretation Comments Creatinine Lvl (test code = Creatinine 0.80 0.50-1.40 Lvl) [place] 500672-01-30 11:31:00 Test Item Value Reference Range Interpretation Comments Sodium Lvl (test code = Sodium Lvl) 145 135-145 [place] 500672-01-30 11:31:00 Test Item Value Reference Range Interpretation Comments Potassium Lvl (test code = Potassium 3.8 3.5-5.1 Lvl) [place] 500672-01-30 11:31:00 Test Item Value Reference Range Interpretation Comments Chloride Lvl (test code = Chloride Lvl) 111 95-109 [place] 500672-01-30 11:31:00 Test Item Value Reference Range Interpretation Comments Chloride Lvl (test code = Chloride Lvl) 111 95-109 [place] 500672-01-30 11:31:00 Test Item Value Reference Range Interpretation Comments CO2 (test code = CO2) 26 24-32 [place] 500672-01-30 11:31:00 Test Item Value Reference Range Interpretation Comments Calcium Lvl (test code = Calcium Lvl) 8.9 8.5-10.5 [place] 500672-01-30 11:31:00 Test Item Value Reference Range Interpretation Comments AGAP (test code = AGAP) 11.8 10.0-20.0 [place] 500672-01-30 11:31:00 Test Item Value Reference Range Interpretation Comments eGFR (test code = eGFR) 73 [place] 158842-01-30 11:31:00 Test Item Value Reference Range Interpretation Comments WBC X 10x3 (test code = WBC X 10x3) 21.5 3.7-10.4 [place] 158842-01-30 11:31:00 Test Item Value Reference Range Interpretation Comments RBC X 10x6 (test code = RBC X 10x6) 3.71 4.20-5.40 [place] 158842-01-30 11:31:00 Test Item Value Reference Range Interpretation Comments Hgb (test code = Hgb) 10.3 12.0-16.0 [place] 158842-01-30 11:31:00 Test Item Value Reference Range Interpretation Comments Hct (test code = Hct) 31.0 36.0-48.0 [place] 158842-01-30 11:31:00 Test Item Value Reference Range Interpretation Comments MCV (test code = MCV) 83.6 80.0-98.0 [facility]2022-01-30 11:31:00 Test Item Value Reference Range Interpretation Comments CO2 (test code = CO2) 26 24-32 [place] 158842-01-30 11:31:00 Test Item Value Reference Range Interpretation Comments MCH (test code = MCH) 27.8 pg 27.0-31.0 [facility]68[facility]81 11:31:00 Test Item Value Reference Range Interpretation Comments MCHC (test code = MCHC) 33.3 32.0-36.0 [facility]LznwtyfXNUCHPICOO7538-71-42 11:31:00 Test Item Value Reference Range Interpretation Comments RDW (test code = RDW) 14.9 11.5-14.5 [place] 158842-01-30 11:31:00 Test Item Value Reference Range Interpretation Comments Platelet (test code = Platelet) 365 133-450 [facility]LnrwkmwWVOLFITGEK4428-21-82 11:31:00 Test Item Value Reference Range Interpretation Comments MPV (test code = MPV) 7.3 7.4-10.4 [place] 500672-01-30 11:31:00 Test Item Value Reference Range Interpretation Comments Calcium Lvl (test code = Calcium Lvl) 8.9 8.5-10.5 [place] 500672-01-30 11:31:00 Test Item Value Reference Range Interpretation Comments AGAP (test code = AGAP) 11.8 10.0-20.0 [facility]2022-01-30 11:31:00 Test Item Value Reference Range Interpretation Comments eGFR (test code = eGFR) 73 [facility]JosvaamBEYZESOHKD6136-68-56 11:31:00 Test Item Value Reference Range Interpretation Comments WBC X 10x3 (test code = WBC X 10x3) 21.5 3.7-10.4 [place] 158842-01-30 11:31:00 Test Item Value Reference Range Interpretation Comments RBC X 10x6 (test code = RBC X 10x6) 3.71 4.20-5.40 [place] 158842-01-30 11:31:00 Test Item Value Reference Range Interpretation Comments Hgb (test code = Hgb) 10.3 12.0-16.0 [place] [address]-01-30 11:31:00 Test Item Value Reference Range Interpretation Comments Hct (test code = Hct) 31.0 36.0-48.0 [place] 158842-01-30 11:31:00 Test Item Value Reference Range Interpretation Comments MCV (test code = MCV) 83.6 80.0-98.0 [place] 158842-01-30 11:31:00 Test Item Value Reference Range Interpretation Comments MCH (test code = MCH) 27.8 pg 27.0-31.0 [facility]ZscunrhZUYIRUVMKV2768-78-69 11:31:00 Test Item Value Reference Range Interpretation Comments MCHC (test code = MCHC) 33.3 32.0-36.0 [place] 158842-01-30 11:31:00 Test Item Value Reference Range Interpretation Comments RDW (test code = RDW) 14.9 11.5-14.5 [place] 158842-01-30 11:31:00 Test Item Value Reference Range Interpretation Comments Platelet (test code = Platelet) 365 133-450 [facility]MrqkeluGLWIGRFFCR3040-12-69 11:31:00 Test Item Value Reference Range Interpretation Comments MPV (test code = MPV) 7.3 7.4-10.4 [facility]2022-01-30 11:31:00 Test Item Value Reference Range Interpretation Comments Glucose Lvl (test code = Glucose Lvl) 160 70-99 [facility]2022-01-30 11:31:00 Test Item Value Reference Range Interpretation Comments BUN (test code = BUN) 16 7-22 [place] 500672-01-30 11:31:00 Test Item Value Reference Range Interpretation Comments Creatinine Lvl (test code = Creatinine 0.80 0.50-1.40 Lvl) [place] 500672-01-30 11:31:00 Test Item Value Reference Range Interpretation Comments Sodium Lvl (test code = Sodium Lvl) 145 135-145 [place] 500672-01-30 11:31:00 Test Item Value Reference Range Interpretation Comments Potassium Lvl (test code = Potassium 3.8 3.5-5.1 Lvl) [place] 500672-01-30 11:31:00 Test Item Value Reference Range Interpretation Comments Chloride Lvl (test code = Chloride Lvl) 111 95-109 [place] 500672-01-30 11:31:00 Test Item Value Reference Range Interpretation Comments CO2 (test code = CO2) 26 24-32 [place] 500672-01-30 11:31:00 Test Item Value Reference Range Interpretation Comments Calcium Lvl (test code = Calcium Lvl) 8.9 8.5-10.5 [place] 500672-01-30 11:31:00 Test Item Value Reference Range Interpretation Comments AGAP (test code = AGAP) 11.8 10.0-20.0 [place] 500672-01-30 11:31:00 Test Item Value Reference Range Interpretation Comments eGFR (test code = eGFR) 73 [place] 158842-01-30 11:31:00 Test Item Value Reference Range Interpretation Comments WBC X 10x3 (test code = WBC X 10x3) 21.5 3.7-10.4 [place] 158842-01-30 11:31:00 Test Item Value Reference Range Interpretation Comments RBC X 10x6 (test code = RBC X 10x6) 3.71 4.20-5.40 [place] 158842-01-30 11:31:00 Test Item Value Reference Range Interpretation Comments Hgb (test code = Hgb) 10.3 12.0-16.0 [place] 158842-01-30 11:31:00 Test Item Value Reference Range Interpretation Comments Hct (test code = Hct) 31.0 36.0-48.0 [place] 158842-01-30 11:31:00 Test Item Value Reference Range Interpretation Comments MCV (test code = MCV) 83.6 80.0-98.0 [place] 158842-01-30 11:31:00 Test Item Value Reference Range Interpretation Comments MCH (test code = MCH) 27.8 pg 27.0-31.0 [place] 158842-01-30 11:31:00 Test Item Value Reference Range Interpretation Comments MCHC (test code = MCHC) 33.3 32.0-36.0 [place] 158842-01-30 11:31:00 Test Item Value Reference Range Interpretation Comments RDW (test code = RDW) 14.9 11.5-14.5 [place] 158842-01-30 11:31:00 Test Item Value Reference Range Interpretation Comments Platelet (test code = Platelet) 365 133-450 [place] 158842-01-30 11:31:00 Test Item Value Reference Range Interpretation Comments MPV (test code = MPV) 7.3 7.4-10.4 [place] 500672-01-30 11:31:00 Test Item Value Reference Range Interpretation Comments Glucose Lvl (test code = Glucose Lvl) 160 70-99 [place] 500672-01-30 11:31:00 Test Item Value Reference Range Interpretation Comments BUN (test code = BUN) 16 7-22 [place] 500672-01-30 11:31:00 Test Item Value Reference Range Interpretation Comments Creatinine Lvl (test code = Creatinine 0.80 0.50-1.40 Lvl) [place] 500672-01-30 11:31:00 Test Item Value Reference Range Interpretation Comments Sodium Lvl (test code = Sodium Lvl) 145 135-145 [place] 500672-01-30 11:31:00 Test Item Value Reference Range Interpretation Comments Potassium Lvl (test code = Potassium 3.8 3.5-5.1 Lvl) [place] 500672-01-30 11:31:00 Test Item Value Reference Range Interpretation Comments Chloride Lvl (test code = Chloride Lvl) 111 95-109 [place] 500672-01-30 11:31:00 Test Item Value Reference Range Interpretation Comments CO2 (test code = CO2) 24-32 [facility]2022-01-30 11:31:00 Test Item Value Reference Range Interpretation Comments Calcium Lvl (test code = Calcium Lvl) 8.9 8.5-10.5 [facility]2022-01-30 11:31:00 Test Item Value Reference Range Interpretation Comments AGAP (test code = AGAP) 11.8 10.0-20.0 [facility]2022-01-30 11:31:00 Test Item Value Reference Range Interpretation Comments eGFR (test code = eGFR) 73 [facility]CxqtricELQYGTXSZF1501-31-27 11:31:00 Test Item Value Reference Range Interpretation Comments WBC X 10x3 (test code = WBC X 10x3) 21.5 3.7-10.4 [place] 158842-01-30 11:31:00 Test Item Value Reference Range Interpretation Comments RBC X 10x6 (test code = RBC X 10x6) 3.71 4.20-5.40 [facility]DbzhbtfTEYUXQKQYF3152-67-92 11:31:00 Test Item Value Reference Range Interpretation Comments Hgb (test code = Hgb) 10.3 12.0-16.0 [facility] SoutheastKyjrynjFVFUGMAQBU3760-24-97 11:31:00 Test Item Value Reference Range Interpretation Comments Hct (test code = Hct) 31.0 36.0-48.0 [facility] SoutheastWzftveoNPOJCTCKVG4635-60-42 11:31:00 Test Item Value Reference Range Interpretation Comments MCV (test code = MCV) 83.6 80.0-98.0 [place] 158842-01-30 11:31:00 Test Item Value Reference Range Interpretation Comments MCH (test code = MCH) 27.8 pg 27.0-31.0 [place] 158842-01-30 11:31:00 Test Item Value Reference Range Interpretation Comments MCHC (test code = MCHC) 33.3 32.0-36.0 [place] 158842-01-30 11:31:00 Test Item Value Reference Range Interpretation Comments RDW (test code = RDW) 14.9 11.5-14.5 [place] 158842-01-30 11:31:00 Test Item Value Reference Range Interpretation Comments Platelet (test code = Platelet) 365 133-450 [place] 158842-01-30 11:31:00 Test Item Value Reference Range Interpretation Comments MPV (test code = MPV) 7.3 7.4-10.4 [place] 500672-01-30 11:31:00 Test Item Value Reference Range Interpretation Comments Glucose Lvl (test code = Glucose Lvl) 160 70-99 [place] 500672-01-30 11:31:00 Test Item Value Reference Range Interpretation Comments BUN (test code = BUN) 16 7-22 [place] 500672-01-30 11:31:00 Test Item Value Reference Range Interpretation Comments Creatinine Lvl (test code = Creatinine 0.80 0.50-1.40 Lvl) [place] 500672-01-30 11:31:00 Test Item Value Reference Range Interpretation Comments Sodium Lvl (test code = Sodium Lvl) 145 135-145 [place] 500672-01-30 11:31:00 Test Item Value Reference Range Interpretation Comments Potassium Lvl (test code = Potassium 3.8 3.5-5.1 Lvl) [place] 500672-01-30 11:31:00 Test Item Value Reference Range Interpretation Comments Chloride Lvl (test code = Chloride Lvl) 111 95-109 [place] 500672-01-30 11:31:00 Test Item Value Reference Range Interpretation Comments CO2 (test code = CO2) 26 24-32 [place] 500672-01-30 11:31:00 Test Item Value Reference Range Interpretation Comments Calcium Lvl (test code = Calcium Lvl) 8.9 8.5-10.5 [place] 500672-01-30 11:31:00 Test Item Value Reference Range Interpretation Comments AGAP (test code = AGAP) 11.8 10.0-20.0 [place] 500672-01-30 11:31:00 Test Item Value Reference Range Interpretation Comments eGFR (test code = eGFR) 73 [place] 158842-01-30 11:31:00 Test Item Value Reference Range Interpretation Comments WBC X 10x3 (test code = WBC X 10x3) 21.5 3.7-10.4 [place] 158842-01-30 11:31:00 Test Item Value Reference Range Interpretation Comments RBC X 10x6 (test code = RBC X 10x6) 3.71 4.20-5.40 [place] 158842-01-30 11:31:00 Test Item Value Reference Range Interpretation Comments Hgb (test code = Hgb) 10.3 12.0-16.0 [place] 158842-01-30 11:31:00 Test Item Value Reference Range Interpretation Comments Hct (test code = Hct) 31.0 36.0-48.0 [place] 158842-01-30 11:31:00 Test Item Value Reference Range Interpretation Comments MCV (test code = MCV) 83.6 80.0-98.0 [place] 158842-01-30 11:31:00 Test Item Value Reference Range Interpretation Comments MCH (test code = MCH) 27.8 pg 27.0-31.0 [place] 158842-01-30 11:31:00 Test Item Value Reference Range Interpretation Comments MCHC (test code = MCHC) 33.3 32.0-36.0 [place] 158842-01-30 11:31:00 Test Item Value Reference Range Interpretation Comments RDW (test code = RDW) 14.9 11.5-14.5 [place] 158842-01-30 11:31:00 Test Item Value Reference Range Interpretation Comments Platelet (test code = Platelet) 365 133-450 [facility] SoutheastDdztiqjWKCEWAZDFB6736-92-09 11:31:00 Test Item Value Reference Range Interpretation Comments MPV (test code = MPV) 7.3 7.4-10.4 [facility]2022-01-30 11:31:00 Test Item Value Reference Range Interpretation Comments Glucose Lvl (test code = Glucose Lvl) 160 70-99 [place] 500672-01-30 11:31:00 Test Item Value Reference Range Interpretation Comments BUN (test code = BUN) 16 7-22 [place] 500672-01-30 11:31:00 Test Item Value Reference Range Interpretation Comments Creatinine Lvl (test code = Creatinine 0.80 0.50-1.40 Lvl) [place] 500672-01-30 11:31:00 Test Item Value Reference Range Interpretation Comments Sodium Lvl (test code = Sodium Lvl) 145 135-145 [place] 500672-01-30 11:31:00 Test Item Value Reference Range Interpretation Comments Potassium Lvl (test code = Potassium 3.8 3.5-5.1 Lvl) [place] 500672-01-30 11:31:00 Test Item Value Reference Range Interpretation Comments Chloride Lvl (test code = Chloride Lvl) 111 95-109 [place] 500672-01-30 11:31:00 Test Item Value Reference Range Interpretation Comments CO2 (test code = CO2) 26 24-32 [place] 500672-01-30 11:31:00 Test Item Value Reference Range Interpretation Comments Calcium Lvl (test code = Calcium Lvl) 8.9 8.5-10.5 [place] 500672-01-30 11:31:00 Test Item Value Reference Range Interpretation Comments AGAP (test code = AGAP) 11.8 10.0-20.0 [place] 500672-01-30 11:31:00 Test Item Value Reference Range Interpretation Comments eGFR (test code = eGFR) 73 [place] 158842-01-30 11:31:00 Test Item Value Reference Range Interpretation Comments WBC X 10x3 (test code = WBC X 10x3) 21.5 3.7-10.4 [place] 158842-01-30 11:31:00 Test Item Value Reference Range Interpretation Comments RBC X 10x6 (test code = RBC X 10x6) 3.71 4.20-5.40 [place] 158842-01-30 11:31:00 Test Item Value Reference Range Interpretation Comments Hgb (test code = Hgb) 10.3 12.0-16.0 [place] 158842-01-30 11:31:00 Test Item Value Reference Range Interpretation Comments Hct (test code = Hct) 31.0 36.0-48.0 [place] [address]-01-30 11:31:00 Test Item Value Reference Range Interpretation Comments MCV (test code = MCV) 83.6 80.0-98.0 [place] 158842-01-30 11:31:00 Test Item Value Reference Range Interpretation Comments MCH (test code = MCH) 27.8 pg 27.0-31.0 [place] 158842-01-30 11:31:00 Test Item Value Reference Range Interpretation Comments MCHC (test code = MCHC) 33.3 32.0-36.0 [place] 158842-01-30 11:31:00 Test Item Value Reference Range Interpretation Comments RDW (test code = RDW) 14.9 11.5-14.5 [place] 158842-01-30 11:31:00 Test Item Value Reference Range Interpretation Comments Platelet (test code = Platelet) 365 133-450 [place] 158842-01-30 11:31:00 Test Item Value Reference Range Interpretation Comments MPV (test code = MPV) 7.3 7.4-10.4 [place] 500672-01-30 11:31:00 Test Item Value Reference Range Interpretation Comments Glucose Lvl (test code = Glucose Lvl) 160 70-99 [facility]2022-01-30 11:31:00 Test Item Value Reference Range Interpretation Comments BUN (test code = BUN) 16 7-22 [place] 500672-01-30 11:31:00 Test Item Value Reference Range Interpretation Comments Creatinine Lvl (test code = Creatinine 0.80 0.50-1.40 Lvl) [facility]2022-01-30 11:31:00 Test Item Value Reference Range Interpretation Comments Sodium Lvl (test code = Sodium Lvl) 145 135-145 [place] 500672-01-30 11:31:00 Test Item Value Reference Range Interpretation Comments Potassium Lvl (test code = Potassium 3.8 3.5-5.1 Lvl) [place] 500672-01-30 11:31:00 Test Item Value Reference Range Interpretation Comments Chloride Lvl (test code = Chloride Lvl) 111 95-109 [place] 500672-01-30 11:31:00 Test Item Value Reference Range Interpretation Comments CO2 (test code = CO2) 26 24-32 [place] 500672-01-30 11:31:00 Test Item Value Reference Range Interpretation Comments Calcium Lvl (test code = Calcium Lvl) 8.9 8.5-10.5 [place] 500672-01-30 11:31:00 Test Item Value Reference Range Interpretation Comments AGAP (test code = AGAP) 11.8 10.0-20.0 [place] 500672-01-30 11:31:00 Test Item Value Reference Range Interpretation Comments eGFR (test code = eGFR) 73 [place] 158842-01-30 11:31:00 Test Item Value Reference Range Interpretation Comments WBC X 10x3 (test code = WBC X 10x3) 21.5 3.7-10.4 [place] 158842-01-30 11:31:00 Test Item Value Reference Range Interpretation Comments RBC X 10x6 (test code = RBC X 10x6) 3.71 4.20-5.40 [place] 158842-01-30 11:31:00 Test Item Value Reference Range Interpretation Comments Hgb (test code = Hgb) 10.3 12.0-16.0 [place] 158842-01-30 11:31:00 Test Item Value Reference Range Interpretation Comments Hct (test code = Hct) 31.0 36.0-48.0 [place] 158842-01-30 11:31:00 Test Item Value Reference Range Interpretation Comments MCV (test code = MCV) 83.6 80.0-98.0 [place] 158842-01-30 11:31:00 Test Item Value Reference Range Interpretation Comments MCH (test code = MCH) 27.8 pg 27.0-31.0 [place] 158842-01-30 11:31:00 Test Item Value Reference Range Interpretation Comments MCHC (test code = MCHC) 33.3 32.0-36.0 [place] 158842-01-30 11:31:00 Test Item Value Reference Range Interpretation Comments RDW (test code = RDW) 14.9 11.5-14.5 [place] 158842-01-30 11:31:00 Test Item Value Reference Range Interpretation Comments Platelet (test code = Platelet) 365 133-450 [place] 158842-01-30 11:31:00 Test Item Value Reference Range Interpretation Comments MPV (test code = MPV) 7.3 7.4-10.4 [place] 500672-01-30 11:31:00 Test Item Value Reference Range Interpretation Comments Glucose Lvl (test code = Glucose Lvl) 160 70-99 [place] 500672-01-30 11:31:00 Test Item Value Reference Range Interpretation Comments BUN (test code = BUN) 16 7-22 [place] 500672-01-30 11:31:00 Test Item Value Reference Range Interpretation Comments Creatinine Lvl (test code = Creatinine 0.80 0.50-1.40 Lvl) [place] 500672-01-30 11:31:00 Test Item Value Reference Range Interpretation Comments Sodium Lvl (test code = Sodium Lvl) 145 135-145 [place] 500672-01-30 11:31:00 Test Item Value Reference Range Interpretation Comments Potassium Lvl (test code = Potassium 3.8 3.5-5.1 Lvl) [place] 500672-01-30 11:31:00 Test Item Value Reference Range Interpretation Comments Chloride Lvl (test code = Chloride Lvl) 111 95-109 [place] 500672-01-30 11:31:00 Test Item Value Reference Range Interpretation Comments CO2 (test code = CO2) 26 24-32 [place] 500672-01-30 11:31:00 Test Item Value Reference Range Interpretation Comments Calcium Lvl (test code = Calcium Lvl) 8.9 8.5-10.5 [place] 500672-01-30 11:31:00 Test Item Value Reference Range Interpretation Comments AGAP (test code = AGAP) 11.8 10.0-20.0 [place] 500672-01-30 11:31:00 Test Item Value Reference Range Interpretation Comments eGFR (test code = eGFR) 73 [place] 158842-01-30 11:31:00 Test Item Value Reference Range Interpretation Comments WBC X 10x3 (test code = WBC X 10x3) 21.5 3.7-10.4 [place] 158842-01-30 11:31:00 Test Item Value Reference Range Interpretation Comments RBC X 10x6 (test code = RBC X 10x6) 3.71 4.20-5.40 [place] 158842-01-30 11:31:00 Test Item Value Reference Range Interpretation Comments Hgb (test code = Hgb) 10.3 12.0-16.0 [place] 158842-01-30 11:31:00 Test Item Value Reference Range Interpretation Comments Hct (test code = Hct) 31.0 36.0-48.0 [place] [address]-01-30 11:31:00 Test Item Value Reference Range Interpretation Comments MCV (test code = MCV) 83.6 80.0-98.0 [place] 158842-01-30 11:31:00 Test Item Value Reference Range Interpretation Comments MCH (test code = MCH) 27.8 pg 27.0-31.0 [place] 158842-01-30 11:31:00 Test Item Value Reference Range Interpretation Comments MCHC (test code = MCHC) 33.3 32.0-36.0 [place] 158842-01-30 11:31:00 Test Item Value Reference Range Interpretation Comments RDW (test code = RDW) 14.9 11.5-14.5 [place] [address]-01-30 11:31:00 Test Item Value Reference Range Interpretation Comments Platelet (test code = Platelet) 365 133-450 [place] 158842-01-30 11:31:00 Test Item Value Reference Range Interpretation Comments MPV (test code = MPV) 7.3 7.4-10.4 [place] 500672-01-30 11:31:00 Test Item Value Reference Range Interpretation Comments Glucose Lvl (test code = Glucose Lvl) 160 70-99 [place] 500672-01-30 11:31:00 Test Item Value Reference Range Interpretation Comments BUN (test code = BUN) 16 7-22 [place] 500672-01-30 11:31:00 Test Item Value Reference Range Interpretation Comments Creatinine Lvl (test code = Creatinine 0.80 0.50-1.40 Lvl) [place] 500672-01-30 11:31:00 Test Item Value Reference Range Interpretation Comments Sodium Lvl (test code = Sodium Lvl) 145 135-145 [place] 500672-01-30 11:31:00 Test Item Value Reference Range Interpretation Comments Potassium Lvl (test code = Potassium 3.8 3.5-5.1 Lvl) [place] 500672-01-30 11:31:00 Test Item Value Reference Range Interpretation Comments Chloride Lvl (test code = Chloride Lvl) 111 95-109 [place] 500672-01-30 11:31:00 Test Item Value Reference Range Interpretation Comments CO2 (test code = CO2) 26 24-32 [facility]2022-01-30 11:31:00 Test Item Value Reference Range Interpretation Comments Calcium Lvl (test code = Calcium Lvl) 8.9 8.5-10.5 [facility]2022-01-30 11:31:00 Test Item Value Reference Range Interpretation Comments AGAP (test code = AGAP) 11.8 10.0-20.0 [place] 500672-01-30 11:31:00 Test Item Value Reference Range Interpretation Comments eGFR (test code = eGFR) 73 [facility]kg[facility]PKRIJEAAU2605-22-91 11:31:00 Test Item Value Reference Range Interpretation Comments WBC X 10x3 (test code = WBC X 10x3) 21.5 3.7-10.4 [place] 158842-01-30 11:31:00 Test Item Value Reference Range Interpretation Comments RBC X 10x6 (test code = RBC X 10x6) 3.71 4.20-5.40 [place] 158842-01-30 11:31:00 Test Item Value Reference Range Interpretation Comments Hgb (test code = Hgb) 10.3 12.0-16.0 [place] [address]-01-30 11:31:00 Test Item Value Reference Range Interpretation Comments Hct (test code = Hct) 31.0 36.0-48.0 [place] 158842-01-30 11:31:00 Test Item Value Reference Range Interpretation Comments MCV (test code = MCV) 83.6 80.0-98.0 [place] 158842-01-30 11:31:00 Test Item Value Reference Range Interpretation Comments MCH (test code = MCH) 27.8 pg 27.0-31.0 [place] 158842-01-30 11:31:00 Test Item Value Reference Range Interpretation Comments MCHC (test code = MCHC) 33.3 32.0-36.0 [place] 158842-01-30 11:31:00 Test Item Value Reference Range Interpretation Comments RDW (test code = RDW) 14.9 11.5-14.5 [place] 158842-01-30 11:31:00 Test Item Value Reference Range Interpretation Comments Platelet (test code = Platelet) 365 133-450 [place] 158842-01-30 11:31:00 Test Item Value Reference Range Interpretation Comments MPV (test code = MPV) 7.3 7.4-10.4 [place] 500672-01-30 11:31:00 Test Item Value Reference Range Interpretation Comments Glucose Lvl (test code = Glucose Lvl) 160 70-99 [place] 500672-01-30 11:31:00 Test Item Value Reference Range Interpretation Comments BUN (test code = BUN) 16 7-22 [place] 500672-01-30 11:31:00 Test Item Value Reference Range Interpretation Comments Creatinine Lvl (test code = Creatinine 0.80 0.50-1.40 Lvl) [place] 500672-01-30 11:31:00 Test Item Value Reference Range Interpretation Comments Sodium Lvl (test code = Sodium Lvl) 145 135-145 [place] 500672-01-30 11:31:00 Test Item Value Reference Range Interpretation Comments Potassium Lvl (test code = Potassium 3.8 3.5-5.1 Lvl) [place] 500672-01-30 11:31:00 Test Item Value Reference Range Interpretation Comments Chloride Lvl (test code = Chloride Lvl) 111 95-109 [place] 500672-01-30 11:31:00 Test Item Value Reference Range Interpretation Comments CO2 (test code = CO2) 26 24-32 [place] 500672-01-30 11:31:00 Test Item Value Reference Range Interpretation Comments Calcium Lvl (test code = Calcium Lvl) 8.9 8.5-10.5 [place] 500672-01-30 11:31:00 Test Item Value Reference Range Interpretation Comments AGAP (test code = AGAP) 11.8 10.0-20.0 [place] 500672-01-30 11:31:00 Test Item Value Reference Range Interpretation Comments eGFR (test code = eGFR) 73 [place] 158842-01-30 11:31:00 Test Item Value Reference Range Interpretation Comments WBC X 10x3 (test code = WBC X 10x3) 21.5 3.7-10.4 [place] 158842-01-30 11:31:00 Test Item Value Reference Range Interpretation Comments RBC X 10x6 (test code = RBC X 10x6) 3.71 4.20-5.40 [place] 158842-01-30 11:31:00 Test Item Value Reference Range Interpretation Comments Hgb (test code = Hgb) 10.3 12.0-16.0 [place] 158842-01-30 11:31:00 Test Item Value Reference Range Interpretation Comments Hct (test code = Hct) 31.0 36.0-48.0 [place] 158842-01-30 11:31:00 Test Item Value Reference Range Interpretation Comments MCV (test code = MCV) 83.6 80.0-98.0 [place] 158842-01-30 11:31:00 Test Item Value Reference Range Interpretation Comments MCH (test code = MCH) 27.8 pg 27.0-31.0 [place] 158842-01-30 11:31:00 Test Item Value Reference Range Interpretation Comments MCHC (test code = MCHC) 33.3 32.0-36.0 [place] 158842-01-30 11:31:00 Test Item Value Reference Range Interpretation Comments RDW (test code = RDW) 14.9 11.5-14.5 [place] 158842-01-30 11:31:00 Test Item Value Reference Range Interpretation Comments Platelet (test code = Platelet) 365 133-450 [facility]poqopqWFYDFXMISC5250-78-51 11:31:00 Test Item Value Reference Range Interpretation Comments MPV (test code = MPV) 7.3 7.4-10.4 [facility]2022-01-30 11:31:00 Test Item Value Reference Range Interpretation Comments Glucose Lvl (test code = Glucose Lvl) 160 70-99 [facility]2022-01-30 11:31:00 Test Item Value Reference Range Interpretation Comments BUN (test code = BUN) 16 7-22 [facility]2022-01-30 11:31:00 Test Item Value Reference Range Interpretation Comments Creatinine Lvl (test code = Creatinine 0.80 0.50-1.40 Lvl) [facility]2022-01-30 11:31:00 Test Item Value Reference Range Interpretation Comments Sodium Lvl (test code = Sodium Lvl) 145 135-145 [place] 500672-01-30 11:31:00 Test Item Value Reference Range Interpretation Comments Potassium Lvl (test code = Potassium 3.8 3.5-5.1 Lvl) [place] 500672-01-30 11:31:00 Test Item Value Reference Range Interpretation Comments Chloride Lvl (test code = Chloride Lvl) 111 95-109 [place] 500672-01-30 11:31:00 Test Item Value Reference Range Interpretation Comments CO2 (test code = CO2) 26 24-32 [place] 500672-01-30 11:31:00 Test Item Value Reference Range Interpretation Comments Calcium Lvl (test code = Calcium Lvl) 8.9 8.5-10.5 [place] 500672-01-30 11:31:00 Test Item Value Reference Range Interpretation Comments AGAP (test code = AGAP) 11.8 10.0-20.0 [place] 500672-01-30 11:31:00 Test Item Value Reference Range Interpretation Comments eGFR (test code = eGFR) 73 [place] 158842-01-30 11:31:00 Test Item Value Reference Range Interpretation Comments WBC X 10x3 (test code = WBC X 10x3) 21.5 3.7-10.4 [place] 158842-01-30 11:31:00 Test Item Value Reference Range Interpretation Comments RBC X 10x6 (test code = RBC X 10x6) 3.71 4.20-5.40 [place] 158842-01-30 11:31:00 Test Item Value Reference Range Interpretation Comments Hgb (test code = Hgb) 10.3 12.0-16.0 [place] 158842-01-30 11:31:00 Test Item Value Reference Range Interpretation Comments Hct (test code = Hct) 31.0 36.0-48.0 [place] [address]-01-30 11:31:00 Test Item Value Reference Range Interpretation Comments MCV (test code = MCV) 83.6 80.0-98.0 [place] [address]-01-30 11:31:00 Test Item Value Reference Range Interpretation Comments MCH (test code = MCH) 27.8 pg 27.0-31.0 [place] 158842-01-30 11:31:00 Test Item Value Reference Range Interpretation Comments MCHC (test code = MCHC) 33.3 32.0-36.0 [place] 158842-01-30 11:31:00 Test Item Value Reference Range Interpretation Comments RDW (test code = RDW) 14.9 11.5-14.5 [place] 158842-01-30 11:31:00 Test Item Value Reference Range Interpretation Comments Platelet (test code = Platelet) 365 133-450 [place] 158842-01-30 11:31:00 Test Item Value Reference Range Interpretation Comments MPV (test code = MPV) 7.3 7.4-10.4 [place] 500672-01-30 11:31:00 Test Item Value Reference Range Interpretation Comments Glucose Lvl (test code = Glucose Lvl) 160 70-99 [place] 500672-01-30 11:31:00 Test Item Value Reference Range Interpretation Comments BUN (test code = BUN) 16 7-22 [place] 500672-01-30 11:31:00 Test Item Value Reference Range Interpretation Comments Creatinine Lvl (test code = Creatinine 0.80 0.50-1.40 Lvl) [place] 500672-01-30 11:31:00 Test Item Value Reference Range Interpretation Comments Sodium Lvl (test code = Sodium Lvl) 145 135-145 [place] 500672-01-30 11:31:00 Test Item Value Reference Range Interpretation Comments Potassium Lvl (test code = Potassium 3.8 3.5-5.1 Lvl) [place] 500672-01-30 11:31:00 Test Item Value Reference Range Interpretation Comments Chloride Lvl (test code = Chloride Lvl) 111 95-109 [place] 500672-01-30 11:31:00 Test Item Value Reference Range Interpretation Comments CO2 (test code = CO2) 26 24-32 [place] 500672-01-30 11:31:00 Test Item Value Reference Range Interpretation Comments Calcium Lvl (test code = Calcium Lvl) 8.9 8.5-10.5 [place] 500672-01-30 11:31:00 Test Item Value Reference Range Interpretation Comments AGAP (test code = AGAP) 11.8 10.0-20.0 [facility]2022-01-30 11:31:00 Test Item Value Reference Range Interpretation Comments eGFR (test code = eGFR) 73 [facility]HpcozggEPFPNJADVN1878-72-16 11:31:00 Test Item Value Reference Range Interpretation Comments WBC X 10x3 (test code = WBC X 10x3) 21.5 3.7-10.4 [facility] SoutheastSrfmiykYRPMBLNKMJ8510-45-99 11:31:00 Test Item Value Reference Range Interpretation Comments RBC X 10x6 (test code = RBC X 10x6) 3.71 4.20-5.40 [place] 158842-01-30 11:31:00 Test Item Value Reference Range Interpretation Comments Hgb (test code = Hgb) 10.3 12.0-16.0 [place] 158842-01-30 11:31:00 Test Item Value Reference Range Interpretation Comments Hct (test code = Hct) 31.0 36.0-48.0 [facility] SoutheastAysgjxoIXNXICIZII7458-43-58 11:31:00 Test Item Value Reference Range Interpretation Comments MCV (test code = MCV) 83.6 80.0-98.0 [facility] SoutheastSrgdemgICIYMZLMBF5756-88-82 11:31:00 Test Item Value Reference Range Interpretation Comments MCH (test code = MCH) 27.8 pg 27.0-31.0 [facility] SoutheastMdgcdsqOVCNGMCHFT5982-62-24 11:31:00 Test Item Value Reference Range Interpretation Comments MCHC (test code = MCHC) 33.3 32.0-36.0 [place] 158842-01-30 11:31:00 Test Item Value Reference Range Interpretation Comments RDW (test code = RDW) 14.9 11.5-14.5 [place] 158842-01-30 11:31:00 Test Item Value Reference Range Interpretation Comments Platelet (test code = Platelet) 365 133-450 [facility] SoutheastTuzgveuJOQZUWNKIA3565-09-68 11:31:00 Test Item Value Reference Range Interpretation Comments MPV (test code = MPV) 7.3 7.4-10.4 [facility]2022-01-30 11:31:00 Test Item Value Reference Range Interpretation Comments Glucose Lvl (test code = Glucose Lvl) 160 70-99 [facility]2022-01-30 11:31:00 Test Item Value Reference Range Interpretation Comments BUN (test code = BUN) 16 7- [place] 500672-01-29 09:42:00 Test Item Value Reference Range Interpretation Comments Glucose Lvl (test code = Glucose Lvl) 211 70-99 [place] 500672-01-29 09:42:00 Test Item Value Reference Range Interpretation Comments BUN (test code = BUN) 14 7- [facility]2022-01-29 09:42:00 Test Item Value Reference Range Interpretation Comments Creatinine Lvl (test code = Creatinine 0.70 0.50-1.40 Lvl) [facility]2022-01-29 09:42:00 Test Item Value Reference Range Interpretation Comments Sodium Lvl (test code = Sodium Lvl) 140 135-145 [facility]2022-01-29 09:42:00 Test Item Value Reference Range Interpretation Comments Potassium Lvl (test code = Potassium 4.1 3.5-5.1 Lvl) [facility]2022-01-29 09:42:00 Test Item Value Reference Range Interpretation Comments Chloride Lvl (test code = Chloride Lvl) 108 95-109 [facility]2022-01-29 09:42:00 Test Item Value Reference Range Interpretation Comments CO2 (test code = CO2) 24 24-32 [facility]2022-01-29 09:42:00 Test Item Value Reference Range Interpretation Comments Calcium Lvl (test code = Calcium Lvl) 8.3 8.5-10.5 [facility]2022-01-29 09:42:00 Test Item Value Reference Range Interpretation Comments Total Protein (test code = Total 6.2 6.4-8.4 Protein) [place] 500672-01-29 09:42:00 Test Item Value Reference Range Interpretation Comments Albumin Lvl (test code = Albumin Lvl) 2.5 3.5-5.0 [facility]2022-01-29 09:42:00 Test Item Value Reference Range Interpretation Comments ALT (test code = ALT) 18 See_Comment [Auto mated message] The system which ge nerated this result transmit stephen reference range : <=65. The reference range was not used to interpr et this result as elaine l/abnormal. [place] 500672-01-29 09:42:00 Test Item Value Reference Range Interpretation Comments AST (test code = AST) 15 See_Comment [Auto mated message] The system which ge nerated this result transmit stephen reference range : <=37. The reference range was not used to interpr et this result as elaine l/abnormal. [place] 500672-01-29 09:42:00 Test Item Value Reference Range Interpretation Comments Alk Phos (test code = Alk Phos) 85 39-136 [place] 500672-01-29 09:42:00 Test Item Value Reference Range Interpretation Comments Bili Total (test code = Bili Total) 0.5 0.2-1.3 [place] 500672-01-29 09:42:00 Test Item Value Reference Range Interpretation Comments AGAP (test code = AGAP) 12.1 10.0-20.0 [place] 500672-01-29 09:42:00 Test Item Value Reference Range Interpretation Comments B/C Ratio (test code = B/C Ratio) 20 1 6-25 [place] 500672-01-29 09:42:00 Test Item Value Reference Range Interpretation Comments Globulin (test code = Globulin) 3.7 2.7-4.2 [place] 500672-01-29 09:42:00 Test Item Value Reference Range Interpretation Comments A/G Ratio (test code = A/G Ratio) 0.7 1 0.7-1.6 [place] 500672-01-29 09:42:00 Test Item Value Reference Range Interpretation Comments eGFR (test code = eGFR) 86 [place] 500672-01-29 09:42:00 Test Item Value Reference Range Interpretation Comments Magnesium Lvl (test code = Magnesium 2.0 1.8-2.4 Lvl) [place] 158842-01-29 09:42:00 Test Item Value Reference Range Interpretation Comments WBC X 10x3 (test code = WBC X 10x3) 5.3 3.7-10.4 [place] 158842-01-29 09:42:00 Test Item Value Reference Range Interpretation Comments RBC X 10x6 (test code = RBC X 10x6) 4.08 4.20-5.40 [place] 158842-01-29 09:42:00 Test Item Value Reference Range Interpretation Comments Hgb (test code = Hgb) 11.5 12.0-16.0 [facility] SoutheastBohttvhAGGXDTDMYM2360-53-69 09:42:00 Test Item Value Reference Range Interpretation Comments Hct (test code = Hct) 33.7 36.0-48.0 [facility] SoutheastFsltgtqDQPGJFXTMX7321-54-12 09:42:00 Test Item Value Reference Range Interpretation Comments MCV (test code = MCV) 82.6 80.0-98.0 [place] 158842-01-29 09:42:00 Test Item Value Reference Range Interpretation Comments MCH (test code = MCH) 28.1 pg 27.0-31.0 [facility] SoutheastDdddnrsAXBYUIWLRN2096-01-23 09:42:00 Test Item Value Reference Range Interpretation Comments MCHC (test code = MCHC) 34.0 32.0-36.0 [facility] SoutheastYhmpnjcRAXBWXYNIH6401-31-60 09:42:00 Test Item Value Reference Range Interpretation Comments RDW (test code = RDW) 14.8 11.5-14.5 [facility] SoutheastMbwqtqpQBWNEVDOXX5966-70-11 09:42:00 Test Item Value Reference Range Interpretation Comments Platelet (test code = Platelet) 365 133-450 [facility] SoutheastHtkfmcnBHVTUPUHDQ5899-64-71 09:42:00 Test Item Value Reference Range Interpretation Comments MPV (test code = MPV) 6.9 7.4-10.4 [place] 158842-01-29 09:42:00 Test Item Value Reference Range Interpretation Comments Segs (test code = Segs) 92.3 45.0-75.0 [place] 158842-01-29 09:42:00 Test Item Value Reference Range Interpretation Comments Lymphocytes (test code = Lymphocytes) 6.7 20.0-40.0 [place] 158842-01-29 09:42:00 Test Item Value Reference Range Interpretation Comments Monocytes (test code = Monocytes) 0.9 2.0-12.0 [facility] SoutheastEdwswqwWAZWRVJGYZ6177-65-15 09:42:00 Test Item Value Reference Range Interpretation Comments Basophils (test code = 0.1 See_Comment [Aut omated message] The Basophils) system which ge nerated this result tra nsmitted reference range : <=1.0. The reference r bronson was not used to int erpret this result as normal/abnormal . [place] 158842-01-29 09:42:00 Test Item Value Reference Range Interpretation Comments Neutrophils # (test code = Neutrophils 4.9 1.5-8.1 #) [place] 158842-01-29 09:42:00 Test Item Value Reference Range Interpretation Comments Lymphocytes # (test code = Lymphocytes 0.4 1.0-5.5 #) [place] 500672-01-29 09:42:00 Test Item Value Reference Range Interpretation Comments Glucose Lvl (test code = Glucose Lvl) 211 [place] 500672-01-29 09:42:00 Test Item Value Reference Range Interpretation Comments BUN (test code = BUN) 03-24 [place] 500672-01-29 09:42:00 Test Item Value Reference Range Interpretation Comments Glucose Lvl (test code = Glucose Lvl) [place] 500672-01-29 09:42:00 Test Item Value Reference Range Interpretation Comments BUN (test code = BUN) 03-24 [place] 500672-01-29 09:42:00 Test Item Value Reference Range Interpretation Comments Creatinine Lvl (test code = Creatinine 0.70 0.50-1.40 Lvl) [place] 500672-01-29 09:42:00 Test Item Value Reference Range Interpretation Comments Sodium Lvl (test code = Sodium Lvl) 140 135-145 [place] 500672-01-29 09:42:00 Test Item Value Reference Range Interpretation Comments Potassium Lvl (test code = Potassium 4.1 3.5-5.1 Lvl) [place] 500672-01-29 09:42:00 Test Item Value Reference Range Interpretation Comments Chloride Lvl (test code = Chloride Lvl) 108 95-109 [place] 500672-01-29 09:42:00 Test Item Value Reference Range Interpretation Comments Creatinine Lvl (test code = Creatinine 0.70 0.50-1.40 Lvl) [place] 500672-01-29 09:42:00 Test Item Value Reference Range Interpretation Comments CO2 (test code = CO2) 24 - [place] 500672-01-29 09:42:00 Test Item Value Reference Range Interpretation Comments Calcium Lvl (test code = Calcium Lvl) 8.3 8.5-10.5 [place] 500672-01-29 09:42:00 Test Item Value Reference Range Interpretation Comments Total Protein (test code = Total 6.2 6.4-8.4 Protein) [place] 500672-01-29 09:42:00 Test Item Value Reference Range Interpretation Comments Albumin Lvl (test code = Albumin Lvl) 2.5 3.5-5.0 [facility] [id number] 09:42:00 Test Item Value Reference Range Interpretation Comments ALT (test code = ALT) 18 See_Comment [Auto mated message] The system which ge nerated this result transmit stephen reference range : <=65. The reference range was not used to interpr et this result as elaine l/abnormal. [place] 500672-01-29 09:42:00 Test Item Value Reference Range Interpretation Comments AST (test code = AST) 15 See_Comment [Auto mated message] The system which ge nerated this result transmit stephen reference range : <=37. The reference range was not used to interpr et this result as elaine l/abnormal. [facility] [id number] 09:42:00 Test Item Value Reference Range Interpretation Comments Alk Phos (test code = Alk Phos) 85 39-136 [facility] [id number] 09:42:00 Test Item Value Reference Range Interpretation Comments Bili Total (test code = Bili Total) 0.5 0.2-1.3 [facility] [id number] 09:42:00 Test Item Value Reference Range Interpretation Comments AGAP (test code = AGAP) 12.1 10.0-20.0 [facility] [id number] 09:42:00 Test Item Value Reference Range Interpretation Comments B/C Ratio (test code = B/C Ratio) 20 1 6-25 [facility] [id number] 09:42:00 Test Item Value Reference Range Interpretation Comments Sodium Lvl (test code = Sodium Lvl) 140 135-145 [facility] [id number] 09:42:00 Test Item Value Reference Range Interpretation Comments Globulin (test code = Globulin) 3.7 2.7-4.2 [place] 500672-01-29 09:42:00 Test Item Value Reference Range Interpretation Comments A/G Ratio (test code = A/G Ratio) 0.7 1 0.7-1.6 [place] 500672-01-29 09:42:00 Test Item Value Reference Range Interpretation Comments eGFR (test code = eGFR) 86 [place] 500672-01-29 09:42:00 Test Item Value Reference Range Interpretation Comments Magnesium Lvl (test code = Magnesium 2.0 1.8-2.4 Lvl) [place] 158842-01-29 09:42:00 Test Item Value Reference Range Interpretation Comments WBC X 10x3 (test code = WBC X 10x3) 5.3 3.7-10.4 [place] 158842-01-29 09:42:00 Test Item Value Reference Range Interpretation Comments RBC X 10x6 (test code = RBC X 10x6) 4.08 4.20-5.40 [place] 158842-01-29 09:42:00 Test Item Value Reference Range Interpretation Comments Hgb (test code = Hgb) 11.5 12.0-16.0 [place] 158842-01-29 09:42:00 Test Item Value Reference Range Interpretation Comments Hct (test code = Hct) 33.7 36.0-48.0 [place] 158842-01-29 09:42:00 Test Item Value Reference Range Interpretation Comments MCV (test code = MCV) 82.6 80.0-98.0 [place] 158842-01-29 09:42:00 Test Item Value Reference Range Interpretation Comments MCH (test code = MCH) 28.1 pg 27.0-31.0 [place] 500672-01-29 09:42:00 Test Item Value Reference Range Interpretation Comments Potassium Lvl (test code = Potassium 4.1 3.5-5.1 Lvl) [place] 158842-01-29 09:42:00 Test Item Value Reference Range Interpretation Comments MCHC (test code = MCHC) 34.0 32.0-36.0 [place] 158842-01-29 09:42:00 Test Item Value Reference Range Interpretation Comments RDW (test code = RDW) 14.8 11.5-14.5 [place] 158842-01-29 09:42:00 Test Item Value Reference Range Interpretation Comments Platelet (test code = Platelet) 365 133-450 [place] 158842-01-29 09:42:00 Test Item Value Reference Range Interpretation Comments MPV (test code = MPV) 6.9 7.4-10.4 [place] 158842-01-29 09:42:00 Test Item Value Reference Range Interpretation Comments Segs (test code = Segs) 92.3 45.0-75.0 [place] 158842-01-29 09:42:00 Test Item Value Reference Range Interpretation Comments Lymphocytes (test code = Lymphocytes) 6.7 20.0-40.0 [place] 158842-01-29 09:42:00 Test Item Value Reference Range Interpretation Comments Monocytes (test code = Monocytes) 0.9 2.0-12.0 [place] 158842-01-29 09:42:00 Test Item Value Reference Range Interpretation Comments Basophils (test code = 0.1 See_Comment [Aut omated message] The Basophils) system which ge nerated this result tra nsmitted reference range : <=1.0. The reference r bronson was not used to int erpret this result as normal/abnormal . [facility]FsabefaXMHVVPKQPC1101-27-22 09:42:00 Test Item Value Reference Range Interpretation Comments Neutrophils # (test code = Neutrophils 4.9 1.5-8.1 #) [place] 158842-01-29 09:42:00 Test Item Value Reference Range Interpretation Comments Lymphocytes # (test code = Lymphocytes 0.4 1.0-5.5 #) [place] 500672-01-29 09:42:00 Test Item Value Reference Range Interpretation Comments Chloride Lvl (test code = Chloride Lvl) 108 95-109 [place] 500672-01-29 09:42:00 Test Item Value Reference Range Interpretation Comments CO2 (test code = CO2) 24 24-32 [place] 500672-01-29 09:42:00 Test Item Value Reference Range Interpretation Comments Calcium Lvl (test code = Calcium Lvl) 8.3 8.5-10.5 [place] 500672-01-29 09:42:00 Test Item Value Reference Range Interpretation Comments Total Protein (test code = Total 6.2 6.4-8.4 Protein) [place] 500672-01-29 09:42:00 Test Item Value Reference Range Interpretation Comments Albumin Lvl (test code = Albumin Lvl) 2.5 3.5-5.0 [place] 500672-01-29 09:42:00 Test Item Value Reference Range Interpretation Comments ALT (test code = ALT) 18 See_Comment [Auto mated message] The system which ge nerated this result transmit stephen reference range : <=65. The reference range was not used to interpr et this result as elaine l/abnormal. [facility] [id number] 09:42:00 Test Item Value Reference Range Interpretation Comments AST (test code = AST) 15 See_Comment [Auto mated message] The system which ge nerated this result transmit stephen reference range : <=37. The reference range was not used to interpr et this result as elaine l/abnormal. [facility] [id number] 09:42:00 Test Item Value Reference Range Interpretation Comments Alk Phos (test code = Alk Phos) 85 39-136 [facility] [id number] 09:42:00 Test Item Value Reference Range Interpretation Comments Bili Total (test code = Bili Total) 0.5 0.2-1.3 [facility] [id number] 09:42:00 Test Item Value Reference Range Interpretation Comments AGAP (test code = AGAP) 12.1 10.0-20.0 [facility] [id number] 09:42:00 Test Item Value Reference Range Interpretation Comments B/C Ratio (test code = B/C Ratio) 20 1 6-25 [facility] [id number] 09:42:00 Test Item Value Reference Range Interpretation Comments Globulin (test code = Globulin) 3.7 2.7-4.2 [facility] [id number] 09:42:00 Test Item Value Reference Range Interpretation Comments Glucose Lvl (test code = Glucose Lvl) 211 70-99 [facility] [id number] 09:42:00 Test Item Value Reference Range Interpretation Comments BUN (test code = BUN) 14 7-22 [place] 500672-01-29 09:42:00 Test Item Value Reference Range Interpretation Comments Creatinine Lvl (test code = Creatinine 0.70 0.50-1.40 Lvl) [place] 500672-01-29 09:42:00 Test Item Value Reference Range Interpretation Comments Sodium Lvl (test code = Sodium Lvl) 140 135-145 [place] 500672-01-29 09:42:00 Test Item Value Reference Range Interpretation Comments Potassium Lvl (test code = Potassium 4.1 3.5-5.1 Lvl) [place] 500672-01-29 09:42:00 Test Item Value Reference Range Interpretation Comments Chloride Lvl (test code = Chloride Lvl) 108 95-109 [place] 500672-01-29 09:42:00 Test Item Value Reference Range Interpretation Comments CO2 (test code = CO2) 24 24-32 [place] 500672-01-29 09:42:00 Test Item Value Reference Range Interpretation Comments A/G Ratio (test code = A/G Ratio) 0.7 1 0.7-1.6 [place] 500672-01-29 09:42:00 Test Item Value Reference Range Interpretation Comments Calcium Lvl (test code = Calcium Lvl) 8.3 8.5-10.5 [facility]2022-01-29 09:42:00 Test Item Value Reference Range Interpretation Comments Total Protein (test code = Total 6.2 6.4-8.4 Protein) [place] 500672-01-29 09:42:00 Test Item Value Reference Range Interpretation Comments Albumin Lvl (test code = Albumin Lvl) 2.5 3.5-5.0 [place] 500672-01-29 09:42:00 Test Item Value Reference Range Interpretation Comments ALT (test code = ALT) 18 <=65 [place] 500672-01-29 09:42:00 Test Item Value Reference Range Interpretation Comments AST (test code = AST) 15 <=37 [place] 500672-01-29 09:42:00 Test Item Value Reference Range Interpretation Comments Alk Phos (test code = Alk Phos) 85 39-136 [place] 500672-01-29 09:42:00 Test Item Value Reference Range Interpretation Comments Bili Total (test code = Bili Total) 0.5 0.2-1.3 [place] 500672-01-29 09:42:00 Test Item Value Reference Range Interpretation Comments AGAP (test code = AGAP) 12.1 10.0-20.0 [place] 500672-01-29 09:42:00 Test Item Value Reference Range Interpretation Comments B/C Ratio (test code = B/C Ratio) 20 1 6-25 [place] 500672-01-29 09:42:00 Test Item Value Reference Range Interpretation Comments Globulin (test code = Globulin) 3.7 2.7-4.2 [place] 500672-01-29 09:42:00 Test Item Value Reference Range Interpretation Comments eGFR (test code = eGFR) 86 [place] 500672-01-29 09:42:00 Test Item Value Reference Range Interpretation Comments A/G Ratio (test code = A/G Ratio) 0.7 1 0.7-1.6 [place] 500672-01-29 09:42:00 Test Item Value Reference Range Interpretation Comments eGFR (test code = eGFR) 86 [place] 500672-01-29 09:42:00 Test Item Value Reference Range Interpretation Comments Magnesium Lvl (test code = Magnesium 2.0 1.8-2.4 Lvl) [id number] 09:42:00 Test Item Value Reference Range Interpretation Comments WBC X 10x3 (test code = WBC X 10x3) 5.3 3.7-10.4 [place] 158842-01-29 09:42:00 Test Item Value Reference Range Interpretation Comments RBC X 10x6 (test code = RBC X 10x6) 4.08 4.20-5.40 [place] 158842-01-29 09:42:00 Test Item Value Reference Range Interpretation Comments Hgb (test code = Hgb) 11.5 12.0-16.0 [place] 158842-01-29 09:42:00 Test Item Value Reference Range Interpretation Comments Hct (test code = Hct) 33.7 36.0-48.0 [place] 158842-01-29 09:42:00 Test Item Value Reference Range Interpretation Comments MCV (test code = MCV) 82.6 80.0-98.0 [place] 158842-01-29 09:42:00 Test Item Value Reference Range Interpretation Comments MCH (test code = MCH) 28.1 pg 27.0-31.0 [place] 158842-01-29 09:42:00 Test Item Value Reference Range Interpretation Comments MCHC (test code = MCHC) 34.0 32.0-36.0 [facility]2022-01-29 09:42:00 Test Item Value Reference Range Interpretation Comments Magnesium Lvl (test code = Magnesium 2.0 1.8-2.4 Lvl) [facility] SoutheastNpzhntoEVBXNEBVJQ4621-28-49 09:42:00 Test Item Value Reference Range Interpretation Comments RDW (test code = RDW) 14.8 11.5-14.5 [place] 158842-01-29 09:42:00 Test Item Value Reference Range Interpretation Comments Platelet (test code = Platelet) 365 133-450 [facility] SoutheastTuipmfrVBDNYYKLXX5501-86-21 09:42:00 Test Item Value Reference Range Interpretation Comments MPV (test code = MPV) 6.9 7.4-10.4 [place] 158842-01-29 09:42:00 Test Item Value Reference Range Interpretation Comments Segs (test code = Segs) 92.3 45.0-75.0 [facility] SoutheastFpnqjfqXZCVFRSRCP5385-45-53 09:42:00 Test Item Value Reference Range Interpretation Comments Lymphocytes (test code = Lymphocytes) 6.7 20.0-40.0 [place] 158842-01-29 09:42:00 Test Item Value Reference Range Interpretation Comments Monocytes (test code = Monocytes) 0.9 2.0-12.0 [place] 158842-01-29 09:42:00 Test Item Value Reference Range Interpretation Comments Basophils (test code = Basophils) 0.1 <=1.0 [place] 158842-01-29 09:42:00 Test Item Value Reference Range Interpretation Comments Neutrophils # (test code = Neutrophils 4.9 1.5-8.1 #) [facility] SoutheastZionayiVQJZOOIUMM9754-97-11 09:42:00 Test Item Value Reference Range Interpretation Comments Lymphocytes # (test code = Lymphocytes 0.4 1.0-5.5 #) [facility] SoutheastBnkphunCNSWLHMEPQ2208-69-36 09:42:00 Test Item Value Reference Range Interpretation Comments WBC X 10x3 (test code = WBC X 10x3) 5.3 3.7-10.4 [place] 158842-01-29 09:42:00 Test Item Value Reference Range Interpretation Comments RBC X 10x6 (test code = RBC X 10x6) 4.08 4.20-5.40 [place] 158842-01-29 09:42:00 Test Item Value Reference Range Interpretation Comments Hgb (test code = Hgb) 11.5 12.0-16.0 [place] 158842-01-29 09:42:00 Test Item Value Reference Range Interpretation Comments Hct (test code = Hct) 33.7 36.0-48.0 [place] 158842-01-29 09:42:00 Test Item Value Reference Range Interpretation Comments MCV (test code = MCV) 82.6 80.0-98.0 [facility] SoutheastWxbazxvQXFNXNCWIX9015-59-45 09:42:00 Test Item Value Reference Range Interpretation Comments MCH (test code = MCH) 28.1 pg 27.0-31.0 [facility] SoutheastUcvbiovFAJTDJBXPY3565-54-31 09:42:00 Test Item Value Reference Range Interpretation Comments MCHC (test code = MCHC) 34.0 32.0-36.0 [facility] SoutheastFwotoxsRWUJAUTNKZ9569-00-15 09:42:00 Test Item Value Reference Range Interpretation Comments RDW (test code = RDW) 14.8 11.5-14.5 [facility] SoutheastYrynxhxSMKPAKDOVF4294-64-46 09:42:00 Test Item Value Reference Range Interpretation Comments Platelet (test code = Platelet) 365 133-450 [facility] SoutheastYyknmnmSQQIGFHZDV5119-37-47 09:42:00 Test Item Value Reference Range Interpretation Comments MPV (test code = MPV) 6.9 7.4-10.4 [place] 158842-01-29 09:42:00 Test Item Value Reference Range Interpretation Comments Segs (test code = Segs) 92.3 45.0-75.0 [place] 158842-01-29 09:42:00 Test Item Value Reference Range Interpretation Comments Lymphocytes (test code = Lymphocytes) 6.7 20.0-40.0 [place] 500672-01-29 09:42:00 Test Item Value Reference Range Interpretation Comments Glucose Lvl (test code = Glucose Lvl) 211 70-99 [place] 500672-01-29 09:42:00 Test Item Value Reference Range Interpretation Comments BUN (test code = BUN) 14 7-22 [place] 500672-01-29 09:42:00 Test Item Value Reference Range Interpretation Comments Creatinine Lvl (test code = Creatinine 0.70 0.50-1.40 Lvl) [place] 500672-01-29 09:42:00 Test Item Value Reference Range Interpretation Comments Sodium Lvl (test code = Sodium Lvl) 140 135-145 [place] 500672-01-29 09:42:00 Test Item Value Reference Range Interpretation Comments Potassium Lvl (test code = Potassium 4.1 3.5-5.1 Lvl) [place] 500672-01-29 09:42:00 Test Item Value Reference Range Interpretation Comments Chloride Lvl (test code = Chloride Lvl) 108 95-109 [place] 500672-01-29 09:42:00 Test Item Value Reference Range Interpretation Comments CO2 (test code = CO2) 24 24-32 [place] 500672-01-29 09:42:00 Test Item Value Reference Range Interpretation Comments Calcium Lvl (test code = Calcium Lvl) 8.3 8.5-10.5 [place] 500672-01-29 09:42:00 Test Item Value Reference Range Interpretation Comments Total Protein (test code = Total 6.2 6.4-8.4 Protein) [facility] 09:42:00 Test Item Value Reference Range Interpretation Comments Monocytes (test code = Monocytes) 0.9 2.0-12.0 [place] 500672-01-29 09:42:00 Test Item Value Reference Range Interpretation Comments Albumin Lvl (test code = Albumin Lvl) 2.5 3.5-5.0 [place] 500672-01-29 09:42:00 Test Item Value Reference Range Interpretation Comments ALT (test code = ALT) 18 <=65 [place] 500672-01-29 09:42:00 Test Item Value Reference Range Interpretation Comments AST (test code = AST) 15 <=37 [place] 500672-01-29 09:42:00 Test Item Value Reference Range Interpretation Comments Alk Phos (test code = Alk Phos) 85 39-136 [place] 500672-01-29 09:42:00 Test Item Value Reference Range Interpretation Comments Bili Total (test code = Bili Total) 0.5 0.2-1.3 [place] 500672-01-29 09:42:00 Test Item Value Reference Range Interpretation Comments AGAP (test code = AGAP) 12.1 10.0-20.0 [place] 500672-01-29 09:42:00 Test Item Value Reference Range Interpretation Comments B/C Ratio (test code = B/C Ratio) 20 1 6-25 [place] [address]-01-29 09:42:00 Test Item Value Reference Range Interpretation Comments Globulin (test code = Globulin) 3.7 2.7-4.2 [place] 500672-01-29 09:42:00 Test Item Value Reference Range Interpretation Comments A/G Ratio (test code = A/G Ratio) 0.7 1 0.7-1.6 [place] 500672-01-29 09:42:00 Test Item Value Reference Range Interpretation Comments eGFR (test code = eGFR) 86 [place] 158842-01-29 09:42:00 Test Item Value Reference Range Interpretation Comments Basophils (test code = 0.1 See_Comment [Aut omated message] The Basophils) system which ge nerated this result tra nsmitted reference range : <=1.0. The reference r bronson was not used to int erpret this result as normal/abnormal . [place] 500672-01-29 09:42:00 Test Item Value Reference Range Interpretation Comments Magnesium Lvl (test code = Magnesium 2.0 1.8-2.4 Lvl) [place] 158842-01-29 09:42:00 Test Item Value Reference Range Interpretation Comments WBC X 10x3 (test code = WBC X 10x3) 5.3 3.7-10.4 [place] 158842-01-29 09:42:00 Test Item Value Reference Range Interpretation Comments RBC X 10x6 (test code = RBC X 10x6) 4.08 4.20-5.40 [place] 158842-01-29 09:42:00 Test Item Value Reference Range Interpretation Comments Hgb (test code = Hgb) 11.5 12.0-16.0 [place] 158842-01-29 09:42:00 Test Item Value Reference Range Interpretation Comments Hct (test code = Hct) 33.7 36.0-48.0 [facility] SoutheastYrmzunqDGLSWBMFXN0106-53-47 09:42:00 Test Item Value Reference Range Interpretation Comments MCV (test code = MCV) 82.6 80.0-98.0 [place] 158842-01-29 09:42:00 Test Item Value Reference Range Interpretation Comments MCH (test code = MCH) 28.1 pg 27.0-31.0 [facility] SoutheastFyvbstvYQBSGLILVS6909-21-35 09:42:00 Test Item Value Reference Range Interpretation Comments MCHC (test code = MCHC) 34.0 32.0-36.0 [facility] SoutheastRsuhwvzADFRAPHQTJ9368-47-99 09:42:00 Test Item Value Reference Range Interpretation Comments RDW (test code = RDW) 14.8 11.5-14.5 [place] 158842-01-29 09:42:00 Test Item Value Reference Range Interpretation Comments Platelet (test code = Platelet) 365 133-450 [facility] SoutheastSxlkacqEXAFASUXQC5904-68-58 09:42:00 Test Item Value Reference Range Interpretation Comments Neutrophils # (test code = Neutrophils 4.9 1.5-8.1 #) [facility] SoutheastUajnwgxRJRSGMOUPJ8640-86-22 09:42:00 Test Item Value Reference Range Interpretation Comments MPV (test code = MPV) 6.9 7.4-10.4 [place] 158842-01-29 09:42:00 Test Item Value Reference Range Interpretation Comments Segs (test code = Segs) 92.3 45.0-75.0 [place] 158842-01-29 09:42:00 Test Item Value Reference Range Interpretation Comments Lymphocytes (test code = Lymphocytes) 6.7 20.0-40.0 [place] 158842-01-29 09:42:00 Test Item Value Reference Range Interpretation Comments Monocytes (test code = Monocytes) 0.9 2.0-12.0 [place] [address]-01-29 09:42:00 Test Item Value Reference Range Interpretation Comments Basophils (test code = Basophils) 0.1 <=1.0 [place] [address]-01-29 09:42:00 Test Item Value Reference Range Interpretation Comments Neutrophils # (test code = Neutrophils 4.9 1.5-8.1 #) [place] 158842-01-29 09:42:00 Test Item Value Reference Range Interpretation Comments Lymphocytes # (test code = Lymphocytes 0.4 1.0-5.5 #) [place] 158842-01-29 09:42:00 Test Item Value Reference Range Interpretation Comments Lymphocytes # (test code = Lymphocytes 0.4 1.0-5.5 #) [place] 500672-01-29 09:42:00 Test Item Value Reference Range Interpretation Comments Glucose Lvl (test code = Glucose Lvl) 211 70-99 [place] 500672-01-29 09:42:00 Test Item Value Reference Range Interpretation Comments BUN (test code = BUN) 14 7-22 [place] 500672-01-29 09:42:00 Test Item Value Reference Range Interpretation Comments Creatinine Lvl (test code = Creatinine 0.70 0.50-1.40 Lvl) [place] 500672-01-29 09:42:00 Test Item Value Reference Range Interpretation Comments Sodium Lvl (test code = Sodium Lvl) 140 135-145 [place] 500672-01-29 09:42:00 Test Item Value Reference Range Interpretation Comments Potassium Lvl (test code = Potassium 4.1 3.5-5.1 Lvl) [place] 500672-01-29 09:42:00 Test Item Value Reference Range Interpretation Comments Chloride Lvl (test code = Chloride Lvl) 108 95-109 [place] 500672-01-29 09:42:00 Test Item Value Reference Range Interpretation Comments CO2 (test code = CO2) 24 24-32 [place] 500672-01-29 09:42:00 Test Item Value Reference Range Interpretation Comments Calcium Lvl (test code = Calcium Lvl) 8.3 8.5-10.5 [place] 500672-01-29 09:42:00 Test Item Value Reference Range Interpretation Comments Total Protein (test code = Total 6.2 6.4-8.4 Protein) [place] 500672-01-29 09:42:00 Test Item Value Reference Range Interpretation Comments Albumin Lvl (test code = Albumin Lvl) 2.5 3.5-5.0 [place] 500672-01-29 09:42:00 Test Item Value Reference Range Interpretation Comments ALT (test code = ALT) 18 <=65 [place] 500672-01-29 09:42:00 Test Item Value Reference Range Interpretation Comments AST (test code = AST) 15 <=37 [place] 500672-01-29 09:42:00 Test Item Value Reference Range Interpretation Comments Alk Phos (test code = Alk Phos) 85 39-136 [place] 500672-01-29 09:42:00 Test Item Value Reference Range Interpretation Comments Bili Total (test code = Bili Total) 0.5 0.2-1.3 [place] 500672-01-29 09:42:00 Test Item Value Reference Range Interpretation Comments AGAP (test code = AGAP) 12.1 10.0-20.0 [place] 500672-01-29 09:42:00 Test Item Value Reference Range Interpretation Comments B/C Ratio (test code = B/C Ratio) 20 1 6-25 [place] 500672-01-29 09:42:00 Test Item Value Reference Range Interpretation Comments Globulin (test code = Globulin) 3.7 2.7-4.2 [place] 500672-01-29 09:42:00 Test Item Value Reference Range Interpretation Comments A/G Ratio (test code = A/G Ratio) 0.7 1 0.7-1.6 [place] 500672-01-29 09:42:00 Test Item Value Reference Range Interpretation Comments eGFR (test code = eGFR) 86 [place] 500672-01-29 09:42:00 Test Item Value Reference Range Interpretation Comments Magnesium Lvl (test code = Magnesium 2.0 1.8-2.4 Lvl) [facility] SoutheastZohycwoXVFPBJMTKG8403-58-51 09:42:00 Test Item Value Reference Range Interpretation Comments WBC X 10x3 (test code = WBC X 10x3) 5.3 3.7-10.4 [facility] SoutheastKzuiegcJIRNPSHLIL1376-16-39 09:42:00 Test Item Value Reference Range Interpretation Comments RBC X 10x6 (test code = RBC X 10x6) 4.08 4.20-5.40 [facility] SoutheastYbnbzppHRDTZXYKNT1231-03-92 09:42:00 Test Item Value Reference Range Interpretation Comments Hgb (test code = Hgb) 11.5 12.0-16.0 [facility] SoutheastSbiqvtzUYPITFYTWS5729-64-68 09:42:00 Test Item Value Reference Range Interpretation Comments Hct (test code = Hct) 33.7 36.0-48.0 [facility] SoutheastInblhzsXKHVUIBNWP1296-79-46 09:42:00 Test Item Value Reference Range Interpretation Comments MCV (test code = MCV) 82.6 80.0-98.0 [facility] SoutheastQokjnvbXKZLKBHTAZ2623-54-15 09:42:00 Test Item Value Reference Range Interpretation Comments MCH (test code = MCH) 28.1 pg 27.0-31.0 [facility] SoutheastMhpstggIPFKCLZGVJ6358-51-64 09:42:00 Test Item Value Reference Range Interpretation Comments MCHC (test code = MCHC) 34.0 32.0-36.0 [facility] SoutheastGympiyeFQBANTOTJK6866-74-11 09:42:00 Test Item Value Reference Range Interpretation Comments RDW (test code = RDW) 14.8 11.5-14.5 [facility] SoutheastVzrxjzyZWIYQEAZDV4962-02-91 09:42:00 Test Item Value Reference Range Interpretation Comments Platelet (test code = Platelet) 365 133-450 [facility] SoutheastAqtqgtaTMAOXIDOBL6301-17-50 09:42:00 Test Item Value Reference Range Interpretation Comments MPV (test code = MPV) 6.9 7.4-10.4 [facility] SoutheastLjidabtUKOLIMGQVA3807-98-15 09:42:00 Test Item Value Reference Range Interpretation Comments Segs (test code = Segs) 92.3 45.0-75.0 [facility] SoutheastPssdswlZECFEWVQOZ3894-89-81 09:42:00 Test Item Value Reference Range Interpretation Comments Lymphocytes (test code = Lymphocytes) 6.7 20.0-40.0 [facility] SoutheastJjnzlchXMGHZNPOHO0890-06-37 09:42:00 Test Item Value Reference Range Interpretation Comments Monocytes (test code = Monocytes) 0.9 2.0-12.0 [place] [address]-01-29 09:42:00 Test Item Value Reference Range Interpretation Comments Basophils (test code = Basophils) 0.1 <=1.0 [place] [address]-01-29 09:42:00 Test Item Value Reference Range Interpretation Comments Neutrophils # (test code = Neutrophils 4.9 1.5-8.1 #) [place] 158842-01-29 09:42:00 Test Item Value Reference Range Interpretation Comments Lymphocytes # (test code = Lymphocytes 0.4 1.0-5.5 #) [place] 500672-01-29 09:42:00 Test Item Value Reference Range Interpretation Comments Glucose Lvl (test code = Glucose Lvl) 211 70-99 [place] 500672-01-29 09:42:00 Test Item Value Reference Range Interpretation Comments BUN (test code = BUN) 14 7-22 [place] 500672-01-29 09:42:00 Test Item Value Reference Range Interpretation Comments Creatinine Lvl (test code = Creatinine 0.70 0.50-1.40 Lvl) [place] 500672-01-29 09:42:00 Test Item Value Reference Range Interpretation Comments Sodium Lvl (test code = Sodium Lvl) 140 135-145 [place] 500672-01-29 09:42:00 Test Item Value Reference Range Interpretation Comments Potassium Lvl (test code = Potassium 4.1 3.5-5.1 Lvl) [place] 500672-01-29 09:42:00 Test Item Value Reference Range Interpretation Comments Chloride Lvl (test code = Chloride Lvl) 108 95-109 [place] 500672-01-29 09:42:00 Test Item Value Reference Range Interpretation Comments CO2 (test code = CO2) 24 24-32 [place] 500672-01-29 09:42:00 Test Item Value Reference Range Interpretation Comments Calcium Lvl (test code = Calcium Lvl) 8.3 8.5-10.5 [place] 500672-01-29 09:42:00 Test Item Value Reference Range Interpretation Comments Total Protein (test code = Total 6.2 6.4-8.4 Protein) [place] 500672-01-29 09:42:00 Test Item Value Reference Range Interpretation Comments Albumin Lvl (test code = Albumin Lvl) 2.5 3.5-5.0 [facility] [address]EBVRN6241-05-41 09:42:00 Test Item Value Reference Range Interpretation Comments ALT (test code = ALT) 18 See_Comment [Auto mated message] The system which ge nerated this result transmit stephen reference range : <=65. The reference range was not used to interpr et this result as elaine l/abnormal. [facility] [id number] 09:42:00 Test Item Value Reference Range Interpretation Comments AST (test code = AST) 15 See_Comment [Auto mated message] The system which ge nerated this result transmit stephen reference range : <=37. The reference range was not used to interpr et this result as elaine l/abnormal. [facility] [id number] 09:42:00 Test Item Value Reference Range Interpretation Comments Alk Phos (test code = Alk Phos) 85 39-136 [facility] [id number] 09:42:00 Test Item Value Reference Range Interpretation Comments Bili Total (test code = Bili Total) 0.5 0.2-1.3 [facility] [id number] 09:42:00 Test Item Value Reference Range Interpretation Comments AGAP (test code = AGAP) 12.1 10.0-20.0 [facility] [id number] 09:42:00 Test Item Value Reference Range Interpretation Comments B/C Ratio (test code = B/C Ratio) 20 1 6-25 [facility] [id number] 09:42:00 Test Item Value Reference Range Interpretation Comments Globulin (test code = Globulin) 3.7 2.7-4.2 [facility] [id number] 09:42:00 Test Item Value Reference Range Interpretation Comments A/G Ratio (test code = A/G Ratio) 0.7 1 0.7-1.6 [facility] [id number] 09:42:00 Test Item Value Reference Range Interpretation Comments eGFR (test code = eGFR) 86 [facility] [id number] 09:42:00 Test Item Value Reference Range Interpretation Comments Magnesium Lvl (test code = Magnesium 2.0 1.8-2.4 Lvl) [place] 158842-01-29 09:42:00 Test Item Value Reference Range Interpretation Comments WBC X 10x3 (test code = WBC X 10x3) 5.3 3.7-10.4 [facility] SoutheastLblcfwnWEENCBWQRH8997-87-65 09:42:00 Test Item Value Reference Range Interpretation Comments RBC X 10x6 (test code = RBC X 10x6) 4.08 4.20-5.40 [facility] SoutheastHllbhxeJGKARITXOX6147-47-68 09:42:00 Test Item Value Reference Range Interpretation Comments Hgb (test code = Hgb) 11.5 12.0-16.0 [facility] SoutheastMakdpulCKOGQBSAAF5320-14-98 09:42:00 Test Item Value Reference Range Interpretation Comments Hct (test code = Hct) 33.7 36.0-48.0 [facility] SoutheastGslxpopZPVUZMGDLW8345-97-55 09:42:00 Test Item Value Reference Range Interpretation Comments MCV (test code = MCV) 82.6 80.0-98.0 [facility] SoutheastOcadjwsPMTTKKUJJK5204-65-94 09:42:00 Test Item Value Reference Range Interpretation Comments MCH (test code = MCH) 28.1 pg 27.0-31.0 [facility] SoutheastPrchmrnJLFJMLXXNS1702-30-38 09:42:00 Test Item Value Reference Range Interpretation Comments MCHC (test code = MCHC) 34.0 32.0-36.0 [facility] [id number] 09:42:00 Test Item Value Reference Range Interpretation Comments RDW (test code = RDW) 14.8 11.5-14.5 [id number] 09:42:00 Test Item Value Reference Range Interpretation Comments Platelet (test code = Platelet) 365 133-450 [facility] SoutheastRusshseYLOMYIAHJR3599-79-11 09:42:00 Test Item Value Reference Range Interpretation Comments MPV (test code = MPV) 6.9 7.4-10.4 [id number] 09:42:00 Test Item Value Reference Range Interpretation Comments Segs (test code = Segs) 92.3 45.0-75.0 [facility] SoutheastBhltbduNIDKJRBHCC9987-69-64 09:42:00 Test Item Value Reference Range Interpretation Comments Lymphocytes (test code = Lymphocytes) 6.7 20.0-40.0 [place] 158842-01-29 09:42:00 Test Item Value Reference Range Interpretation Comments Monocytes (test code = Monocytes) 0.9 2.0-12.0 [place] [address]-01-29 09:42:00 Test Item Value Reference Range Interpretation Comments Basophils (test code = 0.1 See_Comment [Aut omated message] The Basophils) system which ge nerated this result tra nsmitted reference range : <=1.0. The reference r bronson was not used to int erpret this result as normal/abnormal . [place] 158842-01-29 09:42:00 Test Item Value Reference Range Interpretation Comments Neutrophils # (test code = Neutrophils 4.9 1.5-8.1 #) [place] 158842-01-29 09:42:00 Test Item Value Reference Range Interpretation Comments Lymphocytes # (test code = Lymphocytes 0.4 1.0-5.5 #) [place] 500672-01-29 09:42:00 Test Item Value Reference Range Interpretation Comments Glucose Lvl (test code = Glucose Lvl) 211 70-99 [place] 500672-01-29 09:42:00 Test Item Value Reference Range Interpretation Comments BUN (test code = BUN) 14 7-22 [place] 500672-01-29 09:42:00 Test Item Value Reference Range Interpretation Comments Creatinine Lvl (test code = Creatinine 0.70 0.50-1.40 Lvl) [place] 500672-01-29 09:42:00 Test Item Value Reference Range Interpretation Comments Sodium Lvl (test code = Sodium Lvl) 140 135-145 [place] 500672-01-29 09:42:00 Test Item Value Reference Range Interpretation Comments Potassium Lvl (test code = Potassium 4.1 3.5-5.1 Lvl) [place] 500672-01-29 09:42:00 Test Item Value Reference Range Interpretation Comments Chloride Lvl (test code = Chloride Lvl) 108 95-109 [place] 500672-01-29 09:42:00 Test Item Value Reference Range Interpretation Comments CO2 (test code = CO2) 24 24-32 [place] 500672-01-29 09:42:00 Test Item Value Reference Range Interpretation Comments Calcium Lvl (test code = Calcium Lvl) 8.3 8.5-10.5 [facility] [id number] 09:42:00 Test Item Value Reference Range Interpretation Comments Total Protein (test code = Total 6.2 6.4-8.4 Protein) [place] 500672-01-29 09:42:00 Test Item Value Reference Range Interpretation Comments Albumin Lvl (test code = Albumin Lvl) 2.5 3.5-5.0 [facility] [id number] 09:42:00 Test Item Value Reference Range Interpretation Comments ALT (test code = ALT) 18 See_Comment [Auto mated message] The system which ge nerated this result transmit stephen reference range : <=65. The reference range was not used to interpr et this result as elaine l/abnormal. [facility] [id number] 09:42:00 Test Item Value Reference Range Interpretation Comments AST (test code = AST) 15 See_Comment [Auto mated message] The system which ge nerated this result transmit stephen reference range : <=37. The reference range was not used to interpr et this result as elaine l/abnormal. [facility] [place] [id number] 09:42:00 Test Item Value Reference Range Interpretation Comments Alk Phos (test code = Alk Phos) 85 39-136 [facility] [id number] 09:42:00 Test Item Value Reference Range Interpretation Comments Bili Total (test code = Bili Total) 0.5 0.2-1.3 [facility] [id number] 09:42:00 Test Item Value Reference Range Interpretation Comments AGAP (test code = AGAP) 12.1 10.0-20.0 [facility] [id number] 09:42:00 Test Item Value Reference Range Interpretation Comments B/C Ratio (test code = B/C Ratio) 20 1 6-25 [facility] [id number] 09:42:00 Test Item Value Reference Range Interpretation Comments Globulin (test code = Globulin) 3.7 2.7-4.2 [facility] [place] [id number] 09:42:00 Test Item Value Reference Range Interpretation Comments A/G Ratio (test code = A/G Ratio) 0.7 1 0.7-1.6 [place] 500672-01-29 09:42:00 Test Item Value Reference Range Interpretation Comments eGFR (test code = eGFR) 86 [facility]2022-01-29 09:42:00 Test Item Value Reference Range Interpretation Comments Magnesium Lvl (test code = Magnesium 2.0 1.8-2.4 Lvl) [place] 158842-01-29 09:42:00 Test Item Value Reference Range Interpretation Comments WBC X 10x3 (test code = WBC X 10x3) 5.3 3.7-10.4 [place] 158842-01-29 09:42:00 Test Item Value Reference Range Interpretation Comments RBC X 10x6 (test code = RBC X 10x6) 4.08 4.20-5.40 [place] 158842-01-29 09:42:00 Test Item Value Reference Range Interpretation Comments Hgb (test code = Hgb) 11.5 12.0-16.0 [place] 158842-01-29 09:42:00 Test Item Value Reference Range Interpretation Comments Hct (test code = Hct) 33.7 36.0-48.0 [id number] 09:42:00 Test Item Value Reference Range Interpretation Comments MCV (test code = MCV) 82.6 80.0-98.0 [place] 158842-01-29 09:42:00 Test Item Value Reference Range Interpretation Comments MCH (test code = MCH) 28.1 pg 27.0-31.0 [place] 158842-01-29 09:42:00 Test Item Value Reference Range Interpretation Comments MCHC (test code = MCHC) 34.0 32.0-36.0 [place] 158842-01-29 09:42:00 Test Item Value Reference Range Interpretation Comments RDW (test code = RDW) 14.8 11.5-14.5 [place] 158842-01-29 09:42:00 Test Item Value Reference Range Interpretation Comments Platelet (test code = Platelet) 365 133-450 [place] 158842-01-29 09:42:00 Test Item Value Reference Range Interpretation Comments MPV (test code = MPV) 6.9 7.4-10.4 [place] 158842-01-29 09:42:00 Test Item Value Reference Range Interpretation Comments Segs (test code = Segs) 92.3 45.0-75.0 [place] [address]-01-29 09:42:00 Test Item Value Reference Range Interpretation Comments Lymphocytes (test code = Lymphocytes) 6.7 20.0-40.0 [address]01-29 09:42:00 Test Item Value Reference Range Interpretation Comments Monocytes (test code = Monocytes) 0.9 2.0-12.0 [place] [address]-01-29 09:42:00 Test Item Value Reference Range Interpretation Comments Basophils (test code = 0.1 See_Comment [Aut omated message] The Basophils) system which ge nerated this result tra nsmitted reference range : <=1.0. The reference r bronson was not used to int erpret this result as normal/abnormal . [address]01-29 09:42:00 Test Item Value Reference Range Interpretation Comments Neutrophils # (test code = Neutrophils 4.9 1.5-8.1 #) [place] [address]-01-29 09:42:00 Test Item Value Reference Range Interpretation Comments Lymphocytes # (test code = Lymphocytes 0.4 1.0-5.5 #) [place] 500672-01-29 09:42:00 Test Item Value Reference Range Interpretation Comments Glucose Lvl (test code = Glucose Lvl) 211 70-99 [place] 500672-01-29 09:42:00 Test Item Value Reference Range Interpretation Comments BUN (test code = BUN) 14 7-22 [place] 500672-01-29 09:42:00 Test Item Value Reference Range Interpretation Comments Creatinine Lvl (test code = Creatinine 0.70 0.50-1.40 Lvl) [place] 500672-01-29 09:42:00 Test Item Value Reference Range Interpretation Comments Sodium Lvl (test code = Sodium Lvl) 140 135-145 [place] 500672-01-29 09:42:00 Test Item Value Reference Range Interpretation Comments Potassium Lvl (test code = Potassium 4.1 3.5-5.1 Lvl) [place] 500672-01-29 09:42:00 Test Item Value Reference Range Interpretation Comments Chloride Lvl (test code = Chloride Lvl) 108 95-109 [facility] [id number] 09:42:00 Test Item Value Reference Range Interpretation Comments CO2 (test code = CO2) 24 24-32 [place] 500672-01-29 09:42:00 Test Item Value Reference Range Interpretation Comments Calcium Lvl (test code = Calcium Lvl) 8.3 8.5-10.5 [facility] [id number] 09:42:00 Test Item Value Reference Range Interpretation Comments Total Protein (test code = Total 6.2 6.4-8.4 Protein) [place] 500672-01-29 09:42:00 Test Item Value Reference Range Interpretation Comments Albumin Lvl (test code = Albumin Lvl) 2.5 3.5-5.0 [facility] [id number] 09:42:00 Test Item Value Reference Range Interpretation Comments ALT (test code = ALT) 18 See_Comment [Auto mated message] The system which ge nerated this result transmit stephen reference range : <=65. The reference range was not used to interpr et this result as elaine l/abnormal. [facility] [id number] 09:42:00 Test Item Value Reference Range Interpretation Comments AST (test code = AST) 15 See_Comment [Auto mated message] The system which ge nerated this result transmit stephen reference range : <=37. The reference range was not used to interpr et this result as elaine l/abnormal. [facility] [id number] 09:42:00 Test Item Value Reference Range Interpretation Comments Alk Phos (test code = Alk Phos) 85 39-136 [facility] [id number] 09:42:00 Test Item Value Reference Range Interpretation Comments Bili Total (test code = Bili Total) 0.5 0.2-1.3 [facility] [id number] 09:42:00 Test Item Value Reference Range Interpretation Comments AGAP (test code = AGAP) 12.1 10.0-20.0 [facility] [id number] 09:42:00 Test Item Value Reference Range Interpretation Comments B/C Ratio (test code = B/C Ratio) 20 1 6-25 [place] 500672-01-29 09:42:00 Test Item Value Reference Range Interpretation Comments Globulin (test code = Globulin) 3.7 2.7-4.2 [place] 500672-01-29 09:42:00 Test Item Value Reference Range Interpretation Comments A/G Ratio (test code = A/G Ratio) 0.7 1 0.7-1.6 [place] 500672-01-29 09:42:00 Test Item Value Reference Range Interpretation Comments eGFR (test code = eGFR) 86 [place] 500672-01-29 09:42:00 Test Item Value Reference Range Interpretation Comments Magnesium Lvl (test code = Magnesium 2.0 1.8-2.4 Lvl) [place] 158842-01-29 09:42:00 Test Item Value Reference Range Interpretation Comments WBC X 10x3 (test code = WBC X 10x3) 5.3 3.7-10.4 [place] 158842-01-29 09:42:00 Test Item Value Reference Range Interpretation Comments RBC X 10x6 (test code = RBC X 10x6) 4.08 4.20-5.40 [place] 158842-01-29 09:42:00 Test Item Value Reference Range Interpretation Comments Hgb (test code = Hgb) 11.5 12.0-16.0 [place] 158842-01-29 09:42:00 Test Item Value Reference Range Interpretation Comments Hct (test code = Hct) 33.7 36.0-48.0 [place] 158842-01-29 09:42:00 Test Item Value Reference Range Interpretation Comments MCV (test code = MCV) 82.6 80.0-98.0 [place] 158842-01-29 09:42:00 Test Item Value Reference Range Interpretation Comments MCH (test code = MCH) 28.1 pg 27.0-31.0 [place] 158842-01-29 09:42:00 Test Item Value Reference Range Interpretation Comments MCHC (test code = MCHC) 34.0 32.0-36.0 [place] 158842-01-29 09:42:00 Test Item Value Reference Range Interpretation Comments RDW (test code = RDW) 14.8 11.5-14.5 [place] 158842-01-29 09:42:00 Test Item Value Reference Range Interpretation Comments Platelet (test code = Platelet) 365 133-450 [place] 158842-01-29 09:42:00 Test Item Value Reference Range Interpretation Comments MPV (test code = MPV) 6.9 7.4-10.4 [place] 158842-01-29 09:42:00 Test Item Value Reference Range Interpretation Comments Segs (test code = Segs) 92.3 45.0-75.0 [place] 158842-01-29 09:42:00 Test Item Value Reference Range Interpretation Comments Lymphocytes (test code = Lymphocytes) 6.7 20.0-40.0 [place] [address]-01-29 09:42:00 Test Item Value Reference Range Interpretation Comments Monocytes (test code = Monocytes) 0.9 2.0-12.0 [place] 158842-01-29 09:42:00 Test Item Value Reference Range Interpretation Comments Basophils (test code = 0.1 See_Comment [Aut omated message] The Basophils) system which ge nerated this result tra nsmitted reference range : <=1.0. The reference r bronson was not used to int erpret this result as normal/abnormal . [place] 158842-01-29 09:42:00 Test Item Value Reference Range Interpretation Comments Neutrophils # (test code = Neutrophils 4.9 1.5-8.1 #) [place] 158842-01-29 09:42:00 Test Item Value Reference Range Interpretation Comments Lymphocytes # (test code = Lymphocytes 0.4 1.0-5.5 #) [place] 500672-01-29 09:42:00 Test Item Value Reference Range Interpretation Comments Glucose Lvl (test code = Glucose Lvl) 211 70-99 [place] 500672-01-29 09:42:00 Test Item Value Reference Range Interpretation Comments BUN (test code = BUN) 14 7-22 [place] 500672-01-29 09:42:00 Test Item Value Reference Range Interpretation Comments Creatinine Lvl (test code = Creatinine 0.70 0.50-1.40 Lvl) [place] 500672-01-29 09:42:00 Test Item Value Reference Range Interpretation Comments Sodium Lvl (test code = Sodium Lvl) 140 135-145 [place] 500672-01-29 09:42:00 Test Item Value Reference Range Interpretation Comments Potassium Lvl (test code = Potassium 4.1 3.5-5.1 Lvl) [place] 500672-01-29 09:42:00 Test Item Value Reference Range Interpretation Comments Chloride Lvl (test code = Chloride Lvl) 108 95-109 [place] 500672-01-29 09:42:00 Test Item Value Reference Range Interpretation Comments CO2 (test code = CO2) 24 24-32 [place] 500672-01-29 09:42:00 Test Item Value Reference Range Interpretation Comments Calcium Lvl (test code = Calcium Lvl) 8.3 8.5-10.5 [place] 500672-01-29 09:42:00 Test Item Value Reference Range Interpretation Comments Total Protein (test code = Total 6.2 6.4-8.4 Protein) [place] 500672-01-29 09:42:00 Test Item Value Reference Range Interpretation Comments Albumin Lvl (test code = Albumin Lvl) 2.5 3.5-5.0 [place] 500672-01-29 09:42:00 Test Item Value Reference Range Interpretation Comments ALT (test code = ALT) 18 See_Comment [Auto mated message] The system which ge nerated this result transmit stephen reference range : <=65. The reference range was not used to interpr et this result as elaine l/abnormal. [place] 500672-01-29 09:42:00 Test Item Value Reference Range Interpretation Comments AST (test code = AST) 15 See_Comment [Auto mated message] The system which ge nerated this result transmit stephen reference range : <=37. The reference range was not used to interpr et this result as elaine l/abnormal. [place] 500672-01-29 09:42:00 Test Item Value Reference Range Interpretation Comments Alk Phos (test code = Alk Phos) 85 39-136 [place] 500672-01-29 09:42:00 Test Item Value Reference Range Interpretation Comments Bili Total (test code = Bili Total) 0.5 0.2-1.3 [place] 500672-01-29 09:42:00 Test Item Value Reference Range Interpretation Comments AGAP (test code = AGAP) 12.1 10.0-20.0 [place] 500672-01-29 09:42:00 Test Item Value Reference Range Interpretation Comments B/C Ratio (test code = B/C Ratio) 20 1 6-25 [place] [address]-01-29 09:42:00 Test Item Value Reference Range Interpretation Comments Globulin (test code = Globulin) 3.7 2.7-4.2 [place] 500672-01-29 09:42:00 Test Item Value Reference Range Interpretation Comments A/G Ratio (test code = A/G Ratio) 0.7 1 0.7-1.6 [place] 500672-01-29 09:42:00 Test Item Value Reference Range Interpretation Comments eGFR (test code = eGFR) 86 [place] 500672-01-29 09:42:00 Test Item Value Reference Range Interpretation Comments Magnesium Lvl (test code = Magnesium 2.0 1.8-2.4 Lvl) [place] 158842-01-29 09:42:00 Test Item Value Reference Range Interpretation Comments WBC X 10x3 (test code = WBC X 10x3) 5.3 3.7-10.4 [place] 158842-01-29 09:42:00 Test Item Value Reference Range Interpretation Comments RBC X 10x6 (test code = RBC X 10x6) 4.08 4.20-5.40 [place] 158842-01-29 09:42:00 Test Item Value Reference Range Interpretation Comments Hgb (test code = Hgb) 11.5 12.0-16.0 [place] 158842-01-29 09:42:00 Test Item Value Reference Range Interpretation Comments Hct (test code = Hct) 33.7 36.0-48.0 [place] 158842-01-29 09:42:00 Test Item Value Reference Range Interpretation Comments MCV (test code = MCV) 82.6 80.0-98.0 [place] 158842-01-29 09:42:00 Test Item Value Reference Range Interpretation Comments MCH (test code = MCH) 28.1 pg 27.0-31.0 [place] 158842-01-29 09:42:00 Test Item Value Reference Range Interpretation Comments MCHC (test code = MCHC) 34.0 32.0-36.0 [place] 158842-01-29 09:42:00 Test Item Value Reference Range Interpretation Comments RDW (test code = RDW) 14.8 11.5-14.5 [place] 158842-01-29 09:42:00 Test Item Value Reference Range Interpretation Comments Platelet (test code = Platelet) 365 133-450 [place] 158842-01-29 09:42:00 Test Item Value Reference Range Interpretation Comments MPV (test code = MPV) 6.9 7.4-10.4 [place] 158842-01-29 09:42:00 Test Item Value Reference Range Interpretation Comments Segs (test code = Segs) 92.3 45.0-75.0 [place] 158842-01-29 09:42:00 Test Item Value Reference Range Interpretation Comments Lymphocytes (test code = Lymphocytes) 6.7 20.0-40.0 [place] 158842-01-29 09:42:00 Test Item Value Reference Range Interpretation Comments Monocytes (test code = Monocytes) 0.9 2.0-12.0 [place] 158842-01-29 09:42:00 Test Item Value Reference Range Interpretation Comments Basophils (test code = 0.1 See_Comment [Aut omated message] The Basophils) system which ge nerated this result tra nsmitted reference range : <=1.0. The reference r bronson was not used to int erpret this result as normal/abnormal . [facility]dhciqmRLKAZDSOHS0798-63-60 09:42:00 Test Item Value Reference Range Interpretation Comments Neutrophils # (test code = Neutrophils 4.9 1.5-8.1 #) [place] 158842-01-29 09:42:00 Test Item Value Reference Range Interpretation Comments Lymphocytes # (test code = Lymphocytes 0.4 1.0-5.5 #) [facility]2022-01-29 09:42:00 Test Item Value Reference Range Interpretation Comments Glucose Lvl (test code = Glucose Lvl) 211 70-99 [place] 500672-01-29 09:42:00 Test Item Value Reference Range Interpretation Comments BUN (test code = BUN) 14 7-22 [place] 500672-01-29 09:42:00 Test Item Value Reference Range Interpretation Comments Creatinine Lvl (test code = Creatinine 0.70 0.50-1.40 Lvl) [place] 500672-01-29 09:42:00 Test Item Value Reference Range Interpretation Comments Sodium Lvl (test code = Sodium Lvl) 140 135-145 [place] 500672-01-29 09:42:00 Test Item Value Reference Range Interpretation Comments Potassium Lvl (test code = Potassium 4.1 3.5-5.1 Lvl) [place] 500672-01-29 09:42:00 Test Item Value Reference Range Interpretation Comments Chloride Lvl (test code = Chloride Lvl) 108 95-109 [place] 500672-01-29 09:42:00 Test Item Value Reference Range Interpretation Comments CO2 (test code = CO2) 24 24-32 [place] 500672-01-29 09:42:00 Test Item Value Reference Range Interpretation Comments Calcium Lvl (test code = Calcium Lvl) 8.3 8.5-10.5 [place] 500672-01-29 09:42:00 Test Item Value Reference Range Interpretation Comments Total Protein (test code = Total 6.2 6.4-8.4 Protein) [place] 500672-01-29 09:42:00 Test Item Value Reference Range Interpretation Comments Albumin Lvl (test code = Albumin Lvl) 2.5 3.5-5.0 [place] 500672-01-29 09:42:00 Test Item Value Reference Range Interpretation Comments ALT (test code = ALT) 18 See_Comment [Auto mated message] The system which ge nerated this result transmit stephen reference range : <=65. The reference range was not used to interpr et this result as elaine l/abnormal. [place] 500672-01-29 09:42:00 Test Item Value Reference Range Interpretation Comments AST (test code = AST) 15 See_Comment [Auto mated message] The system which ge nerated this result transmit stephen reference range : <=37. The reference range was not used to interpr et this result as elaine l/abnormal. [place] 500672-01-29 09:42:00 Test Item Value Reference Range Interpretation Comments Alk Phos (test code = Alk Phos) 85 39-136 [place] 500672-01-29 09:42:00 Test Item Value Reference Range Interpretation Comments Bili Total (test code = Bili Total) 0.5 0.2-1.3 [place] 500672-01-29 09:42:00 Test Item Value Reference Range Interpretation Comments AGAP (test code = AGAP) 12.1 10.0-20.0 [place] 500672-01-29 09:42:00 Test Item Value Reference Range Interpretation Comments B/C Ratio (test code = B/C Ratio) 20 1 6-25 [place] 500672-01-29 09:42:00 Test Item Value Reference Range Interpretation Comments Globulin (test code = Globulin) 3.7 2.7-4.2 [place] 500672-01-29 09:42:00 Test Item Value Reference Range Interpretation Comments A/G Ratio (test code = A/G Ratio) 0.7 1 0.7-1.6 [place] 500672-01-29 09:42:00 Test Item Value Reference Range Interpretation Comments eGFR (test code = eGFR) 86 [place] 500672-01-29 09:42:00 Test Item Value Reference Range Interpretation Comments Magnesium Lvl (test code = Magnesium 2.0 1.8-2.4 Lvl) [place] 158842-01-29 09:42:00 Test Item Value Reference Range Interpretation Comments WBC X 10x3 (test code = WBC X 10x3) 5.3 3.7-10.4 [place] 158842-01-29 09:42:00 Test Item Value Reference Range Interpretation Comments RBC X 10x6 (test code = RBC X 10x6) 4.08 4.20-5.40 [place] 158842-01-29 09:42:00 Test Item Value Reference Range Interpretation Comments Hgb (test code = Hgb) 11.5 12.0-16.0 [place] [address]-01-29 09:42:00 Test Item Value Reference Range Interpretation Comments Hct (test code = Hct) 33.7 36.0-48.0 [place] 158842-01-29 09:42:00 Test Item Value Reference Range Interpretation Comments MCV (test code = MCV) 82.6 80.0-98.0 [place] 158842-01-29 09:42:00 Test Item Value Reference Range Interpretation Comments MCH (test code = MCH) 28.1 pg 27.0-31.0 [place] 158842-01-29 09:42:00 Test Item Value Reference Range Interpretation Comments MCHC (test code = MCHC) 34.0 32.0-36.0 [place] 158842-01-29 09:42:00 Test Item Value Reference Range Interpretation Comments RDW (test code = RDW) 14.8 11.5-14.5 [place] 158842-01-29 09:42:00 Test Item Value Reference Range Interpretation Comments Platelet (test code = Platelet) 365 133-450 [place] 158842-01-29 09:42:00 Test Item Value Reference Range Interpretation Comments MPV (test code = MPV) 6.9 7.4-10.4 [place] 158842-01-29 09:42:00 Test Item Value Reference Range Interpretation Comments Segs (test code = Segs) 92.3 45.0-75.0 [facility]fxzjvTASYKZJIBP9830-79-22 09:42:00 Test Item Value Reference Range Interpretation Comments Lymphocytes (test code = Lymphocytes) 6.7 20.0-40.0 [place] 158842-01-29 09:42:00 Test Item Value Reference Range Interpretation Comments Monocytes (test code = Monocytes) 0.9 2.0-12.0 [place] 158842-01-29 09:42:00 Test Item Value Reference Range Interpretation Comments Basophils (test code = 0.1 See_Comment [Aut omated message] The Basophils) system which ge nerated this result tra nsmitted reference range : <=1.0. The reference r bronson was not used to int erpret this result as normal/abnormal . [facility]RzspkmnKUHFPAIHQI5002-15-93 09:42:00 Test Item Value Reference Range Interpretation Comments Neutrophils # (test code = Neutrophils 4.9 1.5-8.1 #) [facility] SoutheastRgllzyfMOSAUCHATO6335-71-85 09:42:00 Test Item Value Reference Range Interpretation Comments Lymphocytes # (test code = Lymphocytes 0.4 1.0-5.5 #) [place] 500672-01-29 09:42:00 Test Item Value Reference Range Interpretation Comments Glucose Lvl (test code = Glucose Lvl) 211 70-99 [place] [id number] 09:42:00 Test Item Value Reference Range Interpretation Comments BUN (test code = BUN) 14 7-22 [place] [id number] 09:42:00 Test Item Value Reference Range Interpretation Comments Creatinine Lvl (test code = Creatinine 0.70 0.50-1.40 Lvl) [place] [id number] 09:42:00 Test Item Value Reference Range Interpretation Comments Sodium Lvl (test code = Sodium Lvl) 140 135-145 [place] [id number] 09:42:00 Test Item Value Reference Range Interpretation Comments Potassium Lvl (test code = Potassium 4.1 3.5-5.1 Lvl) [place] 500672-01-29 09:42:00 Test Item Value Reference Range Interpretation Comments Chloride Lvl (test code = Chloride Lvl) 108 95-109 [place] [id number] 09:42:00 Test Item Value Reference Range Interpretation Comments CO2 (test code = CO2) 24 24-32 [place] 500672-01-29 09:42:00 Test Item Value Reference Range Interpretation Comments Calcium Lvl (test code = Calcium Lvl) 8.3 8.5-10.5 [place] 500672-01-29 09:42:00 Test Item Value Reference Range Interpretation Comments Total Protein (test code = Total 6.2 6.4-8.4 Protein) [place] 500672-01-29 09:42:00 Test Item Value Reference Range Interpretation Comments Albumin Lvl (test code = Albumin Lvl) 2.5 3.5-5.0 [place] 500672-01-29 09:42:00 Test Item Value Reference Range Interpretation Comments ALT (test code = ALT) 18 <=65 [place] 500672-01-29 09:42:00 Test Item Value Reference Range Interpretation Comments AST (test code = AST) 15 <=37 [place] 500672-01-29 09:42:00 Test Item Value Reference Range Interpretation Comments Alk Phos (test code = Alk Phos) 85 39-136 [place] 500672-01-29 09:42:00 Test Item Value Reference Range Interpretation Comments Bili Total (test code = Bili Total) 0.5 0.2-1.3 [place] 500672-01-29 09:42:00 Test Item Value Reference Range Interpretation Comments AGAP (test code = AGAP) 12.1 10.0-20.0 [place] 500672-01-29 09:42:00 Test Item Value Reference Range Interpretation Comments B/C Ratio (test code = B/C Ratio) 20 1 6-25 [place] 500672-01-29 09:42:00 Test Item Value Reference Range Interpretation Comments Globulin (test code = Globulin) 3.7 2.7-4.2 [place] 500672-01-29 09:42:00 Test Item Value Reference Range Interpretation Comments A/G Ratio (test code = A/G Ratio) 0.7 1 0.7-1.6 [place] 500672-01-29 09:42:00 Test Item Value Reference Range Interpretation Comments eGFR (test code = eGFR) 86 [place] 500672-01-29 09:42:00 Test Item Value Reference Range Interpretation Comments Magnesium Lvl (test code = Magnesium 2.0 1.8-2.4 Lvl) [facility]122[facility] 09:42:00 Test Item Value Reference Range Interpretation Comments WBC X 10x3 (test code = WBC X 10x3) 5.3 3.7-10.4 [place] [id number] 09:42:00 Test Item Value Reference Range Interpretation Comments RBC X 10x6 (test code = RBC X 10x6) 4.08 4.20-5.40 [place] 158842-01-29 09:42:00 Test Item Value Reference Range Interpretation Comments Hgb (test code = Hgb) 11.5 12.0-16.0 [place] 158842-01-29 09:42:00 Test Item Value Reference Range Interpretation Comments Hct (test code = Hct) 33.7 36.0-48.0 [place] 158842-01-29 09:42:00 Test Item Value Reference Range Interpretation Comments MCV (test code = MCV) 82.6 80.0-98.0 [facility]FwdciezITQNTWQEFK6948-88-64 09:42:00 Test Item Value Reference Range Interpretation Comments MCH (test code = MCH) 28.1 pg 27.0-31.0 [facility]SaaapmkDQXANSCBTM3010-96-88 09:42:00 Test Item Value Reference Range Interpretation Comments MCHC (test code = MCHC) 34.0 32.0-36.0 [facility] SoutheastZgyxbejUJUEJEKBLP7726-00-58 09:42:00 Test Item Value Reference Range Interpretation Comments RDW (test code = RDW) 14.8 11.5-14.5 [facility]KvnhtvvVKQIOGQKXF9168-32-48 09:42:00 Test Item Value Reference Range Interpretation Comments Platelet (test code = Platelet) 365 133-450 [facility] SoutheastNmqhoppUDFTUZNIPB9599-14-06 09:42:00 Test Item Value Reference Range Interpretation Comments MPV (test code = MPV) 6.9 7.4-10.4 [facility] SoutheastYrhjhyiKPMKNJXJDM6458-97-44 09:42:00 Test Item Value Reference Range Interpretation Comments Segs (test code = Segs) 92.3 45.0-75.0 [facility] SoutheastOeqxpqcYFDZYDNMIZ8651-61-31 09:42:00 Test Item Value Reference Range Interpretation Comments Lymphocytes (test code = Lymphocytes) 6.7 20.0-40.0 [facility] SoutheastRpziiwnOUXVESHHHT9250-79-70 09:42:00 Test Item Value Reference Range Interpretation Comments Monocytes (test code = Monocytes) 0.9 2.0-12.0 [facility] SoutheastYmgqjefZLHICPXHRQ3410-84-55 09:42:00 Test Item Value Reference Range Interpretation Comments Basophils (test code = Basophils) 0.1 <=1.0 [facility] SoutheastWosyhqxLPTVBGMXJW8541-95-82 09:42:00 Test Item Value Reference Range Interpretation Comments Neutrophils # (test code = Neutrophils 4.9 1.5-8.1 #) [facility] SoutheastMvowwcaVHOSYZRGPP2009-05-37 09:42:00 Test Item Value Reference Range Interpretation Comments Lymphocytes # (test code = Lymphocytes 0.4 1.0-5.5 #) [facility]UD[facility]WV7885-74-22 06:17:00 Test Item Value Reference Range Interpretation Comments Coronavirus (COVID-19) Not Detected (10/01/21 EDNA (test code = 12:17 AM) Coronavirus (COVID-19) EDNA) [facility]NNBOYL0204[facility]45-32 06:17:00 Test Item Value Reference Range Interpretation Comments Coronavirus (COVID-19) Not Detected (10/01/21 EDNA (test code = 12:17 AM) Coronavirus (COVID-19) EDNA) [facility] CenterGkasijkMYNNIARXFW6085-68-93 06:17:00 Test Item Value Reference Range Interpretation Comments Coronavirus (COVID-19) Not Detected (10/01/21 EDNA (test code = 12:17 AM) Coronavirus (COVID-19) EDNA) [facility] CenterGaxplycYJZCATTPPV2096-02-95 06:17:00 Test Item Value Reference Range Interpretation Comments Coronavirus (COVID-19) Not Detected (10/01/21 EDNA (test code = 12:17 AM) Coronavirus (COVID-19) EDNA) [facility] CenterJntrgguJHCRDXXQBG6866-39-84 06:17:00 Test Item Value Reference Range Interpretation Comments Coronavirus (COVID-19) Not Detected (10/01/21 EDNA (test code = 12:17 AM) Coronavirus (COVID-19) EDNA) [facility] CenterKkgnwneFIUIFABZDP7981-44-41 06:17:00 Test Item Value Reference Range Interpretation Comments Coronavirus (COVID-19) Not Detected (10/01/21 EDNA (test code = 12:17 AM) Coronavirus (COVID-19) EDNA) [facility] CenterYetjjldJEOWDHDZLS0436-46-30 06:17:00 Test Item Value Reference Range Interpretation Comments Coronavirus (COVID-19) Not Detected (10/01/21 EDNA (test code = 12:17 AM) Coronavirus (COVID-19) EDNA) [facility] CenterOzfbzkbSWGHTBZFRM0885-28-92 06:17:00 Test Item Value Reference Range Interpretation Comments Coronavirus (COVID-19) Not Detected (10/01/21 EDNA (test code = 12:17 AM) Coronavirus (COVID-19) EDNA) [facility] CenterEpgzyyvIAUREWKIWX3881-09-97 06:17:00 Test Item Value Reference Range Interpretation Comments Coronavirus (COVID-19) Not Detected (10/01/21 EDNA (test code = 12:17 AM) Coronavirus (COVID-19) EDNA) [facility] CenterCtlrentFRPKKNXWQS6282-73-69 06:17:00 Test Item Value Reference Range Interpretation Comments Coronavirus (COVID-19) Not Detected (10/01/21 EDNA (test code = 12:17 AM) Coronavirus (COVID-19) EDNA) [facility] CenterDluvyybZSBEHRUVCX5890-95-92 06:17:00 Test Item Value Reference Range Interpretation Comments Coronavirus (COVID-19) Not Detected (10/01/21 EDNA (test code = 12:17 AM) Coronavirus (COVID-19) EDNA) [facility] CenterLkzglaqLOXGKVOVMX1104-89-58 06:17:00 Test Item Value Reference Range Interpretation Comments Coronavirus (COVID-19) Not Detected (10/01/21 EDNA (test code = 12:17 AM) Coronavirus (COVID-19) EDNA) [facility]
[2023-07-20 13:50] LABS: SARS-CoV-2 Antigen Rapid Res Negative (Negative)
[2023-07-20 13:50] LABS: Absolute Lymphocytes (CBC) 0.4 K/uL (0.7-4.9); Hematocrit 25.5 % (36.0-45.0); Lymphocytes % 1.6 % (15.3-44.8); Platelets 417 thou/uL (152-406); RBC Red Blood Cell Count 3.92 M/uL (3.86-4.86)
[2023-07-20 13:53] LABS: Protime INR 1.19
[2023-07-20 14:02] LABS: Albumin 2.7 g/dL (3.4-5.0); Potassium 3.3 mEq/L (3.5-5.1); Protein, Total 6.9 g/dL (6.4-8.2)
--- NOTE | 2023-07-20 14:20 | RAD REPORT ---
EXAM DESCRIPTION: RAD - Chest Single View - 07/20/2023 2:12 pm CLINICAL HISTORY: Cough;Dyspnea Chest pain. COMPARISON: Chest Single View dated 07/24/2022; Chest Pa And Lat (2 Views) dated 07/20/2021; Chest S analilia View dated 06/03/2020; Chest Single View dated 06/02/2020 FINDINGS: Portable technique limits examination quality. Moderate bilateral pulmonary opacities are again noted with underlying fibrotic changes, appearing ch ronic and unchanged since 07/24/2022. The heart is mildly enlarged in size. No displaced fractures. IMPRESSION: Bilateral pulmonary opacities appear chronic and unchanged since comparative study.
[2023-07-20 14:59] LABS: Blood Morphology Comment NOTED (NOT SEEN); Hypochromasia 1+; Platelet Estimate INCR
[2023-07-20] MEDS ORDERED: METHYLPREDNISOLONE 125 MG INJ ONE (15:02)
[2023-07-20] MEDS ORDERED: LEVALBUTEROL 1.25 MG/3 ML NEB ONE (15:02)
[2023-07-20] MEDS ORDERED: OSELTAMIVIR 75 MG CAP PO ONE (15:03)
--- NOTE | 2023-07-20 15:37 | EDPHYS ---
Physician Documentation [facility] Name: Jacki Brar Age: 78 yrs Sex: Female : 1945 Arrival Date: 07/20/2023 Time: 12:43 Bed 6 Private MD: ED Physician Karthik Levine HPI: 07/20 13:00 This 78 yrs old Female presents to ER via Unassigned with complaints of rn Breathing Difficulty, Cough. 13:00 The patient has shortness of breath at rest, with light activity. Onset: The rn symptoms/episode began/occurred 3 day(s) ago. Duration: The symptoms are continuous. The patient's shortness of breath is aggravated by coughing, exertion, light activity, is alleviated by nothing. Associated signs and symptoms: Pertinent positives: fever, Pertinent negatives: hemoptysis. Severity of symptoms: At their worst the symptoms were moderate in the emergency department the symptoms are unchanged. The patient has experienced similar episodes in the past. Patient sent from urgent care for concern of pneumonia. Patient with history of recurrent pneumonia. Has COPD. Reports 3 days of cough and shortness of breath that is getting worse along with fever.. Historical: - Allergies: 13:03 No Known Allergies; nj1 - PMHx: 13:03 Anemia; COPD; pulmonary fibrosis; TIA; nj1 - Immunization history:: Client reports receiving the 2nd dose of the Covid vaccine. - Social history:: Smoking status: Patient denies any tobacco usage or history of. - Family history:: not pertinent. - Hospitalizations: : No recent hospitalization is reported. 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 Head/Face: Normocephalic, atraumatic. ENT: No stridor Cardiovascular: Tachycardic, regular. No pulse deficits Respiratory: Mild tachypnea with bibasilar crackles. No retractions. Faint wheezing noted MS/ Extremity: Pulses equal, no cyanosis. Neurovascular intact. Full, normal range of motion. Equal circumference. Neuro: Awake and alert, GCS 15 16:41 ECG was reviewed by the Attending Physician. rn Vital Signs: 12:57 BP 128 / 103; Pulse 119; Resp 20; Temp 98.8(TE); Pulse Ox 89% on R/A; Weight 50.8 kg; nj1 Height 4 ft. 11 in. ; 13:26 BP 124 / 65; Pulse 104; Resp 18; Temp 98.6(O); Pulse Ox 95% on 2 lpm NC; ph 15:05 BP 126 / 70; Pulse 99; Resp 26; Pulse Ox 94% on R/A; ph 15:05 Pulse Ox 100% on Nebulizer Mask; ph 15:36 BP 114 / 74; Pulse 106; Resp 24; Pulse Ox 92% on 2 lpm NC; ph 16:30 BP 121 / 70; Pulse 113; Resp 22; Pulse Ox 96% on 2 lpm NC; ph 18:05 BP 114 / 90; Pulse 105; Resp 24; Pulse Ox 100% on 2 lpm NC; ph 20:16 Pulse 95; Pulse Ox 96% on R/A; nw1 12:57 Body Mass Index 22.62 (50.80 kg, 149.86 cm) nj1 MDM: 12:50 Patient medically screened. rn 15:34 Differential diagnosis: Anemia Anxiety Reaction Chronic Obstructive Pulmonary Disease rn Myocardial Infarction pneumonia, Pneumothorax pulmonary edema. Data reviewed: vital signs, nurses notes, lab test result(s), radiologic studies, plain films, and as a result, I will admit patient. 15:34 Independent interpretation of the following test(s) in the Emergency Department X-Ray: rn My interpretation is Chest x-ray images show interstitial prominence per my interpretation. Care significantly affected by the following chronic conditions: Chronic Obstructive Pulmonary Disease. Counseling: I had a detailed discussion with the patient and/or guardian regarding the historical points, exam findings, and any diagnostic results supporting the discharge/admit diagnosis, lab results, radiology results, the need for further work-up and treatment in the hospital. Response to treatment: the patient's symptoms have mildly improved after treatment, and as a result, I will admit patient. ED course: Patient with mild improvement but still tachycardic and tachypneic. Source of infection is viral, is flu positive. No focal pneumonia on x-ray images. No indication for antibiotics at this time given for viral source. Will admit to hospitalist service. 15:36 ED course: Normal lactic acid.. rn 07/20 12:51 Order name: Blood Culture Adult (2) rn 07/20 12:51 Order name: CBC with Diff; Complete Time: 15:17 rn 07/20 12:51 Order name: CMP; Complete Time: 14:05 rn 07/20 12:51 Order name: Lactate w/ 2H reflex if indic.; Complete Time: 14:05 rn 07/20 12:51 Order name: Protime (+inr); Complete Time: 14:05 rn 07/20 12:51 Order name: Ptt, Activated; Complete Time: 14:05 rn 07/20 12:51 Order name: Flu; Complete Time: 14:05 rn 07/20 12:51 Order name: SARS RAPID; Complete Time: 14:05 rn 07/20 14:59 Order name: Manual Differential; Complete Time: 15:17 EDMS 07/20 17:23 Order name: Basic Metabolic Panel EDMS 07/20 17:23 Order name: Basic Metabolic Panel EDMS 07/20 17:23 Order name: Basic Metabolic Panel EDMS 07/20 17:23 Order name: Basic Metabolic Panel EDMS 07/20 17:23 Order name: Basic Metabolic Panel EDMS 07/20 17:23 Order name: Basic Metabolic Panel EDMS 07/20 17:23 Order name: CBC with Automated Diff EDMS 07/20 17:23 Order name: CBC with Automated Diff EDMS 07/20 17:23 Order name: CBC with Automated Diff EDMS 07/20 17:23 Order name: CBC with Automated Diff EDMS 07/20 17:23 Order name: CBC with Automated Diff EDMS 07/20 17:23 Order name: CBC with Automated Diff EDMS 07/20 17:23 Order name: Magnesium EDMS 07/20 17:23 Order name: Magnesium EDMS 07/20 17:23 Order name: Magnesium EDMS 07/20 17:23 Order name: Magnesium EDMS 07/20 17:23 Order name: Magnesium EDMS 07/20 17:23 Order name: Magnesium EDMS 07/20 17:23 Order name: Phosphorus EDMS 07/20 17:23 Order name: Phosphorus EDMS 07/20 17:23 Order name: Phosphorus EDMS 07/20 17:23 Order name: Phosphorus EDMS 07/20 17:23 Order name: Phosphorus EDMS 07/20 17:23 Order name: Phosphorus EDMS 07/20 12:51 Order name: Chest Single View XRAY; Complete Time: 14:36 rn 07/20 12:51 Order name: EKG; Complete Time: 12:51 rn 07/20 12:51 Order name: Accucheck; Complete Time: 13:26 rn 07/20 12:51 Order name: Cardiac monitoring; Complete Time: 13:26 rn 07/20 12:51 Order name: EKG - Nurse/Tech; Complete Time: 13:08 rn 07/20 12:51 Order name: IV Saline Lock - Large Bore; Complete Time: 13:26 rn 07/20 12:51 Order name: Labs collected and sent; Complete Time: 13:26 rn 07/20 12:51 Order name: O2 Per Protocol; Complete Time: 13: rn 07/20 12:51 Order name: O2 Sat Monitoring; Complete Time: 13: rn 07/20 12:51 Order name: Vital Signs; Complete Time: 13:26 rn EC:41 Rate is 110 beats/min. Rhythm is regular. QRS [place] is Normal. ME interval is normal. rn QRS interval is normal. QT interval is normal. No Q waves. T waves are Normal. No ST changes noted. Clinical impression: Sinus tachycardia. Interpreted by me. Reviewed by me. Administered Medications: 14:55 Drug: MethylPrednisoLONE IVP 125 mg IVP once Route: IVP; Site: right antecubital; ph 19:10 Follow up: Response: No adverse reaction ph 14:55 Drug: Levalbuterol Inhalation 1.25 mg Inhalation once Route: Inhalation; ph 19:10 Follow up: Response: No adverse reaction ph 15:05 Drug: Oseltamivir PO 75 mg PO once Route: PO; ph 19:10 Follow up: Response: No adverse reaction ph 15:36 Drug: Tussionex Pennkinetic ER PO Suspension 5 ml PO once Route: PO; ph 19:10 Follow up: Response: No adverse reaction ph Disposition Summary: 07/20/23 15:37 Hospitalization Ordered Notes: Hospitalization Status: Observation rn Provider: Parker Vale rn Location: Telemetry/MedSurg (observation) rn Condition: Stable rn Problem: new rn Symptoms: have improved rn Bed/Room Type: Standard rn Room Assignment: 426(07/20/23 18:06) eb Diagnosis - Influenza due to other identified influenza virus with other respiratory rn manifestations - COPD/ Chronic obstructive pulmonary disease with (acute) exacerbation rn - Dyspnea, unspecified rn Forms: - Medication Reconciliation Form rn - SBAR form rn - Leadership Thank You Letter rn Signatures: Dispatcher [employer] EDMS Karthik Levine MD MD rn Hall, Patricia, RN RN Kayleen Corado Norma, RN RN nj1 Corrections: (The following items were deleted from the chart) 15:34 13:00 Constitutional: This is a well developed, well nourished patient who is awake, rn alert, and in no acute distress. Head/Face: Normocephalic, atraumatic. ENT: No stridor Cardiovascular: Tachycardic, regular. No pulse deficits Respiratory: Mild tachypnea with bibasilar crackles. No retractions. Faint wheezing noted MS/ Extremity: Pulses equal, no cyanosis. Neurovascular intact. Full, normal range of motion. Equal circumference. Neuro: Awake and alert, GCS 15 rn 18:06 15:37 rn eb
--- NOTE | 2023-07-20 15:37 | ER ---
Nurse's Notes [facility] Name: Jacki Brar Age: 78 yrs Sex: Female : 1945 Arrival Date: 07/20/2023 Time: 12:43 Bed 6 Private MD: Diagnosis: Influenza due to other identified influenza virus with other respiratory manifestations;COPD/ Chronic obstructive pulmonary disease with (acute) exacerbation;Dyspnea, unspecified Presentation: 07/20 12:57 Chief complaint: Patient states: Dry cough and shortness of breath for the past 2-3 nj1 days, getting worse. Had a fever on the first day. 12:57 Coronavirus screen: Vaccine status: Patient reports receiving the 2nd dose of the covid nj1 vaccine. Ebola Screen: Patient denies travel to an Ebola-affected area in the 21 days before illness onset. Initial Sepsis Screen: Does the patient meet any 2 criteria? HR > 90 bpm. Initial Sepsis Screen: Does the patient have a suspected source of infection? No. Patient's initial sepsis screen is negative. Risk Assessment: Do you want to hurt yourself or someone else? Patient reports no desire to harm self or others. Onset of symptoms was July 2023. 12:57 Method Of Arrival: Ambulatory [facility] 12:57 Acuity: JOSE 3 nj1 Triage Assessment: 13:25 Respiratory: the patient has moderate shortness of breath. ph Historical: - Allergies: 13:03 No Known Allergies; nj1 - PMHx: 13:03 Anemia; COPD; pulmonary fibrosis; TIA; nj1 - Immunization history:: Client reports receiving the 2nd dose of the Covid vaccine. - Social history:: Smoking status: Patient denies any tobacco usage or history of. - Family history:: not pertinent. - Hospitalizations: : No recent hospitalization is reported. Screenin:25 [facility] ED Fall Risk Assessment (Adult) History of falling in the last 3 months, ph including since admission No falls in past 3 months (0 pts) Score/Fall Risk Level 0 - 2 = Low Risk Oriented to surroundings, Maintained a safe environment, Provided non-skid footwear, Hourly rounding (assess needs \T\ fall precautionary measures) done. Abuse screen: Denies threats or abuse. Denies injuries from another. Nutritional screening: No deficits noted. Tuberculosis screening: No symptoms or risk factors identified. Assessment: 13:24 General: Appears in no apparent distress. comfortable, slender, well groomed, Behavior ph is calm, cooperative, appropriate for age. Pain: Complains of pain in back. Neuro: Level of Consciousness is awake, alert, obeys commands, Oriented to person, place, time, situation. Cardiovascular: Reports fatigue, shortness of breath, Denies chest pain, nausea, vomiting, Capillary refill < 3 seconds in bilateral fingers Patient's skin is warm and dry. Rhythm is sinus tachycardia. Respiratory: Reports shortness of breath at rest cough that is dry, Airway is patent Respiratory effort is labored, Respiratory pattern is tachypnea. GI: No signs and/or symptoms were reported involving the gastrointestinal system. Derm: Skin is pink, warm \T\ dry. 19:41 Reassessment: Report attempted to 4th floor, no answer. Charge nurse KLAUDIA Candelario made aware.nw1 20:48 Reassessment:. nw1 Vital Signs: 12:57 BP 128 / 103; Pulse 119; Resp 20; Temp 98.8(TE); Pulse Ox 89% on R/A; Weight 50.8 kg; nj1 Height 4 ft. 11 in. ; 13:26 BP 124 / 65; Pulse 104; Resp 18; Temp 98.6(O); Pulse Ox 95% on 2 lpm NC; ph 15:05 BP 126 / 70; Pulse 99; Resp 26; Pulse Ox 94% on R/A; ph 15:05 Pulse Ox 100% on Nebulizer Mask; ph 15:36 BP 114 / 74; Pulse 106; Resp 24; Pulse Ox 92% on 2 lpm NC; ph 16:30 BP 121 / 70; Pulse 113; Resp 22; Pulse Ox 96% on 2 lpm NC; ph 18:05 BP 114 / 90; Pulse 105; Resp 24; Pulse Ox 100% on 2 lpm NC; ph 20:16 Pulse 95; Pulse Ox 96% on R/A; nw1 12:57 Body Mass Index 22.62 (50.80 kg, 149.86 cm) nj1 ED Course: 12:45 Patient arrived in ED. mr 12:50 Karthik Levine MD is Attending Physician. rn 12:55 Caroline Salguero RN is Primary Nurse. ph 13:00 Oxygen administration via nasal cannula \T\ 2L/min. nj1 13:03 Triage completed. nj1 13:03 Arm band placed on. nj1 13:10 First set of blood cultures drawn by me. Inserted saline lock: 22 gauge in right ph forearm, using aseptic technique. Blood collected. 13:15 Initial lab(s) drawn, by me, sent to lab. Second set of blood cultures drawn by me, ph COVID swab sent to lab. Flu and/or RSV swab sent to lab. Inserted saline lock: 20 gauge in right antecubital area, using aseptic technique. Blood collected. 13:25 Patient has correct armband on for positive identification. Placed in gown. Bed in low ph position. Call light in reach. Side rails up X2. Client placed on continuous cardiac and pulse oximetry monitoring. NIBP monitoring applied. Door closed. Noise minimized. Warm blanket given. 13:26 SARS RAPID Sent. ph 13:26 Flu Sent. ph 13:26 Blood Culture Adult (2) Sent. ph 13:26 CBC with Diff Sent. ph 13:26 CMP Sent. ph 13:26 Lactate w/ 2H reflex if indic. Sent. ph 13:26 Protime (+inr) Sent. ph 13:26 Ptt, Activated Sent. ph 14:13 Chest Single View XRAY In Process Unspecified. EDMS 15:36 Parker Vale is Hospitalizing Provider. rn 20:17 Provided Education on: POC. nw1 20:17 No provider procedures requiring assistance completed. Patient admitted, IV remains in nw1 place. Administered Medications: 14:55 Drug: MethylPrednisoLONE IVP 125 mg IVP once Route: IVP; Site: right antecubital; ph 19:10 Follow up: Response: No adverse reaction ph 14:55 Drug: Levalbuterol Inhalation 1.25 mg Inhalation once Route: Inhalation; ph 19:10 Follow up: Response: No adverse reaction ph 15:05 Drug: Oseltamivir PO 75 mg PO once Route: PO; ph 19:10 Follow up: Response: No adverse reaction ph 15:36 Drug: Tussionex Pennkinetic ER PO Suspension 5 ml PO once Route: PO; ph 19:10 Follow up: Response: No adverse reaction ph Medication: 13:25 VIS not applicable for this client. ph Outcome: 15:37 Decision to Hospitalize by Provider. rn 20:18 Admitted to Tele accompanied by hafsa, Report called to KLAUDIA [place] nw1 20:18 Condition: stable 20:18 Discharge instructions given to patient, Instructed on the need for admit, Demonstrated understanding of instructions, 21:23 Patient left the ED. adali Signatures: Dispatcher [employer] Tran Winn, Layla Beard RN, [facility] Eric mr Karthik Levine MD MD rn Hall, Patricia, RN RN ph [place], Norma, KLAUDIA RUDOLPH nj1 Brigitte Jones RN RN nw1
[2023-07-20] MEDS ORDERED: HYDROCODONE/CHLORPHEN 5 ML/OSYR ONE (15:48)
[2023-07-20] MEDS ORDERED: IPRATROPIUM BROM 0.5MG/2.5ML NEB PRN (17:16)
--- NOTE | 2023-07-20 20:18 | P.HP ---
Certification for Inpatient Patient admitted to: Observation With expected LOS: >2 Midnights Practitioner: I am a practitioner with admitting privileges, knowledge of patient current condition, hospital course, and medical plan of care. Services: Services provided to patient in accordance with Admission requirements found in Title 42 Section 412.3 of the Code of Federal Regulations Patient History Date of Service: 07/20/23 Reason for admission: copd exacerbation History of Present Illness: Coby Brar is a 78-year-old female with past medical history of Anemia; COPD (3 LNC PRN home use); pulmonary fibrosis; TIA who presents to the ED with complaints of difficulty breathing, cough, shortness of breath at rest and with light activity, and fever. Onset of symptoms was 3 days ago. Coby reports trying DayQuil but did not relieve her cough. On evaluation her back is in no acute distress, on 2 L nasal cannula, coughing, able to speak in full sentences. Initial vitals BP 128 / 103; Pulse 119; Resp 20; Temp 98.8; Pulse Ox 89% on R/A. Significant labs WBC 27.5, platelets 417, BUN/creatinine /.09. Chest x-ray reports "Moderate bilateral pulmonary opacities are again noted with underlying fibrotic changes, appearing chronic and unchanged since 07/24/2022. The heart is mildly enlarged in size. No displaced fractures." Patient will be admitted for further evaluation and treatment of flu, COPD exacerbation in patient with pulmonary fibrosis. Allergies No Known Allergies Allergy (Verified 07/10/23 09:10) Home Medications: Aspirin [Lo-Dose Aspirin EC] 81 mg PO DAILY 06/03/20 Pirfenidone [Esbriet] 2 tab PO BID 06/03/20 predniSONE [Deltasone*] 10 mg PO DAILY 06/03/20 Cholecalciferol (Vitamin D3) [D3-50] 1 tab PO DAILY 05/26/22 Triamterene/Hctz [Maxzide 37.5 mg-25 mg Tablet*] 1 tab PO DAILYPRN PRN 05/26/22 Amlodipine Besylate 10 mg PO DAILY 07/25/22 Fluticasone/Vilanterol [Breo Ellipta 200-25 Mcg Inhalr] 2 puff IH DAILY 07/25/22 Pantoprazole [Protonix Tab*] 1 tab PO DAILY 07/25/22 Budesonide/Glycopyr/Formoterol [Breztri Aerosphere Inhaler] 1 puff IH DAILY 07/06/23 Iron 1 tab PO DAILY 07/06/23 hydroCHLOROthiazide [Hydrochlorothiazide*] 12.5 mg PO DAILY 07/06/23 - Past Medical/Surgical History Diabetic: No -: Osteoarthritis -: Pulmonary fibrosis -: Anemia -: Rheumatoid arthritis -: Pulmonary fibrosis -: Appendectomy -: Cholecystectomy -: Right hip replacement -: Left hip hemiarthroplasty -: tonsillectomy Psychosocial/ Personal History: She is . She has 3 children. 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 - Family History Mother -: Lung disease Father -: Heart disease Sister -: Other (see notes) Notes: skin disorder - Social History Alcohol use: Yes CD- Drugs: No Caffeine use: Yes Review of Systems General: Fever Respiratory: Cough, Shortness of Breath Neurological: Other (dizziness) Physical Examination - Physical Exam General: Alert, In no apparent distress, Oriented x3 HEENT: Atraumatic, Normocephalic, PERRLA Neck: Supple, 2+ carotid pulse no bruit, JVD not distended Respiratory: Diminished Cardiovascular: No edema, Normal pulses, Regular rate/rhythm, Normal S1 S2 Capillary refill: <2 Seconds Gastrointestinal: Normal bowel sounds, Hypoactive, Soft and benign Musculoskeletal: No clubbing, No swelling, No contractures Integumentary: No rashes, No breakdown, No significant lesion Neurological: Normal gait, Normal speech, Normal strength at 5/5 x4 extr - Studies Laboratory Data (last 24 hrs) 07/20/23 07/20/23 07/20/23 13:15 13:15 13:15 WBC 27.50 H Hgb 8.1 L Hct 25.5 L Plt Count 417 H PT 13.1 H INR 1.19 APTT 27.2 Sodium 135 L Potassium 3.3 L BUN 21 H Creatinine 1.09 H Glucose 179 H Total Bilirubin 1.0 AST 16 ALT 19 Alkaline Phosphatase 108 Microbiology Data (last 24 hrs): 07/20/23 13:20 Nasopharnyx Influenza Type A Antigen Screen - Final 07/20/23 13:20 Nasopharnyx Influenza Type B Antigen Screen - Final Assessment and Plan - Plan Assessment and plan Acute COPD exacerbation in patient with pulmonary fibrosis Flu B Leukocytosis WBC 27.5 Chest x-ray reports "chronic unchanged pulmonary opacities" Consult Dr. Cormier On 2 L nasal cannula 3 L nasal cannula as needed for home oxygen Ipratropium nebulizer Tessalon Perle Q6H PRN Hydrocodone polistirex BID PRN anemia of chronic disease H&H 8.1 25.5, MCV 65.0, MCH 20.6, MCHC 31.6, RDW 17.5 Monitor in a.m. lab Transfuse when Hgb <7 History of hypertension History of hyperlipidemia Restart home medication DVT PPx heparin Full code LOS 2 to 3 days Discharge Plan: Home Plan to discharge in: 48 Hours - Advance Directives Does patient have a Living Will: No Does patient have a Durable POA for Healthcare: No Time Spent Managing Pts Care (In Minutes): 55
[2023-07-20] MEDS ORDERED: BENZONATATE 100 MG CAP PO PRN ×2 (20:31→21:59)
[2023-07-20] MEDS ORDERED: HYDROCODONE/CHLORPHEN 5 ML/OSYR PO PRN (20:32)
[2023-07-20 23:39] VITALS: BMI 22.8
[2023-07-21] MEDS ORDERED: OSELTAMIVIR 75 MG CAP PO ONE (02:00)
[2023-07-21 06:19] LABS: Absolute Lymphocytes (CBC) 0.5 K/uL (0.7-4.9); Hematocrit 23.4 % (36.0-45.0); Lymphocytes % 2.4 % (15.3-44.8); MPV 7.1 fL (7.6-11.3); Platelets 414 thou/uL (152-406)
[2023-07-21 06:40] LABS: Magnesium 2.4 mg/dL (1.6-2.4); Phosphorus 2.5 mg/dL (2.5-4.9); Potassium 4.1 mEq/L (3.5-5.1)
[2023-07-21] MEDS ORDERED: PNEUMOCOCCAL VACCINE 0.5 ML IMVAC ONE (08:00)
[2023-07-21] MEDS ORDERED: OSELTAMIVIR 30 MG CAP PO SCH (09:00)
[2023-07-21] MEDS: POTASS/SODIUM PHOSPHATE 1 PKT POWD.PACK PO SCH (10:03)
[2023-07-21 10:48] VITALS: O2SAT 95
[2023-07-21] MEDS ORDERED: ALBUTEROL 2.5 MG/3 ML NEB SOL NEB SCH (14:00)
[2023-07-21 16:38] VITALS: BP 120/68; TEMP 97.8
[2023-07-21] MEDS ORDERED: METHYLPREDNISOLONE 40 MG INJ IV SCH (17:00)
--- NOTE | 2023-07-21 17:00 | P.DS ---
Admission Date: 07/20/23 Discharge Date: 07/21/23 Disposition: ROUTINE DISCHARGE Discharge Condition: FAIR Reason for Admission: copd exacerbation - Problems (1) COPD exacerbation Current Visit: Yes Status: Acute (2) Influenzal pneumonia Current Visit: No Status: Acute (3) Pulmonary fibrosis Onset Date: 02/02/17 Current Visit: No Status: Chronic Brief History of Present Illness: Coby Brar is a 78-year-old female with past medical history of Anemia; COPD (3 LNC PRN home use); pulmonary fibrosis; TIA who presents to the ED with complaints of difficulty breathing, cough, shortness of breath at rest and with light activity, and fever. Onset of symptoms was 3 days prior. Coby reports trying DayQuil but did not relieve her cough. Evaluation in the ED: Initial vitals BP 128 / 103; Pulse 119; Resp 20; Temp 98.8; Pulse Ox 89% on R/A. Significant labs WBC 27.5, platelets 417, BUN/creatinine 21/1.09. Chest x-ray reports "Moderate bilateral pulmonary opacities are again noted with underlying fibrotic changes, appearing chronic and unchanged since 07/24/2022. The heart is mildly enlarged in size. No displaced fractures." Swab positive for influenza B. Patient was admitted for further management. Hospital Course: Patient was placed in observation on the medical floor. She was treated with bronchodilators, IV steroid, Tamiflu for influenza B. She was maintained on 3 L of oxygen by nasal cannula. Patient respiratory status was stable, she was ambulatory on oxygen by nasal cannula. Of note patient uses oxygen as needed at home-about 2 to 3 L by nasal cannula. Today she states she feels much better and requested to go home. Patient is discharged with Tamiflu, oral Levaquin for possible bacterial infective bronchitis given change in sputum color and increased sputum production. She is also discharged with prednisone taper. Vital Signs/Physical Exam: Temp Pulse Resp BP Pulse Ox 97.8 F 92 H 18 120/68 88 L 07/21/23 16:00 07/21/23 16:00 07/21/23 16:00 07/21/23 16:00 07/21/23 16:00 General: Alert, In no apparent distress, Oriented x3 HEENT: Mucous membr. moist/pink Neck: JVD not distended Respiratory: Crackles/rales (Bilateral) Cardiovascular: No edema, Regular rate/rhythm, Normal S1 S2 Gastrointestinal: Normal bowel sounds, Soft and benign, Non-distended, No tenderness Musculoskeletal: No swelling, No tenderness Integumentary: No rashes, No cyanosis Neurological: Normal speech, Normal strength at 5/5 x4 extr Laboratory Data at Discharge: WBC 21.00 thou/uL (4.3-10.9) H 07/21/23 05:38 Hgb 7.4 g/dL (12.0-15.0) L D 07/21/23 05:38 Hct 23.4 % (36.0-45.0) L 07/21/23 05:38 Plt Count 414 thou/uL (152-406) H 07/21/23 05:38 PT 13.1 SECONDS (9.5-12.5) H 07/20/23 13:15 INR 1.19 07/20/23 13:15 APTT 27.2 SECONDS (24.3-36.9) 07/20/23 13:15 Sodium 135 mEq/L (136-145) L 07/21/23 05:38 Potassium 4.1 mEq/L (3.5-5.1) D 07/21/23 05:38 BUN 23 mg/dL (7-18) H 07/21/23 05:38 Creatinine 0.79 mg/dL (0.55-1.02) 07/21/23 05:38 Glucose 150 mg/dL (74-106) H 07/21/23 05:38 Phosphorus 2.5 mg/dL (2.5-4.9) 07/21/23 05:38 Magnesium 2.4 mg/dL (1.6-2.4) 07/21/23 05:38 Total Bilirubin 1.0 mg/dL (0.2-1.0) 07/20/23 13:15 AST 16 U/L (15-37) 07/20/23 13:15 ALT 19 U/L (13-56) 07/20/23 13:15 Alkaline Phosphatase 108 U/L (45-117) 07/20/23 13:15 Home Medications: Aspirin [Lo-Dose Aspirin EC] 81 mg PO DAILY 06/03/20 Pirfenidone [Esbriet] 2 tab PO BID 06/03/20 predniSONE [Deltasone*] 10 mg PO DAILY 06/03/20 Cholecalciferol (Vitamin D3) [D3-50] 1 tab PO DAILY 05/26/22 Amlodipine Besylate 10 mg PO DAILY 07/25/22 Pantoprazole [Protonix Tab*] 1 tab PO DAILY 07/25/22 Budesonide/Glycopyr/Formoterol [Breztri Aerosphere Inhaler] 1 puff IH DAILY 07/06/23 Iron 1 tab PO DAILY 07/06/23 Albuterol Neb [Proventil 0.083% Neb Soln] 2.5 mg NEB [id number] PRN #120 amp 07/21/23 Hydrocodone/Chlorphen Polis [Tussionex Oral Susp*] 5 ml PO BID PRN #115 ml 07/21/23 Ipratropium Neb [Atrovent*] 0.5 mg NEB [id number] PRN #120 amp 07/21/23 Oseltamivir Phosphate [Tamiflu] 30 mg PO BID #9 cap 07/21/23 levoFLOXacin [Levaquin] 750 mg PO DAILY #5 tab 07/21/23 predniSONE [Deltasone*] 10 mg PO DAILY #30 tab 07/21/23 New Medications: Ipratropium Neb [Atrovent*] 0.5 mg NEB [id number] PRN #120 amp PRN Reason: Shortness Of Breath Albuterol Neb [Proventil 0.083% Neb Soln] 2.5 mg NEB [id number] PRN #120 amp PRN Reason: Wheezing predniSONE [Deltasone*] 10 mg PO DAILY #30 tab levoFLOXacin [Levaquin] 750 mg PO DAILY #5 tab Oseltamivir Phosphate [Tamiflu] 30 mg PO BID #9 cap Hydrocodone/Chlorphen Polis [Tussionex Oral Susp*] 5 ml PO BID PRN #115 ml PRN Reason: Cough Diet: AHA Activity: Ad dariel Followup: NONE,NONE [Primary Care Provider] - 1-2 Weeks Time spent managing pt's care (in minutes): 26
[2023-07-21] MEDS ORDERED: HEPARIN 5000 UNIT/ML 1 ML VIAL SQ SCH (17:30)
--- NOTE | 2023-07-25 17:10 | EKG ---
Test Date: 2023-07-20 Test Time: 13:03:03 Heel Blacker: BERTHA MEASUREMENT RESULTS: Intervals: Rate: 110 MD: 134 QRSD: 88 QT: 314 QTc: 424 [place]: P: 51 MD: 134 QRS: 38 T: 15 INTERPRETIVE STATEMENTS: Sinus tachycardia Nonspecific ST and T wave abnormality Abnormal ECG Compared to ECG 07/06/2023 12:55:27 Sinus rhythm no longer present ST (T wave) deviation still present Electronically Signed On 07-25-23 16:56:12 SPAR FINISHER by Raffaele Martin
== END 2023-07-21 18:06 | disposition home or self-care (01) ==
LOC: ER 12:43 → ERHOLD 17:28 → 4TH 18:40
PROVIDERS: ADMIT Internal Medicine; ATTEND Internal Medicine
DX: J44.1 Chronic obstructive pulmonary disease with (acute) exacerbation (principal); J10.00 Influenza due to other identified influenza virus with unspecified type of pneumonia; J84.10 Pulmonary fibrosis, unspecified; D72.829 Elevated white blood cell count, unspecified; D63.1 Anemia in chronic kidney disease; I10 Essential (primary) hypertension; E78.5 Hyperlipidemia, unspecified; Z96.641 Presence of right artificial hip joint; Z11.52 Encounter for screening for COVID-19
CPT/HCPCS: 93005; 87040 ×2; 85025 ×2; 80048; 36415; 83735; 84100; 85610; 83605; 85730; 80053; 87804 ×2; 71045; 94640; 96374; 99285; 87811; J1644; J7614; J7644 ×2; J2930; G0378 ×4

== ENCOUNTER 2023-09-02 13:51 | Inpatient (IN) | payer OTHER ==
[2023-09-02] MEDS ORDERED: LEVALBUTEROL 1.25 MG/3 ML NEB ONE (14:29)
[2023-09-02] MEDS ORDERED: METHYLPREDNISOLONE 125 MG INJ ONE ×2 (14:29→20:16)
[2023-09-02 14:34] LABS: Absolute Lymphocytes (CBC) 1.1 K/uL (0.7-4.9); Hematocrit 26.7 % (36.0-45.0); MCV 62.8 fL (80-100); Platelets 548 thou/uL (152-406); RBC Red Blood Cell Count 4.24 M/uL (3.86-4.86)
[2023-09-02 14:51] LABS: SARS-CoV-2 Antigen Rapid Res Negative (Negative)
[2023-09-02 15:05] LABS: Potassium 3.4 mEq/L (3.5-5.1); Troponin High Sensitivity 4.8 pg/mL (<58.9)
--- NOTE | 2023-09-02 15:23 | RAD REPORT ---
EXAM DESCRIPTION: RAD - Chest Single View - 09/02/2023 3:14 pm CLINICAL HISTORY: Cough;Dyspnea Chest pain. COMPARISON: <Comparisons> FINDINGS: Portable technique limits examination quality. 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 The majority of this is lik maura chronic. The heart is mildly enlarged in size. 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
[2023-09-02 15:57] LABS: Blood Morphology Comment NOTED (NOT SEEN); Platelet Estimate INCR; White Blood Cell Scan OK (OK)
[2023-09-02 15:58] LABS: Anisocytosis 2+
[2023-09-02] MEDS ORDERED: OSELTAMIVIR 75 MG CAP PO ONE (16:01)
--- NOTE | 2023-09-02 16:16 | ER ---
Nurse's Notes [facility] Name: Jacki Brar Age: 78 yrs Sex: Female : 1945 Arrival Date: 09/02/2023 Time: 13:51 Bed 16 Private MD: Diagnosis: Influenza due to other identified influenza virus with other respiratory manifestations;COPD/ Chronic obstructive pulmonary disease with acute lower respiratory infection;Hypoxemia Presentation: 09/02 14:00 Chief complaint: EMS states: patient has been short of breath and has had lower O2 cp4 saturations. Patient has hx of pulmonary fibrosis and COPD. Coronavirus screen: Vaccine status: Patient reports receiving the 2nd dose of the covid vaccine. Client denies travel out of the [place] in the last 14 days. At this time, the client does not indicate any symptoms associated with coronavirus-19. Ebola Screen: Patient negative for fever greater than or equal to 101.5 degrees Fahrenheit, and additional compatible Ebola Virus Disease symptoms Patient denies exposure to infectious person. Patient denies travel to an Ebola-affected area in the 21 days before illness onset. No symptoms or risks identified at this time. Initial Sepsis Screen: Does the patient meet any 2 criteria? No. Patient's initial sepsis screen is negative. Does the patient have a suspected source of infection? No. Patient's initial sepsis screen is negative. Risk Assessment: Do you want to hurt yourself or someone else?. Risk Assessment: Do you want to hurt yourself or someone else? Patient reports no desire to harm self or others. Onset of symptoms was September 02, 2023. 14:00 Method Of Arrival: EMS: [facility] cp4 14:00 Acuity: JOSE 3 cp4 Triage Assessment: 14:02 General: Appears distressed, Behavior is calm, cooperative, appropriate for age. Pain: cp4 Denies pain. Historical: - Allergies: 14:02 No Known Allergies; cp4 - PMHx: 14:02 Anemia; pulmonary fibrosis; COPD; TIA; cp4 - Immunization history:: Adult Immunizations up to date. - Social history:: Smoking status: Patient denies any tobacco usage or history of. - Family history:: not pertinent. - Hospitalizations: : No recent hospitalization is reported. Screenin:03 [facility] ED Fall Risk Assessment (Adult) History of falling in the last 3 months, cp4 including since admission No falls in past 3 months (0 pts) Confusion or Disorientation No (0 pts) Intoxicated or Sedated No (0 pts) Impaired Gait No (0 pts) Mobility Assist Device Used No (0 pt) Altered Elimination No (0 pt) Score/Fall Risk Level 0 - 2 = Low Risk Oriented to surroundings, Maintained a safe environment, Educated pt \T\ family on fall prevention, incl call for assistance when getting out of bed, Assessed \T\ reinforced patient's understanding of fall precautions, Hourly rounding (assess needs \T\ fall precautionary measures) done. Abuse screen: Denies threats or abuse. Nutritional screening: No deficits noted. Tuberculosis screening: No symptoms or risk factors identified. Assessment: 22:50 Reassessment: attempted to give report. ha1 23:18 Reassessment: report given to KLAUDIA Clements. ha1 Vital Signs: 14:00 BP 101 / 61; Pulse 106; Resp 20; Temp 98; Pulse Ox 79% ; Weight 49.9 kg; Height 5 ft. 0 cp4 in. ; Pain 0/10; 15:24 BP 105 / 53; Pulse 94; Resp 18; Pulse Ox 98% ; cp4 16:13 BP 113 / 59; Pulse 94; Resp 18; Pulse Ox 97% 2 lpm ; cp4 14:00 Body Mass Index 21.48 (49.90 kg, 152.4 cm) cp4 14:00 Pain Scale: Adult cp4 ED Course: 13:54 Patient arrived in ED. eb 13:59 Karthik Levine MD is Attending Physician. rn 13:59 Catalina Schulz is Primary Nurse. cp4 14:02 Triage completed. cp4 14:02 Arm band placed on left wrist. Patient placed in the treatment room, on a stretcher. cp4 14:03 Bed in low position. Call light in reach. Side rails up X 1. cp4 14:03 No provider procedures requiring assistance completed. cp4 14:34 Inserted saline lock: 20 gauge in left forearm, using aseptic technique. Blood cp4 collected. 15:16 XRAY CXR (1 view) In Process Unspecified. EDMS 16:15 Florencio Santos MD is Hospitalizing Provider. rn 23:19 Provided Education on: need for admit . ha1 23:19 Patient admitted, IV remains in place. ha1 Administered Medications: 14:34 Drug: MethylPrednisoLONE IVP 125 mg IVP once Route: IVP; Site: left antecubital; cp4 16:03 Follow up: Response: No adverse reaction cp4 14:34 Drug: Levalbuterol Inhalation 1.25 mg Inhalation once Route: Inhalation; cp4 16:03 Follow up: Response: No adverse reaction cp4 16:12 Drug: Oseltamivir PO 75 mg PO once Route: PO; cp4 Medication: 14:03 VIS not applicable for this client. cp4 Outcome: 16:15 Decision to Hospitalize by Provider. rn 23:18 Admitted to Med/surg accompanied by nurse, via wheelchair, room 206, with oxygen, with ha1 chart, Report called to KLAUDIA Clements 23:18 Condition: stable 23:18 Discharge instructions given to patient, Instructed on the need for admit, Demonstrated understanding of instructions, 23:53 Patient left the ED. ha1 Signatures: Dispatcher [employer] EDMS Karthik Levine MD MD rn Botello, Elizabeth eb Ayala, Heidy, RN RN ha1 Catalina Schulz cp4
--- NOTE | 2023-09-02 16:16 | EDPHYS ---
Physician Documentation [facility] Name: Jacki Brar Age: 78 yrs Sex: Female : 1945 Arrival Date: 09/02/2023 Time: 13:51 Bed 16 Private MD: ED Physician Karthik Levine HPI: 09/02 14:30 This 78 yrs old Female presents to ER via EMS with complaints of low oxygen. rn 14:30 The patient has shortness of breath with light activity. Onset: The symptoms/episode rn began/occurred at an unknown time. Duration: The symptoms are intermittent. The patient's shortness of breath is aggravated by exertion, light activity, is alleviated by application of supplemental oxygen. Severity of symptoms: At their worst the symptoms were moderate in the emergency department the symptoms have improved. The patient has experienced similar episodes in the past. Patient reports has COPD and pulmonary fibrosis, over the last few months has noticed increased dyspnea on exertion and decreased exercise capacity. Today was at congregational and having shortness of breath and asked to be wheeled out. No acute changes. No fever. No recent illness. No trauma or fall. Patient feels also that her oxygen concentrator is not working. EMS reports oxygen 80% but quickly up to high 90s with 2 L oxygen.. Historical: - Allergies: 14:02 No Known Allergies; cp4 - PMHx: 14:02 Anemia; pulmonary fibrosis; COPD; TIA; cp4 - Immunization history:: Adult Immunizations up to date. - Social history:: Smoking status: Patient denies any tobacco usage or history of. - Family history:: not pertinent. - Hospitalizations: : No recent hospitalization is reported. ROS: 14:30 Constitutional: Negative for fever, chills, and weight loss, Neck: Negative for injury, rn pain, and swelling, Cardiovascular: Negative for chest pain, palpitations, and edema, Respiratory: Positive for shortness of breath Abdomen/GI: Negative for abdominal pain, nausea, vomiting, diarrhea, and constipation, Back: Negative for injury and pain, MS/Extremity: Negative for injury and deformity, Skin: Negative for injury, rash, and discoloration, Neuro: Negative for headache, weakness, numbness, tingling, and seizure, Exam: 14:30 Constitutional: This is a well developed, well nourished patient who is awake, alert, rn and in no acute distress. Head/Face: Normocephalic, atraumatic. ENT: No stridor Cardiovascular: Tachycardic, regular. No pulse deficits. Respiratory: Mild tachypnea with bilateral crackles, no wheezing or retractions Abdomen/GI: Soft, nontender Neuro: Awake and alert, GCS 15 18:07 ECG was reviewed by the Attending Physician. rn Vital Signs: 14:00 BP 101 / 61; Pulse 106; Resp 20; Temp 98; Pulse Ox 79% ; Weight 49.9 kg; Height 5 ft. 0 cp4 in. ; Pain 0/10; 15:24 BP 105 / 53; Pulse 94; Resp 18; Pulse Ox 98% ; cp4 16:13 BP 113 / 59; Pulse 94; Resp 18; Pulse Ox 97% 2 lpm ; cp4 14:00 Body Mass Index 21.48 (49.90 kg, 152.4 cm) cp4 14:00 Pain Scale: Adult cp4 MDM: 13:59 Patient medically screened. rn 16:13 Differential diagnosis: Anemia Anxiety Reaction Chronic Obstructive Pulmonary Disease rn pneumonia, Pneumothorax. Data reviewed: vital signs, nurses notes, lab test result(s), radiologic studies, plain films, and as a result, I will admit patient. Consideration of Admission/Observation Patient was admitted/placed on observation. Escalation of care including admission/observation considered. Counseling: I had a detailed discussion with the patient and/or guardian regarding the historical points, exam findings, and any diagnostic results supporting the discharge/admit diagnosis, lab results, radiology results, the need for further work-up and treatment in the hospital. Response to treatment: the patient's symptoms have mildly improved after treatment, and as a result, I will admit patient. ED course: Patient reports still persistent shortness of breath, is flu positive, increased oxygen requirement, still tachypneic and tachycardic, will admit to hospitalist service for further care. Sees Dr. Cormier and can consult as well.. 09/02 14:06 Order name: BMP; Complete Time: 15:51 rn 09/02 14:06 Order name: Blood Culture Adult (2) rn 09/02 14:06 Order name: CBC with Diff; Complete Time: 16:09 rn 09/02 14:06 Order name: NT PRO-BNP; Complete Time: 15:51 rn 09/02 14:06 Order name: Troponin HS; Complete Time: 15:51 rn 09/02 14:06 Order name: SARS RAPID; Complete Time: 15:51 rn 09/02 14:06 Order name: Flu; Complete Time: 15:51 rn 09/02 15:04 Order name: CBC Smear Scan; Complete Time: 16:09 EDVA 09/02 19:39 Order name: Magnesium EDVA 09/02 14:06 Order name: XRAY CXR (1 view); Complete Time: 15:51 rn 09/02 19:39 Order name: CT EDVA 09/02 14:06 Order name: EKG; Complete Time: 14:07 rn 09/02 16:43 Order name: CONS Physician Consult EDVA 09/02 14:06 Order name: Cardiac monitoring; Complete Time: 14:27 rn 09/02 14:06 Order name: EKG - Nurse/Tech; Complete Time: 14:27 rn 09/02 14:06 Order name: IV Saline Lock; Complete Time: 14:27 rn 09/02 14:06 Order name: Labs collected and sent; Complete Time: 14:27 rn 09/02 14:06 Order name: O2 Per Protocol; Complete Time: 14:27 rn 09/02 14:06 Order name: O2 Sat Monitoring; Complete Time: 14:27 rn EC:07 Rate is 99 beats/min. Rhythm is regular. QRS [place] is Normal. [place] interval is normal. QRS rn interval is normal. QT interval is normal. No Q waves. T waves are Normal. No ST changes noted. Clinical impression: NSR w/ Non-specific ST/T Changes. Interpreted by me. Reviewed by me. Administered Medications: 14:34 Drug: MethylPrednisoLONE IVP 125 mg IVP once Route: IVP; Site: left antecubital; cp4 16:03 Follow up: Response: No adverse reaction cp4 14:34 Drug: Levalbuterol Inhalation 1.25 mg Inhalation once Route: Inhalation; cp4 16:03 Follow up: Response: No adverse reaction cp4 16:12 Drug: Oseltamivir PO 75 mg PO once Route: PO; cp4 Disposition Summary: 09/02/23 16:15 Hospitalization Ordered Notes: Hospitalization Status: Observation rn Provider: Florencio Santos rn Condition: Stable rn Problem: new rn Symptoms: are unchanged rn Bed/Room Type: Standard rn Location: Telemetry/MedSurg (observation)(09/02/23 22:33) cg Room Assignment: [facility](09/02/23 22:33) Diagnosis - Influenza due to other identified influenza virus with other respiratory rn manifestations - COPD/ Chronic obstructive pulmonary disease with acute lower respiratory infection rn - Hypoxemia rn Forms: - Medication Reconciliation Form rn - SBAR form rn - Leadership Thank You Letter rn Signatures: Dispatcher [employer] EDKarthik Montero MD MD rn Garcia, Cindy, RN RN cg Botello, Elizabeth eb Potter, Christina cp4 Corrections: (The following items were deleted from the chart) 17: 16:15 Telemetry/MedSurg (observation) rn eb 17: 16:15 rn eb : 17:09 [facility] ER HOLD eb cg : 17:09 ERHOLD- eb cg
--- NOTE | 2023-09-02 16:27 | P.HP ---
Certification for Inpatient Patient admitted to: Inpatient With expected LOS: <2 Midnights <Jenny Pineda - Last Filed: 09/02/23 17:10> Patient History Date of Service: 09/02/23 Reason for admission: shortness of breath History of Present Illness: 78-year-old female with a past medical history of anemia, pulmonary fibrosis, COPD, TIA, presents to the room with shortness of breath. She reports shortness of breath worse today, started over the last month. She reports shortness of breath or sick with exertion, symptoms improved with rest, oxygen, nebulizers. She reports history of pulmonary fibrosis, COPD she sees Dr Currie. per EMS she was 80% was placed on O2 at 2 L sats improved to the 90s.0 BP 101 / 61; Pulse 106; Resp 20; Temp 98; Pulse Ox 79% ; Weight 49.9 kg; Height 5 ft. 0 in. ; Pain 0/10; she was treated with prednisone, lev albuterol,Oseltamivir PO 75 mg PO in the emergency room. 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 The majority of this is likely chronic. 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 hypokalemia 3.4 acute kidney injury BUN 16 creatinine 1.10, estimated GFR 52 blood glucose 152, leukocytosis WBCs 26.7 no thrombocytosis platelets 548, troponin 4.8, BNP 279, COVID-negative - Past Medical/Surgical History Diabetic: No -: Osteoarthritis -: Pulmonary fibrosis -: Anemia -: Rheumatoid arthritis -: COPD -: pre diabetic -: Appendectomy -: Cholecystectomy -: Right hip replacement -: Left hip hemiarthroplasty -: tonsillectomy Psychosocial/ Personal History: She is . She has 3 children. 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 - Family History Mother -: Lung disease Father -: Heart disease Sister -: Other (see notes) Notes: skin disorder - Social History Alcohol use: Yes CD- Drugs: No Caffeine use: Yes <Jenny Pineda - Last Filed: 09/02/23 17:10> Date of Service: 09/02/23 <Florencio Santos - Last Filed: 09/02/23 18:22> Allergies No Known Allergies Allergy (Verified 07/10/23 09:10) Home Medications: RX: Aspirin [Lo-Dose Aspirin EC] 81 mg PO DAILY 06/03/20 RX: Pirfenidone [Esbriet] 2 tab PO BID 06/03/20 RX: predniSONE [Deltasone*] 10 mg PO DAILY 06/03/20 RX: Cholecalciferol (Vitamin D3) [D3-50] 1 tab PO DAILY 05/26/22 RX: Amlodipine Besylate 10 mg PO DAILY 07/25/22 RX: Pantoprazole [Protonix Tab*] 1 tab PO DAILY 07/25/22 RX: Budesonide/Glycopyr/Formoterol [Breztri Aerosphere Inhaler] 1 puff IH DAILY 07/06/23 RX: Iron 1 tab PO DAILY 07/06/23 RX: Albuterol Neb [Proventil 0.083% Neb Soln] 2.5 mg NEB [id number] PRN #120 amp 07/21/23 RX: Hydrocodone/Chlorphen Polis [Tussionex Oral Susp*] 5 ml PO BID PRN #115 ml 07/21/23 RX: Ipratropium Neb [Atrovent*] 0.5 mg NEB [id number] PRN #120 amp 07/21/23 RX: Oseltamivir Phosphate [Tamiflu] 30 mg PO BID #9 cap 07/21/23 RX: predniSONE [Deltasone*] 10 mg PO DAILY #30 tab 07/21/23 levoFLOXacin [Levaquin] 750 mg PO DAILY #5 tab 07/21/23 Benzonatate [Tessalon Perle] 200 mg PO TID #30 cap 07/22/23 RX: Nebulizer 1 each MC TID #1 ea 07/22/23 Review of Systems per HPI <Jenny Pineda - Last Filed: 09/02/23 17:10> Physical Examination - Physical Exam General: Alert, In no apparent distress HEENT: Atraumatic, Normocephalic Neck: Supple, 2+ carotid pulse no bruit Respiratory: Normal air movement, Crackles/rales, Other (shortness of breath with exertion) Cardiovascular: No edema, Normal pulses Capillary refill: <2 Seconds Gastrointestinal: Normal bowel sounds, Soft and benign Musculoskeletal: No clubbing, No swelling Integumentary: No rashes, No breakdown Neurological: Normal speech, Normal strength at 5/5 x4 extr - Studies Laboratory Data (last 24 hrs) 09/02/23 09/02/23 14:25 14:25 WBC 26.70 H Hgb 8.2 L Hct 26.7 L Plt Count 548 H Sodium 140 Potassium 3.4 L BUN 16 Creatinine 1.10 H Glucose 152 H Microbiology Data (last 24 hrs): 09/02/23 14:20 Nasopharnyx Influenza Type A Antigen Screen - Final 09/02/23 14:20 Nasopharnyx Influenza Type B Antigen Screen - Final <Jenny Pineda - Last Filed: 09/02/23 17:10> - Studies Laboratory Data (last 24 hrs) 09/02/23 09/02/23 14:25 14:25 WBC 26.70 H Hgb 8.2 L Hct 26.7 L Plt Count 548 H Sodium 140 Potassium 3.4 L BUN 16 Creatinine 1.10 H Glucose 152 H Microbiology Data (last 24 hrs): 09/02/23 14:20 Nasopharnyx Influenza Type A Antigen Screen - Final 09/02/23 14:20 Nasopharnyx Influenza Type B Antigen Screen - Final <Florencio Santos - Last Filed: 09/02/23 18:22> Assessment and Plan - Plan Assessment plan acute hypoxic respiratory failure secondary to influenza, pulmonary fibrosis versus COPD exacerbation Leukocytosis Pulmonary consult, per EMS o2 80% >placed on O2 at 2 L sats improved to the 90s. BP 101 / 61; Pulse 106; Resp 20; Temp 98; Pulse Ox 79% ; Weight 49.9 kg; Height 5 ft. 0 in. ; Pain 0/10; she was treated with prednisone, lev albuterol,Oseltamivir PO 75 mg PO in the emergency room. O2, nebulizers, steroids, antivirals chest x-ray FINDINGS: Portable technique limits examination quality.Prominent fibroemphysematous changes are noted with reduced lung volumes. The majority of this is likely chronic. 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 troponin 4.8, BNP 279, COVID-negative Hypokalemia hypkalemia 3.4 trend electrolytes replace as needed Acute kidney injury unknown baseline Gentle IV fluids, creatinine trend BMP and creatinine BUN 16 creatinine 1.10, estimated GFR 52 thrombocytosis platelets 548, anemia TIA Resume appropriate Trend H&H Cardiac diet Full code DVT heparin Discharge Plan: Home Plan to discharge in: 48 Hours - Advance Directives Does patient have a Living Will: No Does patient have a Durable POA for Healthcare: No - Code Status/Comfort Care Code Status: Full Code Critical Care: No Time Spent Managing Pts Care (In Minutes): 55 <Jenny Pineda - Last Filed: 09/02/23 17:10> Physician Review: Patient Assessed, Agree with Above Assessment and Plan Physician Review Additional Text: Ms. Brar is a pleasant 78-year-old female admitted for acute hypoxic respiratory failure. Will add CT chest angiogram to evaluate for pulmonary embolus. Will admit for further evaluation. Florencio Santos MD <Florencio Santos - Last Filed: 09/02/23 18:22>
[2023-09-02 18:38] VITALS: BMI 21.4
[2023-09-02] MEDS ORDERED: ACETAMINOPHEN 500 MG TAB PO PRN (19:09)
[2023-09-02] MEDS ORDERED: NA CHLORIDE 0.9% 1,000 ML IV SCH (19:09)
[2023-09-02] MEDS ORDERED: Levofloxacin 750mg IV 750 MG/150 ML BAG IV SCH (19:09)
[2023-09-02] MEDS ORDERED: ONDANSETRON 4 MG/2 ML VIAL IV PRN (19:09)
[2023-09-02] MEDS ORDERED: ALBUTEROL 2.5 MG/3 ML NEB SOL NEB PRN (19:09)
--- NOTE | 2023-09-02 19:36 | RAD REPORT ---
EXAM DESCRIPTION: CT - Chest For Pe Angio - 09/02/2023 7:20 pm CLINICAL HISTORY: Chest pain. eval for PE COMPARISON: <Comparisons> TECHNIQUE: CT angiogram of the pulmonary arteries was performed with MIP. All CT scans are performed using dose optimization technique as appropriate and may include automated exposure control or mA/KV adjustment according to patient size. FINDINGS: No evidence of pulmonary thromboembolism. No acute aortic finding demonstrated. Advanced pulmonary fibrosis. No significant pericardial or pleural fluid. No concerning bony finding. Moderate hiatal hernia. IMPRESSION: No evidence of pulmonary thromboembolism. Advanced pulmonary fibrosis.
[2023-09-02] MEDS ORDERED: BENZONATATE 100 MG CAP PO ONE (20:16)
[2023-09-02] MEDS ORDERED: NA CHLORIDE 0.9% 1,000 ML ONE (20:17)
[2023-09-02] MEDS ORDERED: Levofloxacin 750mg IV 750 MG/150 ML BAG IV ONE (20:17)
[2023-09-02] MEDS: METHYLPREDNISOLONE 125 MG INJ IV SCH (20:25)
[2023-09-02] MEDS: BENZONATATE 100 MG CAP PO SCH (20:30)
[2023-09-03] MEDS: METHYLPREDNISOLONE 125 MG INJ IV SCH ×2 (00:09→06:11)
[2023-09-03 03:25] LABS: Absolute Lymphocytes (CBC) 0.6 K/uL (0.7-4.9); Hematocrit 23.3 % (36.0-45.0); Lymphocytes % 3.5 % (15.3-44.8); MPV 7.1 fL (7.6-11.3); Platelets 453 thou/uL (152-406); RBC Red Blood Cell Count 3.55 M/uL (3.86-4.86)
[2023-09-03 03:37] LABS: Magnesium 2.1 mg/dL (1.6-2.4); Potassium 3.8 mEq/L (3.5-5.1)
[2023-09-03 03:40] LABS: MCV 65.6 fL (80-100)
--- NOTE | 2023-09-03 08:21 | P.PN ---
Subjective Date of Service: 09/03/23 Chief Complaint: shortness of breath She reports feeling better, reports fatigue, blood infusing - Physical Exam General: Alert, In no apparent distress HEENT: Atraumatic, Normocephalic Neck: Supple, 2+ carotid pulse no bruit Respiratory: Normal air movement, Crackles/rales, Other (shortness of breath with exertion) Cardiovascular: No edema, Normal pulses Capillary refill: <2 Seconds Gastrointestinal: Normal bowel sounds, Soft and benign Musculoskeletal: No clubbing, No swelling Integumentary: No rashes, No breakdown Neurological: Normal speech, Normal strength at 5/5 x4 extr <Jenny Pineda - Last Filed: 09/03/23 18:23> Date of Service: 09/03/23 <David Pineda - Last Filed: 09/03/23 19:01> Review of Systems per HPI <Jenny Pineda - Last Filed: 09/03/23 18:23> Physical Examination - Vital Signs Temperature: 97.8 F Blood Pressure: 109/56 Pulse: 86 Respirations: 16 Pulse Ox (%): 98 - Studies Laboratory Data (last 24 hrs) 09/02/23 09/02/23 14:25 14:25 WBC 26.70 H Hgb 8.2 L Hct 26.7 L Plt Count 548 H Sodium 140 Potassium 3.4 L BUN 16 Creatinine 1.10 H Glucose 152 H Microbiology Data (last 24 hrs): 09/02/23 14:20 Nasopharnyx Influenza Type A Antigen Screen - Final 09/02/23 14:20 Nasopharnyx Influenza Type B Antigen Screen - Final <Jenny Pineda - Last Filed: 09/03/23 18:23> - Studies Microbiology Data (last 24 hrs): 09/02/23 14:20 Nasopharnyx Influenza Type A Antigen Screen - Final 09/02/23 14:20 Nasopharnyx Influenza Type B Antigen Screen - Final <David Pineda - Last Filed: 09/03/23 19:01> Assessment And Plan - Plan Assessment plan acute hypoxic respiratory failure secondary to influenza, pulmonary fibrosis versus COPD exacerbation Leukocytosis improving WBC ->26.7>18.00 Sputum culture Blood culture Influenza +Flu B Pulmonary consult, per EMS o2 80% >placed on O2 at 2 L sats improved to the 90s. BP 101 / 61; Pulse 106; Resp 20; Temp 98; Pulse Ox 79% ; Weight 49.9 kg; Height 5 ft. 0 in. ; Pain 0/10; she was treated with prednisone, lev albuterol,Oseltamivir PO 75 mg PO in the emergency room. O2, nebulizers, steroids, antivirals chest x-ray FINDINGS: Portable technique limits examination quality.Prominent fibroemphysematous changes are noted with reduced lung volumes. The majority of this is likely chronic. 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 troponin 4.8, BNP 279, COVID-negative Hypokalemia hypkalemia 3.4 ->Potassium 3.8 improved trend electrolytes replace as needed Microcytic anemia 8.2-> 7.1 Trend H&H, repeat HH Will type and cross for 2 units Anemia work up B12, Ferritin, Iron, Acute kidney injury unknown baseline improved Gentle IV fluids, creatinine trend BMP and creatinine BUN 16 creatinine 1.10, estimated GFR 52 Acute kidney injury improving BUN 16-17, CR 1.10->0.96 estimated GFR 52->61 thrombocytosis platelets 548, anemia TIA Resume appropriate Trend H&H Cardiac diet Full code DVT heparin Discharge Plan: Home Plan to discharge in: 48 Hours - Code Status/Comfort Care Code Status: Full Code Critical Care: No Time Spent Managing PTS Care (In Minutes): 35 <Jenny Pineda - Last Filed: 09/03/23 18:23> - Plan Pt seen and examined. I agree with the note by the AWNING MAKER AND INSTALLER. Hgb is 7.1. Will follow up FOBT and give 1 unit of blood. <David Pineda - Last Filed: 09/03/23 19:01>
[2023-09-03] MEDS: PANTOPRAZOLE 40MG TABLET PO SCH (08:52)
[2023-09-03] MEDS: BENZONATATE 100 MG CAP PO SCH ×3 (08:52→21:33)
[2023-09-03] MEDS ORDERED: SOD FERRIC GLUC COMPLX/SUCROSE 250 MG in NA CHLORIDE 0.9% 250 ML IV SCH (09:00)
[2023-09-03] MEDS ORDERED: NA CHLORIDE 0.9% 250 ML IV SCH (09:00)
[2023-09-03] MEDS ORDERED: CEFTRIAXONE 1,000 MG in NA CHLORIDE 0.9% 50 ML IVPB SCH (09:00)
[2023-09-03 09:15] LABS: RBC Red Blood Cell Count 4.21 M/uL (3.86-4.86)
[2023-09-03] MEDS: OSELTAMIVIR 30 MG CAP PO SCH ×2 (09:15→21:32)
--- NOTE | 2023-09-03 10:48 | P.CNS ---
Date of Consult: 09/03/23 Reason for Consult: Shortness of breath Chief Complaint: shortness of breath History of Present Illness: Kidney 78 years of age with a history of idiopathic pulmonary fibrosis for about a week complaining of progressive shortness of breath sputum more fever y esterday and on and prednisone at home also complaining of significant coughing spells white count was elevated Allergies No Known Allergies Allergy (Verified 07/10/23 09:10) Home Medications: Aspirin [Lo-Dose Aspirin EC] 81 mg PO DAILY 06/03/20 Pirfenidone [Esbriet] 2 tab PO BID 06/03/20 predniSONE [Deltasone*] 10 mg PO DAILY 06/03/20 Cholecalciferol (Vitamin D3) [D3-50] 1 tab PO DAILY 05/26/22 Amlodipine Besylate 10 mg PO DAILY 07/25/22 Pantoprazole [Protonix Tab*] 1 tab PO DAILY 07/25/22 Budesonide/Glycopyr/Formoterol [Breztri Aerosphere Inhaler] 1 puff IH DAILY 07/06/23 Iron 1 tab PO DAILY 07/06/23 Albuterol Neb [Proventil 0.083% Neb Soln] 2.5 mg NEB [id number] PRN #120 amp 07/21/23 Hydrocodone/Chlorphen Polis [Tussionex Oral Susp*] 5 ml PO BID PRN #115 ml 07/21/23 Ipratropium Neb [Atrovent*] 0.5 mg NEB [id number] PRN #120 amp 07/21/23 Oseltamivir Phosphate [Tamiflu] 30 mg PO BID #9 cap 07/21/23 levoFLOXacin [Levaquin] 750 mg PO DAILY #5 tab 07/21/23 predniSONE [Deltasone*] 10 mg PO DAILY #30 tab 07/21/23 Benzonatate [Tessalon Perle] 200 mg PO TID #30 cap 07/22/23 Nebulizer 1 each MC TID #1 ea 07/22/23 - Past Medical/Surgical History Diabetic: No -: Osteoarthritis -: Pulmonary fibrosis -: Anemia -: Rheumatoid arthritis -: COPD -: pre diabetic -: Appendectomy -: Cholecystectomy -: Right hip replacement -: Left hip hemiarthroplasty -: tonsillectomy Psychosocial/ Personal History: She is . She has 3 children. 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 - Family History Mother Medical History: Lung disease Father Medical History: Heart disease Sister Medical History: Other (see notes) Notes: skin disorder - Social History Smoking Status: Never smoker Alcohol use: Yes CD- Drugs: No Caffeine use: Yes Review of Systems 10-point ROS is otherwise unremarkable General: Weakness Respiratory: Cough, Shortness of Breath Physical Examination Temp Pulse Resp BP Pulse Ox 97.8 F 86 16 109/56 L 98 09/03/23 08:33 09/03/23 08:33 09/03/23 08:33 09/03/23 08:33 09/03/23 08:33 General: Alert, Oriented x3 Respiratory: Crackles/rales Cardiovascular: No edema (Tract), Normal pulses, Regular rate/rhythm Gastrointestinal: Normal bowel sounds, Soft and benign, Non-distended Musculoskeletal: No clubbing, No swelling Integumentary: No rashes, No breakdown Laboratory Data (last 24 hrs) 09/02/23 09/02/23 14:25 14:25 WBC 26.70 H Hgb 8.2 L Hct 26.7 L Plt Count 548 H Sodium 140 Potassium 3.4 L BUN 16 Creatinine 1.10 H Glucose 152 H - Problems (1) Acute exacerbation of idiopathic pulmonary fibrosis Current Visit: Yes Status: Acute Plan: Patient is 78 years of age has advanced idiopathic pulmonary fibrosis admitted with an exacerbation her white count is elevated CT scan no evidence of pneumonia with levofloxacin white count is declining to p.o. prednisone (2) Microcytic anemia Current Visit: Yes Status: Acute Plan: Suspect iron deficiency significant decline in her MCV since her past admission to level is normal lowered her transferrin saturation and may benefit from iron infusion including evaluation for blood loss start on iron infusion
[2023-09-03 10:59] LABS: Hematocrit 23.5 % (36.0-45.0)
[2023-09-03 19:26] LABS: Hematocrit 32.2 % (36.0-45.0)
[2023-09-03] MEDS ORDERED: Levofloxacin 750mg IV 750 MG/150 ML BAG IV SCH (20:00)
[2023-09-03 20:18] LABS: Ferritin 55.2 ng/mL (8-388)
[2023-09-03] MEDS: PIRFENIDONE 267 MG PO SCH (21:00)
[2023-09-03] MEDS: MELATONIN 5 MG TABLET PO PRN (21:33)
[2023-09-03] MEDS: predniSONE 20 MG TAB PO SCH (21:33)
[2023-09-04 02:17] LABS: Absolute Lymphocytes (CBC) 0.8 K/uL (0.7-4.9); Hematocrit 29.4 % (36.0-45.0); Lymphocytes % 2.4 % (15.3-44.8); MCV 67.1 fL (80-100); Platelets 474 thou/uL (152-406); RBC Red Blood Cell Count 4.39 M/uL (3.86-4.86)
[2023-09-04 02:40] LABS: Magnesium 2.3 mg/dL (1.6-2.4); Potassium 4.1 mEq/L (3.5-5.1)
[2023-09-04 03:10] LABS: Anisocytosis 1+; Blood Morphology Comment NOTED (NOT SEEN); Hypochromasia 1+; Platelet Estimate ADEQ
[2023-09-04] MEDS: PIRFENIDONE 267 MG PO SCH ×2 (09:00→21:00)
[2023-09-04] MEDS: PANTOPRAZOLE 40MG TABLET PO SCH (09:00)
--- NOTE | 2023-09-04 09:26 | RAD REPORT ---
EXAM DESCRIPTION: RAD - Chest Pa And Lat (2 Views) - 09/04/2023 9:18 am CLINICAL HISTORY: RO pneumonia Chest pain. COMPARISON: Chest Single View dated 09/02/2023; Chest Single View dated 07/20/2023; Chest Single Vie w dated 07/24/2022; Chest Pa And Lat (2 Views) dated 07/20/2021; Chest For Pe Angio dated 09/02/2023 FINDINGS: Prominent lung fibrosis is present with reduced lung volumes. No definitive superimposed p neumonia pattern seen. The heart is mildly enlarged. Cholecystectomy clips.
[2023-09-04] MEDS: DOXYCYCLINE 100 MG CAP PO SCH ×2 (09:27→21:34)
[2023-09-04] MEDS: predniSONE 20 MG TAB PO SCH ×2 (09:27→21:34)
[2023-09-04] MEDS: BENZONATATE 100 MG CAP PO SCH ×3 (09:28→21:34)
[2023-09-04] MEDS: Meropenem 1,000 MG in NA CHLORIDE 0.9% 100 ML IV SCH ×2 (09:44→21:34)
[2023-09-04] MEDS: CHLORASEPTIC LOZENGES MM SCH ×3 (09:44→21:34)
[2023-09-04] MEDS: OSELTAMIVIR 30 MG CAP PO SCH ×2 (09:44→21:34)
--- NOTE | 2023-09-04 11:24 | P.PN ---
Subjective Date of Service: 09/04/23 Chief Complaint: shortness of breath Subjective: No new changes, No C/O voiced, Improving, Doing well Alert oriented x 3 On oxygen via nasal cannula 2 L/min SOB with mild exertion Continues coughing-cough medicine helping <Macey Vázquez - Last Filed: 09/04/23 11:26> Date of Service: 09/05/23 <CatherineDavid holder Anam - Last Filed: 09/05/23 16:20> Review of Systems 10-point ROS is otherwise unremarkable <Macey Vázquez - Last Filed: 09/04/23 11:26> Physical Examination - Vital Signs Temperature: 98.5 F Blood Pressure: 119/64 Pulse: 90 Respirations: 20 Pulse Ox (%): 99 - Physical Exam General: Alert, Oriented x3 HEENT: Atraumatic, Normocephalic Neck: Supple, 2+ carotid pulse no bruit Respiratory: Clear to auscultation bilaterally, Normal air movement Cardiovascular: No edema, Regular rate/rhythm Capillary refill: <2 Seconds Gastrointestinal: Normal bowel sounds, Soft and benign Musculoskeletal: No clubbing, No swelling Integumentary: No rashes, No breakdown Neurological: Normal speech, Normal tone, Normal affect <Macey Vázquez - Last Filed: 09/04/23 11:26> Assessment And Plan - Current Problems (Diagnosis) (1) Hypoxic respiratory failure Current Visit: Yes Status: Acute Qualifiers: Chronicity: acute on chronic Qualified Code(s): J96.21 - Acute and chronic respiratory failure with hypoxia (2) Acute exacerbation of idiopathic pulmonary fibrosis Current Visit: Yes Status: Acute (3) COPD exacerbation Current Visit: No Status: Chronic (4) Influenza B Current Visit: Yes Status: Acute (5) Thrombocytosis Current Visit: Yes Status: Acute (6) Leukocytosis Current Visit: Yes Status: Acute (7) Iron deficiency anemia Current Visit: Yes Status: Chronic Qualifiers: Iron deficiency anemia type: other iron deficiency Qualified Code(s): D50.8 - Other iron deficiency anemias - Plan Assessment plan acute hypoxic respiratory failure secondary to influenza, pulmonary fibrosis versus COPD exacerbation Leukocytosis WBC ->33 On levofloxacin, Rocephin Influenza +Flu B- on oseltamivir Pulmonary consult, on O2 at 2 L sats improved, complains of cough on Tessalon Perles Vital stable treated with prednisone, lev albuterol,Oseltamivir PO 75 mg PO O2, nebulizers, steroids, antivirals chest x-ray FINDINGS: Portable technique limits examination quality.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 The majority of this is likely chronic. 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 troponin 4.8, BNP 279, COVID-negative Iron deficiency anemia 9.4/hct 29.4 Trend H&H, repeat HH Will type and cross for 2 units Anemia work up- started on Iron infusion thrombocytosis platelets 474, continue to monitor Cardiac diet Full code DVT heparin Discharge Plan: Home Plan to discharge in: 48 Hours - Code Status/Comfort Care Code Status Assessed: Yes (Full code) Code Status: Full Code Physician Review: Patient Assessed, Agree with Above Assessment and Plan Critical Care: No Time Spent Managing PTS Care (In Minutes): 35 (Minutes) <Macey Vázquez - Last Filed: 09/04/23 11:26> - Plan Pt seen and examined. I agree with the note by the PATROL OFFICER. Will continue steroid, abx, tamiflu, and prn duoneb <David Pineda - Last Filed: 09/05/23 16:20>
[2023-09-04] MEDS ORDERED: HYDROCODONE/CHLORPHEN 5 ML/OSYR PO PRN (12:23)
--- NOTE | 2023-09-04 12:24 | P.PN ---
Subjective Date of Service: 09/04/23 Chief Complaint: Exacerbation of pulmonary fibrosis Patient is being complaining of severe coughing spells denies any fever and is not productive phlegm Review of Systems General: Weakness Respiratory: Cough, Shortness of Breath Physical Examination - Vital Signs Temperature: 98.5 F Blood Pressure: 119/64 Pulse: 90 Respirations: 20 Pulse Ox (%): 99 - Physical Exam General: Alert, Oriented x3 Respiratory: Crackles/rales (Patient has extensive bilateral crackles) Cardiovascular: No edema, Regular rate/rhythm Assessment And Plan - Current Problems (Diagnosis) (1) Acute exacerbation of idiopathic pulmonary fibrosis Current Visit: Yes Status: Acute Plan: Patient admitted with exacerbation of pulmonary fibrosis there is no evidence of pneumonia however her white count is elevated I suspect it may be due to the steroids however changed to meropenem as patient has been exposed to levofloxacin multiple times before may have developed some resistance coughing up any sputum blood cultures are so far negative procalcitonin is also negative which is reassuring oxygenation satisfactory patient is on 2 and half liters of nasal cannula oxygen once her white count started declining can be discharged home on levofloxacin and doxycycline to low-dose prednisone 10 mg twice a day (2) Microcytic anemia Current Visit: Yes Status: Acute Plan: Patient has significant microcytic anemia no history of GI blood loss iron saturation is only 7% inform the patient that she will need to see GI for endoscopy and a colonoscopy Physician Review: Patient Assessed, Agree with Above Assessment and Plan
[2023-09-04] MEDS ORDERED: Levofloxacin 750mg IV 750 MG/150 ML BAG IV SCH (20:00)
[2023-09-04] MEDS: MELATONIN 5 MG TABLET PO PRN (21:35)
[2023-09-05 02:18] LABS: Absolute Lymphocytes (CBC) 0.8 K/uL (0.7-4.9); Hematocrit 31.6 % (36.0-45.0); Lymphocytes % 2.9 % (15.3-44.8); MCV 67.7 fL (80-100); MPV 6.9 fL (7.6-11.3); Platelets 472 thou/uL (152-406); RBC Red Blood Cell Count 4.66 M/uL (3.86-4.86)
[2023-09-05 02:45] LABS: Magnesium 2.3 mg/dL (1.6-2.4); Potassium 4.1 mEq/L (3.5-5.1)
[2023-09-05] MEDS: CHLORASEPTIC LOZENGES MM SCH ×3 (09:00→14:00)
[2023-09-05] MEDS: PIRFENIDONE 267 MG PO SCH (09:00)
[2023-09-05] MEDS: BENZONATATE 100 MG CAP PO SCH ×2 (09:07→14:17)
[2023-09-05] MEDS: DOXYCYCLINE 100 MG CAP PO SCH (09:08)
[2023-09-05] MEDS: PANTOPRAZOLE 40MG TABLET PO SCH (09:08)
[2023-09-05] MEDS: Meropenem 1,000 MG in NA CHLORIDE 0.9% 100 ML IV SCH (09:08)
[2023-09-05] MEDS: predniSONE 20 MG TAB PO SCH (09:08)
[2023-09-05 09:29] VITALS: O2SAT 94
[2023-09-05] MEDS: OSELTAMIVIR 30 MG CAP PO SCH (10:17)
--- NOTE | 2023-09-05 12:27 | P.PN ---
Subjective Date of Service: 09/05/23 Chief Complaint: Exacerbation of pulmonary fibrosis Patient still continues to complain of chronic cough still feeling little short of breath Review of Systems General: Weakness Respiratory: Cough, Shortness of Breath Physical Examination - Vital Signs Temperature: 97.0 F Blood Pressure: 138/63 Pulse: 77 Respirations: 17 Pulse Ox (%): 96 - Physical Exam General: Alert, Oriented x3 Respiratory: Crackles/rales Cardiovascular: No edema (Several crackles), Regular rate/rhythm, Normal S1 S2 Assessment And Plan - Current Problems (Diagnosis) (1) Acute exacerbation of idiopathic pulmonary fibrosis Current Visit: Yes Status: Acute Plan: Admitted with exacerbation of pulmonary fibrosis no obvious source of infection white count is elevated but declining since procalcitonin level is negative will discharge home tomorrow on levofloxacin and doxycycline also add low-dose prednisone 10 mg twice a day for a week then decrease to 10 mg daily (2) Microcytic anemia Current Visit: Yes Status: Acute Plan: Patient sees Dr. Butcher GI specialist she has had an EGD done to the patient she is also had a colonoscopy done EGD which did show some gastritis she is probably has some chronic hemorrhage follow-up with the specialist as an outpatient Physician Review: Patient Assessed, Agree with Above Assessment and Plan
--- NOTE | 2023-09-05 13:51 | P.DS ---
Admission Date: 09/02/23 Discharge Date: 09/05/23 Reason for Admission: Exacerbation of pulmonary fibrosis - Problems (1) Hypoxic respiratory failure Status: Acute Qualifiers: Chronicity: acute on chronic Qualified Code(s): J96.21 - Acute and chronic respiratory failure with hypoxia (2) Acute exacerbation of idiopathic pulmonary fibrosis Status: Acute (3) COPD exacerbation Status: Chronic (4) Influenza B Status: Acute (5) Thrombocytosis Status: Acute (6) Leukocytosis Status: Acute (7) Iron deficiency anemia Status: Chronic Qualifiers: Iron deficiency anemia type: other iron deficiency Qualified Code(s): D50.8 - Other iron deficiency anemias Brief History of Present Illness: Date of Service: 09/02/23 Reason for admission: shortness of breath History of Present Illness: 78-year-old female with a past medical history of anemia, pulmonary fi brosis, COPD, TIA, presents to the room with shortness of breath. She reports shortness of breath worse today, started over the last month. She reports shortness of breath or sick with exertion, symptoms improved with rest, oxygen, nebulizers. She reports history of pulmonary fibrosis, COPD she sees Dr Currie. per EMS she was 80% was placed on O2 at 2 L sats improved to the 90s.0 BP 101 / 61; Pulse 106; Resp 20; Temp 98; Pulse Ox 79% ; Weight 49.9 kg; Height 5 ft. 0 in. ; Pain 0/10; she was treated with prednisone, lev albuterol,Oseltamivir PO 75 mg PO in the emergency room. 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 The majority of this is likely chronic. 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 hypokalemia 3.4 acute kidney injury BUN 16 creatinine 1.10, estimated GFR 52 blood glucose 152, leukocytosis WBCs 26.7 no thrombocytosis platelets 548, troponin 4.8, BNP 279, COVID-negative Hospital Course: Ms. Brar is a pleasant 78-year-old female patient with a past medical history significant for anemia, pulmonary fibrosis, COPD, TIA who was admitted to the [facility] on 09/02/2020 for acute hypoxic respiratory failure secondary to influenza, pulmonary fibrosis versus COPD exacerbation. Patient was admitted to the hospital and treated with prednisone, breathing treatments, oseltamivir. Patient also noted to be anemic. Patient was given iron infusion, patient was advised to see GI specialist and schedule EGD and colonoscopy as outpatient. On 09/05/2023, patient was seen on morning rounds and deemed medically stable for discharge. Patient was discharged with instructions to schedule follow-up appointments with PCP 3 to 5 days, GI specialist 2 weeks and commodity merchant 4 weeks. Patient was provided prescriptions for levofloxacin, doxycycline, and prednisone. The patient and family members were given the opportunity to ask questions and reported no further questions. Furthermore, all questions were answered to the best of my ability. 1. Please call and schedule a follow-up appointment with your PCP ( in 3-5 days 2. Please call and schedule a follow-up appointment with GI specialist Dr. Butcher in 2 weeks 2. Please call and schedule a follow-up appointment with commodity merchant Dr. Babin in 4 weeks - Please follow-up with your PCP for medication refills/adjustments Medication sent to the pharmacy oseltamivir 75mg po bid for 2 days Levofloxacin 750 mg p.o. daily for 5 days Doxycycline 100 mg p.o. twice daily for 10 days Prednisone 10 mg p.o. twice daily for 1 week <Macey Vázquez - Last Filed: 09/05/23 13:49> Admission Date: 09/02/23 Discharge Date: 09/06/23 Hospital Course: Pt seen and examined. I agree with the note by the HIDE GRADER. Ok to discharge pt. <David Pineda - Last Filed: 09/06/23 16:51> Disposition: ROUTINE DISCHARGE Discharge Condition: GOOD Vital Signs/Physical Exam: Temp Pulse Resp BP Pulse Ox 97.0 F 77 17 138/63 96 09/05/23 12:31 09/05/23 12:09/05/23 12:31 09/05/23 12:09/05/23 12:31 General: Alert, Oriented x3 HEENT: Atraumatic, Normocephalic Neck: Supple, 2+ carotid pulse no bruit Respiratory: Clear to auscultation bilaterally, Normal air movement Cardiovascular: No edema, Normal pulses Capillary refill: <2 Seconds Gastrointestinal: Normal bowel sounds, Soft and benign Musculoskeletal: No clubbing, No swelling Integumentary: No rashes, No breakdown Neurological: Normal speech, Normal tone, Normal affect Laboratory Data at Discharge: WBC 27.10 thou/uL (4.3-10.9) H 09/05/23 01:37 Hgb 9.8 g/dL (12.0-15.0) L 09/05/23 01:37 Hct 31.6 % (36.0-45.0) L 09/05/23 01:37 Plt Count 472 thou/uL (152-406) H 09/05/23 01:37 Sodium 139 mEq/L (136-145) 09/05/23 01:37 Potassium 4.1 mEq/L (3.5-5.1) 09/05/23 01:37 BUN 25 mg/dL (7-18) H 09/05/23 01:37 Creatinine 0.75 mg/dL (0.55-1.02) 09/05/23 01:37 Glucose 206 mg/dL (74-106) H 09/05/23 01:37 Phosphorus 3.0 mg/dL (2.5-4.9) 09/03/23 02:28 Magnesium 2.3 mg/dL (1.6-2.4) 09/05/23 01:37 <Macey Vázquez - Last Filed: 09/05/23 13:49> Vital Signs/Physical Exam: Temp Pulse Resp BP Pulse Ox 97.1 F 85 20 142/70 H 95 09/05/23 16:00 09/05/23 16:00 09/05/23 16:00 09/05/23 16:00 09/05/23 16:00 Laboratory Data at Discharge: WBC 27.10 thou/uL (4.3-10.9) H 09/05/23 01:37 Hgb 9.8 g/dL (12.0-15.0) L 09/05/23 01:37 Hct 31.6 % (36.0-45.0) L 09/05/23 01:37 Plt Count 472 thou/uL (152-406) H 09/05/23 01:37 Sodium 139 mEq/L (136-145) 09/05/23 01:37 Potassium 4.1 mEq/L (3.5-5.1) 09/05/23 01:37 BUN 25 mg/dL (7-18) H 09/05/23 01:37 Creatinine 0.75 mg/dL (0.55-1.02) 09/05/23 01:37 Glucose 206 mg/dL (74-106) H 09/05/23 01:37 Phosphorus 3.0 mg/dL (2.5-4.9) 09/03/23 02:28 Magnesium 2.3 mg/dL (1.6-2.4) 09/05/23 01:37 <David Pineda - Last Filed: 09/06/23 16:51> Diet: ADA Activity: Ad dariel Physician Review: Patient Assessed, Agree with Above Assessment and Plan Time spent managing pt's care (in minutes): 55 (minutes) <Macey Vázquez - Last Filed: 09/05/23 13:49> <David Pineda - Last Filed: 09/06/23 16:51> Home Medications: Aspirin [Lo-Dose Aspirin EC] 81 mg PO DAILY 06/03/20 Pirfenidone [Esbriet] 2 tab PO BID 06/03/20 predniSONE [Deltasone*] 10 mg PO DAILY 06/03/20 Cholecalciferol (Vitamin D3) [D3-50] 1 tab PO DAILY 05/26/22 Amlodipine Besylate 10 mg PO DAILY 07/25/22 Pantoprazole [Protonix Tab*] 1 tab PO DAILY 07/25/22 Budesonide/Glycopyr/Formoterol [Breztri Aerosphere Inhaler] 1 puff IH DAILY 07/06/23 Iron 1 tab PO DAILY 07/06/23 Albuterol Neb [Proventil 0.083% Neb Soln] 2.5 mg NEB [id number] PRN #120 amp 07/21/23 Hydrocodone/Chlorphen Polis [Tussionex Oral Susp*] 5 ml PO BID PRN #115 ml 07/21/23 Ipratropium Neb [Atrovent*] 0.5 mg NEB [id number] PRN #120 amp 07/21/23 Oseltamivir Phosphate [Tamiflu] 30 mg PO BID #9 cap 07/21/23 predniSONE [Deltasone*] 10 mg PO DAILY #30 tab 07/21/23 Benzonatate [Tessalon Perle*] 200 mg PO TID #30 cap 07/22/23 Nebulizer 1 each MC TID #1 ea 07/22/23 Doxycycline Hyclate 100 mg PO BID 10 Days #20 tab 09/05/23 Oseltamivir Phosphate [Tamiflu] 30 mg PO BID 2 Days #4 cap 09/05/23 Pharmacy Consult 1 ea XX DAILYPRN PRN ea 09/05/23 levoFLOXacin [Levaquin*] 750 mg PO DAILY #5 tab 09/05/23 predniSONE [Deltasone*] 10 mg PO BID 7 Days #14 tab 09/05/23 New Medications: predniSONE [Deltasone*] 10 mg PO BID 7 Days #14 tab Doxycycline Hyclate 100 mg PO BID 10 Days #20 tab levoFLOXacin [Levaquin*] 750 mg PO DAILY #5 tab Oseltamivir Phosphate [Tamiflu] 30 mg PO BID 2 Days #4 cap Physician Discharge Instructions: Ms. Brar is a pleasant 78-year-old female patient with a past medical history significant for anemia, pulmonary fibrosis, COPD, TIA who was admitted to the [facility] on 09/02/2020 for acute hypoxic respiratory failure secondary to influenza, pulmonary fibrosis versus COPD exacerbation. Patient was admitted to the hospital and treated with prednisone, breathing treatments, oseltamivir. Patient also noted to be anemic. Patient was given iron infusion, patient was advised to see GI specialist and schedule EGD and colonoscopy as outpatient. On 09/05/2023, patient was seen on morning rounds and deemed medically stable for discharge. Patient was discharged with instructions to schedule follow-up appointments with PCP 3 to 5 days, GI specialist 2 weeks and commodity merchant 4 weeks. Patient was provided prescriptions for levofloxacin, doxycycline, and prednisone. The patient and family members were given the opportunity to ask questions and reported no further questions. Furthermore, all questions were answered to the best of my ability. 1. Please call and schedule a follow-up appointment with your PCP ( in 3-5 days 2. Please call and schedule a follow-up appointment with GI specialist Dr. Butcher in 2 weeks 2. Please call and schedule a follow-up appointment with commodity merchant Dr. Babin in 4 weeks - Please follow-up with your PCP for medication refills/adjustments Medication sent to the pharmacy Oseltamivir 75mg po twice daily for 2 days Levofloxacin 750 mg p.o. daily for 5 days Doxycycline 100 mg p.o. twice daily for 10 days Prednisone 10 mg p.o. twice daily for 1 week Followup: Arsalan Cormier MD [ACTIVE - CAN ADMIT] - (F/U in 4 weeks) Ammon Carballo MD [ACTIVE - CAN ADMIT] - 1-2 Weeks Unknown,U [Primary Care Provider] -
[2023-09-05 18:08] VITALS: BP 142/70; TEMP 97.1
[2023-09-05] MEDS ORDERED: predniSONE 10 MG TAB PO SCH (21:00)
--- NOTE | 2023-09-07 13:56 | EKG ---
Test Date: 2023-09-02 Test Time: 14:13:57 Campaign Fundraiser: ESTHER MEASUREMENT RESULTS: Intervals: Rate: 99 NC: 132 QRSD: 82 QT: 340 QTc: 436 [place]: P: 35 NC: 132 QRS: -10 T: 12 INTERPRETIVE STATEMENTS: Sinus rhythm with occasional premature ventricular complexes Nonspecific ST and T wave abnormality Abnormal ECG Compared to ECG 07/20/2023 13:03:03 Ventricular premature complex(es) now present Sinus tachycardia no longer present ST (T wave) deviation still present Electronically Signed On 09-07-23 13:45:03 FLAT CLOTHIER by Raffaele Martin
== END 2023-09-05 18:42 | disposition home or self-care (01) | DRG 193 ==
LOC: ER 13:51 → ERHOLD 16:40 → 2ND 22:39
PROVIDERS: ADMIT Internal Medicine; ATTEND Hospitalist
PROC: 30233N1 Transfusion of Nonautologous Red Blood Cells into Peripheral Vein, Percutaneous Approach (ICD-10-PCS; principal; 2023-09-03)
DX: J10.1 Influenza due to other identified influenza virus with other respiratory manifestations (principal); J96.21 Acute and chronic respiratory failure with hypoxia; J44.1 Chronic obstructive pulmonary disease with (acute) exacerbation; N17.9 Acute kidney failure, unspecified; J44.0 Chronic obstructive pulmonary disease with (acute) lower respiratory infection; G45.9 Transient cerebral ischemic attack, unspecified; J84.112 Idiopathic pulmonary fibrosis; M06.9 Rheumatoid arthritis, unspecified; D50.8 Other iron deficiency anemias; E87.6 Hypokalemia; D75.839 Thrombocytosis, unspecified; Z11.52 Encounter for screening for COVID-19
CPT/HCPCS: 36415; 71045; 71046; 71275; 80048; 82607; 82728; 83540; 83735; 83880; 84100; 84145; 84466; 84484; 85014; 85018; 85025; 85044; 86850; 86900; 86901; 86920; 87040; 87804; 87811; 93005; 94760; 96374; 99285; J0696; J2185; J2916; J2930; J7030; J7050; J7512; J7614; P9016; Q9967

== ENCOUNTER 2023-10-30 07:14 | Day surgery (SDC) | payer OTHER ==
[2023-10-30] MEDS: Ringers Lactate 1,000 ML IV ONE (07:30)
[2023-10-30 07:49] LABS: Absolute Lymphocytes (CBC) 2.6 K/uL (0.7-4.9); Hematocrit 28.8 % (36.0-45.0); Lymphocytes % 22.4 % (15.3-44.8); MCV 72.4 fL (80-100); MPV 6.8 fL (7.6-11.3); Platelets 352 thou/uL (152-406); RBC Red Blood Cell Count 3.98 M/uL (3.86-4.86)
[2023-10-30 08:02] LABS: Potassium 3.1 mEq/L (3.5-5.1)
[2023-10-30 09:14] LABS: Anisocytosis 2+; Blood Morphology Comment NOTED (NOT SEEN); Platelet Estimate ADEQ; White Blood Cell Scan OK (OK)
[2023-10-30] MEDS ORDERED: propofoL 200 MG/20 ML VIAL IV ONE (09:17)
[2023-10-30] MEDS ORDERED: LIDOCAINE 1% MPF 5 ML VIAL ONE (09:18)
[2023-10-30 10:59] VITALS: BP 113/52; TEMP 98.1; O2SAT 100
== END 2023-10-30 10:24 | disposition home or self-care (01) ==
LOC: OR 07:14
PROVIDERS: ATTEND Internal Medicine Gastroenterology
PROC: 0DB88ZX Excision of Small Intestine, Via Natural or Artificial Opening Endoscopic, Diagnostic (ICD-10-PCS; 2023-10-30)
PROC: 0DB78ZX Excision of Stomach, Pylorus, Via Natural or Artificial Opening Endoscopic, Diagnostic (ICD-10-PCS; principal; 2023-10-30 09:15)
DX: D50.0 Iron deficiency anemia secondary to blood loss (chronic) (principal); K29.50 Unspecified chronic gastritis without bleeding; K22.4 Dyskinesia of esophagus; K44.9 Diaphragmatic hernia without obstruction or gangrene; I10 Essential (primary) hypertension; K21.9 Gastro-esophageal reflux disease without esophagitis; J44.9 Chronic obstructive pulmonary disease, unspecified; J84.10 Pulmonary fibrosis, unspecified
CPT/HCPCS: 85025; 80048; 36415; 88305; 43239; J2704; J2001; J7120; 88312

== ENCOUNTER 2024-09-07 10:49 | Inpatient (IN) | payer MEDICAID, OTHER ==
[2024-09-07] MEDS ORDERED: ACETAMINOPHEN 325 MG TABLET ONE (11:30)
[2024-09-07] MEDS ORDERED: LEVALBUTEROL 1.25 MG/3 ML NEB ONE (11:30)
[2024-09-07] MEDS ORDERED: IPRATROPIUM BROM 0.5MG/2.5ML ONE (11:30)
[2024-09-07] MEDS ORDERED: METHYLPREDNISOLONE 125 MG INJ ONE (11:30)
[2024-09-07] MEDS ORDERED: FAMOTIDINE 20 MG/2 ML VIAL IV ONE (11:31)
[2024-09-07] MEDS ORDERED: NA CHLORIDE 0.9% 250 ML ONE (11:31)
[2024-09-07] MEDS ORDERED: Levofloxacin500mg IV 500 MG/100 ML BAG IV ONE (11:31)
[2024-09-07] MEDS ORDERED: NA CHLORIDE 0.9% 1,000 ML ONE (11:31)
[2024-09-07 11:35] LABS: Arterial Blood Carboxyhemoglob 1.4 % (0-1.5); Blood Gas Oxyhemoglobin 91.5 % (94-97); Blood Gas THB 10.7 g/dl (12-18); Blood O2 Saturation 94.9 % (92-98.5)
[2024-09-07 11:37] LABS: Absolute Basophils 0.1 K/uL (0-0.5); Absolute Lymphocytes (CBC) 0.8 K/uL (0.7-4.9); Absolute Neutrophil 18.6 K/uL (1.8-8.0); Basophils % 0.2 % (0-1.3); Hematocrit 30.6 % (36.0-45.0); Hemoglobin 10.3 g/dL (12.0-15.0); Lymphocytes % 3.8 % (15.3-44.8); MCH 27.8 pg (27.0-35.0); MCHC 33.7 g/dL (32.0-36.0); MCV 82.6 fL (80-100); MPV 6.9 fL (7.6-11.3); Monocytes % 4.9 % (3.3-12.3); Neutrophils % 91.1 % (41.7-73.7); Platelets 434 thou/uL (152-406); RBC Red Blood Cell Count 3.71 M/uL (3.86-4.86); Red Cell Distribution Width 15.4 % (12.1-15.2)
[2024-09-07 11:40] LABS: PT Prothrombin Time 15.1 SECONDS (9.4-12.5); Protime INR 1.36
[2024-09-07 11:57] LABS: Albumin 2.5 g/dL (3.4-5.0); Albumin/Globulin Ratio 0.6 (1.1-1.8); Anion Gap 12.3 mEq/L (5.0-15.0); Bilirubin Direct 1.1 mg/dL (0-0.2); Bilirubin Indirect, Calculated 0.5 mg/dL (0.2-0.8); Bilirubin Total 1.6 mg/dL (0.2-1.0); Globulin 4.4 g/dL (2.3-3.5); Magnesium 1.5 mg/dL (1.6-2.4); Potassium 3.3 mEq/L (3.5-5.1); Protein, Total 6.9 g/dL (6.4-8.2); Troponin High Sensitivity 4.4 pg/mL (<58.9)
[2024-09-07 12:45] LABS: Band Neutrophils 1 % (0-1); Blood Morphology Comment NOT SEEN (NOT SEEN); Differential Total Cells Count 100; Dohle Bodies PRESENT; Lymphocytes 7 % (15-42); Monocytes 2 % (0-10); Platelet Estimate INCR; Platelets Clumped FEW; Segmented Neutrophils 90 % (40-80)
--- NOTE | 2024-09-07 13:08 | ER ---
Nurse's Notes [facility] Name: Jacki Brar Age: 79 yrs Sex: Female : 1945 Arrival Date: 09/07/2024 Time: 10:49 Bed 4 Private MD: Diagnosis: Hypoxemia;COPD/ Chronic obstructive pulmonary disease with (acute) exacerbation;Pulmonary fibrosis, unspecified;Elevated white blood cell count, unspecified;Severe sepsis without septic shock;Hypomagnesemia;Hypokalemia;Influenza due to identified novel influenza A virus with pneumonia Presentation: 09/07 11:01 Chief complaint: Patient states: Shortness of breath and cough onset 3 days ago. Pt has cm10 been using her home O2 at 3L and O2 sat remains at 87%. Pt O2 sat 80% on RA. Coronavirus screen: Client denies travel out of the [place] in the last 14 days. Ebola Screen: Patient denies travel to an Ebola-affected area in the 21 days before illness onset. Initial Sepsis Screen: Does the patient meet any 2 criteria? RR > 20 per min. HR > 90 bpm. Does the patient have a suspected source of infection? No. Patient's initial sepsis screen is negative. Risk Assessment: Do you want to hurt yourself or someone else? Patient reports no desire to harm self or others. Onset of symptoms was September 04, 2024. 11:01 Method Of Arrival: Wheelchair cm10 11:01 Acuity: JOSE 2 cm10 Triage Assessment: 11:05 General: Appears distressed, uncomfortable. cm10 14:00 General: Behavior is cooperative. db Historical: - Allergies: 11:05 No Known Allergies; cm10 - PMHx: 11:05 Anemia; COPD; pulmonary fibrosis; TIA; cm10 - Immunization history:: Adult Immunizations up to date. - Infectious Disease History:: Denies. - Social history:: Smoking status: unknown. Screenin:21 [facility] ED Fall Risk Assessment (Adult) History of falling in the last 3 months, db including since admission No falls in past 3 months (0 pts) Confusion or Disorientation No (0 pts) Intoxicated or Sedated No (0 pts) Impaired Gait Yes (1 pt) Mobility Assist Device Used Yes (1 pt) Altered Elimination Yes (1 pt) Score/Fall Risk Level 3 or more points = High Risk Oriented to surroundings, Maintained a safe environment, Hourly rounding (assess needs \T\ fall precautionary measures) done. Abuse screen: Denies threats or abuse. Denies injuries from another. Nutritional screening: No deficits noted. Tuberculosis screening: No symptoms or risk factors identified. Assessment: 11:00 Reassessment: PATIENT PLACED ON NON-REBREATHER. O2 SAT 97% WITH NONREBREATHER. db 11:01 General: RT paged to place pt on bipap. cm10 11:05 Reassessment: RT AT BEDSIDE WITH BIPAP MACHINE. General: Appears distressed, db uncomfortable. Pain: Denies pain. Neuro: Level of Consciousness is awake, alert, obeys commands, Oriented to person, place, time, situation. Cardiovascular: Rhythm is sinus tachycardia. Respiratory: Reports shortness of breath cough that is air hunger labored breathing Airway is patent Respiratory effort is even, labored, Respiratory pattern is regular, symmetrical, Breath sounds are diminished bilaterally. 13:42 Reassessment: Patient and/or family updated on plan of care and expected duration. Pain db level reassessed. PT TO CT APPROVED TO REMOVE BIPAP AND PLACE PATIENT ON NON RE BREATHER. MEDICATIONS PLACED ON PAUSE Patient states feeling better. Patient states symptoms have improved. 14:30 Reassessment: No changes from previously documented assessment. Patient and/or family db updated on plan of care and expected duration. Pain level reassessed. Patient is alert, oriented x 3, equal unlabored respirations, skin warm/dry/pink. 15:30 Reassessment: No changes from previously documented assessment. Patient and/or family db updated on plan of care and expected duration. Pain level reassessed. Patient is alert, oriented x 3, equal unlabored respirations, skin warm/dry/pink. 15:44 Reassessment: REPORT GIVEN TO ICU KLAUDIA KAUFFMAN. db Vital Signs: 11:01 BP 102 / 47; Pulse 140; Resp 28; Temp 99.2(O); Pulse Ox 85% on 3 lpm NC; Weight 42.64 cm10 kg; Height 5 ft. 1 in. ; 12:30 BP 98 / 52; Pulse 120; Resp 24; Pulse Ox 100% on BiPAP; FiO2 50 %; db 13:00 BP 104 / 49; Pulse 111; Resp 20; Pulse Ox 99% on BiPAP; db 14:00 BP 96 / 53; Pulse 99; Resp 24; Pulse Ox 99% ; db 14:30 BP 141 / 107; Pulse 101; Resp 26; Pulse Ox 100% on BiPAP; db 15:00 BP 143 / 122; Pulse 97; Resp 30; Pulse Ox 100% on BiPAP; db 11:01 Body Mass Index 17.76 (42.64 kg, 154.94 cm) cm10 ED Course: 10:49 Patient arrived in ED. ra3 10:53 Ivan Rodríguez MD is Attending Physician. ashok 11:03 Triage completed. cm10 11:05 Arm band placed on right wrist. Patient placed in an exam room, on a stretcher, on cm10 oxygen, on pulse oximetry. 11:08 EKG done, by ED staff, reviewed by Ivan Rodríguez MD. db 11:16 Carolin Ignacio, RN is Primary Nurse. db 11:20 Patient has correct armband on for positive identification. Placed in gown. Bed in low db position. Call light in reach. Side rails up X2. Client placed on continuous cardiac and pulse oximetry monitoring. NIBP monitoring applied. case monitor on. Pulse ox on. Warm blanket given. Pillow given. 11:26 Initial lab(s) drawn, by me, sent to lab. First set of blood cultures drawn by me. em1 Inserted saline lock: 20 gauge in left wrist, using aseptic technique. Blood collected. Flushed with 10 mL NS. 11:32 Lactate w/ 2H reflex if indic. Sent. em1 11:32 Blood Culture Adult (2) Sent. em1 11:32 Basic Metabolic Panel Sent. em1 11:32 CBC with Diff Sent. em1 11:32 LFT's Sent. em1 11:32 Magnesium Sent. em1 11:33 NT PRO-BNP Sent. em1 11:33 PT-INR Sent. em1 11:33 Troponin HS Sent. em1 11:38 XRAY Chest (1 view) In Process Unspecified. EDMS 11:49 Second set of blood cultures drawn by me. em1 13:06 Mike Levine MD is Hospitalizing Provider. ashok 13:30 Inserted saline lock: 20 gauge in left hand, using aseptic technique. Flushed with 10 em1 mL NS. 13:[address] via stretcher. db 13:55 CT Chest Wo Con In Process Unspecified. EDMS 15:24 BIPAP Sent. ko1 15:30 Provided Education on: ADMISSION. db 15:48 No provider procedures requiring assistance completed. Patient admitted, IV remains in db place. Administered Medications: 11:04 CANCELLED (Duplicate Order): ns 0.9% 500 ml 500 ml IV at 1 bolus once; to be given as a ashok bolus over 30 minutes 11:35 Drug: NS 0.9% IV (30 ml/kg) 30 ml/kg IV at bolus once; Sepsis Protocol; to be given as db a bolus over 90 minutes Route: IV; Rate: bolus; Site: left wrist; 12:30 Follow up: Response: No adverse reaction; IV Status: Completed infusion; IV Intake: db 1279.2ml 11:35 Drug: Acetaminophen PO 650 mg PO once Route: PO; db 14:00 Follow up: Response: No adverse reaction db 11:40 Drug: Levalbuterol Inhalation 3.75 mg Inhalation once Route: Inhalation; db 11:45 Drug: Ipratropium Inhalation Aerosol 0.5 mg Inhalation once Route: Inhalation; db 11:45 Drug: Famotidine IVP 20 mg IVP once; dilute with 10 mL 0.9% NaCl; give over 2 minutes db Route: IVP; Site: left wrist; 14:00 Follow up: Response: No adverse reaction db 11:48 Drug: MethylPrednisoLONE IVP 2 mg/kg IVP once Route: IVP; Site: left wrist; db 13:00 Follow up: Response: No adverse reaction db 12:00 Drug: levofloxacin IVPB 500 mg 100 ml IVPB once over 60 mins Volume: 100 ml; Route: db IVPB; Infused Over: 60 mins; Site: left wrist; 13:00 Follow up: Response: No adverse reaction; IV Status: Completed infusion; IV Intake: db 100ml 13:05 Drug: Magnesium Sulfate IVPB 2 grams IVPB once over 2 hrs Route: IVPB; Infused Over: 2 db hrs; Site: left wrist; 15:00 Follow up: Response: No adverse reaction; IV Status: Completed infusion; IV Intake: 50mldb 13:33 Drug: Piperacillin-Tazobactam IVPB 3.375 grams IVPB once over 60 mins; (mix in NS 100 db mL) Route: IVPB; Infused Over: 60 mins; Site: left hand; 14:05 Follow up: Response: No adverse reaction; IV Status: Completed infusion; IV Intake: db 100ml 14:37 Drug: Oseltamivir PO 75 mg PO once Route: PO; ko1 15:30 Follow up: Response: No adverse reaction db Medication: 15:30 VIS not applicable for this client. db Intake: 12:30 IV: 1279ml; Total: 1279ml. db 13:00 IV: 100ml; Total: 1379ml. db 14:05 IV: 100ml; Total: 1479ml. db 15:00 IV: 50ml; Total: 1529ml. db Outcome: 13:07 Decision to Hospitalize by Provider. ashok 15:49 Admitted to ICU accompanied by nurse, accompanied by tech, room 2, Report called to DALY 15:49 Condition: stable 15:49 Instructed on the need for admit, 16:16 Patient left the ED. db Signatures: Dispatcher [employer] EDIvan Wen MD MD cha Martinez, Eric em1 Emily Borges RN RN ko1 Carolin Ignacio RN RN Narda Smith RN RN cm10 Yarelis Connolly ra3 Corrections: (The following items were deleted from the chart) 11:20 11:00 Reassessment: PATIENT PLACED ON NON-REBREATHER db db 15:04 14:38 Reassessment: CALLED [facility] ED TO GIVE PATIENT REPORT. PLACED ON HOLD FOR db 8 MINUTES. db
--- NOTE | 2024-09-07 13:08 | EDPHYS ---
Physician Documentation [facility] Name: Jacki Brar Age: 79 yrs Sex: Female : 1945 Arrival Date: 09/07/2024 Time: 10:49 Bed 4 Private MD: ED Physician Ivan Rodríguez HPI: 09/07 12:57 This 79 yrs old Female presents to ER via Wheelchair with complaints of ashok Breathing Difficulty. 12:57 The patient has shortness of breath at rest, with light activity. Onset: The ashok symptoms/episode began/occurred 3 day(s) ago. Duration: The symptoms are continuous, and are steadily getting worse. The patient's shortness of breath is aggravated by coughing, supine position, talking, walking, is alleviated by elevating head, inhaler, nebulizer treatment, pursed lip breathing, rest, sitting up, application of supplemental oxygen. Associated signs and symptoms: Pertinent positives: non-productive cough, fever. Severity of symptoms: At their worst the symptoms were moderate in the emergency department the symptoms are unchanged. The patient has experienced similar episodes in the past, multiple times. Historical: - Allergies: 11:05 No Known Allergies; cm10 - PMHx: 11:05 Anemia; COPD; pulmonary fibrosis; TIA; cm10 - Immunization history:: Adult Immunizations up to date. - Infectious Disease History:: Denies. - Social history:: Smoking status: unknown. ROS: 12:58 Eyes: Negative for injury, pain, redness, and discharge, ENT: Negative for injury, ashok pain, and discharge, Neck: Negative for injury, pain, and swelling, Abdomen/GI: Negative for abdominal pain, nausea, vomiting, diarrhea, and constipation, Back: Negative for injury and pain, : Negative for injury, bleeding, discharge, and swelling, MS/Extremity: Negative for injury and deformity, Skin: Negative for injury, rash, and discoloration, Neuro: Negative for headache, weakness, numbness, tingling, and seizure, Psych: Negative for depression, anxiety, suicide ideation, homicidal ideation, and hallucinations, Allergy/Immunology: Negative for hives, rash, and allergies, Endocrine: Negative for neck swelling, polydipsia, polyuria, polyphagia, and marked weight changes, 12:58 Constitutional: Positive for body aches, chills, fatigue, fever, malaise, 12:58 Cardiovascular: Positive for palpitations, 12:58 Respiratory: Positive for cough, shortness of breath, wheezing, expiratory, 12:58 MS/extremity: Negative for acute changes, swelling, tenderness, Exam: 12:58 Head/Face: Normocephalic, atraumatic. Eyes: Pupils equal round and reactive to light, ashok extra-ocular motions intact. Lids and lashes normal. Conjunctiva and sclera are non-icteric and not injected. Cornea within normal limits. Periorbital areas with no swelling, redness, or edema. ENT: Nares patent. No nasal discharge, no septal abnormalities noted. Tympanic membranes are normal and external auditory canals are clear. Oropharynx with no redness, swelling, or masses, exudates, or evidence of obstruction, uvula midline. Mucous membranes moist. Neck: Trachea midline, no thyromegaly or masses palpated, and no cervical lymphadenopathy. Supple, full range of motion without nuchal rigidity, or vertebral point tenderness. No Meningismus. Chest/axilla: Normal chest wall appearance and motion. Nontender with no deformity. No lesions are appreciated. Abdomen/GI: Soft, non-tender, with normal bowel sounds. No distension or tympany. No guarding or rebound. No evidence of tenderness throughout. Back: No spinal tenderness. No costovertebral tenderness. Full range of motion. Female : Normal external genitalia. Skin: Warm, dry with normal turgor. Normal color with no rashes, no lesions, and no evidence of cellulitis. MS/ Extremity: Pulses equal, no cyanosis. Neurovascular intact. Full, normal range of motion., bilateral aka Neuro: Awake and alert, GCS 15, oriented to person, place, time, and situation. Cranial nerves II-XII grossly intact. Motor strength 5/5 in all extremities. Sensory grossly intact. Cerebellar exam normal. Normal gait. Psych: Awake, alert, with orientation to person, place and time. Behavior, mood, and affect are within normal limits. 12:58 Cardiovascular: Rate: tachycardic, Rhythm: regular, Pulses: Pulses are 4+ in bilateral radial, brachial, femoral, popliteal, posterior tibial and and dorsalis pedis arteries.. Heart sounds: normal, Edema: is not appreciated, JVD: is not appreciated, 12:58 ECG was reviewed by the Attending Physician. Vital Signs: 11:01 BP 102 / 47; Pulse 140; Resp 28; Temp 99.2(O); Pulse Ox 85% on 3 lpm NC; Weight 42.64 cm10 kg; Height 5 ft. 1 in. ; 12:30 BP 98 / 52; Pulse 120; Resp 24; Pulse Ox 100% on BiPAP; FiO2 50 %; db 13:00 BP 104 / 49; Pulse 111; Resp 20; Pulse Ox 99% on BiPAP; db 14:00 BP 96 / 53; Pulse 99; Resp 24; Pulse Ox 99% ; db 14:30 BP 141 / 107; Pulse 101; Resp 26; Pulse Ox 100% on BiPAP; db 15:00 BP 143 / 122; Pulse 97; Resp 30; Pulse Ox 100% on BiPAP; db 11:01 Body Mass Index 17.76 (42.64 kg, 154.94 cm) cm10 MDM: 10:53 Medical Screening Exam initiated ashok 13:00 Differential diagnosis: Anemia Anxiety Reaction CHF exacerbation, Chronic Obstructive ashok Pulmonary Disease obstructed airway, bronchitis, flu, URI, viral Infection, bacterial infection, URI, bronchitis, pneumonia UTI, Myocardial Infarction pneumonia, Pneumothorax Psychogenic pulmonary edema, reactive airway disease, Sepsis Unstable Angina. Antibiotic administration: LEVOFLOXACI/ZOSYN. Differential Diagnosis altered mental status, sepsis, flu. Immunization status: Pneumococcal vaccine: within last 5 years. Influenza vaccine: within last 5 years. Data reviewed: vital signs, nurses notes, EMS record, lab test result(s), EKG, radiologic studies, plain films. Consideration of Admission/Observation Patient was admitted/placed on observation. Escalation of care including admission/observation considered. I considered the following discharge prescriptions or medication management in the emergency department Medications were administered in the Emergency Department. See MAR. Independent interpretation of the following test(s) in the Emergency Department EKG: See my EKG interpretation above. Test considered but Not performed: Ultrasound NO 2 D ECHO. Historians other than the Patient: Family Member: FAMILY WELL INFORMED. Care significantly affected by the following chronic conditions: Chronic Obstructive Pulmonary Disease, TIA/ PULMONARY FIBROSIS/ COPD/ ANEMIA. Counseling: I had a detailed discussion with the patient and/or guardian regarding the historical points, exam findings, and any diagnostic results supporting the discharge/admit diagnosis, lab results, radiology results, the need for further work-up and treatment in the hospital. 09/07 10:54 Order name: Basic Metabolic Panel; Complete Time: 12:48 [facility] 09/07 10:54 Order name: CBC with Diff; Complete Time: 12:48 [facility] 09/07 10:54 Order name: LFT's; Complete Time: 12:48 [facility] 09/07 10:54 Order name: Magnesium; Complete Time: 12:48 [facility] 09/07 10:54 Order name: NT PRO-BNP; Complete Time: 12:48 [facility] 09/07 10:54 Order name: PT-INR; Complete Time: 12:48 [facility] 09/07 10:54 Order name: Troponin HS; Complete Time: 12:48 [facility] 09/07 10:54 Order name: Flu; Complete Time: 13:56 [facility] 09/07 10:54 Order name: SARS RAPID; Complete Time: 13:56 [facility] 09/07 11:03 Order name: Blood Culture Adult (2) [facility] 09/07 11:03 Order name: Lactate w/ 2H reflex if indic.; Complete Time: 12:48 [facility] 09/07 11:03 Order name: ABG [facility] 09/07 11:41 Order name: Manual Differential; Complete Time: 12:48 EDMS 09/07 12:14 Order name: Ghost Lactate-NO COLLECT Timer; Complete Time: 15:27 EDMS 09/07 15:01 Order name: Lactate Sepsis 2 HR Follow-up; Complete Time: 15:27 EDMS 09/07 10:54 Order name: XRAY Chest (1 view); Complete Time: 15:27 [facility] 09/07 11:03 Order name: BIPAP [facility] 09/07 11:32 Order name: CT Chest Wo Con; Complete Time: 15:27 [facility] 09/07 10:54 Order name: Cardiac monitoring; Complete Time: 11:17 [facility] 09/07 10:54 Order name: EKG - Nurse/Tech; Complete Time: 11:17 [facility] 09/07 10:54 Order name: IV Saline Lock; Complete Time: 11:17 [facility] 09/07 10:54 Order name: Labs collected and sent; Complete Time: 12:01 [facility] 09/07 10:54 Order name: O2 Per Protocol; Complete Time: 11:17 [facility] 09/07 10:54 Order name: O2 Sat Monitoring; Complete Time: 11:17 [facility] EC:58 Rate is 127 beats/min. Rhythm is regular. QRS [place] is Normal. [place] interval is normal. ashok QRS interval is normal. QT interval is normal. No Q waves. T waves are Normal. No ST changes noted. Clinical impression: Sinus tachycardia and No evidence of ischemia. Interpreted by me. Reviewed by me. Administered Medications: 11:04 CANCELLED (Duplicate Order): ns 0.9% 500 ml 500 ml IV at 1 bolus once; to be given as a ashok bolus over 30 minutes 11:35 Drug: NS 0.9% IV (30 ml/kg) 30 ml/kg IV at bolus once; Sepsis Protocol; to be given as db a bolus over 90 minutes Route: IV; Rate: bolus; Site: left wrist; 12:30 Follow up: Response: No adverse reaction; IV Status: Completed infusion; IV Intake: db 1279.2ml 11:35 Drug: Acetaminophen PO 650 mg PO once Route: PO; db 14:00 Follow up: Response: No adverse reaction db 11:40 Drug: Levalbuterol Inhalation 3.75 mg Inhalation once Route: Inhalation; db 11:45 Drug: Ipratropium Inhalation Aerosol 0.5 mg Inhalation once Route: Inhalation; db 11:45 Drug: Famotidine IVP 20 mg IVP once; dilute with 10 mL 0.9% NaCl; give over 2 minutes db Route: IVP; Site: left wrist; 14:00 Follow up: Response: No adverse reaction db 11:48 Drug: MethylPrednisoLONE IVP 2 mg/kg IVP once Route: IVP; Site: left wrist; db 13:00 Follow up: Response: No adverse reaction db 12:00 Drug: levofloxacin IVPB 500 mg 100 ml IVPB once over 60 mins Volume: 100 ml; Route: db IVPB; Infused Over: 60 mins; Site: left wrist; 13:00 Follow up: Response: No adverse reaction; IV Status: Completed infusion; IV Intake: db 100ml 13:05 Drug: Magnesium Sulfate IVPB 2 grams IVPB once over 2 hrs Route: IVPB; Infused Over: 2 db hrs; Site: left wrist; 15:00 Follow up: Response: No adverse reaction; IV Status: Completed infusion; IV Intake: 50mldb 13:33 Drug: Piperacillin-Tazobactam IVPB 3.375 grams IVPB once over 60 mins; (mix in NS 100 db mL) Route: IVPB; Infused Over: 60 mins; Site: left hand; 14:05 Follow up: Response: No adverse reaction; IV Status: Completed infusion; IV Intake: db 100ml 14:37 Drug: Oseltamivir PO 75 mg PO once Route: PO; ko1 15:30 Follow up: Response: No adverse reaction db Disposition Summary: 09/07/24 13:07 Hospitalization Ordered Notes: Hospitalization Status: Inpatient Admission ashok Provider: Mike Levine cha Condition: Fair ashok Problem: an acute exacerbation ashok Symptoms: have improved ashok Bed/Room Type: Standard ashok Location: Intensive Care Unit(09/07/24 13:22) ashok Room Assignment: 2-(09/07/24 14:55) eb Diagnosis - Hypoxemia ashok - COPD/ Chronic obstructive pulmonary disease with (acute) exacerbation ashok - Pulmonary fibrosis, unspecified ashok - Elevated white blood cell count, unspecified ashok - Severe sepsis without septic shock ashok - Hypomagnesemia ashok - Hypokalemia ashok - Influenza due to identified novel influenza A virus with pneumonia ashok Forms: - Medication Reconciliation Form ashok - SBAR form ashok - Leadership Thank You Letter ashok Signatures: Dispatcher [employer] EDMS Ivan Rodríguez MD MD cha Attema, Lee, MANAGER GALLERY-C MANAGER GALLERY-Cla1 Kayleen Corado Kathy, RN RN ko1 Carolin Ignacio RN RN db Narda Bullock, KLAUDIA RN cm10 Corrections: (The following items were deleted from the chart) 10:54 10:54 BASIC METABOLIC PANEL+C.LAB.BRZ ordered. EDMS EDMS 10:54 10:54 CBC+H.LAB.BRZ ordered. EDMS EDMS 10:54 10:54 HEPATIC FUNCTION+C.LAB.BRZ ordered. EDMS EDMS 10:54 10:54 MAGNESIUM+C.LAB.BRZ ordered. EDMS EDMS 10:54 10:54 PROBNP+C.LAB.BRZ ordered. EDMS EDMS 10:54 10:54 PROTIME (+INR)+COAG.LAB.BRZ ordered. EDMS EDMS 10:54 10:54 Troponin High Sensitivity+C.LAB.BRZ ordered. EDMS EDMS 10:54 10:54 Influenza Screen (A \T\ B)+BA.LAB.BRZ ordered. EDMS EDMS 10:54 10:54 SARS-COV-2 Antigen Rapid+I.LAB.BRZ ordered. EDMS EDMS 10:55 10:55 Chest Single View+RAD.RAD.BRZ ordered. EDMS EDMS 11:04 10:54 NS 0.9% IV 500 ml 500 ml IV at 1 bolus once; to be given as a bolus over 30 ashok minutes ordered. ashok 11:32 11:32 Thorax Wo Con+CT.RAD.BRZ ordered. EDMS EDMS 13:22 13:07 Telemetry/MedSurg (Inpatient) ashok ashok 13:22 13:07 ashok ashok 14:55 13:22 ashok eb
[2024-09-07] MEDS ORDERED: Magnesium Sulfate 2gm IVPB 2 G/50 ML BAG IV ONE (13:17)
[2024-09-07] MEDS ORDERED: NA CHLORIDE 0.9% 100 ML ONE (13:17)
[2024-09-07] MEDS ORDERED: PIPERACIL/TAZO 3.375 GM VIAL IV ONE (13:18)
[2024-09-07 13:39] LABS: SARS-CoV-2 Antigen CONTROL BLUE LINE VIS/BG OK; SARS-CoV-2 Antigen Rapid Res Negative (Negative)
--- NOTE | 2024-09-07 14:12 | RAD REPORT ---
EXAM:Thorax Wo Con CLINICAL INDICATION: Chest pain TECHNIQUE: CT chest performed.. Axial, sagittal and coronal reconstructions were obtained. One or mor e of the following dose reduction techniques were used: Automated exposure control, adjustment of the mA and/or kV according to the patient size, and/or iterative reconstruction. Unless otherwise specified, incidental findings do not require dedicated imaging follow-up. [id number]. COMPARISON: 2022 FINDINGS: Marked pulmonary fibrosis. Honeycombing is most marked within the lower lobes bilaterally.. This has mildly progressed. Moderate hiatal hernia. Mild mediastinal lymphadenopathy without significant change. No pleural effusion. No pericardial effusion Marked compression fracture has progressed since 2020. No significant perivertebral hematoma. IMPRESSION: Mild progression in extensive pulmonary fibrosis Marked compression fracture lower vertebral body. It was mildly compressed 2020. It is marked now. It has the appearance of being subacute superimposed over chronic. Portions of the vertebral body are compressed 95%.. Significant retropulsion of bone into the spinal canal is not present
--- NOTE | 2024-09-07 14:13 | RAD REPORT ---
Procedure: Chest Single View HISTORY: Shortness of breath COMPARISON: 2022 FINDINGS: Progression in extensive bilateral pulmonary opacities. No significant pleural effusion noted. The heart is mildly enlarged. IMPRESSION: Progression in dates extensive bilateral pulmonary opacities. This likely represents progressive pulm onary fibrosis
[2024-09-07] MEDS ORDERED: OSELTAMIVIR 75 MG CAP PO ONE (14:21)
--- NOTE | 2024-09-07 14:51 | P.HP ---
Certification for Inpatient Patient admitted to: Inpatient With expected LOS: >2 Midnights Patient will require the following post-hospital care: None Practitioner: I am a practitioner with admitting privileges, knowledge of patient current condition, hospital course, and medical plan of care. Services: Services provided to patient in accordance with Admission requirements found in Title 42 Section 412.3 of the Code of Federal Regulations Patient History Date of Service: 09/07/24 History of Present Illness: 79-year-old female with history of pulmonary fibrosis on home [id number], TIA, iron deficiency anemia presents to the emergency department with shortness of breath. Worse the last 3 days, she was satting in the 80s on her home O2 at 3 L. Patient was evaluated in the emergency department her labs were significant for a white blood cell count of 20.4 hemoglobin 10.3 hematocrit 30.6 Sodium 133 potassium 3.3 creatinine 1.24 GFR 45 lactic acid initially 3.5 BNP [address] of the chest without contrast was performed which showed mild progression and extensive pulmonary fibrosis, marked compression fracture lower vertebral body, was compressed in 2020 which is now marked as appearance of being subacute and superimposed over chronic. No significant retropulsion of bone into the spinal canal. Given Tamiflu, antibiotics in ED, will need to be admitted to the ICU given ongoing BiPAP. Consult pulmonary. Allergies No Known Allergies Allergy (Verified 09/13/23 09:49) Home Medications: Aspirin [Lo-Dose Aspirin EC] 81 mg PO DAILY 06/03/20 Pirfenidone [Esbriet] 2 tab PO BID 06/03/20 predniSONE [Deltasone*] 10 mg PO DAILY 06/03/20 Amlodipine Besylate 10 mg PO DAILY 07/25/22 Pantoprazole [Protonix Tab*] 1 tab PO DAILY 07/25/22 Budesonide/Glycopyr/Formoterol [Breztri Aerosphere Inhaler] 1 puff IH DAILY 07/06/23 Iron 1 tab PO DAILY 07/06/23 Albuterol Neb [Proventil 0.083% Neb Soln] 2.5 mg NEB [id number] PRN #120 amp 07/21/23 Ipratropium Neb [Atrovent*] 0.5 mg NEB [id number] PRN #120 amp 07/21/23 Cholecalciferol (Vitamin D3) [Vitamin D3] 50 mcg PO DAILY 09/13/23 - Past Medical/Surgical History Diabetic: No -: Osteoarthritis -: Pulmonary fibrosis -: Anemia -: Rheumatoid arthritis -: COPD -: pre diabetic -: Appendectomy -: Cholecystectomy -: Right hip replacement -: Left hip hemiarthroplasty -: tonsillectomy Psychosocial/ Personal History: She is . She has 3 children. 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 - Family History Mother -: Lung disease Father -: Heart disease Sister -: Other (see notes) Notes: skin disorder - Social History Alcohol use: Yes CD- Drugs: No Caffeine use: Yes Place of Residence: Home Review of Systems 10-point ROS is otherwise unremarkable Respiratory: Cough, Shortness of Breath Physical Examination - Vital Signs Pulse: 130 Pulse Ox (%): 94 - Physical Exam General: Alert, In no apparent distress, Oriented x3 HEENT: Atraumatic, PERRLA, Mucous membr. moist/pink, EOMI Neck: Supple, 2+ carotid pulse no bruit, No LAD Respiratory: Diminished, Expiratory wheezes, Other (on Bipap) Cardiovascular: Regular rate/rhythm, Normal S1 S2 Gastrointestinal: Normal bowel sounds, No tenderness Musculoskeletal: No tenderness Integumentary: No rashes Neurological: Normal speech, Normal strength at 5/5 x4 extr - Studies Laboratory Data (last 24 hrs) 09/07/24 09/07/24 09/07/24 11:26 11:26 11:26 WBC 20.40 H Hgb 10.3 L Hct 30.6 L Plt Count 434 H PT 15.1 H INR 1.36 Sodium 133 L Potassium 3.3 L BUN 30 H Creatinine 1.24 H Glucose 118 H Magnesium 1.5 L Total Bilirubin 1.6 H AST 25 ALT 25 Alkaline Phosphatase 112 Microbiology Data (last 24 hrs): 09/07/24 12:57 Nasopharnyx Influenza Type A Antigen Screen - Final 09/07/24 12:57 Nasopharnyx Influenza Type B Antigen Screen - Final Assessment and Plan - Plan Assessment: Acute on chronic hypoxic respiratory failure Severe pulmonary fibrosis on home O23 L Influenza A pneumonia Severe sepsis secondary to above Hyponatremia Hypokalemia History of TIA Iron deficiency anemia Plan: Acute on chronic hypoxic respiratory failure Severe pulmonary fibrosis on home O23 L Influenza A pneumonia Severe sepsis secondary to above Will admit to ICU given ongoing need for BiPAP Pulmonology consult Continue Tamiflu, given marked leukocytosis will also cover with Levaquin given concern for superimposed bacterial infection Supplemental oxygen including BiPAP as necessary, wean as tolerated As needed nebulizer treatments, scheduled steroids Appreciate further input from pulmonology Hyponatremia Hypokalemia Given IV fluid bolus in the ED Potassium protocol in place Recheck chemistry in the morning History of TIA Iron deficiency anemia Continue home medications DVT PPX: Lovenox Code status: Full Discharge Plan: Home Plan to discharge in: Greater than 2 days - Advance Directives Does patient have a Living Will: No Does patient have a Durable POA for Healthcare: No - Code Status/Comfort Care Code Status Assessed: Yes (Full code) Critical Care: No (65) Time Spent Managing Pts Care (In Minutes): 69
[2024-09-07] MEDS ORDERED: ONDANSETRON 4 MG/2 ML VIAL IV PRN (15:54)
[2024-09-07] MEDS ORDERED: ALBUTEROL 2.5 MG/3 ML NEB SOL NEB PRN (15:54)
[2024-09-07] MEDS ORDERED: IPRATROPIUM BROM 0.5MG/2.5ML NEB PRN (15:54)
[2024-09-07 16:28] VITALS: BMI 17.7
[2024-09-07] MEDS: METHYLPREDNISOLONE 40 MG INJ IV SCH (16:54)
[2024-09-07] MEDS: HEPARIN 5000 UNIT/ML 1 ML VIAL SQ SCH (16:54)
[2024-09-07] MEDS: NA CHLORIDE 0.9% 500 ML IV ONE (18:31)
[2024-09-07] MEDS: BENZONATATE 100 MG CAP PO PRN (19:37)
[2024-09-07] MEDS: ACETAMINOPHEN 325 MG TABLET PO PRN (22:21)
[2024-09-07] MEDS: MELATONIN 3 MG TABLET PO PRN (22:21)
[2024-09-08 05:29] LABS: Absolute Lymphocytes (CBC) 0.7 K/uL (0.7-4.9); Absolute Monocytes 0.5 K/uL (0.1-1.3); Absolute Neutrophil 15.3 K/uL (1.8-8.0); Basophils % 0.3 % (0-1.3); Hematocrit 28.2 % (36.0-45.0); Hemoglobin 9.6 g/dL (12.0-15.0); Lymphocytes % 4.2 % (15.3-44.8); MCH 28.2 pg (27.0-35.0); MCV 82.9 fL (80-100); MPV 6.8 fL (7.6-11.3); Monocytes % 2.8 % (3.3-12.3); Neutrophils % 92.7 % (41.7-73.7); Nucleated Red Blood Cells % 0.1 % (0-0); Platelets 396 thou/uL (152-406); RBC Red Blood Cell Count 3.41 M/uL (3.86-4.86); Red Cell Distribution Width 15.5 % (12.1-15.2)
[2024-09-08 05:40] LABS: Anion Gap 8.2 mEq/L (5.0-15.0); Potassium 3.2 mEq/L (3.5-5.1)
[2024-09-08 06:25] LABS: Magnesium 2.3 mg/dL (1.6-2.4); Phosphorus 2.7 mg/dL (2.5-4.9)
[2024-09-08] MEDS: GUAIFENESIN/CODEINE 5ML UCUP PO PRN (08:08)
--- NOTE | 2024-09-08 08:08 | P.CNS ---
Date of Consult: 09/08/24 Reason for Consult: Cough and worsening shortness of breath Chief Complaint: Cough and shortness of breath History of Present Illness: Patient is 79 years of age has been sick for about a week she has a history of pulmonary fibrosis on Esbriet became progressively worse with shortness of breath and coughing spells admitted to the hospital tested positive for influenza patient has been complaining of progressive coughing spells could not sleep last night Allergies No Known Allergies Allergy (Verified 09/13/23 09:49) Home Medications: Albuterol Sulfate [Albuterol Sulfate Hfa] 2 puff IH Q4H 09/07/24 Aspirin [Aspirin EC] 81 mg PO DAILY 09/07/24 Cholecalciferol (Vitamin D3) [Vitamin D3] 50 mcg PO DAILY 09/07/24 Metformin ER [Glucophage ER] 500 mg PO BID 09/07/24 Pantoprazole [Protonix Tab] 40 mg PO DAILY 09/07/24 Pirfenidone [Esbriet] 3 tab PO TID 09/07/24 Prednisone [Joel] 5 mg PO DAILY 09/07/24 Rosuvastatin [Crestor] 10 mg PO BEDTIME 09/07/24 hydroCHLOROthiazide [Hydrochlorothiazide] 25 mg PO DAILY 09/07/24 - Past Medical/Surgical History Diabetic: No -: Osteoarthritis -: Pulmonary fibrosis -: Anemia -: Rheumatoid arthritis -: COPD -: pre diabetic -: TIA -: Appendectomy -: Cholecystectomy -: Right hip replacement -: Left hip hemiarthroplasty -: tonsillectomy Psychosocial/ Personal History: She is . She has 3 children. 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 - Family History Mother Medical History: Lung disease Father Medical History: Heart disease Sister Medical History: Other (see notes) Notes: skin disorder - Social History Smoking Status: Unknown if ever smoked Alcohol use: No CD- Drugs: No Caffeine use: Yes Place of Residence: Home Review of Systems 10-point ROS is otherwise unremarkable General: Weakness Respiratory: Cough, Shortness of Breath Physical Examination Temp Pulse Resp BP Pulse Ox 97.9 F 78 22 H 113/73 99 09/08/24 04:00 09/08/24 06:00 09/08/24 06:00 09/08/24 06:00 09/08/24 06:00 General: Alert, Mild distress Neck: Supple Respiratory: Crackles/rales Cardiovascular: No edema, Regular rate/rhythm, Normal S1 S2 Gastrointestinal: Normal bowel sounds, Soft and benign Laboratory Data (last 24 hrs) 09/07/24 09/07/24 09/07/24 11:26 11:26 11:26 WBC 20.40 H Hgb 10.3 L Hct 30.6 L Plt Count 434 H PT 15.1 H INR 1.36 Sodium 133 L Potassium 3.3 L BUN 30 H Creatinine 1.24 H Glucose 118 H Magnesium 1.5 L Total Bilirubin 1.6 H AST 25 ALT 25 Alkaline Phosphatase 112 - Problems (1) Acute exacerbation of idiopathic pulmonary fibrosis Current Visit: No Status: Acute Plan: Patient is 79 years of age with a history of pulmonary fibrosis on Esbriet admitted with an exacerbation agree with the antibiotics and steroids for now complaining of severe coughing spells that promethazine with codeine chest x-ray reviewed labs reviewed white count is elevated patient is mildly anemic renal function is normal medications reviewed stable to be transferred to the floor we will change management coordinator to p.o. prednisone continue with levofloxacin increased dose
[2024-09-08] MEDS: OSELTAMIVIR 30 MG CAP PO SCH (08:09)
[2024-09-08] MEDS: POTASSIUM 25 MEQ EFFERV TAB PO ONE (08:09)
[2024-09-08] MEDS ORDERED: levoFLOXacin 750 MG TAB PO SCH (09:00)
[2024-09-08] MEDS: predniSONE 20 MG TAB PO SCH (09:23)
--- NOTE | 2024-09-08 09:24 | P.PN ---
Date of Service: 09/08/24 Subjective: Improving, feeling better Weaned off BiPAP currently on nasal cannula Persistent cough ROS: 10 point ROS as noted above, otherwise negative Physical exam GEN: Alert, oriented, NAD HEENT: Normal conjunctiva, sclera anicteric CV: Regular rate and rhythm, no edema Pulm: Nonlabored respirations on nasal cannula ABD: Soft, nontender, nondistended MSK: No joint tenderness Integumentary: No rashes Neuro: Normal speech, normal affect Vitals reviewed Assessment: Acute on chronic hypoxic respiratory failure Severe pulmonary fibrosis on home O23 L Influenza A pneumonia Severe sepsis secondary to above Hyponatremia Hypokalemia History of TIA Iron deficiency anemia Plan: Acute on chronic hypoxic respiratory failure Severe pulmonary fibrosis on home O23 L Influenza A pneumonia Severe sepsis secondary to above Stable for downgrade to floor now off BiPAP, continue nasal cannula Pulmonology following Continue Tamiflu, given marked leukocytosis will also cover with Levaquin given concern for superimposed bacterial infection Supplemental oxygen including BiPAP as necessary, wean as tolerated As needed nebulizer treatments, scheduled steroids Hyponatremia Hypokalemia Sodium improving Potassium protocol in place Monitor chemistry daily History of TIA Iron deficiency anemia Continue home medications DVT PPX: Lovenox Code status: Full Discharge Plan: Home Plan to discharge in: Greater than 2 days Time Spent Managing Pts Care (In Minutes): 35
[2024-09-08] MEDS: PROMETHAZINE-DM 5 ML OSYR PO PRN (11:10)
[2024-09-08] MEDS ORDERED: PIRFENIDONE 267 MG PO SCH ×2 (14:00)
[2024-09-08] MEDS ORDERED: OSELTAMIVIR 30 MG CAP PO SCH (21:00)
[2024-09-08] MEDS: ROSUVASTATIN 10 MG TAB PO SCH (21:56)
[2024-09-09 04:46] LABS: Absolute Lymphocytes (CBC) 0.4 K/uL (0.7-4.9); Absolute Monocytes 1.1 K/uL (0.1-1.3); Hematocrit 28.7 % (36.0-45.0); Hemoglobin 9.7 g/dL (12.0-15.0); Lymphocytes % 1.9 % (15.3-44.8); MCH 27.9 pg (27.0-35.0); MCHC 33.7 g/dL (32.0-36.0); MCV 82.8 fL (80-100); MPV 6.9 fL (7.6-11.3); Monocytes % 5.3 % (3.3-12.3); Neutrophils % 92.8 % (41.7-73.7); Nucleated Red Blood Cells % 0.1 % (0-0); Platelets 430 thou/uL (152-406); RBC Red Blood Cell Count 3.46 M/uL (3.86-4.86); Red Cell Distribution Width 15.2 % (12.1-15.2)
[2024-09-09 04:48] LABS: Anion Gap 6.1 mEq/L (5.0-15.0); Potassium 4.1 mEq/L (3.5-5.1)
--- NOTE | 2024-09-09 08:02 | P.PN ---
Subjective Date of Service: 09/09/24 Chief Complaint: Pneumonia and a chronic cough Change in patient's condition still continues to complain of severe persistent coughing spells this was present even before she had an exacerbation Review of Systems General: Weakness Respiratory: Cough, Shortness of Breath Physical Examination - Vital Signs Temperature: 97.9 F Blood Pressure: 98/57 Pulse: 91 Respirations: 20 Pulse Ox (%): 95 - Physical Exam General: Alert, Oriented x3 Respiratory: Crackles/rales Cardiovascular: No edema, Regular rate/rhythm Assessment And Plan - Current Problems (Diagnosis) (1) Acute exacerbation of idiopathic pulmonary fibrosis Current Visit: No Status: Acute Plan: Patient has an exacerbation of her pulmonary fibrosis suspect superimposed pneumonia complaining of chronic persistent coughing spells white count is minimally elevated cultures are negative add p.o. levofloxacin labs chemistries reviewed cultures negative patient has oxygen at home plan to ambulate charge planning on levofloxacin and low-dose prednisone in addition to low-dose gabapentin for cough suppression has idiopathic pulmonary fibrosis and also takes Esbriet at home
[2024-09-09] MEDS: hydroCHLOROthiazide 25 MG TAB PO SCH (08:25)
[2024-09-09] MEDS: ASPIRIN EC 81 MG TAB PO SCH (08:25)
[2024-09-09] MEDS: GABAPENTIN 100 MG CAP PO SCH (08:25)
[2024-09-09] MEDS: PANTOPRAZOLE 40MG TABLET PO SCH (08:25)
[2024-09-09 08:28] LABS: Band Neutrophils 2 % (0-1); Blood Morphology Comment NOT SEEN (NOT SEEN); Differential Total Cells Count 100; Lymphocytes 3 % (15-42); Monocytes 4 % (0-10); Platelet Estimate ADEQ; Segmented Neutrophils 91 % (40-80); Toxic Granulation 1+
[2024-09-09] MEDS: levoFLOXacin 750 MG TAB PO SCH (08:28)
[2024-09-09] MEDS: ENOXAPARIN 40 MG/0.4 ML SQ SCH (08:29)
[2024-09-09] MEDS ORDERED: Levofloxacin500mg IV 500 MG/100 ML BAG IV SCH ×2 (11:00→17:00)
[2024-09-09] MEDS ORDERED: levoFLOXacin 750 MG TAB PO SCH (11:00)
--- NOTE | 2024-09-09 13:34 | P.PN ---
Date of Service: 09/09/24 Subjective: Awake, conversing well On 3 LNC Will continue monitor tolerance ROS: 10 point ROS as noted above, otherwise negative Physical exam GEN: AAO x 3, NAD HEENT: Normal conjunctiva, sclera anicteric CV: RRR, S1 S2 present, no edema Pulm: Nonlabored respirations, on nasal cannula ABD: Soft on palpation, ND/NT, active bowel sounds MSK: No joint tenderness Integumentary: No rashes Neuro: Normal speech, normal affect Vitals reviewed Assessment: Acute on chronic hypoxic respiratory failure Severe pulmonary fibrosis on home O23 L Influenza A pneumonia Severe sepsis secondary to above Hyponatremia Hypokalemia History of TIA Iron deficiency anemia Plan: Acute on chronic hypoxic respiratory failure Severe pulmonary fibrosis on home O23 L Influenza A pneumonia Severe sepsis secondary to above continue with 3 L nasal cannula Pulmonology following Continue Tamiflu, given marked leukocytosis will also cover with Levaquin given concern for superimposed bacterial infection As needed nebulizer treatments, scheduled steroids Hyponatremia Hypokalemia Sodium improving Potassium protocol in place Monitor chemistry daily History of TIA Iron deficiency anemia Continue home medications DVT PPX: Lovenox Code status: Full Discharge Plan: Home Plan to discharge in: Greater than 2 days
[2024-09-10 04:57] LABS: Absolute Lymphocytes (CBC) 0.5 K/uL (0.7-4.9); Absolute Monocytes 1.1 K/uL (0.1-1.3); Absolute Neutrophil 16.6 K/uL (1.8-8.0); Basophils % 0.2 % (0-1.3); Hematocrit 28.7 % (36.0-45.0); Hemoglobin 9.5 g/dL (12.0-15.0); Lymphocytes % 2.8 % (15.3-44.8); MCH 27.6 pg (27.0-35.0); MCHC 33.2 g/dL (32.0-36.0); MCV 83.3 fL (80-100); Platelets 435 thou/uL (152-406); RBC Red Blood Cell Count 3.45 M/uL (3.86-4.86); Red Cell Distribution Width 15.3 % (12.1-15.2)
[2024-09-10 05:07] LABS: Anion Gap 7.1 mEq/L (5.0-15.0); Potassium 4.1 mEq/L (3.5-5.1)
[2024-09-10 08:24] VITALS: O2SAT 94
[2024-09-10] MEDS: ENSURE ENLIVE 237 ML CAN PO SCH (09:00)
--- NOTE | 2024-09-10 09:35 | P.DS ---
Admission Date: 09/07/24 Discharge Date: 09/10/24 Disposition: ROUTINE DISCHARGE Discharge Condition: GOOD Reason for Admission: Pneumonia and a chronic cough Brief History of Present Illness: Diagnosis Acute on chronic hypoxic respiratory failure Severe pulmonary fibrosis on home O2 3 L Influenza A pneumonia Severe sepsis secondary to above Hyponatremia Hypokalemia History of TIA Iron deficiency anemia HPI 09/07/24 Jacki Brar is a 79-year-old female with history of pulmonary fibrosis on home O2 liters, TIA, iron deficiency anemia presents to the emergency department with shortness of breath. Worse the last 3 days, she was satting in the 80s on her home O2 at 3 L. Patient was evaluated in the emergency department her labs were significant for a white blood cell count of 20.4 hemoglobin 10.3 hematocrit 30.6 Sodium 133 potassium 3.3 creatinine 1.24 GFR 45 lactic acid initially 3.5 BNP [address] of the chest without contrast was performed which showed mild progression and extensive pulmonary fibrosis, marked compression fracture lower vertebral body, was compressed in 2020 which is now marked as appearance of being subacute and superimposed over chronic. No significant retropulsion of bone into the spinal canal. Given Tamiflu, antibiotics in ED, will need to be admitted to the ICU given ongoing BiPAP. Consult pulmonary. Hospital Course: Jacki Brar was admitted to ICU on the Bipap septic with influenza A. She was weaned off the bipap on 09/08, blood cultures negative. She was stabilized and treated with Tamiflu, levaquin, duonebs, and steroids. She is on home oxygen and remained on 2-3 LNC this admission. Blood cultures negative, ambulating with walker, ADLs independent. She is tolerating PO diet, afebrile, and hemody namically stable for discharge. She was provided levaquin, gabapentin, and phenergan DM to her pharmacy. Continue taking medications as prescribed by outpatient physicians. She will need to follow up with her PCP and Dr. Cormier for continued medication management. Physical exam GEN: Alert and oriented x 3, NAD HEENT: Normal conjunctiva, sclera anicteric CV: Regular rate and rhythm, S1 S2 present, no edema Pulm: Nonlabored respirations, on nasal cannula ABD: Soft on palpation, Nontender, normal active bowel sounds MSK: No joint tenderness Integumentary: No rashes Neuro: Normal speech, normal affect Vital Signs/Physical Exam: Temp Pulse Resp BP Pulse Ox 98.5 F 89 18 120/90 93 09/10/24 04:00 09/10/24 04:00 09/10/24 04:00 09/10/24 04:00 09/10/24 04:00 Laboratory Data at Discharge: WBC 18.20 thou/uL (4.3-10.9) H 09/10/24 04:05 Hgb 9.5 g/dL (12.0-15.0) L 09/10/24 04:05 Hct 28.7 % (36.0-45.0) L 09/10/24 04:05 Plt Count 435 thou/uL (152-406) H 09/10/24 04:05 PT 15.1 SECONDS (9.4-12.5) H 09/07/24 11:26 INR 1.36 09/07/24 11:26 Sodium 137 mEq/L (136-145) 09/10/24 04:05 Potassium 4.1 mEq/L (3.5-5.1) 09/10/24 04:05 BUN 13 mg/dL (7-18) 09/10/24 04:05 Creatinine 0.71 mg/dL (0.55-1.02) 09/10/24 04:05 Glucose 154 mg/dL (74-106) H 09/10/24 04:05 Phosphorus 2.7 mg/dL (2.5-4.9) 09/08/24 05:08 Magnesium 2.3 mg/dL (1.6-2.4) 09/08/24 05:08 Total Bilirubin 1.6 mg/dL (0.2-1.0) H 09/07/24 11:26 AST 25 U/L (15-37) 09/07/24 11:26 ALT 25 U/L (13-56) 09/07/24 11:26 Alkaline Phosphatase 112 U/L (45-117) 09/07/24 11:26 Home Medications: Albuterol Sulfate [Albuterol Sulfate Hfa] 2 puff IH Q4H 09/07/24 Aspirin [Aspirin EC] 81 mg PO DAILY 09/07/24 Cholecalciferol (Vitamin D3) [Vitamin D3] 50 mcg PO DAILY 01/05/25 Metformin ER [Glucophage ER*] 500 mg PO BID 09/07/24 Pantoprazole [Protonix Tab*] 40 mg PO DAILY 09/07/24 Pirfenidone [Esbriet] 3 tab PO TID 09/07/24 Prednisone [Joel] 5 mg PO DAILY 09/07/24 Rosuvastatin [Crestor*] 10 mg PO BEDTIME 09/07/24 hydroCHLOROthiazide [Hydrochlorothiazide] 25 mg PO DAILY 09/07/24 Benzonatate [Tessalon Perle*] 100 mg PO TID PRN 5 Days #15 cap 09/10/24 Gabapentin [Neurontin*] 200 mg PO BID 30 Days #60 cap 09/10/24 Promethazine/Dextrometh Syr [Phenergan Dm Oral Syrup*] 5 ml PO Q6H PRN 10 Days #1 bottle 09/10/24 levoFLOXacin [Levaquin*] 750 mg PO DAILY 7 Days #7 tab 09/10/24 New Medications: levoFLOXacin [Levaquin*] 750 mg PO DAILY 7 Days #7 tab Gabapentin [Neurontin*] 200 mg PO BID 30 Days #60 cap Promethazine/Dextrometh Syr [Phenergan Dm Oral Syrup*] 5 ml PO Q6H PRN 10 Days #1 bottle PRN Reason: Cough Benzonatate [Tessalon Perle*] 100 mg PO TID PRN 5 Days #15 cap PRN Reason: COUGH - 1ST LINE Physician Discharge Instructions: 1. Please call and schedule a follow-up appointment with your PCP in 3-5 days - Please follow-up with your PCP for medication refills/adjustments 2. Please call and schedule a follow-up appointment with Dr. Cormier in one week 3. Continue regular diet 4. No activity restrictions 5. Return to the ED if symptoms worsen New medications Levofloxacin 750 mg daily gabapentin 200 mg twice daily promethazine/destrometh syr 5 ml Q6Hr for cough tessalon perle 100 mg three times daily for cough Followup: Arsalan Cormier MD [ACTIVE - CAN ADMIT] - 1-2 Weeks Danya España FNP [Primary Care Provider] - 1-2 Weeks
[2024-09-10 10:03] VITALS: BP 114/63
[2024-09-10 10:06] VITALS: TEMP 97.9
--- NOTE | 2024-09-15 11:13 | EKG ---
Test Date: 2024-09-07 Test Time: 11:08:51 Fisheries Inspector: HERMILA MEASUREMENT RESULTS: Intervals: Rate: 127 HI: 140 QRSD: 82 QT: 306 QTc: 444 Colman: P: 53 HI: 140 QRS: 130 T: 35 INTERPRETIVE STATEMENTS: Sinus tachycardia Nonspecific ST and T wave abnormality Abnormal ECG Compared to ECG 09/02/2023 14:13:57 Sinus rhythm no longer present Ventricular premature complex(es) no longer present ST (T wave) deviation still present Electronically Signed On 09-15-24 11:01:50 HOSPITAL SCIENTIST by Tyler Soto
== END 2024-09-10 10:40 | disposition home or self-care (01) | DRG 871 ==
LOC: ER 10:49 → ERHOLD 13:58 → 3RD-ICU 14:58 → 2ND 09-08 12:12
PROVIDERS: ADMIT Hospitalist; ATTEND Internal Medicine
PROC: 4A033R1 Measurement of Arterial Saturation, Peripheral, Percutaneous Approach (ICD-10-PCS; principal; 2024-09-07)
PROC: 5A09357 Assistance with Respiratory Ventilation, Less than 24 Consecutive Hours, Continuous Positive Airway Pressure (ICD-10-PCS; 2024-09-07)
DX: A41.89 Other specified sepsis (principal); J09.X1 Influenza due to identified novel influenza A virus with pneumonia; R65.21 Severe sepsis with septic shock; J96.21 Acute and chronic respiratory failure with hypoxia; E44.0 Moderate protein-calorie malnutrition; Z68.1 Body mass index [BMI] 19.9 or less, adult; J44.1 Chronic obstructive pulmonary disease with (acute) exacerbation; E87.1 Hypo-osmolality and hyponatremia; J44.0 Chronic obstructive pulmonary disease with (acute) lower respiratory infection; E83.42 Hypomagnesemia; E87.6 Hypokalemia; J84.112 Idiopathic pulmonary fibrosis; D50.9 Iron deficiency anemia, unspecified; Z79.82 Long term (current) use of aspirin; Z11.52 Encounter for screening for COVID-19; Z99.81 Dependence on supplemental oxygen; Z79.52 Long term (current) use of systemic steroids; Z90.49 Acquired absence of other specified parts of digestive tract; Z86.73 Personal history of transient ischemic attack (TIA), and cerebral infarction without residual deficits; Z96.643 Presence of artificial hip joint, bilateral; Z79.899 Other long term (current) drug therapy
CPT/HCPCS: 36415; 36600; 71045; 71250; 80048; 80076; 82805; 83605; 83735; 83880; 84100; 84132; 84484; 85025; 85610; 87040; 87804; 87811; 93005; 94660; 94760; 99285; J1644; J1650; J2543; J2919; J3475; J7030; J7040; J7050; J7512; J7614; J7644